=== PATIENT | female | born 1980 | race Caucasian/White ===

== ENCOUNTER 2017-06-08 11:45 | Emergency (ER) | payer OTHER ==
[~2017-06-08] VITALS: Ht 157.5 cm; Wt 46.3 kg
[~2017-06-08 11:45] MED LIST: ALPR0.5T6 PO; CYCL10TA2 PO; HYDR-971 PO; INSU100I11 SQ; INSU100I13 SQ; INSU100I27 SQ; NAPR500T PO; PARO10TA3 PO; SULF1TAB24 PO
[2017-06-08 11:54] VITALS: BP 136/86
[2017-06-08] MEDS ORDERED: CEPH-264 PO (12:14)
--- NOTE | 2017-06-08 12:14 | PHYS DOC ---
Past Medical History Past Medical History: Anxiety, Depression, Diabetes-Type I, Ovarian Cyst, Pancreatitis Past Surgical History: Cholecystectomy, Other Additional Past Surgical Histo: L. OVARY AND FALLOPIAN TUBE Alcohol Use: Rarely Drug Use: None Adult General Chief Complaint Chief Complaint: VAGINAL PROBLEM HPI HPI Patient is a 37 year old female presents the ED for Bartholin gland abscess reevaluation. Abscess drained on Friday. Notes some improvement but not as quick as expected. Denies fever, abdominal pain, headache, n/v, chest pain or shortness of breath. Review of Systems Review of Systems Constitutional: Denies fever or chills [] Eyes: Denies change in visual acuity, redness, or eye pain [] HENT: Denies nasal congestion or sore throat [] Respiratory: Denies cough or shortness of breath [] Cardiovascular: No additional information not addressed in HPI [] GI: Denies abdominal pain, nausea, vomiting, bloody stools or diarrhea [] : Denies dysuria or hematuria [] Musculoskeletal: Denies back pain or joint pain [] Integument: Denies rash or skin lesions [] Neurologic: Denies headache, focal weakness or sensory changes [] Endocrine: Denies polyuria or polydipsia [] Allergies Allergies Allergies Coded Allergies Type Severity Reaction Last Updated Verified meperidine Allergy Intermediate hives 04/24/16 Yes tramadol Allergy Intermediate 04/24/16 Yes Physical Exam Physical Exam Constitutional: Well developed, well nourished, no acute distress, non-toxic appearance. [] HENT: Normocephalic, atraumatic, bilateral external ears normal, oropharynx moist, no oral exudates, nose normal. [] Eyes: PERRLA, EOMI, conjunctiva normal, no discharge. [] Neck: Normal range of motion, no tenderness, supple, no stridor. [] Cardiovascular:Heart rate regular rhythm, no murmur [] Lungs & Thorax: Bilateral breath sounds clear to auscultation [] Abdomen: Bowel sounds normal, soft, no tenderness, no masses, no pulsatile masses. [] EXAM: INCISION OPEN AND HEALING. NO DISCHARGE FROM SITE. NO PACKING PRESENT. (ENGLISH COMPOSITION INSTRUCTOR PRESENT.) Skin: Warm, dry, no erythema, no rash. [] Back: No tenderness, no CVA tenderness. [] Extremities: No tenderness, no cyanosis, no clubbing, ROM intact, no edema. [] Neurologic: Alert and oriented X 3, normal motor function, normal sensory function, no focal deficits noted. [] Psychologic: Affect normal, judgement normal, mood normal. [] Current Patient Data Vital Signs Vital Signs Date Time Temp Pulse Resp B/P (MAP) Pulse Ox O2 Delivery O2 Flow Rate FiO2 06/08/17 11:54 98.7 120 22 136/86 (103) 98 Room Air 98.7 EKG EKG [] Radiology/Procedures Radiology/Procedures [] Course & Med Decision Making Course & Med Decision Making Pertinent Labs and Imaging studies reviewed. (See chart for details) []Incision and drainage site well-appearing. No discharge expressed. Vendor Analyst present. Will add Keflex on to patient's Bactrim regimen. Patient given Zofran to tolerate Bactrim prescription because she says it makes her nauseous. Discussed follow-up for wound reevaluation in 3 days. Provided contact information/education. Discussed reasons to return to the ED. Patient understands and agrees with plan. Dragon Disclaimer Dragon Disclaimer This electronic medical record was generated, in whole or in part, using a voice recognition dictation system. Departure Departure Impression: Primary Impression: Wound check, abscess Disposition: 01 HOME, SELF-CARE Condition: STABLE Referrals: EVANGELINA LAIRD MD (PCP) Patient Instructions: Wound Check Scripts Ondansetron (ZOFRAN ODT) 4 Mg Tab.rapdis 1 TAB SL Q8HRS, #10 TAB Prov: TIMOTHY HESS 06/08/17 Cephalexin (KEFLEX) 500 Mg Capsule 1 CAP PO QID, #28 CAP Prov: TIMOTHY HESS 06/08/17 TIMOTHY HESS Jun 08, 2017 12:14
[2017-06-08] MEDS ORDERED: ONDA4TAB10 SL (12:16)
== END 2017-06-08 12:31 | disposition home or self-care (01) ==
LOC: ER 11:45
DX: Z48.01 Encounter for change or removal of surgical wound dressing (principal); F41.9 Anxiety disorder, unspecified; F32.9 Major depressive disorder, single episode, unspecified; E10.9 Type 1 diabetes mellitus without complications; Z90.49 Acquired absence of other specified parts of digestive tract; Z88.5 Allergy status to narcotic agent; Z88.8 Allergy status to other drugs, medicaments and biological substances
CPT/HCPCS: 99283

== ENCOUNTER → 2018-08-06 | Outpatient (CLI) | payer OTHER ==
[~2018-08-06] MED LIST changes: +CEPH-264 PO; +HYDR-3164 PO; -HYDR-971 PO; +NAPR-683 PO; -NAPR500T PO; +ONDA4TAB10 SL
[2018-08-06 11:16] VITALS: BP 124/82
== END | disposition home or self-care (01) ==
LOC: PMGWNDHBO 13:00
PROVIDERS: ATTEND Emergency Medicine Undersea and Hyperbaric Medicine
DX: M72.6 Necrotizing fasciitis (principal); E10.9 Type 1 diabetes mellitus without complications; F41.9 Anxiety disorder, unspecified; F39 Unspecified mood [affective] disorder; Z90.49 Acquired absence of other specified parts of digestive tract
CPT/HCPCS: 82962

== ENCOUNTER → 2018-09-07 | Outpatient (CLI) | payer MEDICAID ==
[2018-08-31 23:00] VITALS: BP 101/66
[~2018-09-07] MED LIST changes: +FERR325T72 PO; +LEVO100T PO; +Pantoprazole PO
== END | disposition home or self-care (01) ==
LOC: PMGWOUND 11:25
PROVIDERS: ATTEND Nurse Practitioner Family
DX: L02.811 Cutaneous abscess of head [any part, except face] (principal); M72.6 Necrotizing fasciitis; E11.649 Type 2 diabetes mellitus with hypoglycemia without coma; E11.10 Type 2 diabetes mellitus with ketoacidosis without coma; E11.43 Type 2 diabetes mellitus with diabetic autonomic (poly)neuropathy; F41.9 Anxiety disorder, unspecified; F32.9 Major depressive disorder, single episode, unspecified; E03.9 Hypothyroidism, unspecified; K21.9 Gastro-esophageal reflux disease without esophagitis; Z79.4 Long term (current) use of insulin; Z87.891 Personal history of nicotine dependence; Z90.49 Acquired absence of other specified parts of digestive tract; Z85.43 Personal history of malignant neoplasm of ovary
CPT/HCPCS: 97605

== ENCOUNTER → 2018-09-10 | Outpatient (CLI) | payer MEDICAID ==
[2018-08-31 23:00] VITALS: BP 101/66
== END | disposition home or self-care (01) ==
LOC: PMGWOUND 11:23
PROVIDERS: ATTEND Emergency Medicine Undersea and Hyperbaric Medicine
DX: L02.811 Cutaneous abscess of head [any part, except face] (principal); L02.415 Cutaneous abscess of right lower limb; M72.6 Necrotizing fasciitis; E11.649 Type 2 diabetes mellitus with hypoglycemia without coma; E11.10 Type 2 diabetes mellitus with ketoacidosis without coma; E11.43 Type 2 diabetes mellitus with diabetic autonomic (poly)neuropathy; K31.84 Gastroparesis; F41.9 Anxiety disorder, unspecified; F32.9 Major depressive disorder, single episode, unspecified; E03.9 Hypothyroidism, unspecified; K21.9 Gastro-esophageal reflux disease without esophagitis; Z79.4 Long term (current) use of insulin; Z87.891 Personal history of nicotine dependence; Z85.43 Personal history of malignant neoplasm of ovary; Z90.49 Acquired absence of other specified parts of digestive tract
CPT/HCPCS: 10060

== ENCOUNTER → 2018-09-21 | Outpatient (CLI) | payer OTHER ==
[2018-09-18 15:19] VITALS: BP 153/97
[~2018-09-21] MED LIST changes: +AMOX1TAB11 PO; +Fluconazole PO
== END | disposition home or self-care (01) ==
LOC: PMGWOUND 10:53
PROVIDERS: ATTEND Emergency Medicine Undersea and Hyperbaric Medicine
DX: L02.811 Cutaneous abscess of head [any part, except face] (principal); L02.415 Cutaneous abscess of right lower limb; L02.11 Cutaneous abscess of neck; M72.6 Necrotizing fasciitis; E11.649 Type 2 diabetes mellitus with hypoglycemia without coma; E11.10 Type 2 diabetes mellitus with ketoacidosis without coma; E11.43 Type 2 diabetes mellitus with diabetic autonomic (poly)neuropathy; K31.84 Gastroparesis; F41.9 Anxiety disorder, unspecified; F32.9 Major depressive disorder, single episode, unspecified; E03.9 Hypothyroidism, unspecified; K21.9 Gastro-esophageal reflux disease without esophagitis; Z87.891 Personal history of nicotine dependence; Z85.43 Personal history of malignant neoplasm of ovary; Z90.49 Acquired absence of other specified parts of digestive tract; Z88.8 Allergy status to other drugs, medicaments and biological substances; Z79.899 Other long term (current) drug therapy; Z79.4 Long term (current) use of insulin
CPT/HCPCS: 99214; G0463

== ENCOUNTER → 2018-09-23 | Outpatient (CLI) | payer OTHER ==
[2018-09-18 15:19] VITALS: BP 153/97
== END | disposition home or self-care (01) ==
LOC: PMGWOUND 09:29
PROVIDERS: ATTEND Preventive Medicine Undersea and Hyperbaric Medicine
DX: L02.811 Cutaneous abscess of head [any part, except face] (principal); L02.415 Cutaneous abscess of right lower limb; L02.11 Cutaneous abscess of neck; M72.6 Necrotizing fasciitis; E11.649 Type 2 diabetes mellitus with hypoglycemia without coma; E11.10 Type 2 diabetes mellitus with ketoacidosis without coma; E11.43 Type 2 diabetes mellitus with diabetic autonomic (poly)neuropathy; K31.84 Gastroparesis; F41.9 Anxiety disorder, unspecified; F32.9 Major depressive disorder, single episode, unspecified; E03.9 Hypothyroidism, unspecified; Z87.891 Personal history of nicotine dependence; K21.9 Gastro-esophageal reflux disease without esophagitis; Z85.43 Personal history of malignant neoplasm of ovary; Z90.49 Acquired absence of other specified parts of digestive tract; Z88.8 Allergy status to other drugs, medicaments and biological substances; Z79.899 Other long term (current) drug therapy; Z79.4 Long term (current) use of insulin
CPT/HCPCS: 99214; G0463

== ENCOUNTER → 2018-09-25 | Outpatient (CLI) | payer OTHER ==
[2018-09-18 15:19] VITALS: BP 153/97
== END | disposition home or self-care (01) ==
LOC: PMGWOUND 10:03
PROVIDERS: ATTEND Preventive Medicine Undersea and Hyperbaric Medicine
DX: L02.415 Cutaneous abscess of right lower limb (principal); L02.11 Cutaneous abscess of neck; M72.6 Necrotizing fasciitis; E11.43 Type 2 diabetes mellitus with diabetic autonomic (poly)neuropathy; K31.84 Gastroparesis; E11.649 Type 2 diabetes mellitus with hypoglycemia without coma; E11.10 Type 2 diabetes mellitus with ketoacidosis without coma; E11.65 Type 2 diabetes mellitus with hyperglycemia; F41.9 Anxiety disorder, unspecified; E03.9 Hypothyroidism, unspecified; F32.9 Major depressive disorder, single episode, unspecified; K21.9 Gastro-esophageal reflux disease without esophagitis; Z79.4 Long term (current) use of insulin; Z85.43 Personal history of malignant neoplasm of ovary; Z87.891 Personal history of nicotine dependence; Z90.49 Acquired absence of other specified parts of digestive tract
CPT/HCPCS: 99214; G0463

== ENCOUNTER → 2018-09-28 | Outpatient (CLI) | payer OTHER ==
[2018-09-18 15:19] VITALS: BP 153/97
== END | disposition home or self-care (01) ==
LOC: PMGWOUND 11:25
PROVIDERS: ATTEND Emergency Medicine Undersea and Hyperbaric Medicine
DX: L02.415 Cutaneous abscess of right lower limb (principal); L02.11 Cutaneous abscess of neck; M72.6 Necrotizing fasciitis; E11.43 Type 2 diabetes mellitus with diabetic autonomic (poly)neuropathy; K31.84 Gastroparesis; E11.65 Type 2 diabetes mellitus with hyperglycemia; E11.649 Type 2 diabetes mellitus with hypoglycemia without coma; E11.10 Type 2 diabetes mellitus with ketoacidosis without coma; F41.9 Anxiety disorder, unspecified; E03.9 Hypothyroidism, unspecified; F32.9 Major depressive disorder, single episode, unspecified; K21.9 Gastro-esophageal reflux disease without esophagitis; Z79.4 Long term (current) use of insulin; Z85.43 Personal history of malignant neoplasm of ovary; Z87.891 Personal history of nicotine dependence; Z90.49 Acquired absence of other specified parts of digestive tract
CPT/HCPCS: 97597

== ENCOUNTER → 2018-10-01 | Outpatient (CLI) | payer MEDICAID, OTHER ==
[2018-09-18 15:19] VITALS: BP 153/97
== END | disposition home or self-care (01) ==
LOC: PMGWOUND 11:05
PROVIDERS: ATTEND Emergency Medicine Undersea and Hyperbaric Medicine
DX: L02.415 Cutaneous abscess of right lower limb (principal); L02.11 Cutaneous abscess of neck; R19.7 Diarrhea, unspecified; M72.6 Necrotizing fasciitis; E11.65 Type 2 diabetes mellitus with hyperglycemia; E11.649 Type 2 diabetes mellitus with hypoglycemia without coma; E11.10 Type 2 diabetes mellitus with ketoacidosis without coma; E11.43 Type 2 diabetes mellitus with diabetic autonomic (poly)neuropathy; K31.84 Gastroparesis; F41.9 Anxiety disorder, unspecified; E03.9 Hypothyroidism, unspecified; F32.9 Major depressive disorder, single episode, unspecified; K21.9 Gastro-esophageal reflux disease without esophagitis; Z79.4 Long term (current) use of insulin; Z87.891 Personal history of nicotine dependence; Z85.43 Personal history of malignant neoplasm of ovary; Z90.49 Acquired absence of other specified parts of digestive tract
CPT/HCPCS: 36415; 87493; 99214; G0463

== ENCOUNTER → 2018-10-05 | Outpatient (CLI) | payer MEDICAID, OTHER ==
[2018-09-18 15:19] VITALS: BP 153/97
== END | disposition home or self-care (01) ==
LOC: PMGWOUND 11:32
PROVIDERS: ATTEND Emergency Medicine Undersea and Hyperbaric Medicine
DX: L02.11 Cutaneous abscess of neck (principal); L02.415 Cutaneous abscess of right lower limb; R19.7 Diarrhea, unspecified; M72.6 Necrotizing fasciitis; E11.43 Type 2 diabetes mellitus with diabetic autonomic (poly)neuropathy; K31.84 Gastroparesis; E11.65 Type 2 diabetes mellitus with hyperglycemia; E11.649 Type 2 diabetes mellitus with hypoglycemia without coma; E11.10 Type 2 diabetes mellitus with ketoacidosis without coma; F41.9 Anxiety disorder, unspecified; E03.9 Hypothyroidism, unspecified; K21.9 Gastro-esophageal reflux disease without esophagitis; F32.9 Major depressive disorder, single episode, unspecified; Z79.4 Long term (current) use of insulin; Z87.891 Personal history of nicotine dependence; Z85.43 Personal history of malignant neoplasm of ovary; Z90.49 Acquired absence of other specified parts of digestive tract
CPT/HCPCS: 99214; G0463

== ENCOUNTER → 2018-10-08 | Outpatient (CLI) | payer MEDICAID, OTHER ==
[2018-09-18 15:19] VITALS: BP 153/97
== END | disposition home or self-care (01) ==
LOC: PMGWOUND 10:09
PROVIDERS: ATTEND Emergency Medicine Undersea and Hyperbaric Medicine
DX: L02.415 Cutaneous abscess of right lower limb (principal); L02.11 Cutaneous abscess of neck; M72.6 Necrotizing fasciitis; R19.7 Diarrhea, unspecified; E11.43 Type 2 diabetes mellitus with diabetic autonomic (poly)neuropathy; K31.84 Gastroparesis; E11.65 Type 2 diabetes mellitus with hyperglycemia; E11.649 Type 2 diabetes mellitus with hypoglycemia without coma; E11.10 Type 2 diabetes mellitus with ketoacidosis without coma; F41.9 Anxiety disorder, unspecified; E03.9 Hypothyroidism, unspecified; F32.9 Major depressive disorder, single episode, unspecified; K21.9 Gastro-esophageal reflux disease without esophagitis; Z87.891 Personal history of nicotine dependence; Z85.43 Personal history of malignant neoplasm of ovary; Z90.49 Acquired absence of other specified parts of digestive tract
CPT/HCPCS: 99214; G0463

== ENCOUNTER → 2018-10-12 | Outpatient (CLI) | payer MEDICAID, OTHER ==
[2018-09-18 15:19] VITALS: BP 153/97
== END | disposition home or self-care (01) ==
LOC: PMGWOUND 11:51
PROVIDERS: ATTEND Preventive Medicine Undersea and Hyperbaric Medicine
DX: L02.415 Cutaneous abscess of right lower limb (principal); M72.6 Necrotizing fasciitis; R19.7 Diarrhea, unspecified; E11.43 Type 2 diabetes mellitus with diabetic autonomic (poly)neuropathy; K31.84 Gastroparesis; E11.65 Type 2 diabetes mellitus with hyperglycemia; E11.649 Type 2 diabetes mellitus with hypoglycemia without coma; E11.10 Type 2 diabetes mellitus with ketoacidosis without coma; F41.9 Anxiety disorder, unspecified; E03.9 Hypothyroidism, unspecified; F32.9 Major depressive disorder, single episode, unspecified; K21.9 Gastro-esophageal reflux disease without esophagitis; Z87.891 Personal history of nicotine dependence; Z85.43 Personal history of malignant neoplasm of ovary; Z90.49 Acquired absence of other specified parts of digestive tract
CPT/HCPCS: 99214; G0463

== ENCOUNTER → 2018-10-15 | Outpatient (CLI) | payer MEDICAID, OTHER ==
[2018-09-18 15:19] VITALS: BP 153/97
== END | disposition home or self-care (01) ==
LOC: PMGWOUND 09:40
PROVIDERS: ATTEND Emergency Medicine Undersea and Hyperbaric Medicine
DX: L02.415 Cutaneous abscess of right lower limb (principal); R19.7 Diarrhea, unspecified; M72.6 Necrotizing fasciitis; E11.43 Type 2 diabetes mellitus with diabetic autonomic (poly)neuropathy; K31.84 Gastroparesis; E11.65 Type 2 diabetes mellitus with hyperglycemia; E11.649 Type 2 diabetes mellitus with hypoglycemia without coma; E11.10 Type 2 diabetes mellitus with ketoacidosis without coma; F32.9 Major depressive disorder, single episode, unspecified; F41.9 Anxiety disorder, unspecified; E03.9 Hypothyroidism, unspecified; K21.9 Gastro-esophageal reflux disease without esophagitis; Z79.4 Long term (current) use of insulin; Z87.891 Personal history of nicotine dependence; Z85.43 Personal history of malignant neoplasm of ovary; Z90.49 Acquired absence of other specified parts of digestive tract
CPT/HCPCS: 99214; G0463

== ENCOUNTER → 2018-10-19 | Outpatient (CLI) | payer MEDICAID, OTHER ==
[2018-09-18 15:19] VITALS: BP 153/97
== END | disposition home or self-care (01) ==
LOC: PMGWOUND 08:56
PROVIDERS: ATTEND Emergency Medicine Undersea and Hyperbaric Medicine
DX: M72.6 Necrotizing fasciitis (principal); R19.7 Diarrhea, unspecified; E11.43 Type 2 diabetes mellitus with diabetic autonomic (poly)neuropathy; K31.84 Gastroparesis; E11.65 Type 2 diabetes mellitus with hyperglycemia; E11.649 Type 2 diabetes mellitus with hypoglycemia without coma; E11.10 Type 2 diabetes mellitus with ketoacidosis without coma; E03.9 Hypothyroidism, unspecified; F41.9 Anxiety disorder, unspecified; K21.9 Gastro-esophageal reflux disease without esophagitis; F32.9 Major depressive disorder, single episode, unspecified; Z79.4 Long term (current) use of insulin; Z79.899 Other long term (current) drug therapy; Z87.891 Personal history of nicotine dependence; Z85.43 Personal history of malignant neoplasm of ovary; Z90.49 Acquired absence of other specified parts of digestive tract
CPT/HCPCS: 99214; G0463

== ENCOUNTER → 2018-10-22 | Outpatient (CLI) | payer MEDICAID, OTHER ==
[2018-09-18 15:19] VITALS: BP 153/97
== END | disposition home or self-care (01) ==
LOC: PMGWOUND 10:25
PROVIDERS: ATTEND Emergency Medicine Undersea and Hyperbaric Medicine
DX: L02.818 Cutaneous abscess of other sites (principal); M72.6 Necrotizing fasciitis; R19.7 Diarrhea, unspecified; E11.43 Type 2 diabetes mellitus with diabetic autonomic (poly)neuropathy; K31.84 Gastroparesis; E11.65 Type 2 diabetes mellitus with hyperglycemia; E11.649 Type 2 diabetes mellitus with hypoglycemia without coma; E11.10 Type 2 diabetes mellitus with ketoacidosis without coma; F41.9 Anxiety disorder, unspecified; E03.9 Hypothyroidism, unspecified; F32.9 Major depressive disorder, single episode, unspecified; K21.9 Gastro-esophageal reflux disease without esophagitis; Z79.4 Long term (current) use of insulin; Z87.891 Personal history of nicotine dependence; Z79.899 Other long term (current) drug therapy; Z90.721 Acquired absence of ovaries, unilateral; Z90.49 Acquired absence of other specified parts of digestive tract; Z85.43 Personal history of malignant neoplasm of ovary; Z88.8 Allergy status to other drugs, medicaments and biological substances
CPT/HCPCS: 99214; G0463

== ENCOUNTER → 2018-10-26 | Outpatient (CLI) | payer MEDICAID, OTHER ==
[2018-09-18 15:19] VITALS: BP 153/97
== END | disposition home or self-care (01) ==
LOC: PMGWOUND 08:54
PROVIDERS: ATTEND Emergency Medicine Undersea and Hyperbaric Medicine
DX: L02.818 Cutaneous abscess of other sites (principal); E11.65 Type 2 diabetes mellitus with hyperglycemia; E11.649 Type 2 diabetes mellitus with hypoglycemia without coma; E11.10 Type 2 diabetes mellitus with ketoacidosis without coma; E11.43 Type 2 diabetes mellitus with diabetic autonomic (poly)neuropathy; K31.84 Gastroparesis; M72.6 Necrotizing fasciitis; F41.9 Anxiety disorder, unspecified; E03.9 Hypothyroidism, unspecified; F32.9 Major depressive disorder, single episode, unspecified; K21.9 Gastro-esophageal reflux disease without esophagitis; Z79.4 Long term (current) use of insulin; Z90.721 Acquired absence of ovaries, unilateral; Z79.899 Other long term (current) drug therapy; Z87.891 Personal history of nicotine dependence; Z85.43 Personal history of malignant neoplasm of ovary; Z90.49 Acquired absence of other specified parts of digestive tract; Z88.8 Allergy status to other drugs, medicaments and biological substances
CPT/HCPCS: 99214; G0463

== ENCOUNTER → 2018-10-29 | Outpatient (CLI) | payer MEDICAID, OTHER ==
[2018-09-18 15:19] VITALS: BP 153/97
== END | disposition home or self-care (01) ==
LOC: PMGWOUND 09:55
PROVIDERS: ATTEND Emergency Medicine Undersea and Hyperbaric Medicine
DX: L02.818 Cutaneous abscess of other sites (principal); R19.7 Diarrhea, unspecified; M72.6 Necrotizing fasciitis; E11.43 Type 2 diabetes mellitus with diabetic autonomic (poly)neuropathy; K31.84 Gastroparesis; E11.65 Type 2 diabetes mellitus with hyperglycemia; E11.649 Type 2 diabetes mellitus with hypoglycemia without coma; E11.10 Type 2 diabetes mellitus with ketoacidosis without coma; F41.9 Anxiety disorder, unspecified; E03.9 Hypothyroidism, unspecified; K21.9 Gastro-esophageal reflux disease without esophagitis; F32.9 Major depressive disorder, single episode, unspecified; Z79.4 Long term (current) use of insulin; Z90.721 Acquired absence of ovaries, unilateral; Z79.899 Other long term (current) drug therapy; Z87.891 Personal history of nicotine dependence; Z85.43 Personal history of malignant neoplasm of ovary; Z90.49 Acquired absence of other specified parts of digestive tract; Z88.8 Allergy status to other drugs, medicaments and biological substances
CPT/HCPCS: 99214; G0463

== ENCOUNTER → 2019-03-09 | Outpatient (CLI) | payer MEDICAID ==
[2018-09-18 15:19] VITALS: BP 153/97
--- NOTE | 2019-03-09 14:57 | KCIC ---
EXAM: Neck sonogram. HISTORY: Lymphadenopathy. TECHNIQUE: Sonographic imaging of the neck was performed. COMPARISON: None. FINDINGS: There are prominent posterior right cervical chain lymph nodes with thickened cortices. The largest of these measures 2.8 cm in long axis within the mid posterior cervical chain. No contralateral cervical lymphadenopathy is seen. IMPRESSION: Prominent posterior right cervical chain lymph nodes, the largest of which measures 2.8 cm in long axis with a thickened cortex. These are nonspecific and may be reactive in etiology. The largest lymph node is amenable to sonographic guided biopsy is deemed indicated based on clinical suspicion. Electronically signed by: Jennifer Giraldo MD (03/09/2019 2:54 PM) [facility]
== END | disposition home or self-care (01) ==
LOC: KCIC US 10:46
PROVIDERS: ATTEND Physician Assistant Medical
DX: R59.0 Localized enlarged lymph nodes (principal)
CPT/HCPCS: 76536

== ENCOUNTER 2019-03-26 06:57 | Outpatient (CLI) | payer MEDICAID ==
[~2019-03-26] VITALS: Ht 154.9 cm; Wt 49.4 kg
[2019-03-26] VITALS (10 sets, daily range): BP systolic 103–166; BP diastolic 68–101
[2019-03-26] MEDS ORDERED: LISI-130 PO (07:46)
[2019-03-26] MEDS ORDERED: LIDOCAINE WITH 8.4% SOD BICARB 3 ML DISP.SYRIN. ONE (08:28)
[2019-03-26] MEDS ORDERED: MIDAZOLAM HCL/PF 2 MG/2 ML VIAL. ONE (08:28)
[2019-03-26] MEDS ORDERED: fentaNYL PF VIAL 100 MCG/2 ML VIAL ONE (08:29)
[2019-03-26] MEDS ORDERED: fentaNYL PF VIAL 100 MCG/2 ML VIAL IV ONE (09:00)
[2019-03-26] MEDS ORDERED: MIDAZOLAM HCL/PF 2 MG/2 ML VIAL. IV ONE (09:00)
[2019-03-26] MEDS ORDERED: LIDOCAINE WITH 8.4% SOD BICARB 3 ML DISP.SYRIN. INJ ONE (09:00)
--- NOTE | 2019-03-26 10:18 | NUR ---
Discharge Note: KAYCEE TOLEDO Discharge instructions and discharge home medications reviewed with Patient and a copy given. All questions have been answered and understanding verbalized. The following instructions and handouts were given: moderate sedation and post biopsy care Discontinued lines and drains: Peripheral IV intact. Patient discharged to Home or Self Care withFamily Membervia Ambulated
--- NOTE | 2019-03-30 08:09 | RAD ---
Ultrasound-guided biopsy, right cervical lymphadenopathy 03/26/2019 Indication: 39-year-old female with abnormal right cervical lymph node Discussion: Consent: The procedure was explained in its entirety to the patient or the patients designated franchise sales representative by a member of the treatment team, including a discussion of the risks, benefits and commonly accepted alternatives to the procedure, as well as the expected consequences of no therapy whatsoever. Discussion of the risks included, but was not limited to, those that are most frequent and those that are rare but possibly severe or life-threatening, as well as the possibility of unforeseen complications. Ultrasound evaluation of the right neck demonstrates a mildly abnormal right cervical lymph node measuring 2.3 cm in long axis by approximately 0.6 cm in short axis. This lymph node was targeted for biopsy. The overlying skin was prepped and draped using sterile barrier technique. 1% lidocaine was administered the overlying skin. Multiple passes through the lymph node were made using a Franseen needle. Samples were divided amongst formalin and her PMI fluid. Manual pressure was held. Sterile dressings were applied. The procedure was performed under conscious sedation including continuous cardiopulmonary monitoring via dedicated sedation nurse. [id number] sedation time 20 minutes. Impression: Ultrasound-guided biopsy, right cervical lymph node
== END 2019-03-26 10:05 | disposition home or self-care (01) ==
LOC: INTRAD 06:57
PROVIDERS: ATTEND Family Medicine
DX: R59.1 Generalized enlarged lymph nodes (principal)
CPT/HCPCS: 38505; 76942; 88184; 88185; 99152; J2250; J3010

== ENCOUNTER → 2020-10-06 | Outpatient (CLI) | payer MEDICAID ==
[2019-04-12 10:50] VITALS: BP 148/92
[~2020-10-06] MED LIST changes: +LEVO-101 PO; -LEVO100T PO; +LISI-130 PO
--- NOTE | 2020-10-06 16:22 | RAD ---
US ABDOMEN COMPLETE History: Reason: Pancreatitis / Spl. Instructions: / History: Comparison: CT abdomen and pelvis 08/04/2018. Technique: Sonographic examination of the abdomen. Findings: Liver: The liver measures 12.5 cm. Liver echotexture is normal. No focal hepatic lesions. Hepatopet al flow in the portal vein. Gallbladder: Surgically absent. Bile ducts: The common duct measures 5 mm. Pancreas: Heterogeneous calcified pancreas creates shadowing and Doppler twinkle artifact. Spleen: 8.3 cm. Normal size. Punctate echogenic calcifications. Right kidney: 7.4 cm in length. No focal lesion, calculi or hydronephrosis. Left kidney: 9.3 cm in length. No focal lesion, calculi or hydronephrosis. Aorta/IVC: Visualized portions are unremarkable. Other: Right pleural effusion and abdominal ascites are noted Impression: 1. Atrophic calcified pancreas consistent with chronic pancreatitis. 2. Abdominal ascites and right pleural effusion. Electronically signed by: Hansel Huntley MD (10/06/2020 4:20 PM) [facility]
== END ==
LOC: US 09:45
PROVIDERS: ATTEND Family Medicine
DX: K86.1 Other chronic pancreatitis (principal); R18.8 Other ascites; J90 Pleural effusion, not elsewhere classified; Z90.49 Acquired absence of other specified parts of digestive tract
CPT/HCPCS: 76700

== ENCOUNTER → 2020-11-28 | Outpatient (CLI) | payer MEDICAID ==
[2019-04-12 10:50] VITALS: BP 148/92
--- NOTE | 2020-11-28 16:40 | RAD ---
EXAM: Bilateral lower extremity arterial Doppler sonogram. HISTORY: Claudication. Peripheral vascular disease. Atherosclerosis. TECHNIQUE: Jain scale and color Doppler sonographic imaging of the lower extremity arteries with spec tral waveform analysis was performed. COMPARISON: None. FINDINGS: There are biphasic and triphasic waveforms throughout the lower extremity arteries. There a re elevated peak systolic velocities within the proximal and mid right superficial femoral artery, me asuring 162 cm/s and 155 cm/s. The remainder of the bilateral lower extremity peak systolic velocitie s are normal. IMPRESSION: 1. Doppler findings suggesting mild stenosis involving the right proximal and mid superficial femoral artery. 2. No additional evidence of hemodynamically significant stenosis or arterial occlusion. Electronically signed by: Jennifer Giraldo MD (11/28/2020 4:37 PM) [id number]
== END ==
LOC: US 15:50
PROVIDERS: ATTEND Family Medicine
DX: I70.203 Unspecified atherosclerosis of native arteries of extremities, bilateral legs (principal)
CPT/HCPCS: 93925

== ENCOUNTER 2020-12-02 00:58 | Inpatient (IN) | payer MEDICAID ==
[2020-12-02] VITALS (35 sets, daily range): BP systolic 47–182; BP diastolic 38–107
[~2020-12-02] VITALS: Ht 154.9 cm; Wt 52.2 kg
--- NOTE | 2020-12-02 02:06 | PHYS DOC ---
Past Medical History Past Medical History: Anxiety, Depression, Diabetes-Type I, Ovarian Cyst, Pancreatitis Past Surgical History: Cholecystectomy, Other Additional Past Surgical Histo: L. OVARY AND FALLOPIAN TUBE, cataract surgery to L eye Smoking Status: Current Every Day Smoker Additional Information: 0.5ppd Alcohol Use: None Drug Use: None General Adult EDM: Chief Complaint: MULTIPLE COMPLAINTS HPI: HPI: Patient is a 40 year old female who presents to the emergency department with neck and back pain. Patient states that the pain is achy 10 out of 10 pain that has been here for 1 day and does not recall any trauma. She says that the pain does not radiate and she has no numbness or tingling. She has no complaints of nausea, vomiting, diarrhea, fever, or chills. She does state that she has no other complaints neck and back pain. Review of Systems: Review of Systems: Review of systems: Constitutional symptoms- No fever, no chills. Eyes- No Discharge, No Visual Loss Respiratory symptoms- No shortness of breath, No wheezing, No Dyspnea on Exertion Cardiovascular Systems; No chest pain, No Palpitations, No syncope Gastrointestinal symptoms: NO abdominal pain, no nausea, no vomiting or diarrhea. Genitourinary symptoms: No dysuria. Musculoskeletal symptoms: Positive neck and back pain No extremity pain. NEUROLOGICAL Symptoms: No headache, no generalized weakness; No focal Weakness Heart Score: C/O Chest Pain: N/A Risk Factors: Risk Factors: DM, Current or recent (<one month) smoker, HTN, HLP, family history of CAD, obesity. Risk Scores: Score 0 - 3: 2.5% MACE over next 6 weeks - Discharge Home Score 4 - 6: 20.3% MACE over next 6 weeks - Admit for Clinical Observation Score 7 - 10: 72.7% MACE over next 6 weeks - Early Invasive Strategies Allergies: Allergies: Allergies Coded Allergies Type Severity Reaction Last Updated Verified meperidine Allergy Intermediate hives 09/10/18 Yes tramadol Allergy Intermediate 09/10/18 Yes Physical Exam: PE: General: alert, Skin: warm, dry and intact, nodules on posterior neck with some scar tissue no erythema. Head:: Normocephalic, atraumatic. Neck: Trachea midline. Eyes: EOMI, Normal conjunctiva, No drainage CARDIOVASCULAR: Regular rate and rhythm RESPIRATORY: No respiratory distress, decreased breath sounds bases Back: Full range of motion. MUSCULOSKELETAL: Full range of motion of bilateral upper and lower extremities. GASTROINTESTINAL: Abdomen soft without rebound or guarding. NEUROLOGICAL: Alert and noted to person, place and time. No neurological deficits observed Current Patient Data: Labs: Laboratory Tests Test 12/02/20 01:29 Glucose (Fingerstick) 134 mg/dL (70-99) H Vital Signs: Vital Signs Date Time Temp Pulse Resp B/P (MAP) Pulse Ox O2 Delivery O2 Flow Rate FiO2 12/02/20 01:10 97.7 88 16 126/70 (88) 93 Room Air 97.7 EKG: EKG: [] Radiology/Procedures: Radiology/Procedures: [] Impression: Impression: Extensive airspace infiltrates bilaterally mainly at the lower two thirds of the lungs. Small to moderate pleural effusion on the right. Congestive heart failure/volume overload is possible given relative subpleural sparing on the left and the provided history of "pain" however the cardiomediastinal silhouette is relatively normal in size. In the appropriate clinical setting multifocal pneumonia with a parapneumonic effusion should be considered. Follow-up is needed to confirm resolution. Course & Med Decision Making: Course & Med Decision Making Pertinent Labs and Imaging studies reviewed. (See chart for details) []Patient evaluated for chief complaint. Only complaint of neck and back pain. Patient denies fever chills shortness of breath or chest pain. CXR--lateral infiltrates congestive heart failure fluid overloaded versus multifocal pneumonia with parapneumonic effusion. BNP greater than 20,000 Lactic acid and blood cultures obtained. Treatment included Lasix and Zosyn. Patient admitted to Dr Laird. 0630hrs abd ph 7.08 CO2 36.7 Bicarb ordered Dragon Disclaimer: Genoon Disclaimer: This electronic medical record was generated, in whole or in part, using a voice recognition dictation system. Departure Departure Impression: Primary Impression: Acute renal failure Additional Impressions: Elevated brain natriuretic peptide (BNP) level Neck pain Back pain Pneumonia Electrolyte abnormality Disposition: ADMITTED INPATIENT Admitting Physician: Evangelina Laird Referrals: EVANGELINA LAIRD MD (PCP) SHELLY BOLDEN DO Dec 02, 2020 02:06
[2020-12-02] MEDS ORDERED: KETOROLAC 30 MG/ML VIAL. ONE (02:10)
[2020-12-02] MEDS ORDERED: KETOROLAC 30 MG/ML VIAL. IVP ONE (02:30)
[2020-12-02 03:08] LABS: BASO # 0.1 x10^3/uL (0.0-0.2); BASO % 1 % (0-3); EOS # 0.1 x10^3/uL (0.0-0.7); EOS % 1 % (0-3); HEMATOCRIT 25.7 % (36.0-47.0); LYMPH # 1.2 x10^3/uL (1.0-4.8); LYMPH % 9 % (24-48); MEAN CORPUSCULAR HEMOGLOBIN 29 pg (25-35); MEAN CORPUSCULAR HGB CONC 31 g/dL (31-37); MEAN CORPUSCULAR VOLUME 91 fL (79-100); MONO # 0.2 x10^3/uL (0.0-1.1); MONO % 2 % (0-9); NEUT # 11.5 x10^3/uL (1.8-7.7); NEUT % 87 % (31-73); PLATELET COUNT 176 x10^3/uL (140-400); RED BLOOD COUNT 2.82 x10^6/uL (3.50-5.40); RED CELL DISTRIBUTION WIDTH 16.2 % (11.5-14.5); WHITE BLOOD COUNT 13.2 x10^3/uL (4.0-11.0)
[2020-12-02 03:20] LABS: CALCIUM 7.7 mg/dL (8.5-10.1); CREATININE 2.5 mg/dL (0.6-1.0); GFR 21.6; POTASSIUM 3.9 mmol/L (3.5-5.1)
[2020-12-02 03:27] LABS: ALBUMIN 1.2 g/dL (3.4-5.0); ALBUMIN/GLOBULIN RATIO 0.4 (1.0-1.7); TOTAL BILIRUBIN 0.2 mg/dL (0.2-1.0); TOTAL PROTEIN 4.5 g/dL (6.4-8.2)
[2020-12-02] MEDS ORDERED: MORPHINE SULFATE 2 MG/ML VIAL. ONE (03:40)
[2020-12-02] MEDS ORDERED: MORPHINE SULFATE 2 MG/ML VIAL. IV ONE (03:45)
[2020-12-02] MEDS ORDERED: IV NORMAL SALINE 1000ML BAG 1,000 ML IV ONE (03:45)
--- NOTE | 2020-12-02 04:13 | RAD ---
Study: XR CHEST 1V Indication: Pain. Comparison: 08/20/2018 Findings: The cardiomediastinal silhouette is within normal limits for size given AP technique. Multifocal airspace opacities mainly localizing to the lower two thirds of both lungs. Small to moder ate pleural effusion on the right. No apparent pleural effusion on the left. No pneumothorax. Impression: Extensive airspace infiltrates bilaterally mainly at the lower two thirds of the lungs. Small to mode rate pleural effusion on the right. Congestive heart failure/volume overload is possible given relati ve subpleural sparing on the left and the provided history of "pain" however the cardiomediastinal si lhouette is relatively normal in size. In the appropriate clinical setting multifocal pneumonia with a parapneumonic effusion should be considered. Follow-up is needed to confirm resolution. Electronically signed by: DEVAN HER MD (12/02/2020 4:10 AM) [facility]
[2020-12-02] MEDS ORDERED: MORPHINE SULFATE 4 MG/ML VIAL. ONE (04:16)
[2020-12-02] MEDS ORDERED: MORPHINE SULFATE 4 MG/ML VIAL. IV ONE (04:30)
[2020-12-02 04:34] LABS: % BANDS 32 % (0-9); % LYMPHS 10 % (24-48); % METAS 1 % (0-0); % MONOS 2 % (0-10); % SEGS 55 % (35-66); PLT ESTIMATE ADEQUATE (ADEQUATE)
[2020-12-02] MEDS ORDERED: PIPERACILLIN/TAZOBACTAM 4.5 GM in IV NORMAL SALINE 100ML 100 ML IV ONE (05:00)
[2020-12-02] MEDS ORDERED: MORPHINE SULFATE 4 MG/ML VIAL. IV PRN (05:00)
[2020-12-02] MEDS ORDERED: ONDANSETRON PF 4 MG/2 ML VIAL. IV PRN (05:00)
[2020-12-02 05:28] LABS: INFLUENZA A PATIENT NEGATIVE (NEGATIVE); INFLUENZA B PATIENT NEGATIVE (NEGATIVE)
[2020-12-02] MEDS: FUROSEMIDE 20 MG/2 ML VIAL. IVP ONE ×2 (05:55→09:58)
[2020-12-02 06:04] LABS: BASE EXCESS ABG -18 mmol/L (-3-3); HCO3 ABG 11 mmol/L (21-28); PCO2 ABG 37 mmHg (35-46); PO2 ABG 82 mmHg (85-108); SAT O2 ABG 93 % (92-99)
[2020-12-02 06:08] LABS: FIO2 ABG 21
[2020-12-02] MEDS ORDERED: SODIUM BICARB ADULT 8.4% 50 MEQ/50 ML DISP.SYRIN. IV ONE ×2 (07:00→09:45)
[2020-12-02] MEDS ORDERED: SODIUM BICARBONATE VIAL 50 MEQ in IV 1/2 NORMAL SALINE 1,000 ML IV ONE (07:00)
[2020-12-02] MEDS ORDERED: DEXTROSE 50% 25 GM / 50ML DISP.SYRIN. IV ONE ×3 (08:45→11:30)
[2020-12-02 09:06] LABS: BASE EXCESS ABG -18 mmol/L (-3-3); HCO3 ABG 13 mmol/L (21-28); PCO2 ABG 57 mmHg (35-46); PO2 ABG 70 mmHg (85-108); SAT O2 ABG 88 % (92-99)
[2020-12-02] MEDS ORDERED: NOREPINEPHRINE VIAL 8 MG in IV DEXTROSE 5% 250 ML IV PRN (09:15)
[2020-12-02] MEDS ORDERED: ETOMIDATE 20 MG/10 ML VIAL. IV ONE ×2 (09:17→09:45)
[2020-12-02] MEDS ORDERED: SUCCINYLCHOLINE 200 MG/10 ML VIAL. ONE (09:18)
--- NOTE | 2020-12-02 09:23 | PDOC2 ---
CARDIOLOGY CONSULT NOTE DATE OF SERVICE: DATE: 12/02/20 TIME: 09:14 CHIEF COMPLAINT: Shortness of air. HPI: 40 y.o woman who presents to the hospital for shortness of air. She was seen in the ER and found to have significant renal failure, heart failure and metabolic derangement and was admitted. On the floor she had worsening mental status changes with breathing difficulty and hypotension. Overall, consistent with a septic shock picture with possible PNA. Covid PUI currently. She has been having worsening CKD over last few months per PCP. She has not been able to care for her self. Currently she is obtunded and minimally responsive. PMHX: DM2 HTN Dyslipidemia CKD SOCHX: Lives with mom and dad. Otherwise, information is unavailable. FAMHX: NC CURRENT MEDS: Current Medications Medications (Trade) Dose Ordered Sig/Adams Route PRN Reason Start Time Stop Time Status Last Admin Dose Admin Ketorolac Tromethamine (Toradol 30mg Vial) 30 mg 1X ONCE IVP 12/02/20 02:30 12/02/20 02:31 DC 12/02/20 02:21 Morphine Sulfate (Morphine Sulfate) 2 mg 1X ONCE IV 12/02/20 03:45 12/02/20 03:46 DC 12/02/20 03:42 Sodium Chloride 1,000 ml @ 100 mls/hr 1X ONCE IV 12/02/20 03:45 12/02/20 13:44 12/02/20 03:44 Morphine Sulfate (Morphine Sulfate) 4 mg 1X ONCE IV 12/02/20 04:30 12/02/20 04:31 DC 12/02/20 04:22 Piperacillin Sod/ Tazobactam Sod 4.5 gm/Sodium Chloride 100 ml @ 200 mls/hr 1X ONCE IV 12/02/20 05:00 12/02/20 05:29 DC 12/02/20 04:57 Morphine Sulfate (Morphine Sulfate) 4 mg PRN Q2HR PRN IV SEVERE PAIN 7-10 12/02/20 05:00 12/03/20 04:59 12/02/20 06:27 Sodium Bicarbonate (Sodium Bicarb Adult 8.4% Syr) 50 meq 1X ONCE IV 12/02/20 07:00 12/02/20 07:01 DC 12/02/20 06:27 ALLERGIES: Allergies Coded Allergies Type Severity Reaction Last Updated Verified meperidine Allergy Intermediate hives 09/10/18 Yes tramadol Allergy Intermediate 09/10/18 Yes ROS: Unable to be obtained PHYSICAL EXAM: Vital Signs/I&O: Vital Signs Date Time Temp Pulse Resp B/P (MAP) Pulse Ox O2 Delivery O2 Flow Rate FiO2 12/02/20 09:10 86 Nasal Cannula 15.0 12/02/20 06:27 71 20 86/59 (68) 12/02/20 01:10 97.7 97.7 I & O 12/01/20 12/01/20 12/02/20 15:00 23:00 07:00 Intake Total 100 ml Balance 100 ml Physical Exam: Somnolent, minimally responsive to verbal stimuli. Distant heart tones. Regular Anasarca Bilateral rales Distended abdomen 2+ LE edema. Non-focal neuro exam. DIAGNOSTIC TESTING: Labs, CXR reviewed. ASSESSMENT: 1. Probable Septic shock with PNA 2. Probable underlying cardiomyopathy - 3. Acute renal failure PLAN: 1. Start vasopressors 2. Start iv diuretics 3. Plan for intubation for airway protection with pH of 6.9, HCO3 12 on ABG 4. Check echo 5. Renal consult for HD if acidosis does not improve. Discussed with Dr. Vivar and nursing staff. Supportive care. Poor prognosis. Will follow along. JONO CARDOZO MD Dec 02, 2020 09:23
[2020-12-02] MEDS ORDERED: ROCURONIUM 50 MG/5 ML VIAL. ONE (09:27)
--- NOTE | 2020-12-02 09:35 | NUR ---
The patient, KAYCEE TOLEDO, 40 y/o, F admitted by EVANGELINA LAIRD MD, was given written information regarding hospital policies, unit procedures and contact persons. Upon admission to the 2nd floor patient A&Ox4 but very lethargic. BP soft, O2 oxygen requirements increasing, temperature too low to read. Bear hugger placed. Phoned Dr. Laird, ICU charge [place] who both responded at bedside. ABG orders, patient transferred to ICU. Family phoned and notified. Valuables were checked. 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 All valuables transferred with patient to the ICU. Room 114.
[2020-12-02] MEDS ORDERED: ROCURONIUM 50 MG/5 ML VIAL. IV ONE (09:45)
[2020-12-02] MEDS ORDERED: FUROSEMIDE 40 MG/4 ML VIAL. IVP ONE (09:45)
[2020-12-02 09:54] LABS: FIO2 ABG 15L N.C.
--- NOTE | 2020-12-02 10:04 | NUR ---
Called to room 254 to check on pt at 0830. Pt is very lethargic, will open eyes briefly. Respiratory status is agonal in nature. Lungs are with coarse crackles throughout. Unable to get a temperature on pt, abg obtained. Dr. Allred and Dr. Vivar at pts bedside, see orders for further details. Pt transferred to ICU to room 114 at 0900. Pt intubated at 0933, temp sensing [place] placed and pts temp is 88.4, buddy hugger applied.
[2020-12-02] MEDS ORDERED: LIDOCAINE WITH 8.4% SOD BICARB 3 ML DISP.SYRIN. ONE (10:38)
[2020-12-02 11:11] LABS: BILIRUBIN,URINE NEGATIVE (NEG); CLARITY,URINE CLEAR; COLOR,URINE YELLOW; NITRITE,URINE NEGATIVE (NEG); PROTEIN,URINE 100 mg/dL (NEG-TRACE); UROBILINOGEN,URINE 0.2 mg/dL (0.2 mg/dL)
--- NOTE | 2020-12-02 11:13 | RAD ---
XR CHEST 1V Clinical Indication: Reason: vent, come to 114 Comparison: AP chest, earlier same day. Findings: Interval placement of endotracheal tube, tip is 2.7 cm superior to the dylan. Enteric tube tip is in the stomach. The cardiomediastinal silhouette is stable. There is moderate right pleural effusion, r edistributed due to supine positioning. Bilateral diffuse airspace opacities are unchanged. Considera tions include pneumonia including atypical/viral pneumonitis, pulmonary edema, or ARDS. No pneumothor ax. Bones appear stable. IMPRESSION: 1. Appropriate position of tubes and lines. 2. Bilateral infiltrates are unchanged. 3. Moderate right pleural effusion. Electronically signed by: Jacobo Bourne MD (12/02/2020 11:10 AM) [id number]
[2020-12-02 11:18] LABS: BARBITURATES NEG (NEG); BENZODIAZEPINES POS (NEG); CANNABINOIDS POS (NEG); COCAINE NEG (NEG); METHADONE NEG (NEG); OPIATES POS (NEG); PHENCYCLIDINE NEG (NEG); U PREG PATIENT NEGATIVE (NEG)
[2020-12-02 11:20] LABS: AMPHETAMINE/METHAMPHETAMINE NEG (NEG)
[2020-12-02] MEDS: MIDAZOLAM 100mg/100ml NS BAG 100 ML IV PRN (11:21)
[2020-12-02] MEDS ORDERED: PIP/TAZO PER PHARMACY MC PRN (11:30)
[2020-12-02] MEDS ORDERED: VANCOMYCIN PER PHARMACY MC PRN (11:30)
--- NOTE | 2020-12-02 11:34 | PDOC ---
BRIEF OPERATIVE NOTE Pre-Op Diagnosis respiratory failure Post-Op Diagnosis same Procedure Performed Central line and temp HD Catheter Surgeon Franca EBL minimal Anesthesia Type: Local Specimens Obtained none Findings Right IJ Temp HD catheter and central line both with good function. Suitable for use once CXR is cleared. Complications no immediate TIMOTHY BRYANT MD Dec 02, 2020 11:34
--- NOTE | 2020-12-02 11:41 | PDOC2 ---
CONSULT Date of Consult Date of Consult DATE: 12/02/20 TIME: 11:28 Reason for Consult Reason for Consult: JOSE RAUL Referring Physician Referring Physician: EITAN Identification/Chief Complaint Chief Complaint NECK AND BACK PAIN Source Source: Chart review History of Present Illness Reason for Visit: THIS IS 40 YR OLD WITH NECK AND BACK PAIN, NO TRAUMA REPORTED. ENCEPHALOPATHIC AND SOB WITH SOME HYPOTENSION WELL. ABG PH OF 7.08 THEN 6.98 WITH MET AND RESP ACIDOSIS AND ACIDEMIA NOW. PT HAS BEEN MOVED TO THE ICU AND INTUBATED. SHE HAS TYPE I DM. BG IS WNL. NO UA DONE YET. UCG NEG. MILD LEUCOCYTOSIS NOTED. HAS BEEN HAVING PROGESSIVE LE EDEMA FOR SOME TIME NOW PER ATTENDING. FELT TO HAVE PROTEINURIA AND CKD BUT BASELINE CR IS NOT KNOW. NO OTHER HX REPORTED. CR OF 2.5 WITH AN AG MET ACIDOSIS NOTED. PER ATTENDING HER CR HAS BEEN INCREASING LATELY. HER BNP IS SIGNIFICANTLY ELEVATED. TOXICOLOGY ON ADMIT POS FOR CANNABINOID, OPIATES AND BENZODIAZEPINES. LACTIC ACID IS WNL. Past Medical History Cardiovascular: No pertinent hx Pulmonary: No pertinent hx GI: No pertinent hx, Other Psych: Anxiety, Depression Infectious disease: Other Renal/: Chronic renal insuff, Other Endocrine: Diabetes Past Surgical History Past Surgical History: Cholecystectomy, Other Family History Family History: No Significant Social History ALCOHOL: none Current Problem List Problem List Problems Medical Problems: (1) Acute renal failure Status: Acute (2) Back pain Status: Acute (3) Electrolyte abnormality Status: Acute (4) Elevated brain natriuretic peptide (BNP) level Status: Acute (5) Neck pain Status: Acute (6) Pneumonia Status: Acute Current Medications Current Medications Current Medications Ketorolac Tromethamine (Toradol 30mg Vial) 30 mg 1X ONCE IVP Last administered on 12/02/20at 02:21; Start 12/02/20 at 02:30; Stop 12/02/20 at 02:31; Status DC Ketorolac Tromethamine (Toradol 30mg Vial) 30 mg STK-MED ONCE .ROUTE ; Start 12/02/20 at 02:10; Stop 12/02/20 at 02:10; Status DC Morphine Sulfate (Morphine Sulfate) 2 mg 1X ONCE IV Last administered on 12/02/20at 03:42; Start 12/02/20 at 03:45; Stop 12/02/20 at 03:46; Status DC Sodium Chloride 1,000 ml @ 100 mls/hr 1X ONCE IV Last administered on 12/02at 03:44; Start 12/02/20 at 03:45; Stop 12/02/20 at 13:44 Morphine Sulfate (Morphine Sulfate) 2 mg STK-MED ONCE .ROUTE ; Start 12/02/20 at 03:40; Stop 12/02/20 at 03:40; Status DC Morphine Sulfate (Morphine Sulfate) 4 mg 1X ONCE IV Last administered on 12/02/20at 04:22; Start 12/02/20 at 04:30; Stop 12/02/20 at 04:31; Status DC Morphine Sulfate (Morphine Sulfate) 4 mg STK-MED ONCE .ROUTE ; Start 12/02/20 at 04:16; Stop 12/02/20 at 04:16; Status DC Piperacillin Sod/ Tazobactam Sod 4.5 gm/Sodium Chloride 100 ml @ 200 mls/hr 1X ONCE IV Last administered on 12/02/20at 04:57; Start 12/02/20 at 05:00; Stop 12/02/20 at 05:29; Status DC Furosemide (Lasix) 20 mg 1X ONCE IVP ; Start 12/02/20 at 05:30; Stop 12/02/20 at 05:31; Status DC Ondansetron HCl (Zofran) 4 mg PRN Q8HRS PRN IV NAUSEA/VOMITING 1ST CHOICE; Start 12/02/20 at 05:00; Stop 12/03/20 at 04:59 Morphine Sulfate (Morphine Sulfate) 4 mg PRN Q2HR PRN IV SEVERE PAIN 7-10 Last administered on 12/02/20at 06:27; Start 12/02/20 at 05:00; Stop 12/03/20 at 04:59 Sodium Bicarbonate (Sodium Bicarb Adult 8.4% Syr) 50 meq 1X ONCE IV Last administered on 12/02/20at 06:27; Start 12/02/20 at 07:00; Stop 12/02/20 at 07:01; Status DC Sodium Bicarbonate 50 meq/Sodium Chloride 1,050 ml @ 125 mls/hr 1X ONCE IV ; Start 12/02/20 at 07:00; Stop 12/02/20 at 15:23 Dextrose (Dextrose 50%-Water Syringe) 25 gm STK-MED ONCE IV ; Start 12/02/20 at 08:45; Stop 12/02/20 at 08:46; Status DC Etomidate (Amidate) 20 mg STK-MED ONCE IV ; Start 12/02/20 at 09:17; Stop 12/02/20 at 09:17; Status DC Succinylcholine Chloride (Anectine) 200 mg STK-MED ONCE .ROUTE ; Start 12/02/20 at 09:18; Stop 12/02/20 at 09:18; Status DC Norepinephrine Bitartrate 8 mg/ Dextrose 258 ml @ 8.708 mls/ hr CONT PRN IV PER PROTOCOL; Start 12/02/20 at 09:15 Dopamine HCl/ Dextrose 250 ml @ 8.438 mls/ hr CONT PRN IV SEE I/O RECORD; Start 12/02/20 at 09:15 Fentanyl Citrate 30 ml @ 0 mls/hr CONT PRN IV SEE PROTOCOL Last administered on 12/02/20at 10:59; Start 12/02/20 at 09:15 Chlorhexidine Gluconate (Peridex) 15 ml BID MM ; Start 12/02/20 at 21:00 Midazolam HCl 100 ml @ 0 mls/hr CONT PRN IV SEE PROTOCOL Last administered on 12/02/20at 11:21; Start 12/02/20 at 09:15 Furosemide (Lasix) 40 mg 1X ONCE IVP Last administered on 12/02/20at 09:54; Start 12/02/20 at 09:45; Stop 12/02/20 at 09:46; Status DC Sodium Bicarbonate (Sodium Bicarb Adult 8.4% Syr) 100 meq 1X ONCE IV Last administered on 12/02/20at 09:52; Start 12/02/20 at 09:45; Stop 12/02/20 at 09:46; Status DC Rocuronium [place] (Zemuron) 50 mg STK-MED ONCE .ROUTE ; Start 12/02/20 at 09:27; Stop 12/02/20 at 09:28; Status DC Rocuronium [place] (Zemuron) 50 mg 1X ONCE IV Last administered on 12/02/20at 09:52; Start 12/02/20 at 09:45; Stop 12/02/20 at 10:07; Status DC Etomidate (Amidate) 10 mg 1X ONCE IV Last administered on 12/02/20at 09:52; Start 12/02/20 at 09:45; Stop 12/02/20 at 10:07; Status DC Lidocaine HCl (Buffered Lidocaine 1%) 3 ml STK-MED ONCE .ROUTE ; Start 12/02/20 at 10:38; Stop 12/02/20 at 10:38; Status DC Dextrose (Dextrose 50%-Water Syringe) 25 gm 1X ONCE IV ; Start 12/02/20 at 11:30; Stop 12/02/20 at 11:31 Active Scripts Active Synthroid (Levothyroxine Sodium) 100 Mcg Tablet 100 Mcg PO DAILY06 30 Days [Pantoprazole] 40 MG Tablet.dr 40 Mg PO BIDAC 90 Days Feosol (Ferrous Sulfate) 325 Mg Tablet 325 Mg PO DAILYWBKFT 90 Days Zofran Odt (Ondansetron) 4 Mg Tab.rapdis 1 Tab SL Q8HRS Levemir Flextouch (Insulin Detemir) 100 Unit/1 Ml Insuln.pen 14 Units SQ QHS Reported Lisinopril 40 Mg Tablet 1 Tab PO DAILY Alprazolam 0.5 Mg Tablet 0.5 Mg PO PRN Q6HRS PRN Humalog (Insulin Lispro) 100 Unit/1 Ml Insuln.pen 8 Unit SQ TIDAC Allergies Allergies: Coded Allergies: meperidine (Verified Allergy, Intermediate, hives, 09/10/18) TOLERATES FENTANYL tramadol (Verified Allergy, Intermediate, 09/10/18) TOLERATES MORPHINE ROS Review of System UNABLE TO OBTAIN Physical Exam General: No acute distress HEENT: Other (ETT) Lungs: Other (DECREASED AT BASES) Heart: Regular rate Abdomen: Normal bowel sounds, Soft Extremities: No clubbing Skin: No breakdown Neuro: Other (ON THE VENT) Psych/Mental Status: Other (SEDATED) MUSCULOSKELETAL: Other (4+ LE, INGUINAL AND LOWER ABD AREA EDEMA) Vitals VITALS Vital Signs Date Time Temp Pulse Resp B/P (MAP) Pulse Ox O2 Delivery O2 Flow Rate FiO2 12/02/20 11:08 98 Ventilator 12/02/20 10:59 24 12/02/20 09:10 15.0 12/02/20 06:27 71 86/59 (68) 12/02/20 01:10 97.7 97.7 Labs Labs Laboratory Tests Test 12/02/20 01:29 12/02/20 03:00 12/02/20 04:00 12/02/20 04:20 Glucose (Fingerstick) 134 mg/dL (70-99) White Blood Count 13.2 x10^3/uL (4.0-11.0) Red Blood Count 2.82 x10^6/uL (3.50-5.40) Hemoglobin 8.0 g/dL (12.0-15.5) Hematocrit 25.7 % (36.0-47.0) Mean Corpuscular Volume 91 fL (79-100) Mean Corpuscular Hemoglobin 29 pg (25-35) Mean Corpuscular Hemoglobin Concent 31 g/dL (31-37) Red Cell Distribution Width 16.2 % (11.5-14.5) Platelet Count 176 x10^3/uL (140-400) Neutrophils (%) (Auto) 87 % (31-73) Lymphocytes (%) (Auto) 9 % (24-48) Monocytes (%) (Auto) 2 % (0-9) Eosinophils (%) (Auto) 1 % (0-3) Basophils (%) (Auto) 1 % (0-3) Neutrophils # (Auto) 11.5 x10^3/uL (1.8-7.7) Lymphocytes # (Auto) 1.2 x10^3/uL (1.0-4.8) Monocytes # (Auto) 0.2 x10^3/uL (0.0-1.1) Eosinophils # (Auto) 0.1 x10^3/uL (0.0-0.7) Basophils # (Auto) 0.1 x10^3/uL (0.0-0.2) Segmented Neutrophils % 55 % (35-66) Band Neutrophils % 32 % (0-9) Lymphocytes % 10 % (24-48) Monocytes % 2 % (0-10) Metamyelocytes % 1 % (0-0) Platelet Estimate Adequate (ADEQUATE) Crenated Cell Present Sodium Level 148 mmol/L (136-145) Potassium Level 3.9 mmol/L (3.5-5.1) Chloride Level 118 mmol/L (98-107) Carbon Dioxide Level 13 mmol/L (21-32) Anion Gap 17 (6-14) Blood Urea Nitrogen 53 mg/dL (7-20) Creatinine 2.5 mg/dL (0.6-1.0) Estimated GFR (Cockcroft-Gault) 21.6 BUN/Creatinine Ratio 21 (6-20) Glucose Level 102 mg/dL (70-99) Calcium Level 7.7 mg/dL (8.5-10.1) Total Bilirubin 0.2 mg/dL (0.2-1.0) Aspartate Amino Transf (AST/SGOT) 46 U/L (15-37) Alanine Aminotransferase (ALT/SGPT) 56 U/L (14-59) Alkaline Phosphatase 295 U/L (46-116) PW-Ezi-G-Type Natriuretic Peptide 10962 pg/mL (0-124) Total Protein 4.5 g/dL (6.4-8.2) Albumin 1.2 g/dL (3.4-5.0) Albumin/Globulin Ratio 0.4 (1.0-1.7) Lipase 31 U/L (73-393) Lactic Acid Level 0.8 mmol/L (0.4-2.0) SARS-CoV-2 RNA (ANNIA) Negative (Negative) Test 12/02/20 05:00 12/02/20 05:30 12/02/20 08:43 12/02/20 08:54 Influenza Type A Antigen Negative (NEGATIVE) Influenza Type B Antigen Negative (NEGATIVE) O2 Saturation 93 % (92-99) 88 % (92-99) Arterial Blood pH 7.08 (7.35-7.45) 6.96 (7.35-7.45) Arterial Blood pCO2 at Patient Temp 37 mmHg (35-46) 57 mmHg (35-46) Arterial Blood pO2 at Patient Temp 82 mmHg (85-108) 70 mmHg (85-108) Arterial Blood HCO3 11 mmol/L (21-28) 13 mmol/L (21-28) Arterial Blood Base Excess -18 mmol/L (-3-3) -18 mmol/L (-3-3) FiO2 21 15l n.c. Glucose (Fingerstick) 57 mg/dL (70-99) 159 mg/dL (70-99) Test 12/02/20 10:40 12/02/20 11:06 Urine Test Negative (NEG) Urine Opiates Screen Pos (NEG) Urine Methadone Screen Neg (NEG) Urine Barbiturates Neg (NEG) Urine Phencyclidine Screen Neg (NEG) Urine Amphetamine/Methamphetamine Neg (NEG) Urine Benzodiazepines Screen Pos (NEG) Urine Cocaine Screen Neg (NEG) Urine Cannabinoids Screen Pos (NEG) Urine Ethyl Alcohol Neg (NEG) Glucose (Fingerstick) 68 mg/dL (70-99) Laboratory Tests Test 12/02/20 01:29 12/02/20 03:00 12/02/20 04:00 12/02/20 04:20 Glucose (Fingerstick) 134 mg/dL (70-99) White Blood Count 13.2 x10^3/uL (4.0-11.0) Red Blood Count 2.82 x10^6/uL (3.50-5.40) Hemoglobin 8.0 g/dL (12.0-15.5) Hematocrit 25.7 % (36.0-47.0) Mean Corpuscular Volume 91 fL (79-100) Mean Corpuscular Hemoglobin 29 pg (25-35) Mean Corpuscular Hemoglobin Concent 31 g/dL (31-37) Red Cell Distribution Width 16.2 % (11.5-14.5) Platelet Count 176 x10^3/uL (140-400) Neutrophils (%) (Auto) 87 % (31-73) Lymphocytes (%) (Auto) 9 % (24-48) Monocytes (%) (Auto) 2 % (0-9) Eosinophils (%) (Auto) 1 % (0-3) Basophils (%) (Auto) 1 % (0-3) Neutrophils # (Auto) 11.5 x10^3/uL (1.8-7.7) Lymphocytes # (Auto) 1.2 x10^3/uL (1.0-4.8) Monocytes # (Auto) 0.2 x10^3/uL (0.0-1.1) Eosinophils # (Auto) 0.1 x10^3/uL (0.0-0.7) Basophils # (Auto) 0.1 x10^3/uL (0.0-0.2) Segmented Neutrophils % 55 % (35-66) Band Neutrophils % 32 % (0-9) Lymphocytes % 10 % (24-48) Monocytes % 2 % (0-10) Metamyelocytes % 1 % (0-0) Platelet Estimate Adequate (ADEQUATE) Crenated Cell Present Sodium Level 148 mmol/L (136-145) Potassium Level 3.9 mmol/L (3.5-5.1) Chloride Level 118 mmol/L (98-107) Carbon Dioxide Level 13 mmol/L (21-32) Anion Gap 17 (6-14) Blood Urea Nitrogen 53 mg/dL (7-20) Creatinine 2.5 mg/dL (0.6-1.0) Estimated GFR (Cockcroft-Gault) 21.6 BUN/Creatinine Ratio 21 (6-20) Glucose Level 102 mg/dL (70-99) Calcium Level 7.7 mg/dL (8.5-10.1) Total Bilirubin 0.2 mg/dL (0.2-1.0) Aspartate Amino Transf (AST/SGOT) 46 U/L (15-37) Alanine Aminotransferase (ALT/SGPT) 56 U/L (14-59) Alkaline Phosphatase 295 U/L (46-116) PH-Vyp-U-Type Natriuretic Peptide 39029 pg/mL (0-124) Total Protein 4.5 g/dL (6.4-8.2) Albumin 1.2 g/dL (3.4-5.0) Albumin/Globulin Ratio 0.4 (1.0-1.7) Lipase 31 U/L (73-393) Lactic Acid Level 0.8 mmol/L (0.4-2.0) SARS-CoV-2 RNA (ANNIA) Negative (Negative) Test 12/02/20 05:00 12/02/20 05:30 12/02/20 08:43 12/02/20 08:54 Influenza Type A Antigen Negative (NEGATIVE) Influenza Type B Antigen Negative (NEGATIVE) O2 Saturation 93 % (92-99) 88 % (92-99) Arterial Blood pH 7.08 (7.35-7.45) 6.96 (7.35-7.45) Arterial Blood pCO2 at Patient Temp 37 mmHg (35-46) 57 mmHg (35-46) Arterial Blood pO2 at Patient Temp 82 mmHg (85-108) 70 mmHg (85-108) Arterial Blood HCO3 11 mmol/L (21-28) 13 mmol/L (21-28) Arterial Blood Base Excess -18 mmol/L (-3-3) -18 mmol/L (-3-3) FiO2 21 15l n.c. Glucose (Fingerstick) 57 mg/dL (70-99) 159 mg/dL (70-99) Test 12/02/20 10:40 12/02/20 11:06 Urine Test Negative (NEG) Urine Opiates Screen Pos (NEG) Urine Methadone Screen Neg (NEG) Urine Barbiturates Neg (NEG) Urine Phencyclidine Screen Neg (NEG) Urine Amphetamine/Methamphetamine Neg (NEG) Urine Benzodiazepines Screen Pos (NEG) Urine Cocaine Screen Neg (NEG) Urine Cannabinoids Screen Pos (NEG) Urine Ethyl Alcohol Neg (NEG) Glucose (Fingerstick) 68 mg/dL (70-99) Images Images XR CHEST 1V Clinical Indication: Reason: vent, come to 114 Comparison: AP chest, earlier same day. Findings: Interval placement of endotracheal tube, tip is 2.7 cm superior to the dylan. Enteric tube tip is in the stomach. The cardiomediastinal silhouette is stable. There is moderate right pleural effusion, redistributed due to supine positioning. Bilateral diffuse airspace opacities are unchanged. Considerations include pneumonia including atypical/viral pneumonitis, pulmonary edema, or ARDS. No pneumothorax. Bones appear stable. IMPRESSION: 1. Appropriate position of tubes and lines. 2. Bilateral infiltrates are unchanged. 3. Moderate right pleural effusion. Electronically signed by: Jacobo Bourne MD (12/02/2020 11:10 AM) [id number] Assessment/Plan Assessment/Plan IMP JOSE RAUL-CR OF 2.5 ACIDEMIA AG MET ACIDOSIS - PRIMARY RESP ACIDOSIS ACUTE HYPOXIC, HYPERCARBIC RESP FAILURE TYPE I DM-NO DKA ANASARCA PROB CHF NECK AND BACK PAIN LEUCOCYTOSIS HYPOTENSION PROB SEPSIS MARIJUANA AND OPIATE ABUSE PLAN VENT SUPPORT PRESSORS SUGGEST EMPIRIC ANTIBIOTICS CONSIDER CT ABD AND PELVIS CHECK URINALYSIS CONSIDER CARDIOLOGY AND ID EVAL NEEDS EMERGENT HD WILL ASK IR TO PLACE TEMP HD LINE HD UF 2.0-3.0 TOLERATED 40 HCO3 DIALYSATE CONTROL BG BEST POSSIBLE CASE D/W ATTENDING CASE D/W PULM/CRITICAL CARE CCT 1 HR NATALIA MCGRAW MD Dec 02, 2020 11:41
[2020-12-02] MEDS ORDERED: PIPERACILLIN/TAZOBACTAM 3.375 GM in IV NORMAL SALINE 50ML 50 ML IV SCH (12:00)
[2020-12-02] MEDS ORDERED: LIDOCAINE WITH 8.4% SOD BICARB 3 ML DISP.SYRIN. INJ ONE (12:00)
[2020-12-02] MEDS ORDERED: VANCOMYCIN 1.25 GM in IV NORMAL SALINE 250ML 250 ML IV ONE (12:00)
[2020-12-02 12:07] LABS: BASE EXCESS ABG -15 mmol/L (-3-3); HCO3 ABG 14 mmol/L (21-28); PCO2 ABG 43 mmHg (35-46); PO2 ABG 70 mmHg (85-108); SAT O2 ABG 92 % (92-99)
--- NOTE | 2020-12-02 12:09 | RAD ---
EXAM: CHEST ONE VIEW. HISTORY: Line placement. COMPARISON: 12/02/2020. FINDINGS: A frontal view of the chest is obtained. An endotracheal tube has its tip 4 cm above the ca deniz. A nasogastric tube has its tip below the inferior margin of the view. A right internal jugular hemodialysis catheter has its tip in the superior cavoatrial junction. Another right internal jugular central venous catheter has its tip in the right atrium. Bilateral diffuse airspace infiltrates on the right greater than left are unchanged. There is a moder ate right pleural effusion. There is no pneumothorax. The heart is not enlarged. IMPRESSION: 1. Stable diffuse bilateral infiltrates. Moderate right pleural effusion. Electronically signed by: Rayo Rosas MD (12/02/2020 12:06 PM) [facility]
[2020-12-02 12:15] LABS: FIO2 ABG 70/VENT
--- NOTE | 2020-12-02 12:29 | RAD ---
EXAM: Bilateral lower extremity venous Doppler. HISTORY: Bilateral lower extremity pain/swelling. COMPARISON: None. FINDINGS: Grayscale and Doppler analysis of the both lower extremity deep venous systems was performe d with graded compression and augmentation. The common femoral, greater saphenous, superficial femora l, popliteal and calf veins were assessed. There is no evidence of deep venous thrombosis. Subcutaneous edema is noted. IMPRESSION: 1. No evidence of deep venous thrombosis. Electronically signed by: Rayo Rosas MD (12/02/2020 12:26 PM) [facility]
--- NOTE | 2020-12-02 12:50 | CONS ---
DATE OF CONSULTATION: 12/02/2020 REASON FOR CONSULTATION: I was asked to see this 40-year-old lady for acute respiratory failure. HISTORY OF PRESENT ILLNESS: The patient is currently on the ventilator and sedated, not able to give me any information. All of the information was obtained from chart and nursing staff. I also discussed the case with Dr. Menezes and Dr. Vivar who is the patient's primary physician. Apparently, she did have chronic kidney disease, which was worsening and he discussed hemodialysis with the patient. It is unknown that how long she has been sick. She presented to the emergency room with neck and back pain. She was sent to the floor, but transferred to ICU due to severe metabolic acidosis. Two amps of bicarbonate were given. The patient was intubated. She is currently on the ventilator, assist control, rate of 24, tidal volume 450, PEEP of 5, 100% FiO2. Her O2 saturation is 100%. A rapid COVID test is negative. At some point, she was hypotensive. PAST MEDICAL HISTORY: Pancreatitis, diabetes mellitus, chronic kidney disease. PAST SURGICAL HISTORY: Cholecystectomy, cataract surgery. ALLERGIES: MEPERIDINE, TRAMADOL. MEDICATIONS: Currently, she is on Versed. She did receive Zosyn in the emergency room. SOCIAL HISTORY: Smoker per chart. FAMILY HISTORY: Hypertension per chart. REVIEW OF SYSTEMS: Unable to obtain. I have discussed the patient with RN, Dr. Vivar and Dr. Menezes. Other systems are otherwise negative. PHYSICAL EXAMINATION: GENERAL: This is a chronically ill-appearing lady. VITAL SIGNS: Her O2 saturation 100%, FiO2 is 100%, respiratory rate 24, heart rate 71, blood pressure 138/68, temperature 97.7. HEENT: Normocephalic, atraumatic. Pupils equal, round, reactive to light. She is orally intubated. Nose is clear. NECK: There is no lymphadenopathy or thyromegaly. CARDIOVASCULAR: Regular rate and rhythm. PMI is not displaced. CHEST INSPECTION: Normal. LUNGS: She has bibasilar crackles, dullness at the right base. ABDOMEN: Soft, obese. EXTREMITIES: 2-3+ edema. NEUROLOGIC: She is on the ventilator, sedated. SKIN: Chronic changes. LABORATORY DATA: I reviewed the following lab data: Influenza A and B negative. Rapid COVID test is negative. Sodium 148, potassium 3.9, chloride 118, CO2 13, BUN 53, creatinine 2.5. Lactic acid 0.8. BNP 20,223. ABG at 8:00 o'clock pH 6.96, pCO2 of 57, pO2 of 70, on 15 liters nonrebreather mask. This is before intubation. WBC 13.2, hemoglobin 8, platelets 176. Chest x-ray before intubation showed bilateral infiltrate and right effusion. IMPRESSION: 1. Acute respiratory failure, multifactorial in etiology including acute kidney injury, volume overload, acute diastolic congestive heart failure, cannot rule out pneumonia. 2. Abnormal chest x-ray. 3. Acute kidney injury. 4. Chronic kidney disease. 5. Smoker. 6. Hypernatremia. 7. Diabetes mellitus. PLAN AND RECOMMENDATIONS: 1. Titrate FiO2 to keep O2 saturation 94%. 2. I will review ABG and change vent setting per ABG. 3. Chest x-ray post-intubation to make sure ET tube is in good position. 4. Panculture. 5. She is 40 years old. I will check her test. 6. Procalcitonin. 7. Repeat lactate. 8. I agree with broad spectrum antibiotics until we have cultures back. 9. Cardiology was consulted. Agree with echocardiogram. 10. Nephrology is consulted. The patient would require hemodialysis for severe metabolic acidosis. 11. We will do lower extremity venous Doppler. 12. Discussed with Dr. Menezes and Dr. Vivar. 13. The findings and recommendations were discussed with RN and RT. Thank you very much for allowing me to participate in care of this very nice lady. The patient is critically ill. This is critical care time 30 minutes without overlap. RAUL/PATRICK DR: Lucero TID: [id number]
[2020-12-02 12:57] LABS: BACTERIA,URINE FEW /HPF (0-FEW)
[2020-12-02 12:58] LABS: RBC,URINE 0 /HPF (0-2)
[2020-12-02] MEDS ORDERED: IV DEXTROSE 5 %-0.45 % NACL 1,000 ML IV SCH (13:00)
[2020-12-02] MEDS ORDERED: DIALYSIS PATIENT. MC PRN ×2 (13:45)
[2020-12-02] MEDS ORDERED: IV NORMAL SALINE 1000ML BAG 1,000 ML IV PRN ×2 (13:45)
[2020-12-02] MEDS ORDERED: ALBUMIN HUMAN 25% 200 ML IV PRN (13:45)
--- NOTE | 2020-12-02 14:29 | NUR ---
Patient of Dr Vivar transfer from [address] [place] [address]. Upon arrival patient unresponsive with agonal breathing on buddy hugger, initial patient temp 88.5. ABG results pH 6.96 CO2 57 PaO2 [address] Allred bedside at time of results, gave order to intubate. Patient intubated at 0933 by PULP BLEACHER. OG, and Temp sensing [place] placed. Consults called to Pulmonary, Renal and IR for temp HD cath and CL placement. Levophed and Dopamine added PRN. Dialysis nurse currently in room getting ready to dialyze. Patient currently on low dose Levophed. VSS currently stable, temp currently 95.2. For further orders see chart.
--- NOTE | 2020-12-02 16:12 | NUR ---
Pharmacy Vancomycin Dosing Note S:Consulted to monitor and dose vancomycin started 12/02/20. O:KAYCEE TOLEDO is a 40 year old F with Pneumonia . Height: 5 feet, 1 inches Weight: 45.0 kg [place] Body Weight: Adjusted Body Weight: Dosing Weight: Actual Other Antibiotics: LABS: Last BUN: 53 Last Creatinine: 2.5 Creatinine Clearance: 21 / HD mL/min Last WBC: 13.2 Last Procalcitonin: 0.35 Tmax (past 24 hours): Microbiology: I/O: Drug Levels: Last level: on at Last dose given at Vancomycin Dosing: Loading Dose: 1250 mg x1 Dosing Weight: Actual Target Trough: A: Based on: HT, WT AND RENAL FXN P: 1. Begin Vancomycin IV Dose Per Levels 2. Follow up Random level on 12/03/20 at 0700 3. Pharmacy will continue to monitor, follow and adjust therapy as needed. ELOY LAWSON, [facility], 12/02/20 [id number]
[2020-12-02] MEDS: DEXTROSE 50% 25 GM / 50ML DISP.SYRIN. IV PRN ×2 (17:06→20:20)
[2020-12-02] MEDS: IV DEXTROSE 10% 1,000 ML IV SCH (17:28)
[2020-12-02] MEDS: PIPERACILLIN/TAZOBACTAM 2.25 GM in IV NORMAL SALINE 50ML 50 ML IV SCH (21:44)
[2020-12-02] MEDS: CHLORHEXIDINE 0.12% 15 ML MOUTHWASH. MM SCH (21:44)
--- NOTE | 2020-12-02 23:58 | HP ---
ADMIT DATE: 12/02/2020 LOCATION: She is in room ICU 114. SUBJECTIVE: This 40-year-old white female is known to me from followup in the office. The patient presented to the emergency room complaining of neck and back pain. I spoke with the mother who states that she has been bad for the last week or so, been incoherent at times, not answering questions right. She notes decreased urine output, also had a temperature on the evening prior to admission of 93. They forced the issue for her to go to the emergency room. She was found to be in a severe hyperchloremic metabolic acidosis on arrival to the emergency room with a white count of 13,200, 32% bands. Lactic acid is normal. Creatinine of 2.5, BUN of 53, CO2 of 13. Initial blood sugar of 135 and BNP of 20,223. Chest x-ray shows bilateral infiltrates consistent with pneumonia versus heart failure with a normal cardiac silhouette. She has since admission been intubated because of progressive decrease in mental status and difficulties breathing. PAST MEDICAL HISTORY: Remarkable for longstanding type 1 diabetes, anxiety, depression, noncompliance with medicines, chronic pancreatitis, chronic kidney disease. PAST SURGICAL HISTORY: Remarkable for a cholecystectomy and cataract surgery in the left eye, left ovary and fallopian tube removed. MEDICATIONS: Brought with the patient, listed on the computer and have been addressed. ALLERGIES: SHE IS ALLERGIC TO DEMEROL AND TRAMADOL. SOCIAL HISTORY: She is a current every day smoker. Does not use alcohol or drugs. Single, lives at home with her parents along with her 18-year-old son. FAMILY HISTORY: Noncontributory. REVIEW OF SYSTEMS: Unobtainable due to her mental status. Most of what was obtained was from her mother over the phone. PHYSICAL EXAMINATION: GENERAL: She is an ill-appearing white female who is encephalopathic and not interactive. VITAL SIGNS: Reveal lower blood pressures in the 90/60 range. She is not tachycardic. Her initial O2 sats were in the 90s on room air, but it dropped on resuscitating transfer to the ICU for intubation. CHEST: Reveals bilateral crackles. HEART: Regular rate and rhythm. ABDOMEN: Soft, nontender, without hepatosplenomegaly or masses. EXTREMITIES: Diffusely edematous. NEUROLOGIC: Nontestable due to her sedated state. IMPRESSION: 1. Hyperchloremic metabolic acidosis, severe respiratory failure with mechanical intubation, bilateral infiltrates, most consistent with probable congestive heart failure in my eye. 2. Leukocytosis. 3. Insulin-dependent diabetes. 4. Acute renal failure on top of chronic kidney disease. PLAN: Multiple consults, cardiology as well as Pulmonary as well as Renal have been consulted. Broad-spectrum antibiotics will be covering her for the short term here, although I think this is probably more related to end-stage renal disease with a history per the mother and known clinical course prior. Supportive care will be obtained. The patient will be monitored, managed and treated appropriately. DEVIKA DR: Anastacio TID: [id number]
[2020-12-03] VITALS (34 sets, daily range): BP systolic 63–163; BP diastolic 39–95
[2020-12-03] MEDS: MIDAZOLAM 100mg/100ml NS BAG 100 ML IV PRN ×2 (02:34→22:13)
[2020-12-03] MEDS: IV DEXTROSE 10% 1,000 ML IV SCH ×2 (04:34→21:10)
--- NOTE | 2020-12-03 04:39 | NUR ---
This RN has reviewed and approves of SN charting.
[2020-12-03] MEDS: PIPERACILLIN/TAZOBACTAM 2.25 GM in IV NORMAL SALINE 50ML 50 ML IV SCH (06:14)
--- NOTE | 2020-12-03 06:14 | PDOC ---
PULMONARY PROGRESS NOTES DATE: 12/03/20 TIME: 06:11 Subjective on vent sedated on fentanyl and versed peep 5 fio2 55% small ett secretion levo off since 4 am Vitals Vital Signs Date Time Temp Pulse Resp B/P (MAP) Pulse Ox O2 Delivery O2 Flow Rate FiO2 12/03/20 05:06 100 Ventilator 12/03/20 05:00 96.4 66 24 100/76 (84) 96.4 12/02/20 09:30 15.0 Comments on vent sedated HEENT: Other (nc at perrl nose clear orally intubated neck no lad no thyromegaly) Lungs: Crackles Cardiovascular: S1, S2 Abdomen: Soft, Non-tender, Other (no mass + edema ) Extremities: Other (++edema) Skin: Warm Labs Laboratory Tests Test 12/02/20 01:29 12/02/20 03:00 12/02/20 04:00 12/02/20 04:20 Glucose (Fingerstick) 134 mg/dL (70-99) White Blood Count 13.2 x10^3/uL (4.0-11.0) Red Blood Count 2.82 x10^6/uL (3.50-5.40) Hemoglobin 8.0 g/dL (12.0-15.5) Hematocrit 25.7 % (36.0-47.0) Mean Corpuscular Volume 91 fL (79-100) Mean Corpuscular Hemoglobin 29 pg (25-35) Mean Corpuscular Hemoglobin Concent 31 g/dL (31-37) Red Cell Distribution Width 16.2 % (11.5-14.5) Platelet Count 176 x10^3/uL (140-400) Neutrophils (%) (Auto) 87 % (31-73) Lymphocytes (%) (Auto) 9 % (24-48) Monocytes (%) (Auto) 2 % (0-9) Eosinophils (%) (Auto) 1 % (0-3) Basophils (%) (Auto) 1 % (0-3) Neutrophils # (Auto) 11.5 x10^3/uL (1.8-7.7) Lymphocytes # (Auto) 1.2 x10^3/uL (1.0-4.8) Monocytes # (Auto) 0.2 x10^3/uL (0.0-1.1) Eosinophils # (Auto) 0.1 x10^3/uL (0.0-0.7) Basophils # (Auto) 0.1 x10^3/uL (0.0-0.2) Segmented Neutrophils % 55 % (35-66) Band Neutrophils % 32 % (0-9) Lymphocytes % 10 % (24-48) Monocytes % 2 % (0-10) Metamyelocytes % 1 % (0-0) Platelet Estimate Adequate (ADEQUATE) Crenated Cell Present Sodium Level 148 mmol/L (136-145) Potassium Level 3.9 mmol/L (3.5-5.1) Chloride Level 118 mmol/L (98-107) Carbon Dioxide Level 13 mmol/L (21-32) Anion Gap 17 (6-14) Blood Urea Nitrogen 53 mg/dL (7-20) Creatinine 2.5 mg/dL (0.6-1.0) Estimated GFR (Cockcroft-Gault) 21.6 BUN/Creatinine Ratio 21 (6-20) Glucose Level 102 mg/dL (70-99) Calcium Level 7.7 mg/dL (8.5-10.1) Total Bilirubin 0.2 mg/dL (0.2-1.0) Aspartate Amino Transf (AST/SGOT) 46 U/L (15-37) Alanine Aminotransferase (ALT/SGPT) 56 U/L (14-59) Alkaline Phosphatase 295 U/L (46-116) FM-Vfe-U-Type Natriuretic Peptide 52626 pg/mL (0-124) Total Protein 4.5 g/dL (6.4-8.2) Albumin 1.2 g/dL (3.4-5.0) Albumin/Globulin Ratio 0.4 (1.0-1.7) Lipase 31 U/L (73-393) Hepatitis B Surface Antigen Nonreactive (Nonreactive) Lactic Acid Level 0.8 mmol/L (0.4-2.0) SARS-CoV-2 RNA (ANNIA) Negative (Negative) Test 12/02/20 05:00 12/02/20 05:30 12/02/20 08:43 12/02/20 08:54 Influenza Type A Antigen Negative (NEGATIVE) Influenza Type B Antigen Negative (NEGATIVE) O2 Saturation 93 % (92-99) 88 % (92-99) Arterial Blood pH 7.08 (7.35-7.45) 6.96 (7.35-7.45) Arterial Blood pCO2 at Patient Temp 37 mmHg (35-46) 57 mmHg (35-46) Arterial Blood pO2 at Patient Temp 82 mmHg (85-108) 70 mmHg (85-108) Arterial Blood HCO3 11 mmol/L (21-28) 13 mmol/L (21-28) Arterial Blood Base Excess -18 mmol/L (-3-3) -18 mmol/L (-3-3) FiO2 21 15l n.c. Glucose (Fingerstick) 57 mg/dL (70-99) 159 mg/dL (70-99) Test 12/02/20 09:48 12/02/20 10:40 12/02/20 11:06 12/02/20 11:34 O2 Saturation 92 % (92-99) Arterial Blood pH 7.13 (7.35-7.45) Arterial Blood pCO2 at Patient Temp 43 mmHg (35-46) Arterial Blood pO2 at Patient Temp 70 mmHg (85-108) Arterial Blood HCO3 14 mmol/L (21-28) Arterial Blood Base Excess -15 mmol/L (-3-3) FiO2 70/vent Urine Collection Type U cath Urine Color Yellow Urine Clarity Clear Urine pH 5.0 (<5.0-8.0) Urine Specific [place] 1.015 (1.000-1.030) Urine Protein 100 mg/dL (NEG-TRACE) Urine Glucose (UA) Negative mg/dL (NEG) Urine Ketones (Stick) Negative mg/dL (NEG) Urine Blood Negative (NEG) Urine Nitrite Negative (NEG) Urine Bilirubin Negative (NEG) Urine Urobilinogen Dipstick 0.2 mg/dL (0.2 mg/dL) Urine Leukocyte Esterase Negative (NEG) Urine RBC 0 /HPF (0-2) Urine WBC 1-4 /HPF (0-4) Urine Squamous Epithelial Cells Mod /LPF Urine Renal Epithelial Cells Occ /LPF Urine Bacteria Few /HPF (0-FEW) Urine Mucus Slight /LPF Urine Test Negative (NEG) Urine Opiates Screen Pos (NEG) Urine Methadone Screen Neg (NEG) Urine Barbiturates Neg (NEG) Urine Phencyclidine Screen Neg (NEG) Urine Amphetamine/Methamphetamine Neg (NEG) Urine Benzodiazepines Screen Pos (NEG) Urine Cocaine Screen Neg (NEG) Urine Cannabinoids Screen Pos (NEG) Urine Ethyl Alcohol Neg (NEG) Glucose (Fingerstick) 68 mg/dL (70-99) Lactic Acid Level 0.9 mmol/L (0.4-2.0) Test 12/02/20 11:42 12/02/20 12:38 12/02/20 14:19 12/02/20 15:15 Glucose (Fingerstick) 95 mg/dL (70-99) 113 mg/dL (70-99) 85 mg/dL (70-99) Procalcitonin 0.35 ng/mL (0.00-0.10) Test 12/02/20 17:03 12/02/20 17:27 12/02/20 20:10 12/02/20 20:29 Glucose (Fingerstick) 65 mg/dL (70-99) 101 mg/dL (70-99) 38 mg/dL (70-99) 145 mg/dL (70-99) Test 12/02/20 21:35 12/02/20 23:05 12/03/20 02:09 12/03/20 05:58 Glucose (Fingerstick) 100 mg/dL (70-99) 99 mg/dL (70-99) 121 mg/dL (70-99) 162 mg/dL (70-99) Laboratory Tests Test 12/02/20 08:43 12/02/20 08:54 12/02/20 09:48 12/02/20 10:40 O2 Saturation 88 % (92-99) 92 % (92-99) Arterial Blood pH 6.96 (7.35-7.45) 7.13 (7.35-7.45) Arterial Blood pCO2 at Patient Temp 57 mmHg (35-46) 43 mmHg (35-46) Arterial Blood pO2 at Patient Temp 70 mmHg (85-108) 70 mmHg (85-108) Arterial Blood HCO3 13 mmol/L (21-28) 14 mmol/L (21-28) Arterial Blood Base Excess -18 mmol/L (-3-3) -15 mmol/L (-3-3) FiO2 15l n.c. 70/vent Glucose (Fingerstick) 57 mg/dL (70-99) 159 mg/dL (70-99) Urine Collection Type U cath Urine Color Yellow Urine Clarity Clear Urine pH 5.0 (<5.0-8.0) Urine Specific [place] 1.015 (1.000-1.030) Urine Protein 100 mg/dL (NEG-TRACE) Urine Glucose (UA) Negative mg/dL (NEG) Urine Ketones (Stick) Negative mg/dL (NEG) Urine Blood Negative (NEG) Urine Nitrite Negative (NEG) Urine Bilirubin Negative (NEG) Urine Urobilinogen Dipstick 0.2 mg/dL (0.2 mg/dL) Urine Leukocyte Esterase Negative (NEG) Urine RBC 0 /HPF (0-2) Urine WBC 1-4 /HPF (0-4) Urine Squamous Epithelial Cells Mod /LPF Urine Renal Epithelial Cells Occ /LPF Urine Bacteria Few /HPF (0-FEW) Urine Mucus Slight /LPF Urine Test Negative (NEG) Urine Opiates Screen Pos (NEG) Urine Methadone Screen Neg (NEG) Urine Barbiturates Neg (NEG) Urine Phencyclidine Screen Neg (NEG) Urine Amphetamine/Methamphetamine Neg (NEG) Urine Benzodiazepines Screen Pos (NEG) Urine Cocaine Screen Neg (NEG) Urine Cannabinoids Screen Pos (NEG) Urine Ethyl Alcohol Neg (NEG) Test 12/02/20 11:06 12/02/20 11:34 12/02/20 11:42 12/02/20 12:38 Glucose (Fingerstick) 68 mg/dL (70-99) 95 mg/dL (70-99) Lactic Acid Level 0.9 mmol/L (0.4-2.0) Procalcitonin 0.35 ng/mL (0.00-0.10) Test 12/02/20 14:19 12/02/20 15:15 12/02/20 17:03 12/02/20 17:27 Glucose (Fingerstick) 113 mg/dL (70-99) 85 mg/dL (70-99) 65 mg/dL (70-99) 101 mg/dL (70-99) Test 12/02/20 20:10 12/02/20 20:29 12/02/20 21:35 12/02/20 23:05 Glucose (Fingerstick) 38 mg/dL (70-99) 145 mg/dL (70-99) 100 mg/dL (70-99) 99 mg/dL (70-99) Test 12/03/20 02:09 12/03/20 05:58 Glucose (Fingerstick) 121 mg/dL (70-99) 162 mg/dL (70-99) Medications Active Scripts Medications Dose Route/Sig Max Daily Dose Days Date Category Lisinopril 40 Mg Tablet 1 Tab PO DAILY 03/26/19 Reported Synthroid (Levothyroxine Sodium) 100 Mcg Tablet 100 Mcg PO DAILY06 30 08/21/18 Rx [Pantoprazole] 40 MG Tablet.dr 40 Mg PO BIDAC 90 08/21/18 Rx Feosol (Ferrous Sulfate) 325 Mg Tablet 325 Mg PO [id number] 90 08/21/18 Rx Zofran Odt (Ondansetron) 4 Mg Tab.rapdis 1 Tab SL Q8HRS 06/08/17 Rx Levemir Flextouch (Insulin Detemir) 100 Unit/1 Ml Insuln.pen 14 Units SQ QHS 04/25/16 Rx Alprazolam 0.5 Mg Tablet 0.5 Mg PO PRN Q6HRS PRN 04/23/16 Reported Humalog (Insulin Lispro) 100 Unit/1 Ml Insuln.pen 8 Unit SQ TIDAC 03/16/14 Reported Comments reviewed cxr 1. Slight interval decrease in multifocal right greater than left lung mixed interstitial and alveolar infiltrate. 2. Stable small right pleural effusion and stable support lines and tubes. Impression . IMPRESSION: 1. Acute respiratory failure, multifactorial in etiology including acute kidney injury, volume overload, acute diastolic congestive heart failure, cannot rule out pneumonia. 2. Abnormal chest x-ray. 3. Acute kidney injury. 4. Chronic kidney disease. 5. Smoker. 6. Hypernatremia. 7. Diabetes mellitus. Plan . PLAN AND RECOMMENDATIONS: 1. Titrate FiO2 to keep O2 saturation 94%. still on fi02 55% not ready for sbt 2. I will review ABG and change vent setting per ABG. 3. cont abx 4. fu Panculture. 5. test, neg 6. Procalcitonin elevated. 7. Repeat lactate, nl 8. hd per nephro 9. Cardiology was consulted. Agree with echocardiogram. 10. lower extremity venous Doppler. neg The findings and recommendations were discussed with RN and RT. MAYE DURÁN MD Dec 03, 2020 06:14
[2020-12-03] MEDS ORDERED: VANCOMYCIN RANDOM LEVEL. MC ONE (07:00)
[2020-12-03 07:12] LABS: BASO # 0.1 x10^3/uL (0.0-0.2); BASO % 1 % (0-3); EOS # 0.1 x10^3/uL (0.0-0.7); EOS % 1 % (0-3); LYMPH # 1.4 x10^3/uL (1.0-4.8); LYMPH % 14 % (24-48); MEAN CORPUSCULAR HEMOGLOBIN 29 pg (25-35); MEAN CORPUSCULAR HGB CONC 33 g/dL (31-37); MEAN CORPUSCULAR VOLUME 87 fL (79-100); MONO # 0.2 x10^3/uL (0.0-1.1); MONO % 2 % (0-9); NEUT # 8.2 x10^3/uL (1.8-7.7); NEUT % 82 % (31-73); PLATELET COUNT 117 x10^3/uL (140-400); RED BLOOD COUNT 2.15 x10^6/uL (3.50-5.40); WHITE BLOOD COUNT 10.1 x10^3/uL (4.0-11.0)
[2020-12-03 07:14] LABS: HEMOGLOBIN 6.2 g/dL (12.0-15.5)
[2020-12-03 07:15] LABS: HEMATOCRIT 18.7 % (36.0-47.0)
[2020-12-03 07:20] LABS: ALBUMIN 1.3 g/dL (3.4-5.0); ALBUMIN/GLOBULIN RATIO 0.5 (1.0-1.7); CALCIUM 7.6 mg/dL (8.5-10.1); CREATININE 1.9 mg/dL (0.6-1.0); GFR 29.6; MAGNESIUM 1.8 mg/dL (1.8-2.4); PHOSPHORUS 5.1 mg/dL (2.6-4.7); POTASSIUM 3.4 mmol/L (3.5-5.1); TOTAL BILIRUBIN 0.5 mg/dL (0.2-1.0); TOTAL PROTEIN 3.9 g/dL (6.4-8.2)
--- NOTE | 2020-12-03 07:43 | RAD ---
EXAM: Chest, single view. HISTORY: Ventilatory support. COMPARISON: 12/02/2020 FINDINGS: A frontal view of the chest is obtained. There is an endotracheal tube within the distal tr achea. There is a nasogastric tube within the stomach. There are right internal jugular catheter is w ithin the right atrium. There is a stable small right pleural effusion. There has been slight interva l decrease in diffuse mixed interstitial and alveolar infiltrate. There is a stable cardiac silhouett e. A pneumothorax is seen. IMPRESSION: 1. Slight interval decrease in multifocal right greater than left lung mixed interstitial and alveola r infiltrate. 2. Stable small right pleural effusion and stable support lines and tubes. Electronically signed by: Jennifer Giraldo MD (12/03/2020 7:41 AM) [id number]
[2020-12-03 08:23] LABS: BASE EXCESS ABG 1 mmol/L (-3-3); HCO3 ABG 24 mmol/L (21-28); PCO2 ABG 28 mmHg (35-46); PO2 ABG 198 mmHg (85-108); SAT O2 ABG 99 % (92-99)
[2020-12-03] MEDS: CHLORHEXIDINE 0.12% 15 ML MOUTHWASH. MM SCH ×2 (08:58→21:10)
[2020-12-03 09:21] LABS: FIO2 ABG 55% VENT
[2020-12-03] MEDS ORDERED: NOREPINEPHRINE VIAL 8 MG in IV DEXTROSE 5% 250 ML IV PRN (10:15)
--- NOTE | 2020-12-03 10:18 | PDOC ---
Infectious Disease Note Vital Sign Vital Signs Vital Signs Date Time Temp Pulse Resp B/P (MAP) Pulse Ox O2 Delivery O2 Flow Rate FiO2 12/03/20 08:25 Ventilator 12/03/20 07:55 100 12/03/20 06:00 97.5 70 24 114/77 (89) 97.5 12/02/20 09:30 15.0 Labs Lab Laboratory Tests Test 12/02/20 09:48 12/02/20 10:40 12/02/20 11:06 12/02/20 11:34 O2 Saturation 92 % (92-99) Arterial Blood pH 7.13 (7.35-7.45) Arterial Blood pCO2 at Patient Temp 43 mmHg (35-46) Arterial Blood pO2 at Patient Temp 70 mmHg (85-108) Arterial Blood HCO3 14 mmol/L (21-28) Arterial Blood Base Excess -15 mmol/L (-3-3) FiO2 70/vent Urine Collection Type U cath Urine Color Yellow Urine Clarity Clear Urine pH 5.0 (<5.0-8.0) Urine Specific [place] 1.015 (1.000-1.030) Urine Protein 100 mg/dL (NEG-TRACE) Urine Glucose (UA) Negative mg/dL (NEG) Urine Ketones (Stick) Negative mg/dL (NEG) Urine Blood Negative (NEG) Urine Nitrite Negative (NEG) Urine Bilirubin Negative (NEG) Urine Urobilinogen Dipstick 0.2 mg/dL (0.2 mg/dL) Urine Leukocyte Esterase Negative (NEG) Urine RBC 0 /HPF (0-2) Urine WBC 1-4 /HPF (0-4) Urine Squamous Epithelial Cells Mod /LPF Urine Renal Epithelial Cells Occ /LPF Urine Bacteria Few /HPF (0-FEW) Urine Mucus Slight /LPF Urine Test Negative (NEG) Urine Opiates Screen Pos (NEG) Urine Methadone Screen Neg (NEG) Urine Barbiturates Neg (NEG) Urine Phencyclidine Screen Neg (NEG) Urine Amphetamine/Methamphetamine Neg (NEG) Urine Benzodiazepines Screen Pos (NEG) Urine Cocaine Screen Neg (NEG) Urine Cannabinoids Screen Pos (NEG) Urine Ethyl Alcohol Neg (NEG) Glucose (Fingerstick) 68 mg/dL (70-99) Lactic Acid Level 0.9 mmol/L (0.4-2.0) Test 12/02/20 11:42 12/02/20 12:38 12/02/20 14:19 12/02/20 15:15 Glucose (Fingerstick) 95 mg/dL (70-99) 113 mg/dL (70-99) 85 mg/dL (70-99) Procalcitonin 0.35 ng/mL (0.00-0.10) Test 12/02/20 17:03 12/02/20 17:27 12/02/20 20:10 12/02/20 20:29 Glucose (Fingerstick) 65 mg/dL (70-99) 101 mg/dL (70-99) 38 mg/dL (70-99) 145 mg/dL (70-99) Test 12/02/20 21:35 12/02/20 23:05 12/03/20 02:09 12/03/20 05:58 Glucose (Fingerstick) 100 mg/dL (70-99) 99 mg/dL (70-99) 121 mg/dL (70-99) 162 mg/dL (70-99) Test 12/03/20 06:47 12/03/20 08:25 White Blood Count 10.1 x10^3/uL (4.0-11.0) Red Blood Count 2.15 x10^6/uL (3.50-5.40) Hemoglobin 6.2 g/dL (12.0-15.5) Hematocrit 18.7 % (36.0-47.0) Mean Corpuscular Volume 87 fL (79-100) Mean Corpuscular Hemoglobin 29 pg (25-35) Mean Corpuscular Hemoglobin Concent 33 g/dL (31-37) Red Cell Distribution Width 16.0 % (11.5-14.5) Platelet Count 117 x10^3/uL (140-400) Neutrophils (%) (Auto) 82 % (31-73) Lymphocytes (%) (Auto) 14 % (24-48) Monocytes (%) (Auto) 2 % (0-9) Eosinophils (%) (Auto) 1 % (0-3) Basophils (%) (Auto) 1 % (0-3) Neutrophils # (Auto) 8.2 x10^3/uL (1.8-7.7) Lymphocytes # (Auto) 1.4 x10^3/uL (1.0-4.8) Monocytes # (Auto) 0.2 x10^3/uL (0.0-1.1) Eosinophils # (Auto) 0.1 x10^3/uL (0.0-0.7) Basophils # (Auto) 0.1 x10^3/uL (0.0-0.2) Sodium Level 145 mmol/L (136-145) Potassium Level 3.4 mmol/L (3.5-5.1) Chloride Level 111 mmol/L (98-107) Carbon Dioxide Level 26 mmol/L (21-32) Anion Gap 8 (6-14) Blood Urea Nitrogen 29 mg/dL (7-20) Creatinine 1.9 mg/dL (0.6-1.0) Estimated GFR (Cockcroft-Gault) 29.6 BUN/Creatinine Ratio 15 (6-20) Glucose Level 184 mg/dL (70-99) Lactic Acid Level 0.9 mmol/L (0.4-2.0) Calcium Level 7.6 mg/dL (8.5-10.1) Phosphorus Level 5.1 mg/dL (2.6-4.7) Magnesium Level 1.8 mg/dL (1.8-2.4) Total Bilirubin 0.5 mg/dL (0.2-1.0) Aspartate Amino Transf (AST/SGOT) 32 U/L (15-37) Alanine Aminotransferase (ALT/SGPT) 38 U/L (14-59) Alkaline Phosphatase 218 U/L (46-116) Total Protein 3.9 g/dL (6.4-8.2) Albumin 1.3 g/dL (3.4-5.0) Albumin/Globulin Ratio 0.5 (1.0-1.7) Random Vancomycin Level 13.3 mcg/mL O2 Saturation 99 % (92-99) Arterial Blood pH 7.54 (7.35-7.45) Arterial Blood pCO2 at Patient Temp 28 mmHg (35-46) Arterial Blood pO2 at Patient Temp 198 mmHg (85-108) Arterial Blood HCO3 24 mmol/L (21-28) Arterial Blood Base Excess 1 mmol/L (-3-3) FiO2 55% vent Micro Microbiology 12/02/20 Blood Culture - Preliminary, Resulted NO GROWTH AFTER 1 DAY Objective Assessment Sepsis with hypotenison, hypothermia, leukocytosis and encephalopathy Bilateral infiltrates, pneumonia not ruled out Acute respiratory failure s/p intubation Metabolic/respiratory acidosis JSOE RAUL on CKD, now on HD Anemia PCM Diabetes Type I Hypothyroidism h/o enterobacter, C. diff, Strep A, E. coli Plan Plan of Care DC vanc with JOSE RAUL and Zosyn. Dose meropenem and micafungin Dose po vanc BID Monitor WBC, temp Check TSH and resp culture f/u cultures Anemia per primary Maintain aspiration precautions Supportive care Discussed with nursing Critically ill #[id number] D/w nursing - critically ill Attending Co-Sign Attending Co-Sign The patient was seen and interviewed as well as examined at the bedside. The chart was reviewed. The case was discussed. Agree with the plan of care. SARAH GARCIA CHILD CARE DEVELOPMENT SPECIALIST Dec 03, 2020 10:18 TIM MUIR MD Dec 03, 2020 13:23
[2020-12-03] MEDS: VANCOMYCIN 125 MG/2.5 ML ORAL SOLUTION. PO SCH ×2 (10:33→21:10)
--- NOTE | 2020-12-03 11:01 | CONS ---
DATE OF CONSULTATION: 12/03/2020 INFECTIOUS DISEASE CONSULTATION REFERRING PHYSICIAN: Dr. Mckeon REASON FOR CONSULT: Possible pneumonia. HISTORY OF PRESENT ILLNESS: This patient is a 40-year-old type 1 diabetic who is currently orally intubated, sedated and unable to provide history of present illness, past medical history of review of systems. According to the medical record, she had not been feeling well for about a week. She was incoherent at times, was voiding less and had a temperature of 93. She complained of neck and back pain. On admission, she was found to have leukocytosis and acute kidney injury on chronic kidney disease, hypotension. She became increasingly encephalopathic with difficulty breathing and hypothermia. Initial chest x-ray showed congestive heart failure versus multifocal pneumonia with parapneumonic effusion. BNP greater than 20,000. She was treated with Lasix, vancomycin and Zosyn. Blood cultures are negative so far. She had pH of 6.98 and was intubated and started on hemodialysis. PAST MEDICAL HISTORY: History of enterobacter, Clostridium difficile, group A strep, necrotizing fasciitis, right vulvar abscess, type 1 diabetes, anxiety, hypertension, hypothyroidism, history of pancreatitis. PAST SURGICAL HISTORY: Cholecystectomy, right groin debridements, temporary HD catheter on 12/02/2020. FAMILY HISTORY: Noncontributory. SOCIAL HISTORY: The patient lives at home. ALLERGIES: DEMEROL, TRAMADOL. MEDICATIONS: Vancomycin, Zosyn. Other medications are available and have been reviewed on the OCT. REVIEW OF SYSTEMS: Unobtainable due to the patient's condition. PHYSICAL EXAMINATION: VITAL SIGNS: Temperature 97.5, blood pressure 114/77, blood pressure 70, respiratory rate 24, pulse oximetry is 100% on FiO2 of 40%. GENERAL: The patient is orally intubated, sedated, mitten in place. HEENT: Pupils are equal. Pale conjunctivae. ETT and OGT in place. NECK: Supple. No nuchal rigidity. LUNGS: Coarse. HEART: S1 and S2, regular. ABDOMEN: Obese, soft. No guarding. Bowel sounds present. GENITOURINARY: Indwelling Aponte catheter in place. EXTREMITIES: 2-3+ edema to lower extremities bilaterally. SCDs. No cyanosis. SKIN: Warm to touch. No signs of rash. NEUROLOGIC: Sedated and nonresponsive. Right IJ temporary HD catheter and CVC (4-24) without signs of any complications. LABORATORY DATA: WBC 10.1 from 13.2 with bands 32% on admission, hemoglobin 6.2, platelets 117,000. Sodium 145, potassium 3.4, creatinine 1.9 from 2.5 on admission, BUN 29, glucose 184, lactic acid 0.9, AST 32, ALT 38, total bilirubin 0.5, albumin 1.3. Procalcitonin 0.35. Lipase 31. Random vancomycin trough 13.3. Urine toxicology positive for opiates, benzodiazepines, cannabinoids. Blood cultures from 12/02 negative to date. Urinalysis unremarkable for infection. Urine test negative. Today's chest x-ray showed slight interval decrease in multifocal right greater than left lung mixed interstitial and alveolar infiltrate; and stable small right pleural effusion. IMPRESSION: 1. Sepsis with hypotension, hypothermia, leukocytosis and encephalopathy. 2. Bilateral infiltrates, pneumonia not ruled out. 3. Acute respiratory failure. 4. Metabolic and respiratory acidosis. 5. Acute kidney injury on chronic kidney disease, requiring hemodialysis. 6. Acute blood loss anemia and protein-calorie malnutrition. 7. Diabetes mellitus type 1. 8. Hypothyroidism. 9. History of Enterobacter Clostridium difficile, group A strep and E. coli infections. PLAN: 1. Discontinue vancomycin with acute kidney injury and Zosyn. 2. Recommend meropenem and micafungin. 3. Also start oral vancomycin b.i.d. prophylaxis. 4. Monitor WBC count and temperature. 5. Check a TSH level. 6. Followup blood cultures, so far negative. 7. Obtain respiratory culture. 8. Maintain aspiration precautions. 9. Supportive care. 10. Discussed with nursing. 11. The patient is critically ill. Thank you, Dr. Vivar for asking us to participate in this patient's care. Should you have further questions or concerns, please call. TUSHAR/SERGE ERICKSON: Joe TID: [id number]
[2020-12-03] MEDS: MEROPENEM 500 MG in IV NORMAL SALINE 50ML 50 ML IV SCH (11:31)
[2020-12-03] MEDS: MICAFUNGIN 100 MG in IV DEXTROSE 5% 100ML 100 ML IV SCH (12:21)
--- NOTE | 2020-12-03 12:36 | PDOC ---
Renal-Progress Notes Subjective Notes Notes REMAINS INTUBATED History of Present Illness Hx of present illness ON THE VENT Vitals Vitals Vital Signs Date Time Temp Pulse Resp B/P (MAP) Pulse Ox O2 Delivery O2 Flow Rate FiO2 12/03/20 12:22 95 Ventilator 12/03/20 11:00 99.7 86 16 127/68 (87) 99.7 12/02/20 09:30 15.0 Weight Weight [ ] I.O. Intake and Output Intake and Output 12/03/20 07:00 Intake Total 1920.0 ml Output Total 646 ml Balance 1274.0 ml Intake IV Total 1482.0 ml Tube Feeding 438 ml Output Urine Total 396 ml Gastric Drainage Total 250 ml Labs Labs Laboratory Tests Test 12/02/20 12:38 12/02/20 14:19 12/02/20 15:15 12/02/20 17:03 Procalcitonin 0.35 ng/mL (0.00-0.10) Glucose (Fingerstick) 113 mg/dL (70-99) 85 mg/dL (70-99) 65 mg/dL (70-99) Test 12/02/20 17:27 12/02/20 20:10 12/02/20 20:29 12/02/20 21:35 Glucose (Fingerstick) 101 mg/dL (70-99) 38 mg/dL (70-99) 145 mg/dL (70-99) 100 mg/dL (70-99) Test 12/02/20 23:05 12/03/20 02:09 12/03/20 05:58 12/03/20 06:47 Glucose (Fingerstick) 99 mg/dL (70-99) 121 mg/dL (70-99) 162 mg/dL (70-99) White Blood Count 10.1 x10^3/uL (4.0-11.0) Red Blood Count 2.15 x10^6/uL (3.50-5.40) Hemoglobin 6.2 g/dL (12.0-15.5) Hematocrit 18.7 % (36.0-47.0) Mean Corpuscular Volume 87 fL (79-100) Mean Corpuscular Hemoglobin 29 pg (25-35) Mean Corpuscular Hemoglobin Concent 33 g/dL (31-37) Red Cell Distribution Width 16.0 % (11.5-14.5) Platelet Count 117 x10^3/uL (140-400) Neutrophils (%) (Auto) 82 % (31-73) Lymphocytes (%) (Auto) 14 % (24-48) Monocytes (%) (Auto) 2 % (0-9) Eosinophils (%) (Auto) 1 % (0-3) Basophils (%) (Auto) 1 % (0-3) Neutrophils # (Auto) 8.2 x10^3/uL (1.8-7.7) Lymphocytes # (Auto) 1.4 x10^3/uL (1.0-4.8) Monocytes # (Auto) 0.2 x10^3/uL (0.0-1.1) Eosinophils # (Auto) 0.1 x10^3/uL (0.0-0.7) Basophils # (Auto) 0.1 x10^3/uL (0.0-0.2) Sodium Level 145 mmol/L (136-145) Potassium Level 3.4 mmol/L (3.5-5.1) Chloride Level 111 mmol/L (98-107) Carbon Dioxide Level 26 mmol/L (21-32) Anion Gap 8 (6-14) Blood Urea Nitrogen 29 mg/dL (7-20) Creatinine 1.9 mg/dL (0.6-1.0) Estimated GFR (Cockcroft-Gault) 29.6 BUN/Creatinine Ratio 15 (6-20) Glucose Level 184 mg/dL (70-99) Lactic Acid Level 0.9 mmol/L (0.4-2.0) Calcium Level 7.6 mg/dL (8.5-10.1) Phosphorus Level 5.1 mg/dL (2.6-4.7) Magnesium Level 1.8 mg/dL (1.8-2.4) Total Bilirubin 0.5 mg/dL (0.2-1.0) Aspartate Amino Transf (AST/SGOT) 32 U/L (15-37) Alanine Aminotransferase (ALT/SGPT) 38 U/L (14-59) Alkaline Phosphatase 218 U/L (46-116) Total Protein 3.9 g/dL (6.4-8.2) Albumin 1.3 g/dL (3.4-5.0) Albumin/Globulin Ratio 0.5 (1.0-1.7) Thyroid Stimulating Hormone (TSH) 3.126 uIU/mL (0.358-3.74) Random Vancomycin Level 13.3 mcg/mL Test 12/03/20 08:25 12/03/20 11:35 O2 Saturation 99 % (92-99) Arterial Blood pH 7.54 (7.35-7.45) Arterial Blood pCO2 at Patient Temp 28 mmHg (35-46) Arterial Blood pO2 at Patient Temp 198 mmHg (85-108) Arterial Blood HCO3 24 mmol/L (21-28) Arterial Blood Base Excess 1 mmol/L (-3-3) FiO2 55% vent Glucose (Fingerstick) 214 mg/dL (70-99) Micro Micro Microbiology 12/02/20 Blood Culture - Preliminary, Resulted NO GROWTH AFTER 1 DAY Review of Systems Constitutional: yes: other (UNABLE TO OBTAIN) Physical Exam General Appearance: other (ON THE VENT) Skin: warm Respiratory: decreased breath sounds Heart: S1S2 Abdomen: soft, bowel sounds present Genitourinary: bladder flat Extremities: edema Neurology: other (SEDATED) Assessment Assessment IMP [id number] ACIDEMIA-CORRECTED CURRENT ALKALOSIS AG MET ACIDOSIS - PRIMARY RESP ACIDOSIS ACUTE HYPOXIC, HYPERCARBIC RESP FAILURE TYPE I DM-NO DKA ANASARCA PROB CHF NECK AND BACK PAIN LEUCOCYTOSIS HYPOTENSION PROB SEPSIS MARIJUANA AND OPIATE ABUSE PLAN VENT SUPPORT PRESSORS EMPIRIC ANTIBIOTICS CONSIDER CARDIOLOGY AND ID EVAL HD TOMORROW CONSIDER DECREASING MV CONTROL BG BEST POSSIBLE PRBC TODAY CASE D/W ATTENDING CASE D/W PULM/CRITICAL CARE NATALIA MCGRAW MD Dec 03, 2020 12:36
--- NOTE | 2020-12-03 13:35 | PN ---
DATE: 12/03/2020 LOCATION: She is in room ICU 114. SUBJECTIVE: The patient remains sedate and on a ventilator. Her FIO2 is down to 40% at the time of my examination and she has been off Levophed since 4:00 a.m. She looks better than she did yesterday. She does awaken enough to shake her head yes and no, to some questions, but she is certainly not fully awake and alert. OBJECTIVE: VITAL SIGNS: Stable. She is afebrile. She did receive dialysis yesterday with resolution of her acidemia and she is actually a little bit alkalotic this morning. Blood gas likely related to bicarbonate. Her BUN is 29, creatinine 1.9 this morning. Potassium is 3.4, CO2 is 26, calcium is low at 7.6, but her albumin is 1.3 and phosphorus is a little bit elevated at 5.1. Her white count has dropped from 13,000 down to 10,000; her platelet count has dropped from 176,000 to 117,000. Her left shift has improved. Hemoglobin is 6.2 this morning. I have asked nursing to give her one unit of blood and decide whether to do this with dialysis if she is receiving again today or not. CHEST: Reveals decent breath sounds. HEART: Regular. ABDOMEN: Benign. She still has diffuse edema on exam. ASSESSMENT: 1. Hyperchloremic metabolic acidosis, likely related to kidney. 2. Acute respiratory failure related to acute injury, volume overload, heart failure, possible pneumonia. 3. Insulin-dependent diabetes. PLAN: Ventilator per pulmonary and ask ID for any infection suggestions with her chest x-ray, although I think it probably is going to ultimately be all due to fluid overload. Cultures are pending and are negative to date. Supportive care will be continued and the patient will be monitored, managed and treated appropriately. ELICEO DR: Anastacio TID: [id number]
[2020-12-03 15:53] LABS: HEMOGLOBIN 8.5 g/dL (12.0-15.5)
[2020-12-03] MEDS ORDERED: INSULIN LISPRO 300 UNITS/3 ML VIAL. SQ SCH (17:00)
[2020-12-03] MEDS: INSULIN LISPRO 300 UNITS/3 ML VIAL. SQ SCH (17:28)
[2020-12-04] VITALS (33 sets, daily range): BP systolic 76–164; BP diastolic 46–100
[2020-12-04] MEDS: INSULIN LISPRO 300 UNITS/3 ML VIAL. SQ SCH ×4 (06:21→17:15)
[2020-12-04 06:37] LABS: CALCIUM 7.9 mg/dL (8.5-10.1); CREATININE 2.3 mg/dL (0.6-1.0); GFR 23.7; POTASSIUM 3.7 mmol/L (3.5-5.1)
[2020-12-04 06:42] LABS: PHOSPHORUS 5.7 mg/dL (2.6-4.7)
[2020-12-04 07:00] LABS: BASO # 0.1 x10^3/uL (0.0-0.2); BASO % 1 % (0-3); EOS # 0.1 x10^3/uL (0.0-0.7); EOS % 1 % (0-3); HEMATOCRIT 27.1 % (36.0-47.0); LYMPH # 1.6 x10^3/uL (1.0-4.8); LYMPH % 11 % (24-48); MEAN CORPUSCULAR HEMOGLOBIN 28 pg (25-35); MEAN CORPUSCULAR HGB CONC 33 g/dL (31-37); MEAN CORPUSCULAR VOLUME 86 fL (79-100); MONO # 0.3 x10^3/uL (0.0-1.1); MONO % 2 % (0-9); NEUT % 85 % (31-73); PLATELET COUNT 144 x10^3/uL (140-400); RED BLOOD COUNT 3.15 x10^6/uL (3.50-5.40); RED CELL DISTRIBUTION WIDTH 16.8 % (11.5-14.5); WHITE BLOOD COUNT 14.1 x10^3/uL (4.0-11.0)
--- NOTE | 2020-12-04 07:44 | PDOC ---
Infectious Disease Note Subjective: Subjective Patient intubated Opens eyes intermittently Off pressors since this morning Discussed with nursing staff Vital Signs: Vital Signs Vital Signs Date Time Temp Pulse Resp B/P (MAP) Pulse Ox O2 Delivery O2 Flow Rate FiO2 12/04/20 06:00 98.1 66 18 99/71 (80) 98 Ventilator 98.1 Physical Exam: PHYSICAL EXAM GENERAL: The patient is orally intubated, sedated, mitten in place. HEENT: Pupils are equal. Pale conjunctivae. ETT and OGT in place. NECK: Supple. No nuchal rigidity. LUNGS: Coarse. HEART: S1 and S2, regular. ABDOMEN: Obese, soft. No guarding. Bowel sounds present. Mildly distended GENITOURINARY: Indwelling Aponte catheter in place., Suprapubic swelling noted EXTREMITIES: 2-3+ edema to lower extremities bilaterally. SCDs. No cyanosis. SKIN: Warm to touch. No signs of rash. NEUROLOGIC: Sedated and nonresponsive. Right IJ temporary HD catheter and CVC (4-24) without signs of any complications. Medications: Inpatient Meds: Medications reviewed. Labs: Lab Laboratory Tests Test 12/03/20 08:25 12/03/20 11:35 12/03/20 15:13 12/03/20 17:17 O2 Saturation 99 % (92-99) Arterial Blood pH 7.54 (7.35-7.45) Arterial Blood pCO2 at Patient Temp 28 mmHg (35-46) Arterial Blood pO2 at Patient Temp 198 mmHg (85-108) Arterial Blood HCO3 24 mmol/L (21-28) Arterial Blood Base Excess 1 mmol/L (-3-3) FiO2 55% vent Glucose (Fingerstick) 214 mg/dL (70-99) 129 mg/dL (70-99) Hemoglobin 8.5 g/dL (12.0-15.5) Hematocrit 26.0 % (36.0-47.0) Mean Corpuscular Hemoglobin Concent 33 g/dL (31-37) Test 12/03/20 23:38 12/04/20 05:45 12/04/20 05:50 Glucose (Fingerstick) 121 mg/dL (70-99) 157 mg/dL (70-99) White Blood Count 14.1 x10^3/uL (4.0-11.0) Red Blood Count 3.15 x10^6/uL (3.50-5.40) Hemoglobin 9.0 g/dL (12.0-15.5) Hematocrit 27.1 % (36.0-47.0) Mean Corpuscular Volume 86 fL (79-100) Mean Corpuscular Hemoglobin 28 pg (25-35) Mean Corpuscular Hemoglobin Concent 33 g/dL (31-37) Red Cell Distribution Width 16.8 % (11.5-14.5) Platelet Count 144 x10^3/uL (140-400) Neutrophils (%) (Auto) 85 % (31-73) Lymphocytes (%) (Auto) 11 % (24-48) Monocytes (%) (Auto) 2 % (0-9) Eosinophils (%) (Auto) 1 % (0-3) Basophils (%) (Auto) 1 % (0-3) Neutrophils # (Auto) 12.0 x10^3/uL (1.8-7.7) Lymphocytes # (Auto) 1.6 x10^3/uL (1.0-4.8) Monocytes # (Auto) 0.3 x10^3/uL (0.0-1.1) Eosinophils # (Auto) 0.1 x10^3/uL (0.0-0.7) Basophils # (Auto) 0.1 x10^3/uL (0.0-0.2) Sodium Level 144 mmol/L (136-145) Potassium Level 3.7 mmol/L (3.5-5.1) Chloride Level 111 mmol/L (98-107) Carbon Dioxide Level 25 mmol/L (21-32) Anion Gap 8 (6-14) Blood Urea Nitrogen 34 mg/dL (7-20) Creatinine 2.3 mg/dL (0.6-1.0) Estimated GFR (Cockcroft-Gault) 23.7 Glucose Level 153 mg/dL (70-99) Calcium Level 7.9 mg/dL (8.5-10.1) Phosphorus Level 5.7 mg/dL (2.6-4.7) Magnesium Level 2.0 mg/dL (1.8-2.4) Objective: Assessment: 1. Sepsis with hypotension, hypothermia, leukocytosis and encephalopathy. 2. Bilateral infiltrates, pneumonia not ruled out. 3. Acute respiratory failure. 4. Metabolic and respiratory acidosis. 5. Acute kidney injury on chronic kidney disease, requiring hemodialysis. 6. Acute blood loss anemia and protein-calorie malnutrition. 7. Diabetes mellitus type 1. 8. Hypothyroidism. 9. Leucocytosis 10. History of Enterobacter Clostridium difficile, group A strep and E. coli infections. Plan: Plan of Care Cont meropenem and micafungin Dose po vanc BID Ultrasound of pelvis Monitor labs and cultures BC and UC neg so far Maintain aspiration precautions Supportive care Discussed with nursing Critically ill D/W LISA ROBLEDO MD Dec 04, 2020 07:44
[2020-12-04] MEDS ORDERED: ACETAMINOPHEN 500 MG TABLET PO PRN (08:00)
[2020-12-04] MEDS ORDERED: ALBUMIN HUMAN 25% 200 ML IV PRN (08:00)
[2020-12-04] MEDS ORDERED: DIALYSIS PATIENT. MC PRN ×2 (08:00)
[2020-12-04] MEDS ORDERED: IV NORMAL SALINE 1000ML BAG 1,000 ML IV PRN ×2 (08:00)
[2020-12-04] MEDS ORDERED: diphenhydrAMINE 50 MG/ML VIAL IV PRN ×2 (08:00)
--- NOTE | 2020-12-04 08:37 | PN ---
DATE: 12/04/2020 DAILY PROGRESS NOTE LOCATION: She is in [facility] room 114. SUBJECTIVE: This 40-year-old white female who remains sedated on a ventilator. She is off pressors again this morning since 6:00 a.m. with a blood pressure of 102/70. At this time, I am seeing her. She continues to look somewhat better. She is definitely less edematous. OBJECTIVE: VITAL SIGNS: Stable. She is afebrile. She did receive dialysis again yesterday. CHEST: Reveals decent breath sounds. HEART: Regular. ABDOMEN: Benign. EXTREMITIES: Again, edema has decreased. LABORATORY DATA: Morning labs show her hemoglobin up to 9 with a transfusion. BUN is 34, creatinine 2.4, CO2 is 25. All cultures are negative to date. Platelet count is back up in the normal range at 144,000 this morning. ASSESSMENT: 1. Hyperchloremic metabolic acidosis, likely kidney related. 2. Acute respiratory failure related to probable volume overload with possible pneumonia and bilateral infiltrates, which improved on chest x-ray yesterday. 3. Insulin-dependent diabetes. 4. Chronic kidney disease. PLAN: Continue present supportive care. She does seem to gradually be looking better. Broad-spectrum antibiotics are ongoing along with ventilation support, which feels she can probably be weaned over the next day or so from the ventilator if she can stay off of the pressors. Hopefully, ongoing dialysis for fluid removal. RADHA DR: Anastacio TID: [id number]
--- NOTE | 2020-12-04 08:53 | PDOC ---
PULMONARY PROGRESS NOTES DATE: 12/04/20 TIME: 08:51 Subjective on vent sedated on fentanyl and versed peep 5 fio2 40% small ett secretion levo off Vitals Vital Signs Date Time Temp Pulse Resp B/P (MAP) Pulse Ox O2 Delivery O2 Flow Rate FiO2 12/04/20 06:00 98.1 66 18 99/71 (80) 98 Ventilator 98.1 Comments on vent sedated HEENT: Other (nc at perrl nose clear orally intubated neck no lad no thyromegaly) Lungs: Crackles Cardiovascular: S1, S2 Abdomen: Soft, Non-tender, Other (no mass + edema ) Extremities: Other (++edema) Skin: Warm Labs Laboratory Tests Test 12/02/20 08:54 12/02/20 09:48 12/02/20 10:40 12/02/20 11:06 Glucose (Fingerstick) 159 mg/dL (70-99) 68 mg/dL (70-99) O2 Saturation 92 % (92-99) Arterial Blood pH 7.13 (7.35-7.45) Arterial Blood pCO2 at Patient Temp 43 mmHg (35-46) Arterial Blood pO2 at Patient Temp 70 mmHg (85-108) Arterial Blood HCO3 14 mmol/L (21-28) Arterial Blood Base Excess -15 mmol/L (-3-3) FiO2 70/vent Urine Collection Type U cath Urine Color Yellow Urine Clarity Clear Urine pH 5.0 (<5.0-8.0) Urine Specific Omar 1.015 (1.000-1.030) Urine Protein 100 mg/dL (NEG-TRACE) Urine Glucose (UA) Negative mg/dL (NEG) Urine Ketones (Stick) Negative mg/dL (NEG) Urine Blood Negative (NEG) Urine Nitrite Negative (NEG) Urine Bilirubin Negative (NEG) Urine Urobilinogen Dipstick 0.2 mg/dL (0.2 mg/dL) Urine Leukocyte Esterase Negative (NEG) Urine RBC 0 /HPF (0-2) Urine WBC 1-4 /HPF (0-4) Urine Squamous Epithelial Cells Mod /LPF Urine Renal Epithelial Cells Occ /LPF Urine Bacteria Few /HPF (0-FEW) Urine Mucus Slight /LPF Urine Test Negative (NEG) Urine Opiates Screen Pos (NEG) Urine Methadone Screen Neg (NEG) Urine Barbiturates Neg (NEG) Urine Phencyclidine Screen Neg (NEG) Urine Amphetamine/Methamphetamine Neg (NEG) Urine Benzodiazepines Screen Pos (NEG) Urine Cocaine Screen Neg (NEG) Urine Cannabinoids Screen Pos (NEG) Urine Ethyl Alcohol Neg (NEG) Test 12/02/20 11:34 12/02/20 11:42 12/02/20 12:38 12/02/20 14:19 Lactic Acid Level 0.9 mmol/L (0.4-2.0) Glucose (Fingerstick) 95 mg/dL (70-99) 113 mg/dL (70-99) Procalcitonin 0.35 ng/mL (0.00-0.10) Test 12/02/20 15:15 12/02/20 17:03 12/02/20 17:27 12/02/20 20:10 Glucose (Fingerstick) 85 mg/dL (70-99) 65 mg/dL (70-99) 101 mg/dL (70-99) 38 mg/dL (70-99) Test 12/02/20 20:29 12/02/20 21:35 12/02/20 23:05 12/03/20 02:09 Glucose (Fingerstick) 145 mg/dL (70-99) 100 mg/dL (70-99) 99 mg/dL (70-99) 121 mg/dL (70-99) Test 12/03/20 05:58 12/03/20 06:47 12/03/20 08:25 12/03/20 11:35 Glucose (Fingerstick) 162 mg/dL (70-99) 214 mg/dL (70-99) White Blood Count 10.1 x10^3/uL (4.0-11.0) Red Blood Count 2.15 x10^6/uL (3.50-5.40) Hemoglobin 6.2 g/dL (12.0-15.5) Hematocrit 18.7 % (36.0-47.0) Mean Corpuscular Volume 87 fL (79-100) Mean Corpuscular Hemoglobin 29 pg (25-35) Mean Corpuscular Hemoglobin Concent 33 g/dL (31-37) Red Cell Distribution Width 16.0 % (11.5-14.5) Platelet Count 117 x10^3/uL (140-400) Neutrophils (%) (Auto) 82 % (31-73) Lymphocytes (%) (Auto) 14 % (24-48) Monocytes (%) (Auto) 2 % (0-9) Eosinophils (%) (Auto) 1 % (0-3) Basophils (%) (Auto) 1 % (0-3) Neutrophils # (Auto) 8.2 x10^3/uL (1.8-7.7) Lymphocytes # (Auto) 1.4 x10^3/uL (1.0-4.8) Monocytes # (Auto) 0.2 x10^3/uL (0.0-1.1) Eosinophils # (Auto) 0.1 x10^3/uL (0.0-0.7) Basophils # (Auto) 0.1 x10^3/uL (0.0-0.2) Sodium Level 145 mmol/L (136-145) Potassium Level 3.4 mmol/L (3.5-5.1) Chloride Level 111 mmol/L (98-107) Carbon Dioxide Level 26 mmol/L (21-32) Anion Gap 8 (6-14) Blood Urea Nitrogen 29 mg/dL (7-20) Creatinine 1.9 mg/dL (0.6-1.0) Estimated GFR (Cockcroft-Gault) 29.6 BUN/Creatinine Ratio 15 (6-20) Glucose Level 184 mg/dL (70-99) Lactic Acid Level 0.9 mmol/L (0.4-2.0) Calcium Level 7.6 mg/dL (8.5-10.1) Phosphorus Level 5.1 mg/dL (2.6-4.7) Magnesium Level 1.8 mg/dL (1.8-2.4) Total Bilirubin 0.5 mg/dL (0.2-1.0) Aspartate Amino Transf (AST/SGOT) 32 U/L (15-37) Alanine Aminotransferase (ALT/SGPT) 38 U/L (14-59) Alkaline Phosphatase 218 U/L (46-116) Total Protein 3.9 g/dL (6.4-8.2) Albumin 1.3 g/dL (3.4-5.0) Albumin/Globulin Ratio 0.5 (1.0-1.7) Thyroid Stimulating Hormone (TSH) 3.126 uIU/mL (0.358-3.74) Random Vancomycin Level 13.3 mcg/mL O2 Saturation 99 % (92-99) Arterial Blood pH 7.54 (7.35-7.45) Arterial Blood pCO2 at Patient Temp 28 mmHg (35-46) Arterial Blood pO2 at Patient Temp 198 mmHg (85-108) Arterial Blood HCO3 24 mmol/L (21-28) Arterial Blood Base Excess 1 mmol/L (-3-3) FiO2 55% vent Test 12/03/20 15:13 12/03/20 17:17 12/03/20 23:38 12/04/20 05:45 Hemoglobin 8.5 g/dL (12.0-15.5) 9.0 g/dL (12.0-15.5) Hematocrit 26.0 % (36.0-47.0) 27.1 % (36.0-47.0) Mean Corpuscular Hemoglobin Concent 33 g/dL (31-37) 33 g/dL (31-37) Glucose (Fingerstick) 129 mg/dL (70-99) 121 mg/dL (70-99) White Blood Count 14.1 x10^3/uL (4.0-11.0) Red Blood Count 3.15 x10^6/uL (3.50-5.40) Mean Corpuscular Volume 86 fL (79-100) Mean Corpuscular Hemoglobin 28 pg (25-35) Red Cell Distribution Width 16.8 % (11.5-14.5) Platelet Count 144 x10^3/uL (140-400) Neutrophils (%) (Auto) 85 % (31-73) Lymphocytes (%) (Auto) 11 % (24-48) Monocytes (%) (Auto) 2 % (0-9) Eosinophils (%) (Auto) 1 % (0-3) Basophils (%) (Auto) 1 % (0-3) Neutrophils # (Auto) 12.0 x10^3/uL (1.8-7.7) Lymphocytes # (Auto) 1.6 x10^3/uL (1.0-4.8) Monocytes # (Auto) 0.3 x10^3/uL (0.0-1.1) Eosinophils # (Auto) 0.1 x10^3/uL (0.0-0.7) Basophils # (Auto) 0.1 x10^3/uL (0.0-0.2) Sodium Level 144 mmol/L (136-145) Potassium Level 3.7 mmol/L (3.5-5.1) Chloride Level 111 mmol/L (98-107) Carbon Dioxide Level 25 mmol/L (21-32) Anion Gap 8 (6-14) Blood Urea Nitrogen 34 mg/dL (7-20) Creatinine 2.3 mg/dL (0.6-1.0) Estimated GFR (Cockcroft-Gault) 23.7 Glucose Level 153 mg/dL (70-99) Calcium Level 7.9 mg/dL (8.5-10.1) Phosphorus Level 5.7 mg/dL (2.6-4.7) Magnesium Level 2.0 mg/dL (1.8-2.4) Test 12/04/20 05:50 Glucose (Fingerstick) 157 mg/dL (70-99) Laboratory Tests Test 12/03/20 11:35 12/03/20 15:13 12/03/20 17:17 12/03/20 23:38 Glucose (Fingerstick) 214 mg/dL (70-99) 129 mg/dL (70-99) 121 mg/dL (70-99) Hemoglobin 8.5 g/dL (12.0-15.5) Hematocrit 26.0 % (36.0-47.0) Mean Corpuscular Hemoglobin Concent 33 g/dL (31-37) Test 12/04/20 05:45 12/04/20 05:50 White Blood Count 14.1 x10^3/uL (4.0-11.0) Red Blood Count 3.15 x10^6/uL (3.50-5.40) Hemoglobin 9.0 g/dL (12.0-15.5) Hematocrit 27.1 % (36.0-47.0) Mean Corpuscular Volume 86 fL (79-100) Mean Corpuscular Hemoglobin 28 pg (25-35) Mean Corpuscular Hemoglobin Concent 33 g/dL (31-37) Red Cell Distribution Width 16.8 % (11.5-14.5) Platelet Count 144 x10^3/uL (140-400) Neutrophils (%) (Auto) 85 % (31-73) Lymphocytes (%) (Auto) 11 % (24-48) Monocytes (%) (Auto) 2 % (0-9) Eosinophils (%) (Auto) 1 % (0-3) Basophils (%) (Auto) 1 % (0-3) Neutrophils # (Auto) 12.0 x10^3/uL (1.8-7.7) Lymphocytes # (Auto) 1.6 x10^3/uL (1.0-4.8) Monocytes # (Auto) 0.3 x10^3/uL (0.0-1.1) Eosinophils # (Auto) 0.1 x10^3/uL (0.0-0.7) Basophils # (Auto) 0.1 x10^3/uL (0.0-0.2) Sodium Level 144 mmol/L (136-145) Potassium Level 3.7 mmol/L (3.5-5.1) Chloride Level 111 mmol/L (98-107) Carbon Dioxide Level 25 mmol/L (21-32) Anion Gap 8 (6-14) Blood Urea Nitrogen 34 mg/dL (7-20) Creatinine 2.3 mg/dL (0.6-1.0) Estimated GFR (Cockcroft-Gault) 23.7 Glucose Level 153 mg/dL (70-99) Calcium Level 7.9 mg/dL (8.5-10.1) Phosphorus Level 5.7 mg/dL (2.6-4.7) Magnesium Level 2.0 mg/dL (1.8-2.4) Glucose (Fingerstick) 157 mg/dL (70-99) Medications Active Scripts Medications Dose Route/Sig Max Daily Dose Days Date Category Lisinopril 40 Mg Tablet 1 Tab PO DAILY 03/26/19 Reported Synthroid (Levothyroxine Sodium) 100 Mcg Tablet 100 Mcg PO DAILY06 30 08/21/18 Rx [Pantoprazole] 40 MG Tablet.dr 40 Mg PO BIDAC 90 08/21/18 Rx Feosol (Ferrous Sulfate) 325 Mg Tablet 325 Mg PO DAILYWBKFT 90 08/21/18 Rx Zofran Odt (Ondansetron) 4 Mg Tab.rapdis 1 Tab SL Q8HRS 06/08/17 Rx Levemir Flextouch (Insulin Detemir) 100 Unit/1 Ml Insuln.pen 14 Units SQ QHS 04/25/16 Rx Alprazolam 0.5 Mg Tablet 0.5 Mg PO PRN Q6HRS PRN 04/23/16 Reported Humalog (Insulin Lispro) 100 Unit/1 Ml Insuln.pen 8 Unit SQ TIDAC 03/16/14 Reported Comments reviewed cxr 1. Slight interval decrease in multifocal right greater than left lung mixed interstitial and alveolar infiltrate. 2. Stable small right pleural effusion and stable support lines and tubes. Impression . IMPRESSION: 1. Acute respiratory failure, multifactorial in etiology including acute kidney injury, volume overload, acute diastolic congestive heart failure, cannot rule out pneumonia. 2. Abnormal chest x-ray. 3. Acute kidney injury. 4. Chronic kidney disease. 5. Smoker. 6. Hypernatremia. 7. Diabetes mellitus. Plan . PLAN AND RECOMMENDATIONS: 1. Titrate FiO2 to keep O2 saturation 94%. on 40%FIO2. 2. I will review ABG and consider CPAP trial 3. cont abx 4. fu Panculture. 5. test, neg 6. Procalcitonin elevated. 7. Repeat lactate, nl 8. HD per nephro 9. Cardiology was consulted. Agree with echocardiogram. 10. lower extremity venous Doppler. neg The findings and recommendations were discussed with RN and RT labs reviewed, imaging reviewed. addend: cxr 12/04 reviewed. worsening CHF/ Effusion increase UF with HD today hold weaning RIKKI SERRANO MD Dec 04, 2020 08:53
[2020-12-04] MEDS: CHLORHEXIDINE 0.12% 15 ML MOUTHWASH. MM SCH (09:00)
[2020-12-04 09:01] LABS: BASE EXCESS ABG -4 mmol/L (-3-3); HCO3 ABG 22 mmol/L (21-28); PCO2 ABG 42 mmHg (35-46); SAT O2 ABG 76 % (92-99)
[2020-12-04] MEDS: MIDAZOLAM 100mg/100ml NS BAG 100 ML IV PRN ×2 (11:28→21:18)
--- NOTE | 2020-12-04 11:44 | PDOC ---
CARDIOLOGY PROGRESS NOTE SUBJECTIVE: Ms. Espinoza is 40 yo female who is currently intubated in the ICU due to suspected hyperchloremic metabolic acidosis. Vent setting: fi02: 50%, peep: 5, Vt: 450 ml. She was taken off Levophed this morning at 6 am but was subsequ ently started back on @ 1015 due to a BP drop during her dialysis treatment. Today she has had 2.8 L of fluid removed through dialysis with a total goal of 3L to be removed today. Her hemoglobin has improved to 9 with transfusion. Her nurse reports no acute changes overnight. OBJECTIVE: Vital Signs/I&O: Vital Signs Date Time Temp Pulse Resp B/P (MAP) Pulse Ox O2 Delivery O2 Flow Rate FiO2 12/04/20 10:12 93 Ventilator 12/04/20 06:00 98.1 66 18 99/71 (80) 98.1 I & O 12/03/20 12/03/20 12/04/20 15:00 23:00 07:00 Intake Total 1489.65 ml 998.83 ml 920 ml Output Total 30 ml 20 ml 58 ml Balance 1459.65 ml 978.83 ml 862 ml Objective: Heart: Regular rate, sinus rhythm Lungs: Decreased breath sounds bilaterally LE edema noted from mid to upper thigh CURRENT MEDICATIONS: Current Medications: NaCl (IV), Insulin Lispro (IV), Levophed (IV), Micofungin sodium (IV), Vancomycin (125 mg), Merepenem (IV), Chlorahexidine Gluconate (IV), Dextrose (IV), Midazolam (IV), Fentynal Citrate (IV), Dopamine (IV) Medications (Trade) Dose Ordered Sig/Adams Route PRN Reason Start Time Stop Time Status Last Admin Dose Admin Insulin Human Lispro (HumaLOG) 0-5 UNITS Q6HRS SQ 12/03/20 18:00 12/04/20 06:21 Albumin Human 200 ml @ 200 mls/hr 1X PRN PRN IV Hypotension 12/04/20 08:00 12/04/20 13:59 12/04/20 10:30 DIAGNOSTIC TESTING: CXR: R pleural effusion, mixed interstitial & alveolar infiltrates Blood cultures negative Labs: Laboratory Tests 12/04/20 05:45 Laboratory Tests Test 12/03/20 11:35 12/03/20 15:13 12/03/20 17:17 12/03/20 23:38 Glucose (Fingerstick) 214 mg/dL (70-99) H 129 mg/dL (70-99) H 121 mg/dL (70-99) H Hemoglobin 8.5 g/dL (12.0-15.5) #L Hematocrit 26.0 % (36.0-47.0) L Mean Corpuscular Hemoglobin Concent 33 g/dL (31-37) Test 12/04/20 05:45 12/04/20 05:50 White Blood Count 14.1 x10^3/uL (4.0-11.0) H Red Blood Count 3.15 x10^6/uL (3.50-5.40) L Hemoglobin 9.0 g/dL (12.0-15.5) L Hematocrit 27.1 % (36.0-47.0) L Mean Corpuscular Volume 86 fL (79-100) Mean Corpuscular Hemoglobin 28 pg (25-35) Mean Corpuscular Hemoglobin Concent 33 g/dL (31-37) Red Cell Distribution Width 16.8 % (11.5-14.5) H Platelet Count 144 x10^3/uL (140-400) Neutrophils (%) (Auto) 85 % (31-73) H Lymphocytes (%) (Auto) 11 % (24-48) L Monocytes (%) (Auto) 2 % (0-9) Eosinophils (%) (Auto) 1 % (0-3) Basophils (%) (Auto) 1 % (0-3) Neutrophils # (Auto) 12.0 x10^3/uL (1.8-7.7) H Lymphocytes # (Auto) 1.6 x10^3/uL (1.0-4.8) Monocytes # (Auto) 0.3 x10^3/uL (0.0-1.1) Eosinophils # (Auto) 0.1 x10^3/uL (0.0-0.7) Basophils # (Auto) 0.1 x10^3/uL (0.0-0.2) Sodium Level 144 mmol/L (136-145) Potassium Level 3.7 mmol/L (3.5-5.1) Chloride Level 111 mmol/L (98-107) H Carbon Dioxide Level 25 mmol/L (21-32) Anion Gap 8 (6-14) Blood Urea Nitrogen 34 mg/dL (7-20) H Creatinine 2.3 mg/dL (0.6-1.0) H Estimated GFR (Cockcroft-Gault) 23.7 Glucose Level 153 mg/dL (70-99) H Calcium Level 7.9 mg/dL (8.5-10.1) L Phosphorus Level 5.7 mg/dL (2.6-4.7) H Glucose (Fingerstick) 157 mg/dL (70-99) H ASSESSMENT: 1) Acute Respiratory Failure 2) JOSE RAUL 3) Respiratory alkalosis 4) Anemia 5) Possible sepsis PLAN: 1) Continue supportive care. No new CV issues. Await echocardiogram. Continue fluid removal with HD. Prn vasopressors. We will follow along. Justicifation of Admission Dx: Justifications for Admission: Justification of Admission Dx: N/A JONO CARDOZO MD Dec 04, 2020 11:44
[2020-12-04 11:53] LABS: FIO2 ABG 40; PO2 ABG 45 mmHg (85-108)
--- NOTE | 2020-12-04 12:13 | PDOC ---
Renal-Progress Notes Subjective Notes Notes REMAINS ON THE VENT History of Present Illness Hx of present illness STABLE BUT CRITICALLY ILL Vitals Vitals Vital Signs Date Time Temp Pulse Resp B/P (MAP) Pulse Ox O2 Delivery O2 Flow Rate FiO2 12/04/20 10:12 93 Ventilator 12/04/20 06:00 98.1 66 18 99/71 (80) 98.1 Weight Weight [ ] I.O. Intake and Output Intake and Output 12/04/20 07:00 Intake Total 3408.48 ml Output Total 108 ml Balance 3300.48 ml Intake IV Total 871.48 ml Tube Feeding 1513 ml Blood Product IV Normal Saline Flush 904 ml Other 120 ml Output Urine Total 108 ml Labs Labs Laboratory Tests Test 12/03/20 15:13 12/03/20 17:17 12/03/20 23:38 12/04/20 05:45 Hemoglobin 8.5 g/dL (12.0-15.5) 9.0 g/dL (12.0-15.5) Hematocrit 26.0 % (36.0-47.0) 27.1 % (36.0-47.0) Mean Corpuscular Hemoglobin Concent 33 g/dL (31-37) 33 g/dL (31-37) Glucose (Fingerstick) 129 mg/dL (70-99) 121 mg/dL (70-99) White Blood Count 14.1 x10^3/uL (4.0-11.0) Red Blood Count 3.15 x10^6/uL (3.50-5.40) Mean Corpuscular Volume 86 fL (79-100) Mean Corpuscular Hemoglobin 28 pg (25-35) Red Cell Distribution Width 16.8 % (11.5-14.5) Platelet Count 144 x10^3/uL (140-400) Neutrophils (%) (Auto) 85 % (31-73) Lymphocytes (%) (Auto) 11 % (24-48) Monocytes (%) (Auto) 2 % (0-9) Eosinophils (%) (Auto) 1 % (0-3) Basophils (%) (Auto) 1 % (0-3) Neutrophils # (Auto) 12.0 x10^3/uL (1.8-7.7) Lymphocytes # (Auto) 1.6 x10^3/uL (1.0-4.8) Monocytes # (Auto) 0.3 x10^3/uL (0.0-1.1) Eosinophils # (Auto) 0.1 x10^3/uL (0.0-0.7) Basophils # (Auto) 0.1 x10^3/uL (0.0-0.2) Sodium Level 144 mmol/L (136-145) Potassium Level 3.7 mmol/L (3.5-5.1) Chloride Level 111 mmol/L (98-107) Carbon Dioxide Level 25 mmol/L (21-32) Anion Gap 8 (6-14) Blood Urea Nitrogen 34 mg/dL (7-20) Creatinine 2.3 mg/dL (0.6-1.0) Estimated GFR (Cockcroft-Gault) 23.7 Glucose Level 153 mg/dL (70-99) Calcium Level 7.9 mg/dL (8.5-10.1) Phosphorus Level 5.7 mg/dL (2.6-4.7) Magnesium Level 2.0 mg/dL (1.8-2.4) Test 12/04/20 05:50 12/04/20 08:00 12/04/20 11:37 Glucose (Fingerstick) 157 mg/dL (70-99) 108 mg/dL (70-99) O2 Saturation 76 % (92-99) Arterial Blood pH 7.33 (7.35-7.45) Arterial Blood pCO2 at Patient Temp 42 mmHg (35-46) Arterial Blood pO2 at Patient Temp 45 mmHg (85-108) Arterial Blood HCO3 22 mmol/L (21-28) Arterial Blood Base Excess -4 mmol/L (-3-3) FiO2 40 Micro Micro Microbiology 12/02/20 Blood Culture - Preliminary, Resulted NO GROWTH AFTER 1 DAY 12/02/20 Gram Stain Evaluation - Final, Resulted 12/02/20 Respiratory Culture - Preliminary, Resulted Review of Systems Constitutional: yes: other (UNABLE TO OBTAIN) Physical Exam General Appearance: other (ON THE VENT) Skin: warm Respiratory: decreased breath sounds Heart: S1S2 Abdomen: soft, bowel sounds present Genitourinary: bladder flat Extremities: edema Neurology: other (SEDATED) Assessment Assessment IMP [id number] ACIDEMIA-CORRECTED CURRENT ALKALOSIS AG MET ACIDOSIS - PRIMARY RESP ACIDOSIS ACUTE HYPOXIC, HYPERCARBIC RESP FAILURE TYPE I DM-NO DKA ANASARCA PROB CHF NECK AND BACK PAIN LEUCOCYTOSIS HYPOTENSION PROB SEPSIS MARIJUANA AND OPIATE ABUSE PLAN VENT SUPPORT PRESSORS EMPIRIC ANTIBIOTICS CONSIDER CARDIOLOGY AND ID EVAL HD TODAY UF ABOUT 3.0 LITER IF TOLERATED CONTROL BG BEST POSSIBLE IV LASIX ONCE OFF PRESSORS CASE D/W ATTENDING CASE D/W PULM/CRITICAL CARE NATALIA MCGRAW MD Dec 04, 2020 12:13
--- NOTE | 2020-12-04 14:03 | RAD ---
EXAM: Chest, single view. HISTORY: Congestive heart failure. COMPARISON: 12/03/2020 FINDINGS: A frontal view of the chest is obtained. There is a stable partially loculated moderate rig ht pleural effusion and diffuse partially consolidated right middle and lower lobe infiltrate superim posed on diffuse interstitial infiltrate. There is a stable cardiac silhouette. There is an endotrach eal tube within the distal trachea. There is a nasogastric tube within the stomach. There are right i nternal jugular catheter is within the right atrium. IMPRESSION: 1. Stable suspected partially loculated moderate right pleural effusion and partially consolidated ri ght middle and lower lobe infiltrate. 2. Stable diffuse interstitial infiltrate. 3. Stable support lines and tubes. Electronically signed by: Jennifer Giraldo MD (12/04/2020 2:00 PM) [id number]
[2020-12-04] MEDS: IV DEXTROSE 10% 1,000 ML IV SCH (14:11)
--- NOTE | 2020-12-04 14:59 | RAD ---
Procedure: Temporary hemodialysis catheter placement at the bedside. Also Central line placement at t bedside both with ultrasound. Clinical Indication: Adult female requiring hemodialysis and central venous access for respiratory fa ilure. Sedation: Local anesthesia only Antibiotics: None Fluoro Time: Not applicable Contrast: None Sterility: All elements of maximal sterile barrier technique including the use of a cap, mask, steril e gown, sterile gloves, large sterile sheet, appropriate hand hygiene, and 2% chlorhexidine for cutan eous antisepsis (or acceptable alternative antiseptic per current guidelines) were followed for this procedure. Consent: The procedure was explained in its entirety to the patient or the patients designated repres entative by a member of the treatment team, including a discussion of the risks, benefits and commonl y accepted alternatives to the procedure, as well as the expected consequences of no therapy whatsoev er. Discussion of the risks included, but was not limited to, those that are most frequent and thos e that are rare but possibly severe or life-threatening, as well as the possibility of unforeseen com plications. Technique and Findings: Following informed consent, the patient was prepped and draped in the usual s terile fashion. Ultrasound interrogation of the right neck revealed patency and compressibility of t he right internal jugular vein. A 21-gauge micropuncture needle was used to gain access to this vein after 1% Lidocaine was used to achieve local anesthesia. A hardcopy ultrasound image was recorded. The needle was exchanged over a wire for serial dilators followed by a 20 cm Schon temporary hemodia lysis catheter which was deployed in the expected location of the mid right atrium. The catheter nicol w rates were assessed manually and found to be excellent. The catheter was then flushed, packed with Heparin, capped, and sutured to the skin. Ultrasound interrogation of right internal jugular vein ju st above the temporary hemodialysis catheter site was then performed demonstrating persistent patency of the vein in this location. A hardcopy ultra on image was recorded as a 21-gauge micropuncture was used to gain access to this vessel. The needle was exchanged over wire for a dilator followed by a t riple-lumen central line. All 3 lm flushed and aspirated with ease. This catheter was sutured the ski n and capped. Chest x-ray was then obtained to assess line position. Complications: No immediate Impression: 1. Ultrasound guided placement of a temporary hemodialysis catheter which exhibits excellent manual f low rates as described. 2. Ultrasound-guided Central line placement as described. Line is suitable for use. Electronically signed by: Cb Schulte MD (12/04/2020 2:56 PM) [id number]
[2020-12-04] MEDS ORDERED: MAGNESIUM SULFATE 2GM 50 ML IV ONE (15:45)
[2020-12-04] MEDS ORDERED: ELECTROLYTE (ICU) PROTOCOL. MC PRN (15:45)
[2020-12-04] MEDS: POTASSIUM CHLORIDE 20MEQ 100 ML IV SCH ×2 (16:04→17:00)
[2020-12-04] MEDS: MEROPENEM 500 MG in IV NORMAL SALINE 50ML 50 ML IV SCH (16:11)
[2020-12-04] MEDS: VANCOMYCIN 125 MG/2.5 ML ORAL SOLUTION. PO SCH ×2 (16:55→21:20)
[2020-12-04] MEDS: MICAFUNGIN 100 MG in IV DEXTROSE 5% 100ML 100 ML IV SCH (16:56)
--- NOTE | 2020-12-04 20:39 | NUR ---
dialysis - 3 Kg. levo off /on 1. during dialysis 2. late afternoon after numerous med bolus
--- NOTE | 2020-12-04 20:42 | NUR ---
eelectrolyte replacement per SO/Dr Menezes
[2020-12-05] VITALS (34 sets, daily range): BP systolic 80–174; BP diastolic 53–101
[2020-12-05] MEDS: fentaNYL HIGH DOSE PCA 55 ML IV PRN ×2 (02:34→22:22)
[2020-12-05] MEDS: IV DEXTROSE 10% 1,000 ML IV SCH ×2 (04:01→18:47)
[2020-12-05 04:58] LABS: CALCIUM 7.8 mg/dL (8.5-10.1); CREATININE 1.7 mg/dL (0.6-1.0); GFR 33.6; MAGNESIUM 2.2 mg/dL (1.8-2.4); PHOSPHORUS 3.5 mg/dL (2.6-4.7); POTASSIUM 3.9 mmol/L (3.5-5.1)
[2020-12-05] MEDS: INSULIN LISPRO 300 UNITS/3 ML VIAL. SQ SCH ×4 (05:47→19:12)
--- NOTE | 2020-12-05 06:09 | RAD ---
Single view chest dated 12/05/2020. Comparison made to 12/04/2020. CLINICAL INDICATION: Follow-up pleural effusion. FINDINGS: Single semiupright portable exam performed. Heart and mediastinal contours are stable. Endotracheal t ube, nasogastric tube and right central catheters are in place, unchanged. There is patchy perihilar airspace disease, right greater than left. There is blunting of the right costophrenic sulcus. No pne umothorax. IMPRESSION: 1. Perihilar airspace disease, not significantly changed from prior study. 2. Small right pleural effusion. 3. Stable position of tubes and lines. Electronically signed by: Subhash Jordan MD (12/05/2020 6:06 AM) [facility]
[2020-12-05 07:35] LABS: BASE EXCESS ABG 3 mmol/L (-3-3); HCO3 ABG 26 mmol/L (21-28); PCO2 ABG 33 mmHg (35-46); PO2 ABG 104 mmHg (85-108); SAT O2 ABG 98 % (92-99)
[2020-12-05 08:21] LABS: FIO2 ABG 40
[2020-12-05] MEDS ORDERED: ALBUMIN HUMAN 25% 200 ML IV PRN (08:45)
[2020-12-05] MEDS ORDERED: IV NORMAL SALINE 1000ML BAG 1,000 ML IV PRN ×2 (08:45)
[2020-12-05] MEDS ORDERED: DIALYSIS PATIENT. MC PRN ×2 (08:45)
--- NOTE | 2020-12-05 08:55 | PN ---
DATE: 12/05/2020 DAILY PROGRESS NOTE LOCATION: She is in room ICU, 114. SUBJECTIVE: This 40-year-old white female remains sedated on a ventilator. She has been off and on pressors for the last 24 hours. She has had daily dialysis with removal of fluid. She does arise during my stay and shakes her head. She definitely appears less edematous. OBJECTIVE: VITAL SIGNS: Stable. She is afebrile. CHEST: Reveals descent breath sounds. HEART: Regular. ABDOMEN: Benign. EXTREMITIES: Edema has decreased. Antibiotics are ongoing as is dialysis. LABORATORY DATA: Creatinine this morning is 1.7, CO2 is 27, sugars have been very good. IMPRESSION: 1. Hyperchloremic metabolic acidosis, felt most likely kidney related. 2. Acute respiratory failure, felt secondary to volume overload with possible pneumonia with bilateral infiltrates. 3. Insulin-dependent diabetes. 4. Chronic kidney disease. I suspect she has reached end-stage renal disease. PLAN: Continue supportive care. We are covering for infections with all cultures to date negative. Hopefully, she can be weaned from the ventilator soon as she is on 40% FIO2 with O2 sats currently at 100. DINO DR: Anastacio TID: [id number]
[2020-12-05] MEDS: MEROPENEM 500 MG in IV NORMAL SALINE 50ML 50 ML IV SCH (09:00)
[2020-12-05] MEDS: MICAFUNGIN 100 MG in IV DEXTROSE 5% 100ML 100 ML IV SCH (09:30)
--- NOTE | 2020-12-05 10:34 | PDOC ---
Renal-Progress Notes Subjective Notes Notes REMAINS ON THE VENT History of Present Illness Hx of present illness STABLE Vitals Vitals Vital Signs Date Time Temp Pulse Resp B/P (MAP) Pulse Ox O2 Delivery O2 Flow Rate FiO2 12/05/20 08:00 Mechanical Ventilator 12/05/20 07:30 98 12/05/20 07:00 98.2 70 18 138/82 (100) 98.2 12/04/20 16:44 15.0 Weight Weight [ ] I.O. Intake and Output Intake and Output 12/05/20 07:00 Intake Total 1991 ml Output Total 270 ml Balance 1721 ml Intake IV Total 308 ml Tube Feeding 1308 ml Other 375 ml Output Urine Total 270 ml # Bowel Movements 6 Labs Labs Laboratory Tests Test 12/04/20 11:37 12/04/20 17:08 12/05/20 00:37 12/05/20 04:39 Glucose (Fingerstick) 108 mg/dL (70-99) 158 mg/dL (70-99) 88 mg/dL (70-99) Sodium Level 144 mmol/L (136-145) Potassium Level 3.9 mmol/L (3.5-5.1) Chloride Level 108 mmol/L (98-107) Carbon Dioxide Level 27 mmol/L (21-32) Anion Gap 9 (6-14) Blood Urea Nitrogen 22 mg/dL (7-20) Creatinine 1.7 mg/dL (0.6-1.0) Estimated GFR (Cockcroft-Gault) 33.6 Glucose Level 137 mg/dL (70-99) Calcium Level 7.8 mg/dL (8.5-10.1) Phosphorus Level 3.5 mg/dL (2.6-4.7) Magnesium Level 2.2 mg/dL (1.8-2.4) Test 12/05/20 07:30 O2 Saturation 98 % (92-99) Arterial Blood pH 7.52 (7.35-7.45) Arterial Blood pCO2 at Patient Temp 33 mmHg (35-46) Arterial Blood pO2 at Patient Temp 104 mmHg (85-108) Arterial Blood HCO3 26 mmol/L (21-28) Arterial Blood Base Excess 3 mmol/L (-3-3) FiO2 40 Micro Micro Microbiology 12/02/20 Blood Culture - Preliminary, Resulted NO GROWTH AFTER 2 DAYS 12/02/20 Gram Stain Evaluation - Final, Complete 12/02/20 Respiratory Culture - Final, Complete Review of Systems Constitutional: yes: other (UNABLE TO OBTAIN) Physical Exam General Appearance: other (ON THE VENT) Skin: warm Respiratory: decreased breath sounds Heart: S1S2 Abdomen: soft, bowel sounds present Genitourinary: bladder flat Extremities: edema Neurology: other (SEDATED) Assessment Assessment IMP [id number] ACIDEMIA-CORRECTED CURRENT ALKALOSIS AG MET ACIDOSIS - PRIMARY RESP ACIDOSIS ACUTE HYPOXIC, HYPERCARBIC RESP FAILURE TYPE I DM-NO DKA ANASARCA PROB CHF NECK AND BACK PAIN LEUCOCYTOSIS HYPOTENSION PROB SEPSIS MARIJUANA AND OPIATE ABUSE PLAN VENT SUPPORT PRESSORS ANTIBIOTICS HD AGAIN TODAY UF ABOUT 3.0 LITER IF TOLERATED CONTROL BG BEST POSSIBLE IV LASIX TRIAL NATALIA MCGRAW MD Dec 05, 2020 10:34
--- NOTE | 2020-12-05 10:45 | PDOC ---
JAZMYNE SHARP HOME IMPROVEMENT ADVISOR 12/05/20 1045: CARDIO Progress Notes Date and Time Date of Service 12/05/20 Time of Evaluation 1030 Subjective Subjective: Other (sedated, MV) Vitals Vitals Vital Signs Date Time Temp Pulse Resp B/P (MAP) Pulse Ox O2 Delivery O2 Flow Rate FiO2 12/05/20 08:00 Mechanical Ventilator 12/05/20 07:30 98 12/05/20 07:00 98.2 70 18 138/82 (100) 98.2 12/04/20 16:44 15.0 Weight Weight [ ] Input and Output Intake and Output Intake and Output 12/05/20 07:00 Intake Total 1991 ml Output Total 270 ml Balance 1721 ml Intake IV Total 308 ml Tube Feeding 1308 ml Other 375 ml Output Urine Total 270 ml # Bowel Movements 6 Laboratory Labs Laboratory Tests Test 12/04/20 11:37 12/04/20 17:08 12/05/20 00:37 12/05/20 04:39 Glucose (Fingerstick) 108 mg/dL (70-99) 158 mg/dL (70-99) 88 mg/dL (70-99) Sodium Level 144 mmol/L (136-145) Potassium Level 3.9 mmol/L (3.5-5.1) Chloride Level 108 mmol/L (98-107) Carbon Dioxide Level 27 mmol/L (21-32) Anion Gap 9 (6-14) Blood Urea Nitrogen 22 mg/dL (7-20) Creatinine 1.7 mg/dL (0.6-1.0) Estimated GFR (Cockcroft-Gault) 33.6 Glucose Level 137 mg/dL (70-99) Calcium Level 7.8 mg/dL (8.5-10.1) Phosphorus Level 3.5 mg/dL (2.6-4.7) Magnesium Level 2.2 mg/dL (1.8-2.4) Test 12/05/20 07:30 O2 Saturation 98 % (92-99) Arterial Blood pH 7.52 (7.35-7.45) Arterial Blood pCO2 at Patient Temp 33 mmHg (35-46) Arterial Blood pO2 at Patient Temp 104 mmHg (85-108) Arterial Blood HCO3 26 mmol/L (21-28) Arterial Blood Base Excess 3 mmol/L (-3-3) FiO2 40 Microbiology Micro Microbiology 12/02/20 Blood Culture - Preliminary, Resulted NO GROWTH AFTER 2 DAYS 12/02/20 Gram Stain Evaluation - Final, Complete 12/02/20 Respiratory Culture - Final, Complete Review of Systems Constitutional: yes: other (UNABLE TO OBTAIN) Physical Exam HEENT: Neck Supple W Full Motion Chest: Symmetric LUNGS: Other (MV) Heart: RRR Abdomen: Other (soft ) Extremities: No Edema Neurology: other (SEDATED) Assessment Assessment 1. Acute respiratory failure with possible PNA; s/p intubation 2. Acute CHF with possible systolic dysfunction 3. JOSE RAUL on CKD; requiring HD 4. Hypotension, possible shock; off pressor support. BP adequate 5. Diabetes, II 6. Anemia; requiring transfusion Recommendations Echocardiogram to assess LV systolic function Ongoing antibiotic therapy Fluid offloading via HD Lung optimization Supportive care Justicifation of Admission Dx: Justifications for Admission: Justification of Admission Dx: N/A JONO CARDOZO MD 12/06/20 0838: CARDIO Progress Notes Plan Plan Late entry for 12/05/20 Pt. seen and examined. Agree with above RESEARCH AFFILIATE note. Supportive care, await echo. JAZMYNE SHARP APRN Dec 05, 2020 10:45 JONO CADROZO MD Dec 06, 2020 08:38
--- NOTE | 2020-12-05 10:51 | PDOC ---
Infectious Disease Note Subjective: Subjective Patient intubated Opens eyes intermittently Off pressors since this morning Discussed with nursing staff Vital Signs: Vital Signs Vital Signs Date Time Temp Pulse Resp B/P (MAP) Pulse Ox O2 Delivery O2 Flow Rate FiO2 12/05/20 08:00 Mechanical Ventilator 12/05/20 07:30 98 12/05/20 07:00 98.2 70 18 138/82 (100) 98.2 12/04/20 16:44 15.0 Physical Exam: PHYSICAL EXAM GENERAL: The patient is orally intubated, sedated, mitten in place. HEENT: Pupils are equal. Pale conjunctivae. ETT and OGT in place. NECK: Supple. No nuchal rigidity. LUNGS: Coarse. HEART: S1 and S2, regular. ABDOMEN: Obese, soft. No guarding. Bowel sounds present. Mildly distended GENITOURINARY: Indwelling Aponte catheter in place., Suprapubic swelling noted EXTREMITIES: 2-3+ edema to lower extremities bilaterally. SCDs. No cyanosis. SKIN: Warm to touch. No signs of rash. NEUROLOGIC: Sedated and nonresponsive. Right IJ temporary HD catheter and CVC (12-02) without signs of any complications. Medications: Inpatient Meds: Medications reviewed. Labs: Lab Laboratory Tests Test 12/04/20 11:37 12/04/20 17:08 12/05/20 00:37 12/05/20 04:39 Glucose (Fingerstick) 108 mg/dL (70-99) 158 mg/dL (70-99) 88 mg/dL (70-99) Sodium Level 144 mmol/L (136-145) Potassium Level 3.9 mmol/L (3.5-5.1) Chloride Level 108 mmol/L (98-107) Carbon Dioxide Level 27 mmol/L (21-32) Anion Gap 9 (6-14) Blood Urea Nitrogen 22 mg/dL (7-20) Creatinine 1.7 mg/dL (0.6-1.0) Estimated GFR (Cockcroft-Gault) 33.6 Glucose Level 137 mg/dL (70-99) Calcium Level 7.8 mg/dL (8.5-10.1) Phosphorus Level 3.5 mg/dL (2.6-4.7) Magnesium Level 2.2 mg/dL (1.8-2.4) Test 12/05/20 07:30 O2 Saturation 98 % (92-99) Arterial Blood pH 7.52 (7.35-7.45) Arterial Blood pCO2 at Patient Temp 33 mmHg (35-46) Arterial Blood pO2 at Patient Temp 104 mmHg (85-108) Arterial Blood HCO3 26 mmol/L (21-28) Arterial Blood Base Excess 3 mmol/L (-3-3) FiO2 40 Objective: Assessment: 1. Sepsis with hypotension, hypothermia, leukocytosis and encephalopathy. 2. Bilateral infiltrates, pneumonia not ruled out. 3. Acute respiratory failure. 4. Metabolic and respiratory acidosis. 5. Acute kidney injury on chronic kidney disease, requiring hemodialysis. G eneralized anasarca improving 6. Acute blood loss anemia and protein-calorie malnutrition. 7. Diabetes mellitus type 1. 8. Hypothyroidism. 9. Leucocytosis 10. History of Enterobacter Clostridium difficile, group A strep and E. coli infections. 11. CHF 12. Chronic back and neck pain 13. History of marijuana and opiate abuse Plan: Plan of Care Cont meropenem and micafungin Dose po vanc BID Follow-up ultrasound results ,pending Monitor labs and cultures BC and UC neg so far Maintain aspiration precautions Supportive care Discussed with nursing Critically ill D/W LISA ROBLEDO MD Dec 05, 2020 10:51
--- NOTE | 2020-12-05 10:53 | PDOC ---
PULMONARY PROGRESS NOTES DATE: 12/05/20 TIME: 10:46 Subjective pt. remains o vent support 18450/5/40% planned for HD today no overnight concerns Vitals Vital Signs Date Time Temp Pulse Resp B/P (MAP) Pulse Ox O2 Delivery O2 Flow Rate FiO2 12/05/20 08:00 Mechanical Ventilator 12/05/20 07:30 98 12/05/20 07:00 98.2 70 18 138/82 (100) 98.2 12/04/20 16:44 15.0 Comments on vent sedated HEENT: Other (nc at perrl nose clear orally intubated neck no lad no t hyromegaly) Lungs: Crackles Cardiovascular: S1, S2 Abdomen: Soft, Non-tender, Other (no mass + edema ) Extremities: Other (++edema) Skin: Warm Labs Laboratory Tests Test 12/03/20 11:35 12/03/20 15:13 12/03/20 17:17 12/03/20 23:38 Glucose (Fingerstick) 214 mg/dL (70-99) 129 mg/dL (70-99) 121 mg/dL (70-99) Hemoglobin 8.5 g/dL (12.0-15.5) Hematocrit 26.0 % (36.0-47.0) Mean Corpuscular Hemoglobin Concent 33 g/dL (31-37) Test 12/04/20 05:45 12/04/20 05:50 12/04/20 08:00 12/04/20 11:37 White Blood Count 14.1 x10^3/uL (4.0-11.0) Red Blood Count 3.15 x10^6/uL (3.50-5.40) Hemoglobin 9.0 g/dL (12.0-15.5) Hematocrit 27.1 % (36.0-47.0) Mean Corpuscular Volume 86 fL (79-100) Mean Corpuscular Hemoglobin 28 pg (25-35) Mean Corpuscular Hemoglobin Concent 33 g/dL (31-37) Red Cell Distribution Width 16.8 % (11.5-14.5) Platelet Count 144 x10^3/uL (140-400) Neutrophils (%) (Auto) 85 % (31-73) Lymphocytes (%) (Auto) 11 % (24-48) Monocytes (%) (Auto) 2 % (0-9) Eosinophils (%) (Auto) 1 % (0-3) Basophils (%) (Auto) 1 % (0-3) Neutrophils # (Auto) 12.0 x10^3/uL (1.8-7.7) Lymphocytes # (Auto) 1.6 x10^3/uL (1.0-4.8) Monocytes # (Auto) 0.3 x10^3/uL (0.0-1.1) Eosinophils # (Auto) 0.1 x10^3/uL (0.0-0.7) Basophils # (Auto) 0.1 x10^3/uL (0.0-0.2) Sodium Level 144 mmol/L (136-145) Potassium Level 3.7 mmol/L (3.5-5.1) Chloride Level 111 mmol/L (98-107) Carbon Dioxide Level 25 mmol/L (21-32) Anion Gap 8 (6-14) Blood Urea Nitrogen 34 mg/dL (7-20) Creatinine 2.3 mg/dL (0.6-1.0) Estimated GFR (Cockcroft-Gault) 23.7 Glucose Level 153 mg/dL (70-99) Calcium Level 7.9 mg/dL (8.5-10.1) Phosphorus Level 5.7 mg/dL (2.6-4.7) Magnesium Level 2.0 mg/dL (1.8-2.4) Glucose (Fingerstick) 157 mg/dL (70-99) 108 mg/dL (70-99) O2 Saturation 76 % (92-99) Arterial Blood pH 7.33 (7.35-7.45) Arterial Blood pCO2 at Patient Temp 42 mmHg (35-46) Arterial Blood pO2 at Patient Temp 45 mmHg (85-108) Arterial Blood HCO3 22 mmol/L (21-28) Arterial Blood Base Excess -4 mmol/L (-3-3) FiO2 40 Test 12/04/20 17:08 12/05/20 00:37 12/05/20 04:39 12/05/20 07:30 Glucose (Fingerstick) 158 mg/dL (70-99) 88 mg/dL (70-99) Sodium Level 144 mmol/L (136-145) Potassium Level 3.9 mmol/L (3.5-5.1) Chloride Level 108 mmol/L (98-107) Carbon Dioxide Level 27 mmol/L (21-32) Anion Gap 9 (6-14) Blood Urea Nitrogen 22 mg/dL (7-20) Creatinine 1.7 mg/dL (0.6-1.0) Estimated GFR (Cockcroft-Gault) 33.6 Glucose Level 137 mg/dL (70-99) Calcium Level 7.8 mg/dL (8.5-10.1) Phosphorus Level 3.5 mg/dL (2.6-4.7) Magnesium Level 2.2 mg/dL (1.8-2.4) O2 Saturation 98 % (92-99) Arterial Blood pH 7.52 (7.35-7.45) Arterial Blood pCO2 at Patient Temp 33 mmHg (35-46) Arterial Blood pO2 at Patient Temp 104 mmHg (85-108) Arterial Blood HCO3 26 mmol/L (21-28) Arterial Blood Base Excess 3 mmol/L (-3-3) FiO2 40 Laboratory Tests Test 12/04/20 11:37 12/04/20 17:08 12/05/20 00:37 12/05/20 04:39 Glucose (Fingerstick) 108 mg/dL (70-99) 158 mg/dL (70-99) 88 mg/dL (70-99) Sodium Level 144 mmol/L (136-145) Potassium Level 3.9 mmol/L (3.5-5.1) Chloride Level 108 mmol/L (98-107) Carbon Dioxide Level 27 mmol/L (21-32) Anion Gap 9 (6-14) Blood Urea Nitrogen 22 mg/dL (7-20) Creatinine 1.7 mg/dL (0.6-1.0) Estimated GFR (Cockcroft-Gault) 33.6 Glucose Level 137 mg/dL (70-99) Calcium Level 7.8 mg/dL (8.5-10.1) Phosphorus Level 3.5 mg/dL (2.6-4.7) Magnesium Level 2.2 mg/dL (1.8-2.4) Test 12/05/20 07:30 O2 Saturation 98 % (92-99) Arterial Blood pH 7.52 (7.35-7.45) Arterial Blood pCO2 at Patient Temp 33 mmHg (35-46) Arterial Blood pO2 at Patient Temp 104 mmHg (85-108) Arterial Blood HCO3 26 mmol/L (21-28) Arterial Blood Base Excess 3 mmol/L (-3-3) FiO2 40 Medications Active Scripts Medications Dose Route/Sig Max Daily Dose Days Date Category Lisinopril 40 Mg Tablet 1 Tab PO DAILY 03/26/19 Reported Synthroid (Levothyroxine Sodium) 100 Mcg Tablet 100 Mcg PO DAILY06 30 08/21/18 Rx [Pantoprazole] 40 MG Tablet.dr 40 Mg PO BIDAC 90 08/21/18 Rx Feosol (Ferrous Sulfate) 325 Mg Tablet 325 Mg PO DAILYWBKFT 90 08/21/18 Rx Zofran Odt (Ondansetron) 4 Mg Tab.rapdis 1 Tab SL Q8HRS 06/08/17 Rx Levemir Flextouch (Insulin Detemir) 100 Unit/1 Ml Insuln.pen 14 Units SQ QHS 04/25/16 Rx Alprazolam 0.5 Mg Tablet 0.5 Mg PO PRN Q6HRS PRN 04/23/16 Reported Humalog (Insulin Lispro) 100 Unit/1 Ml Insuln.pen 8 Unit SQ TIDAC 03/16/14 Reported Comments CXR 12/05 improved infiltrates reviewed cxr 1. Slight interval decrease in multifocal right greater than left lung mixed interstitial and alveolar infiltrate. 2. Stable small right pleural effusion and stable support lines and tubes. Impression . IMPRESSION: 1. Acute respiratory failure, multifactorial in etiology including acute kidney injury, volume overload, acute diastolic congestive heart failure, cannot rule out pneumonia. 2. Abnormal chest x-ray. 3. Acute kidney injury-- worsening, now on HD 4. Chronic kidney disease. 5. Smoker. 6. Hypernatremia. 7. Diabetes mellitus. Plan . 12/05 UPDATED Continue current vent support 40% and PEEP of 5 CXR/ABG reviewed -- no changes D/C all sedation and proceed with PS trial once awake Continue ABX, and follow cultures Follow nephrology recs-- planned for HD today Follow cardiology recs DVT/GI PPX D/W RN and RT Critical care time 30 min 12/04 PLAN AND RECOMMENDATIONS: 1. Titrate FiO2 to keep O2 saturation 94%. on 40%FIO2. 2. I will review ABG and consider CPAP trial 3. cont abx 4. fu Panculture. 5. test, neg 6. Procalcitonin elevated. 7. Repeat lactate, nl 8. HD per nephro 9. Cardiology was consulted. Agree with echocardiogram. 10. lower extremity venous Doppler. neg The findings and recommendations were discussed with RN and RT labs reviewed, imaging reviewed. addend: cxr 12/04 reviewed. worsening CHF/ Effusion increase UF with HD today hold weaning RIKKI SERRANO MD Dec 05, 2020 10:53
--- NOTE | 2020-12-05 15:39 | NUR ---
SS following for discharge planning. SS reviewed pt chart and discussed with pt RN. Pt is from home and is currently on the vent at 40%. COVID19 negative. Pt on IV Micafungin and IV Meropenem. COVID19 negative. Pt on Fentanyl and Versed. ID, Pulmonology, and Cardiology following. Not stable. SS will continue to follow for discharge planning. Addendum: 12/05/20 at 1543 by ANTON BORRERO SS Nephrology following as well. Pt having Hemodialysis. Pt positive for THC. SS will continue to follow for discharge planning.
--- NOTE | 2020-12-05 15:46 | RAD ---
US PELVIS COMPLETE History: Reason: lower abdominal swelling, suprapubic swelling / Spl. Instructions: / History: Comparison: None Technique: Grayscale and color Doppler imaging of the pelvis was performed using transabdominal and t ransvaginal technique. Findings: The uterus measures 5.1 cm. Degraded evaluation due to ascites and patient's ability to cooperate. Ut erus has an unremarkable appearance. The endometrial stripe measures 6 mm. Bilateral ovaries not identified due to positioning and overlying structures. Large pelvic ascites. IMPRESSION: 1. Large pelvic ascites. 2. Ovaries not identified. Electronically signed by: Zacarias Howard DO (12/05/2020 3:44 PM) [id number]
[2020-12-05] MEDS: VANCOMYCIN 125 MG/2.5 ML ORAL SOLUTION. PO SCH ×2 (16:00→21:36)
[2020-12-05] MEDS: FUROSEMIDE 40 MG/4 ML VIAL. IVP SCH ×2 (17:00→21:39)
--- NOTE | 2020-12-05 17:23 | NUR ---
Attempted sed msed wean for potential "trial" Dialysis initiate 1220 w/o trial initiation. Addendum: 12/05/20 at 1739 by Eloisa Maria RN 4 h run w -4KG. No hypotension w run 12/05. Wide awake w sed med increased after dialysis. Tracks w eyes, hypertensive while awake. Incont post dialysis w necessary linen change/pericare. Hopeful attempt to trial in am
[2020-12-05] MEDS: MIDAZOLAM 100mg/100ml NS BAG 100 ML IV PRN (19:05)
[2020-12-06] VITALS (32 sets, daily range): BP systolic 104–204; BP diastolic 69–108
[2020-12-06 05:46] LABS: CREATININE 1.3 mg/dL (0.6-1.0); GFR 45.8; MAGNESIUM 2.1 mg/dL (1.8-2.4); PHOSPHORUS 2.1 mg/dL (2.6-4.7); POTASSIUM 3.7 mmol/L (3.5-5.1)
[2020-12-06] MEDS: INSULIN LISPRO 300 UNITS/3 ML VIAL. SQ SCH ×5 (06:00→23:32)
[2020-12-06] MEDS ORDERED: IV NORMAL SALINE 1000ML BAG 1,000 ML IV PRN ×2 (08:15)
[2020-12-06] MEDS ORDERED: DIALYSIS PATIENT. MC PRN (08:15)
--- NOTE | 2020-12-06 08:15 | PN ---
DATE: 12/06/2020 LOCATION: She is in room ICU, 114. SUBJECTIVE: This 40-year-old white female, remains sedated on a ventilator. She has been off pressors for essentially the last 24 hours. She has ongoing daily dialysis with removal of fluid. She is much more awake and alert this morning. She appears less edematous daily and nursing tells me that her urine output is also improved over what it has been. OBJECTIVE: VITAL SIGNS: Stable. She is afebrile. She is still on a ventilator. CHEST: Decent breath sounds. HEART: Regular. ABDOMEN: Benign. EXTREMITIES: Decreasing edema. Antibiotics and dialysis are ongoing. LABORATORY DATA: BMP shows creatinine down to 1.3 this morning. A.m. chest x-ray is pending. ASSESSMENT: 1. Hyperchloremic metabolic acidosis, improved with dialysis. 2. Acute respiratory failure, felt secondary to volume overload with improvement and hopefully will be extubated soon. 3. Insulin-dependent diabetes mellitus with very tight blood sugar control currently. 4. Chronic kidney disease. PLAN: Continue present supportive care. All cultures to date are negative. Hopefully can be weaned from the ventilator soon. TRACY ERICKSON: Anastacio TID: [id number]
[2020-12-06 08:38] LABS: BASE EXCESS ABG 6 mmol/L (-3-3); HCO3 ABG 29 mmol/L (21-28); PCO2 ABG 38 mmHg (35-46); PO2 ABG 69 mmHg (85-108); SAT O2 ABG 94 % (92-99)
[2020-12-06 08:40] LABS: FIO2 ABG 40
[2020-12-06] MEDS: MIDAZOLAM 100mg/100ml NS BAG 100 ML IV PRN (08:48)
[2020-12-06 09:39] LABS: BASO # 0.1 x10^3/uL (0.0-0.2); BASO % 1 % (0-3); EOS # 0.3 x10^3/uL (0.0-0.7); EOS % 3 % (0-3); HEMATOCRIT 22.9 % (36.0-47.0); HEMOGLOBIN 7.7 g/dL (12.0-15.5); LYMPH # 1.3 x10^3/uL (1.0-4.8); LYMPH % 14 % (24-48); MEAN CORPUSCULAR HEMOGLOBIN 29 pg (25-35); MEAN CORPUSCULAR HGB CONC 34 g/dL (31-37); MEAN CORPUSCULAR VOLUME 86 fL (79-100); MONO # 0.2 x10^3/uL (0.0-1.1); MONO % 3 % (0-9); NEUT # 7.8 x10^3/uL (1.8-7.7); NEUT % 81 % (31-73); PLATELET COUNT 126 x10^3/uL (140-400); RED BLOOD COUNT 2.66 x10^6/uL (3.50-5.40); RED CELL DISTRIBUTION WIDTH 16.2 % (11.5-14.5); WHITE BLOOD COUNT 9.7 x10^3/uL (4.0-11.0)
[2020-12-06] MEDS ORDERED: ATROPINE 0.5 MG/5 ML DISP.SYRINGE. IV PRN (10:00)
[2020-12-06] MEDS ORDERED: IV NORMAL SALINE 500ML BAG 500 ML IV PRN (10:00)
--- NOTE | 2020-12-06 10:21 | PDOC ---
PULMONARY PROGRESS NOTES DATE: 12/06/20 TIME: 10:16 Subjective pt. remains o vent support 18/450/5/40% currently on HD no overnight concerns Vitals Vital Signs Date Time Temp Pulse Resp B/P (MAP) Pulse Ox O2 Delivery O2 Flow Rate FiO2 12/06/20 09:40 100 Ventilator 12/06/20 07:00 70 18 110/72 (85) 12/06/20 04:00 97.2 97.2 Comments on vent sedated HEENT: Other Lungs: Crackles Cardiovascular: S1, S2 Abdomen: Soft, Non-tender, Other (no mass + edema ) Extremities: Other (++edema) Skin: Warm Labs Laboratory Tests Test 12/04/20 11:37 12/04/20 17:08 12/05/20 00:37 12/05/20 04:39 Glucose (Fingerstick) 108 mg/dL (70-99) 158 mg/dL (70-99) 88 mg/dL (70-99) Sodium Level 144 mmol/L (136-145) Potassium Level 3.9 mmol/L (3.5-5.1) Chloride Level 108 mmol/L (98-107) Carbon Dioxide Level 27 mmol/L (21-32) Anion Gap 9 (6-14) Blood Urea Nitrogen 22 mg/dL (7-20) Creatinine 1.7 mg/dL (0.6-1.0) Estimated GFR (Cockcroft-Gault) 33.6 Glucose Level 137 mg/dL (70-99) Calcium Level 7.8 mg/dL (8.5-10.1) Phosphorus Level 3.5 mg/dL (2.6-4.7) Magnesium Level 2.2 mg/dL (1.8-2.4) Test 12/05/20 07:30 12/05/20 19:09 12/06/20 00:13 12/06/20 05:07 O2 Saturation 98 % (92-99) Arterial Blood pH 7.52 (7.35-7.45) Arterial Blood pCO2 at Patient Temp 33 mmHg (35-46) Arterial Blood pO2 at Patient Temp 104 mmHg (85-108) Arterial Blood HCO3 26 mmol/L (21-28) Arterial Blood Base Excess 3 mmol/L (-3-3) FiO2 40 Glucose (Fingerstick) 157 mg/dL (70-99) 139 mg/dL (70-99) Sodium Level 145 mmol/L (136-145) Potassium Level 3.7 mmol/L (3.5-5.1) Chloride Level 109 mmol/L (98-107) Carbon Dioxide Level 30 mmol/L (21-32) Anion Gap 6 (6-14) Blood Urea Nitrogen 15 mg/dL (7-20) Creatinine 1.3 mg/dL (0.6-1.0) Estimated GFR (Cockcroft-Gault) 45.8 Glucose Level 133 mg/dL (70-99) Calcium Level 8.0 mg/dL (8.5-10.1) Phosphorus Level 2.1 mg/dL (2.6-4.7) Magnesium Level 2.1 mg/dL (1.8-2.4) Test 12/06/20 08:00 12/06/20 09:06 O2 Saturation 94 % (92-99) Arterial Blood pH 7.51 (7.35-7.45) Arterial Blood pCO2 at Patient Temp 38 mmHg (35-46) Arterial Blood pO2 at Patient Temp 69 mmHg (85-108) Arterial Blood HCO3 29 mmol/L (21-28) Arterial Blood Base Excess 6 mmol/L (-3-3) FiO2 40 White Blood Count 9.7 x10^3/uL (4.0-11.0) Red Blood Count 2.66 x10^6/uL (3.50-5.40) Hemoglobin 7.7 g/dL (12.0-15.5) Hematocrit 22.9 % (36.0-47.0) Mean Corpuscular Volume 86 fL (79-100) Mean Corpuscular Hemoglobin 29 pg (25-35) Mean Corpuscular Hemoglobin Concent 34 g/dL (31-37) Red Cell Distribution Width 16.2 % (11.5-14.5) Platelet Count 126 x10^3/uL (140-400) Neutrophils (%) (Auto) 81 % (31-73) Lymphocytes (%) (Auto) 14 % (24-48) Monocytes (%) (Auto) 3 % (0-9) Eosinophils (%) (Auto) 3 % (0-3) Basophils (%) (Auto) 1 % (0-3) Neutrophils # (Auto) 7.8 x10^3/uL (1.8-7.7) Lymphocytes # (Auto) 1.3 x10^3/uL (1.0-4.8) Monocytes # (Auto) 0.2 x10^3/uL (0.0-1.1) Eosinophils # (Auto) 0.3 x10^3/uL (0.0-0.7) Basophils # (Auto) 0.1 x10^3/uL (0.0-0.2) Laboratory Tests Test 12/05/20 19:09 12/06/20 00:13 12/06/20 05:07 12/06/20 08:00 Glucose (Fingerstick) 157 mg/dL (70-99) 139 mg/dL (70-99) Sodium Level 145 mmol/L (136-145) Potassium Level 3.7 mmol/L (3.5-5.1) Chloride Level 109 mmol/L (98-107) Carbon Dioxide Level 30 mmol/L (21-32) Anion Gap 6 (6-14) Blood Urea Nitrogen 15 mg/dL (7-20) Creatinine 1.3 mg/dL (0.6-1.0) Estimated GFR (Cockcroft-Gault) 45.8 Glucose Level 133 mg/dL (70-99) Calcium Level 8.0 mg/dL (8.5-10.1) Phosphorus Level 2.1 mg/dL (2.6-4.7) Magnesium Level 2.1 mg/dL (1.8-2.4) O2 Saturation 94 % (92-99) Arterial Blood pH 7.51 (7.35-7.45) Arterial Blood pCO2 at Patient Temp 38 mmHg (35-46) Arterial Blood pO2 at Patient Temp 69 mmHg (85-108) Arterial Blood HCO3 29 mmol/L (21-28) Arterial Blood Base Excess 6 mmol/L (-3-3) FiO2 40 Test 12/06/20 09:06 White Blood Count 9.7 x10^3/uL (4.0-11.0) Red Blood Count 2.66 x10^6/uL (3.50-5.40) Hemoglobin 7.7 g/dL (12.0-15.5) Hematocrit 22.9 % (36.0-47.0) Mean Corpuscular Volume 86 fL (79-100) Mean Corpuscular Hemoglobin 29 pg (25-35) Mean Corpuscular Hemoglobin Concent 34 g/dL (31-37) Red Cell Distribution Width 16.2 % (11.5-14.5) Platelet Count 126 x10^3/uL (140-400) Neutrophils (%) (Auto) 81 % (31-73) Lymphocytes (%) (Auto) 14 % (24-48) Monocytes (%) (Auto) 3 % (0-9) Eosinophils (%) (Auto) 3 % (0-3) Basophils (%) (Auto) 1 % (0-3) Neutrophils # (Auto) 7.8 x10^3/uL (1.8-7.7) Lymphocytes # (Auto) 1.3 x10^3/uL (1.0-4.8) Monocytes # (Auto) 0.2 x10^3/uL (0.0-1.1) Eosinophils # (Auto) 0.3 x10^3/uL (0.0-0.7) Basophils # (Auto) 0.1 x10^3/uL (0.0-0.2) Medications Active Scripts Medications Dose Route/Sig Max Daily Dose Days Date Category Lisinopril 40 Mg Tablet 1 Tab PO DAILY 03/26/19 Reported Synthroid (Levothyroxine Sodium) 100 Mcg Tablet 100 Mcg PO DAILY06 30 08/21/18 Rx [Pantoprazole] 40 MG Tablet.dr 40 Mg PO BIDAC 90 08/21/18 Rx Feosol (Ferrous Sulfate) 325 Mg Tablet 325 Mg PO DAILYWBKFT 90 08/21/18 Rx Zofran Odt (Ondansetron) 4 Mg Tab.rapdis 1 Tab SL Q8HRS 06/08/17 Rx Levemir Flextouch (Insulin Detemir) 100 Unit/1 Ml Insuln.pen 14 Units SQ QHS 04/25/16 Rx Alprazolam 0.5 Mg Tablet 0.5 Mg PO PRN Q6HRS PRN 04/23/16 Reported Humalog (Insulin Lispro) 100 Unit/1 Ml Insuln.pen 8 Unit SQ TIDAC 03/16/14 Reported Comments CXR 12/05 improved infiltrates reviewed cxr 1. Slight interval decrease in multifocal right greater than left lung mixed interstitial and alveolar infiltrate. 2. Stable small right pleural effusion and stable support lines and tubes. Impression . IMPRESSION: 1. Acute respiratory failure, multifactorial in etiology including acute kidney injury, volume overload, acute diastolic congestive heart failure, cannot rule out pneumonia. 2. Abnormal chest x-ray. 3. Acute kidney injury-- worsening, now on HD 4. Chronic kidney disease. 5. Smoker. 6. Hypernatremia-improved 7. Diabetes mellitus. Plan . 12/06 UPDATED Continue current vent support 40% and PEEP of 5 CXR/ABG reviewed -- no changes D/C all sedation and proceed with PS trial once awake --precedex gtt if needed Continue ABX per ID, and follow cultures Follow nephrology recs-- HD today Follow cardiology recs --await ECHO results PT/OT/ST DVT/GI PPX D/W RN and RT Critical care time 30 min 12/05 UPDATED Continue current vent support 40% and PEEP of 5 CXR/ABG reviewed -- no changes D/C all sedation and proceed with PS trial once awake Continue ABX, and follow cultures Follow nephrology recs-- planned for HD today Follow cardiology recs DVT/GI PPX D/W RN and RT Critical care time 30 min 12/04 PLAN AND RECOMMENDATIONS: 1. Titrate FiO2 to keep O2 saturation 94%. on 40%FIO2. 2. I will review ABG and consider CPAP trial 3. cont abx 4. fu Panculture. 5. test, neg 6. Procalcitonin elevated. 7. Repeat lactate, nl 8. HD per nephro 9. Cardiology was consulted. Agree with echocardiogram. 10. lower extremity venous Doppler. neg The findings and recommendations were discussed with RN and RT labs reviewed, imaging reviewed. addend: cxr 12/04 reviewed. worsening CHF/ Effusion increase UF with HD today hold weaning RIKKI SERRANO MD Dec 06, 2020 10:21
--- NOTE | 2020-12-06 10:31 | PDOC ---
JAZMYNE SHARP TABULAR TYPIST 12/06/20 1031: CARDIO Progress Notes Date and Time Date of Service 12/06/20 Time of Evaluation 1030 Subjective Subjective: Other (intubated ) Vitals Vitals Vital Signs Date Time Temp Pulse Resp B/P (MAP) Pulse Ox O2 Delivery O2 Flow Rate FiO2 12/06/20 09:40 100 Ventilator 12/06/20 07:00 70 18 110/72 (85) 12/06/20 04:00 97.2 97.2 Weight Weight [ ] Input and Output Intake and Output Intake and Output 12/06/20 07:00 Intake Total 848 ml Output Total 575 ml Balance 273 ml Intake IV Total 136 ml Tube Feeding 712 ml Output Urine Total 575 ml # Voids 2 Laboratory Labs Laboratory Tests Test 12/05/20 19:09 12/06/20 00:13 12/06/20 05:07 12/06/20 08:00 Glucose (Fingerstick) 157 mg/dL (70-99) 139 mg/dL (70-99) Sodium Level 145 mmol/L (136-145) Potassium Level 3.7 mmol/L (3.5-5.1) Chloride Level 109 mmol/L (98-107) Carbon Dioxide Level 30 mmol/L (21-32) Anion Gap 6 (6-14) Blood Urea Nitrogen 15 mg/dL (7-20) Creatinine 1.3 mg/dL (0.6-1.0) Estimated GFR (Cockcroft-Gault) 45.8 Glucose Level 133 mg/dL (70-99) Calcium Level 8.0 mg/dL (8.5-10.1) Phosphorus Level 2.1 mg/dL (2.6-4.7) Magnesium Level 2.1 mg/dL (1.8-2.4) O2 Saturation 94 % (92-99) Arterial Blood pH 7.51 (7.35-7.45) Arterial Blood pCO2 at Patient Temp 38 mmHg (35-46) Arterial Blood pO2 at Patient Temp 69 mmHg (85-108) Arterial Blood HCO3 29 mmol/L (21-28) Arterial Blood Base Excess 6 mmol/L (-3-3) FiO2 40 Test 12/06/20 09:06 White Blood Count 9.7 x10^3/uL (4.0-11.0) Red Blood Count 2.66 x10^6/uL (3.50-5.40) Hemoglobin 7.7 g/dL (12.0-15.5) Hematocrit 22.9 % (36.0-47.0) Mean Corpuscular Volume 86 fL (79-100) Mean Corpuscular Hemoglobin 29 pg (25-35) Mean Corpuscular Hemoglobin Concent 34 g/dL (31-37) Red Cell Distribution Width 16.2 % (11.5-14.5) Platelet Count 126 x10^3/uL (140-400) Neutrophils (%) (Auto) 81 % (31-73) Lymphocytes (%) (Auto) 14 % (24-48) Monocytes (%) (Auto) 3 % (0-9) Eosinophils (%) (Auto) 3 % (0-3) Basophils (%) (Auto) 1 % (0-3) Neutrophils # (Auto) 7.8 x10^3/uL (1.8-7.7) Lymphocytes # (Auto) 1.3 x10^3/uL (1.0-4.8) Monocytes # (Auto) 0.2 x10^3/uL (0.0-1.1) Eosinophils # (Auto) 0.3 x10^3/uL (0.0-0.7) Basophils # (Auto) 0.1 x10^3/uL (0.0-0.2) Microbiology Micro Microbiology 12/02/20 Blood Culture - Preliminary, Resulted NO GROWTH AFTER 3 DAYS 12/02/20 Gram Stain Evaluation - Final, Complete 12/02/20 Respiratory Culture - Final, Complete Review of Systems Constitutional: yes: other (UNABLE TO OBTAIN) Physical Exam HEENT: Neck Supple W Full Motion Chest: Symmetric LUNGS: Other (MV) Heart: RRR (SR) Abdomen: Other (soft ) Extremities: No Edema Neurology: other (awake, mild sedation ) Assessment Assessment 1. Acute respiratory failure with possible PNA; s/p intubation 2. Acute CHF with possible systolic dysfunction 3. JOSE RAUL on CKD; requiring HD 4. Hypotension, possible shock; off pressor support. BP adequate 5. Diabetes, II 6. Anemia; requiring transfusion Recommendations Echocardiogram to assess LV systolic function Ongoing antibiotic therapy Fluid offloading via HD Lung optimization Supportive care Justicifation of Admission Dx: Justifications for Admission: Justification of Admission Dx: N/A JONO CARDOZO MD 12/07/20 1500: CARDIO Progress Notes Plan Plan Late entry for 12/06/2020 Patient seen and examined. Agree with above nurse practitioner note supportive care. Continue hemodialysis. JAZMYNE SHARP APRN Dec 06, 2020 10:31 JONO CARDOZO MD Dec 07, 2020 15:00
--- NOTE | 2020-12-06 10:44 | PDOC ---
Infectious Disease Note Subjective: Subjective Patient intubated Undergoing dialysis Opens eyes intermittently Discussed with nursing staff Vital Signs: Vital Signs Vital Signs Date Time Temp Pulse Resp B/P (MAP) Pulse Ox O2 Delivery O2 Flow Rate FiO2 12/06/20 09:40 100 Ventilator 12/06/20 07:00 70 18 110/72 (85) 12/06/20 04:00 97.2 97.2 Physical Exam: PHYSICAL EXAM GENERAL: The patient is orally intubated, sedated, mitten in place. HEENT: Pupils are equal. , No icterus ETT and OGT in place. NECK: Supple. No nuchal rigidity. LUNGS: Coarse. HEART: S1 and S2, regular. ABDOMEN: Obese, soft. No guarding. Bowel sounds present. Mildly distended GENITOURINARY: Indwelling Aponte catheter in place., Suprapubic swelling noted EXTREMITIES: 2-3+ edema to lower extremities bilaterally. SCDs. No cyanosis. SKIN: Warm to touch. No signs of rash. NEUROLOGIC: Sedated and nonresponsive. Right IJ temporary HD catheter and CVC (4-24) without signs of any complications. Medications: Inpatient Meds: Medications reviewed. Labs: Lab Laboratory Tests Test 12/05/20 19:09 12/06/20 00:13 12/06/20 05:07 12/06/20 08:00 Glucose (Fingerstick) 157 mg/dL (70-99) 139 mg/dL (70-99) Sodium Level 145 mmol/L (136-145) Potassium Level 3.7 mmol/L (3.5-5.1) Chloride Level 109 mmol/L (98-107) Carbon Dioxide Level 30 mmol/L (21-32) Anion Gap 6 (6-14) Blood Urea Nitrogen 15 mg/dL (7-20) Creatinine 1.3 mg/dL (0.6-1.0) Estimated GFR (Cockcroft-Gault) 45.8 Glucose Level 133 mg/dL (70-99) Calcium Level 8.0 mg/dL (8.5-10.1) Phosphorus Level 2.1 mg/dL (2.6-4.7) Magnesium Level 2.1 mg/dL (1.8-2.4) O2 Saturation 94 % (92-99) Arterial Blood pH 7.51 (7.35-7.45) Arterial Blood pCO2 at Patient Temp 38 mmHg (35-46) Arterial Blood pO2 at Patient Temp 69 mmHg (85-108) Arterial Blood HCO3 29 mmol/L (21-28) Arterial Blood Base Excess 6 mmol/L (-3-3) FiO2 40 Test 12/06/20 09:06 White Blood Count 9.7 x10^3/uL (4.0-11.0) Red Blood Count 2.66 x10^6/uL (3.50-5.40) Hemoglobin 7.7 g/dL (12.0-15.5) Hematocrit 22.9 % (36.0-47.0) Mean Corpuscular Volume 86 fL (79-100) Mean Corpuscular Hemoglobin 29 pg (25-35) Mean Corpuscular Hemoglobin Concent 34 g/dL (31-37) Red Cell Distribution Width 16.2 % (11.5-14.5) Platelet Count 126 x10^3/uL (140-400) Neutrophils (%) (Auto) 81 % (31-73) Lymphocytes (%) (Auto) 14 % (24-48) Monocytes (%) (Auto) 3 % (0-9) Eosinophils (%) (Auto) 3 % (0-3) Basophils (%) (Auto) 1 % (0-3) Neutrophils # (Auto) 7.8 x10^3/uL (1.8-7.7) Lymphocytes # (Auto) 1.3 x10^3/uL (1.0-4.8) Monocytes # (Auto) 0.2 x10^3/uL (0.0-1.1) Eosinophils # (Auto) 0.3 x10^3/uL (0.0-0.7) Basophils # (Auto) 0.1 x10^3/uL (0.0-0.2) Objective: Assessment: 1. Sepsis with hypotension, hypothermia, leukocytosis and encephalopathy. 2. Bilateral infiltrates, possible aspiration 3. Acute respiratory failure. Status post intubation 4. Metabolic and respiratory acidosis. 5. Acute kidney injury on chronic kidney disease, requiring hemodialysis. Generalized anasarca improving 6. Acute blood loss anemia and protein-calorie malnutrition. 7. Diabetes mellitus type 1. 8. Hypothyroidism. 9. Leucocytosis 10. Pelvic ascites 11. CHF 12. Chronic back and neck pain 13. History of marijuana and opiate abuse 14.History of Enterobacter Clostridium difficile, group A strep and E. coli infections. Plan: Plan of Care Cont meropenem and micafungin Continue po vanc BID Abdomen and pelvic and transvaginal ultrasound report reviewed Monitor labs and cultures BC and UC neg so far Sputum mixed respiratory jah Maintain aspiration precautions Supportive care Discussed with nursing D/W LISA ROBLEDO MD Dec 06, 2020 10:44
[2020-12-06] MEDS: DEXMEDETOMIDINE 400 MCG in IV NORMAL SALINE 100ML 96 ML IV PRN ×2 (10:46→22:04)
[2020-12-06] MEDS: MEROPENEM 500 MG in IV NORMAL SALINE 50ML 50 ML IV SCH (11:32)
[2020-12-06] MEDS: MICAFUNGIN 100 MG in IV DEXTROSE 5% 100ML 100 ML IV SCH (11:33)
[2020-12-06] MEDS: VANCOMYCIN 125 MG/2.5 ML ORAL SOLUTION. PO SCH ×2 (11:34→21:01)
[2020-12-06] MEDS: FUROSEMIDE 40 MG/4 ML VIAL. IVP SCH ×2 (11:34→21:01)
--- NOTE | 2020-12-06 12:15 | PDOC ---
Renal-Progress Notes Subjective Notes Notes ON THE VENT History of Present Illness Hx of present illness NO ACUTE CHANGES Vitals Vitals Vital Signs Date Time Temp Pulse Resp B/P (MAP) Pulse Ox O2 Delivery O2 Flow Rate FiO2 12/06/20 11:37 100 Ventilator 12/06/20 10:00 76 18 118/75 (89) 12/06/20 04:00 97.2 97.2 Weight Weight [ ] I.O. Intake and Output Intake and Output 12/06/20 07:00 Intake Total 848 ml Output Total 575 ml Balance 273 ml Intake IV Total 136 ml Tube Feeding 712 ml Output Urine Total 575 ml # Voids 2 Labs Labs Laboratory Tests Test 12/05/20 19:09 12/06/20 00:13 12/06/20 05:07 12/06/20 08:00 Glucose (Fingerstick) 157 mg/dL (70-99) 139 mg/dL (70-99) Sodium Level 145 mmol/L (136-145) Potassium Level 3.7 mmol/L (3.5-5.1) Chloride Level 109 mmol/L (98-107) Carbon Dioxide Level 30 mmol/L (21-32) Anion Gap 6 (6-14) Blood Urea Nitrogen 15 mg/dL (7-20) Creatinine 1.3 mg/dL (0.6-1.0) Estimated GFR (Cockcroft-Gault) 45.8 Glucose Level 133 mg/dL (70-99) Calcium Level 8.0 mg/dL (8.5-10.1) Phosphorus Level 2.1 mg/dL (2.6-4.7) Magnesium Level 2.1 mg/dL (1.8-2.4) O2 Saturation 94 % (92-99) Arterial Blood pH 7.51 (7.35-7.45) Arterial Blood pCO2 at Patient Temp 38 mmHg (35-46) Arterial Blood pO2 at Patient Temp 69 mmHg (85-108) Arterial Blood HCO3 29 mmol/L (21-28) Arterial Blood Base Excess 6 mmol/L (-3-3) FiO2 40 Test 12/06/20 09:06 White Blood Count 9.7 x10^3/uL (4.0-11.0) Red Blood Count 2.66 x10^6/uL (3.50-5.40) Hemoglobin 7.7 g/dL (12.0-15.5) Hematocrit 22.9 % (36.0-47.0) Mean Corpuscular Volume 86 fL (79-100) Mean Corpuscular Hemoglobin 29 pg (25-35) Mean Corpuscular Hemoglobin Concent 34 g/dL (31-37) Red Cell Distribution Width 16.2 % (11.5-14.5) Platelet Count 126 x10^3/uL (140-400) Neutrophils (%) (Auto) 81 % (31-73) Lymphocytes (%) (Auto) 14 % (24-48) Monocytes (%) (Auto) 3 % (0-9) Eosinophils (%) (Auto) 3 % (0-3) Basophils (%) (Auto) 1 % (0-3) Neutrophils # (Auto) 7.8 x10^3/uL (1.8-7.7) Lymphocytes # (Auto) 1.3 x10^3/uL (1.0-4.8) Monocytes # (Auto) 0.2 x10^3/uL (0.0-1.1) Eosinophils # (Auto) 0.3 x10^3/uL (0.0-0.7) Basophils # (Auto) 0.1 x10^3/uL (0.0-0.2) Micro Micro Microbiology 12/02/20 Blood Culture - Preliminary, Resulted NO GROWTH AFTER 3 DAYS 12/02/20 Gram Stain Evaluation - Final, Complete 12/02/20 Respiratory Culture - Final, Complete Review of Systems Constitutional: yes: other (UNABLE TO OBTAIN) Physical Exam General Appearance: other (ON THE VENT) Skin: warm Respiratory: decreased breath sounds Heart: S1S2 Abdomen: soft, bowel sounds present Genitourinary: bladder flat Extremities: edema Neurology: other (SEDATED) Assessment Assessment IMP [id number] ACIDEMIA-CORRECTED CURRENT ALKALOSIS AG MET ACIDOSIS - PRIMARY RESP ACIDOSIS ACUTE HYPOXIC, HYPERCARBIC RESP FAILURE TYPE I DM-NO DKA ANASARCA PROB CHF NECK AND BACK PAIN LEUCOCYTOSIS HYPOTENSION PROB SEPSIS MARIJUANA AND OPIATE ABUSE PLAN VENT SUPPORT PRESSORS ANTIBIOTICS HD AGAIN TODAY UF ABOUT 2.5 LITER IF TOLERATED CONTROL BG BEST POSSIBLE IV LASIX TRIAL NATALIA MCGRAW MD Dec 06, 2020 12:15
[2020-12-06] MEDS: PANTOPRAZOLE IV PUSH 40 MG VIAL. IVP SCH (13:35)
[2020-12-06] MEDS: HEPARIN for SUB-Q USE 5,000 UNIT/ML VIAL. SQ SCH ×2 (13:40→22:04)
--- NOTE | 2020-12-06 15:01 | NUR ---
SS following up with discharge planning. SS reviewed pt chart and discussed with pt RN. Pt is currently on the vent at 40%. COVID19 negative. Pt on IV Micafungin and IV Meropenem. Pt on Precedex. Hemodialysis today. Nephrology, ID, Pulmonology, and Cardiology following. Not stable. SS will continue to follow for discharge planning.
--- NOTE | 2020-12-06 16:10 | CARD ---
MR#: [id number] Date of Study: 12/06/2020 Ordering Physician: JAZMYNE SHARP, Referring Physician: JAZMYNE SHARP, Tech: Yuki Tineo, [facility] APPROVED REPORT EXAM: Two-dimensional and M-mode echocardiogram with Doppler and color Doppler. Other Information Quality : AverageHR: 70bpm INDICATION Congestive Heart Failure 2D DIMENSIONS RVDd2.8 (2.9-3.5cm)Left Atrium(2D)2.9 (1.6-4.0cm) IVSd0.9 (0.7-1.1cm)Aortic Root(2D)2.6 (2.0-3.7cm) LVDd4.7 (3.9-5.9cm)LVOT Diameter2.0 (1.8-2.4cm) PWd1.0 (0.7-1.1cm)LVDs3.4 (2.5-4.0cm) FS (%) 27.0 %SV53.4 ml LVEF(%)52.7 (>50%) Aortic Valve AoV Peak Bryan.95.6cm/sAoV VTI27.6cm AO Peak GR.3.7mmHgLVOT VTI 17.57cm AO Mean GR.3mmHg Mitral Valve MV E Ieqmzfte34.3cm/sMV DECEL [id number] MV A Rezddcui76.7cm/sE/A Ratio1.0 TDI Lateral E' P. V4.57cm/sMedial E' P. V5.02cm/s E/Lateral E'18.0E/Medial E'16.4 Tricuspid Valve TR P. [id number]/sRAP [id number] TR Peak Gr.[id number] LEFT VENTRICLE The left ventricle is normal size. There is normal left ventricular wall thickness. The left ventricu lar systolic function is mildly diminished. The Ejection Fraction is 40-45%. RIGHT VENTRICLE The right ventricle is normal size. There is normal right ventricular wall thickness. The right ventr icular systolic function is normal. ATRIA The left atrium size is normal. The right atrium size is normal. The interatrial septum is intact wit h no evidence for an atrial septal defect or patent foramen ovale as noted on 2-D or Doppler imaging. AORTIC VALVE The aortic valve is normal in structure and function. Doppler and Color Flow revealed trace aortic re gurgitation. Calculated aortic valve area is 2.05 cm2 with maximum pressure gradient of 6 mmHg and me an pressure gradient of 3 mmHg. There is no significant aortic valvular stenosis. MITRAL VALVE The mitral valve is normal in structure and function. There is no evidence of mitral valve prolapse. There is no mitral valve stenosis. Doppler and Color-flow revealed trace mitral regurgitation. TRICUSPID VALVE The tricuspid valve is normal in structure and function. Doppler and Color Flow revealed trace tricus pid regurgitation with an estimated PAP of 24 mmHg. There is no tricuspid valve stenosis. PULMONIC VALVE The pulmonic valve is not well visualized. Doppler and Color Flow revealed trace to mild pulmonic asia vular regurgitation. GREAT VESSELS The aortic root is normal in size. The IVC collapses <50% with inspiration. Patient is vented. PERICARDIAL EFFUSION There is no evidence of significant pericardial effusion. Critical Notification Critical Value: No <Conclusion> The left ventricular systolic function is mildly diminished. The Ejection Fraction is 40-45%. Trace mitral regurgitation. Trace tricuspid regurgitation with an estimated PAP of 24 mmHg. There is no evidence of significant pericardial effusion. Signed by : Jeronimo Siegel, Electronically Approved : 12/06/2020 16:09:29
[2020-12-06] MEDS: PROPOFOL 100 ML IV PRN (19:41)
[2020-12-07] VITALS (25 sets, daily range): BP systolic 95–183; BP diastolic 60–102
[2020-12-07] MEDS: INSULIN LISPRO 300 UNITS/3 ML VIAL. SQ SCH ×4 (05:21→23:53)
[2020-12-07] MEDS: PROPOFOL 100 ML IV PRN (05:21)
[2020-12-07 05:33] LABS: BASO # 0.1 x10^3/uL (0.0-0.2); BASO % 1 % (0-3); EOS # 0.2 x10^3/uL (0.0-0.7); EOS % 4 % (0-3); HEMOGLOBIN 8.2 g/dL (12.0-15.5); LYMPH # 1.7 x10^3/uL (1.0-4.8); LYMPH % 26 % (24-48); MEAN CORPUSCULAR HEMOGLOBIN 28 pg (25-35); MEAN CORPUSCULAR HGB CONC 33 g/dL (31-37); MEAN CORPUSCULAR VOLUME 86 fL (79-100); MONO # 0.2 x10^3/uL (0.0-1.1); MONO % 3 % (0-9); NEUT # 4.3 x10^3/uL (1.8-7.7); NEUT % 67 % (31-73); PLATELET COUNT 161 x10^3/uL (140-400); RED CELL DISTRIBUTION WIDTH 15.5 % (11.5-14.5); WHITE BLOOD COUNT 6.5 x10^3/uL (4.0-11.0)
[2020-12-07] MEDS: HEPARIN for SUB-Q USE 5,000 UNIT/ML VIAL. SQ SCH ×3 (05:40→21:01)
[2020-12-07 05:44] LABS: CALCIUM 7.9 mg/dL (8.5-10.1); CREATININE 1.2 mg/dL (0.6-1.0); GFR 50.3; MAGNESIUM 1.9 mg/dL (1.8-2.4); PHOSPHORUS 1.7 mg/dL (2.6-4.7); POTASSIUM 3.4 mmol/L (3.5-5.1)
[2020-12-07 08:15] LABS: BASE EXCESS ABG 7 mmol/L (-3-3); HCO3 ABG 28 mmol/L (21-28); PCO2 ABG 29 mmHg (35-46); PO2 ABG 132 mmHg (85-108); SAT O2 ABG 98 % (92-99)
[2020-12-07 08:19] LABS: FIO2 ABG 40
[2020-12-07] MEDS: hydrALAZINE 20 MG/ML VIAL. IVP PRN (08:53)
[2020-12-07] MEDS ORDERED: LISINOPRIL 20 MG TABLET PO SCH (09:00)
[2020-12-07] MEDS: FUROSEMIDE 40 MG/4 ML VIAL. IVP SCH ×2 (09:02→21:00)
[2020-12-07] MEDS: VANCOMYCIN 125 MG/2.5 ML ORAL SOLUTION. PO SCH ×2 (09:02→20:58)
[2020-12-07] MEDS: LEVOTHYROXINE 100 MCG TABLET PO SCH (09:02)
--- NOTE | 2020-12-07 09:36 | PDOC ---
PULMONARY PROGRESS NOTES DATE: 12/07/20 TIME: 09:32 Subjective pt. remains o vent support 18/450/5/40% pt. hypertensive this am no overnight concerns Vitals Vital Signs Date Time Temp Pulse Resp B/P (MAP) Pulse Ox O2 Delivery O2 Flow Rate FiO2 12/07/20 08:53 60 174/103 12/07/20 08:06 100 Ventilator 12/07/20 06:00 18 12/07/20 05:00 98.4 98.4 12/06/20 16:00 15.0 Comments on vent sedated HEENT: Other Lungs: Crackles Cardiovascular: S1, S2 Abdomen: Soft, Non-tender, Other Extremities: Other (++edema) Skin: Warm Labs Laboratory Tests Test 12/05/20 19:09 12/06/20 00:13 12/06/20 05:07 12/06/20 08:00 Glucose (Fingerstick) 157 mg/dL (70-99) 139 mg/dL (70-99) Sodium Level 145 mmol/L (136-145) Potassium Level 3.7 mmol/L (3.5-5.1) Chloride Level 109 mmol/L (98-107) Carbon Dioxide Level 30 mmol/L (21-32) Anion Gap 6 (6-14) Blood Urea Nitrogen 15 mg/dL (7-20) Creatinine 1.3 mg/dL (0.6-1.0) Estimated GFR (Cockcroft-Gault) 45.8 Glucose Level 133 mg/dL (70-99) Calcium Level 8.0 mg/dL (8.5-10.1) Phosphorus Level 2.1 mg/dL (2.6-4.7) Magnesium Level 2.1 mg/dL (1.8-2.4) O2 Saturation 94 % (92-99) Arterial Blood pH 7.51 (7.35-7.45) Arterial Blood pCO2 at Patient Temp 38 mmHg (35-46) Arterial Blood pO2 at Patient Temp 69 mmHg (85-108) Arterial Blood HCO3 29 mmol/L (21-28) Arterial Blood Base Excess 6 mmol/L (-3-3) FiO2 40 Test 12/06/20 09:06 12/06/20 13:21 12/06/20 17:39 12/06/20 23:31 White Blood Count 9.7 x10^3/uL (4.0-11.0) Red Blood Count 2.66 x10^6/uL (3.50-5.40) Hemoglobin 7.7 g/dL (12.0-15.5) Hematocrit 22.9 % (36.0-47.0) Mean Corpuscular Volume 86 fL (79-100) Mean Corpuscular Hemoglobin 29 pg (25-35) Mean Corpuscular Hemoglobin Concent 34 g/dL (31-37) Red Cell Distribution Width 16.2 % (11.5-14.5) Platelet Count 126 x10^3/uL (140-400) Neutrophils (%) (Auto) 81 % (31-73) Lymphocytes (%) (Auto) 14 % (24-48) Monocytes (%) (Auto) 3 % (0-9) Eosinophils (%) (Auto) 3 % (0-3) Basophils (%) (Auto) 1 % (0-3) Neutrophils # (Auto) 7.8 x10^3/uL (1.8-7.7) Lymphocytes # (Auto) 1.3 x10^3/uL (1.0-4.8) Monocytes # (Auto) 0.2 x10^3/uL (0.0-1.1) Eosinophils # (Auto) 0.3 x10^3/uL (0.0-0.7) Basophils # (Auto) 0.1 x10^3/uL (0.0-0.2) Glucose (Fingerstick) 166 mg/dL (70-99) 93 mg/dL (70-99) 119 mg/dL (70-99) Test 12/07/20 05:20 12/07/20 08:18 White Blood Count 6.5 x10^3/uL (4.0-11.0) Red Blood Count 2.90 x10^6/uL (3.50-5.40) Hemoglobin 8.2 g/dL (12.0-15.5) Hematocrit 25.0 % (36.0-47.0) Mean Corpuscular Volume 86 fL (79-100) Mean Corpuscular Hemoglobin 28 pg (25-35) Mean Corpuscular Hemoglobin Concent 33 g/dL (31-37) Red Cell Distribution Width 15.5 % (11.5-14.5) Platelet Count 161 x10^3/uL (140-400) Neutrophils (%) (Auto) 67 % (31-73) Lymphocytes (%) (Auto) 26 % (24-48) Monocytes (%) (Auto) 3 % (0-9) Eosinophils (%) (Auto) 4 % (0-3) Basophils (%) (Auto) 1 % (0-3) Neutrophils # (Auto) 4.3 x10^3/uL (1.8-7.7) Lymphocytes # (Auto) 1.7 x10^3/uL (1.0-4.8) Monocytes # (Auto) 0.2 x10^3/uL (0.0-1.1) Eosinophils # (Auto) 0.2 x10^3/uL (0.0-0.7) Basophils # (Auto) 0.1 x10^3/uL (0.0-0.2) Sodium Level 143 mmol/L (136-145) Potassium Level 3.4 mmol/L (3.5-5.1) Chloride Level 108 mmol/L (98-107) Carbon Dioxide Level 30 mmol/L (21-32) Anion Gap 5 (6-14) Blood Urea Nitrogen 11 mg/dL (7-20) Creatinine 1.2 mg/dL (0.6-1.0) Estimated GFR (Cockcroft-Gault) 50.3 Glucose Level 124 mg/dL (70-99) Glucose (Fingerstick) 127 mg/dL (70-99) Calcium Level 7.9 mg/dL (8.5-10.1) Phosphorus Level 1.7 mg/dL (2.6-4.7) Magnesium Level 1.9 mg/dL (1.8-2.4) O2 Saturation 98 % (92-99) Arterial Blood pH 7.61 (7.35-7.45) Arterial Blood pCO2 at Patient Temp 29 mmHg (35-46) Arterial Blood pO2 at Patient Temp 132 mmHg (85-108) Arterial Blood HCO3 28 mmol/L (21-28) Arterial Blood Base Excess 7 mmol/L (-3-3) FiO2 40 Laboratory Tests Test 12/06/20 13:21 12/06/20 17:39 12/06/20 23:31 12/07/20 05:20 Glucose (Fingerstick) 166 mg/dL (70-99) 93 mg/dL (70-99) 119 mg/dL (70-99) 127 mg/dL (70-99) White Blood Count 6.5 x10^3/uL (4.0-11.0) Red Blood Count 2.90 x10^6/uL (3.50-5.40) Hemoglobin 8.2 g/dL (12.0-15.5) Hematocrit 25.0 % (36.0-47.0) Mean Corpuscular Volume 86 fL (79-100) Mean Corpuscular Hemoglobin 28 pg (25-35) Mean Corpuscular Hemoglobin Concent 33 g/dL (31-37) Red Cell Distribution Width 15.5 % (11.5-14.5) Platelet Count 161 x10^3/uL (140-400) Neutrophils (%) (Auto) 67 % (31-73) Lymphocytes (%) (Auto) 26 % (24-48) Monocytes (%) (Auto) 3 % (0-9) Eosinophils (%) (Auto) 4 % (0-3) Basophils (%) (Auto) 1 % (0-3) Neutrophils # (Auto) 4.3 x10^3/uL (1.8-7.7) Lymphocytes # (Auto) 1.7 x10^3/uL (1.0-4.8) Monocytes # (Auto) 0.2 x10^3/uL (0.0-1.1) Eosinophils # (Auto) 0.2 x10^3/uL (0.0-0.7) Basophils # (Auto) 0.1 x10^3/uL (0.0-0.2) Sodium Level 143 mmol/L (136-145) Potassium Level 3.4 mmol/L (3.5-5.1) Chloride Level 108 mmol/L (98-107) Carbon Dioxide Level 30 mmol/L (21-32) Anion Gap 5 (6-14) Blood Urea Nitrogen 11 mg/dL (7-20) Creatinine 1.2 mg/dL (0.6-1.0) Estimated GFR (Cockcroft-Gault) 50.3 Glucose Level 124 mg/dL (70-99) Calcium Level 7.9 mg/dL (8.5-10.1) Phosphorus Level 1.7 mg/dL (2.6-4.7) Magnesium Level 1.9 mg/dL (1.8-2.4) Test 12/07/20 08:18 O2 Saturation 98 % (92-99) Arterial Blood pH 7.61 (7.35-7.45) Arterial Blood pCO2 at Patient Temp 29 mmHg (35-46) Arterial Blood pO2 at Patient Temp 132 mmHg (85-108) Arterial Blood HCO3 28 mmol/L (21-28) Arterial Blood Base Excess 7 mmol/L (-3-3) FiO2 40 Medications Active Scripts Medications Dose Route/Sig Max Daily Dose Days Date Category Lisinopril 40 Mg Tablet 1 Tab PO DAILY 03/26/19 Reported Synthroid (Levothyroxine Sodium) 100 Mcg Tablet 100 Mcg PO DAILY06 30 08/21/18 Rx [Pantoprazole] 40 MG Tablet.dr 40 Mg PO BIDAC 90 08/21/18 Rx Feosol (Ferrous Sulfate) 325 Mg Tablet 325 Mg PO DAILYWBKFT 90 08/21/18 Rx Zofran Odt (Ondansetron) 4 Mg Tab.rapdis 1 Tab SL Q8HRS 06/08/17 Rx Levemir Flextouch (Insulin Detemir) 100 Unit/1 Ml Insuln.pen 14 Units SQ QHS 04/25/16 Rx Alprazolam 0.5 Mg Tablet 0.5 Mg PO PRN Q6HRS PRN 04/23/16 Reported Humalog (Insulin Lispro) 100 Unit/1 Ml Insuln.pen 8 Unit SQ TIDAC 03/16/14 Reported Comments CXR 12/05 improved infiltrates reviewed cxr 1. Slight interval decrease in multifocal right greater than left lung mixed interstitial and alveolar infiltrate. 2. Stable small right pleural effusion and stable support lines and tubes. Impression . IMPRESSION: 1. Acute respiratory failure, multifactorial in etiology including acute kidney injury, volume overload, acute diastolic congestive heart failure, cannot rule out pneumonia. 2. Abnormal chest x-ray. 3. Acute kidney injury-, now on HD 4. Chronic kidney disease. 5. Smoker. 6. Hypernatremia-improved 7. Diabetes mellitus. Plan . 12/07 UPDATED Continue current vent support 40% and PEEP of 5 CXR/ABG reviewed -- reduce rate to 14 Pt. placed on PS trial, ABG in 30 min and hopeful for extubation Continue ABX per ID, and follow cultures Follow nephrology recs-- HD per Renal Follow cardiology recs --EF 40-45% and PAP 24mmhg Continue TF for nutritional support HTN per cardiology and PCP PT/OT/ST DVT/GI PPX D/W RN and RT Critical care time 30 min 12/06 UPDATED Continue current vent support 40% and PEEP of 5 CXR/ABG reviewed -- no changes D/C all sedation and proceed with PS trial once awake --precedex gtt if needed Continue ABX per ID, and follow cultures Follow nephrology recs-- HD today Follow cardiology recs --await ECHO results PT/OT/ST DVT/GI PPX D/W RN and RT Critical care time 30 min 12/05 UPDATED Continue current vent support 40% and PEEP of 5 CXR/ABG reviewed -- no changes D/C all sedation and proceed with PS trial once awake Continue ABX, and follow cultures Follow nephrology recs-- planned for HD today Follow cardiology recs DVT/GI PPX D/W RN and RT Critical care time 30 min 12/04 PLAN AND RECOMMENDATIONS: 1. Titrate FiO2 to keep O2 saturation 94%. on 40%FIO2. 2. I will review ABG and consider CPAP trial 3. cont abx 4. fu Panculture. 5. test, neg 6. Procalcitonin elevated. 7. Repeat lactate, nl 8. HD per nephro 9. Cardiology was consulted. Agree with echocardiogram. 10. lower extremity venous Doppler. neg The findings and recommendations were discussed with RN and RT labs reviewed, imaging reviewed. addend: cxr 12/04 reviewed. worsening CHF/ Effusion increase UF with HD today hold weaning RIKKI SERRANO MD Dec 07, 2020 09:36
[2020-12-07 10:08] LABS: BASE EXCESS ABG 6 mmol/L (-3-3); HCO3 ABG 27 mmol/L (21-28); PCO2 ABG 28 mmHg (35-46); PO2 ABG 136 mmHg (85-108); SAT O2 ABG 98 % (92-99)
--- NOTE | 2020-12-07 10:13 | NUR ---
Order to extubate received at 1010. Patient extubated at 1018 to RA, 2L NC at bedside.
--- NOTE | 2020-12-07 10:21 | PDOC ---
JAZMYNE SHARP RICKY 12/07/20 1020: CARDIO Progress Notes Date and Time Date of Service 12/07/20 Time of Evaluation 1015 Subjective Subjective: Other (sitting up in chair, s/o leg pain) Vitals Vitals Vital Signs Date Time Temp Pulse Resp B/P (MAP) Pulse Ox O2 Delivery O2 Flow Rate FiO2 12/07/20 09:45 100 Ventilator 12/07/20 08:53 60 174/103 12/07/20 06:00 18 12/07/20 05:00 98.4 98.4 12/06/20 16:00 15.0 Weight Weight [ ] Input and Output Intake and Output Intake and Output 12/07/20 07:00 Intake Total 1717 ml Output Total 650 ml Balance 1067 ml Intake IV Total 400 ml Tube Feeding 1017 ml Other 300 ml Output Urine Total 650 ml # Voids 1 # Bowel Movements 2 Laboratory Labs Laboratory Tests Test 12/06/20 13:21 12/06/20 17:39 12/06/20 23:31 12/07/20 05:20 Glucose (Fingerstick) 166 mg/dL (70-99) 93 mg/dL (70-99) 119 mg/dL (70-99) 127 mg/dL (70-99) White Blood Count 6.5 x10^3/uL (4.0-11.0) Red Blood Count 2.90 x10^6/uL (3.50-5.40) Hemoglobin 8.2 g/dL (12.0-15.5) Hematocrit 25.0 % (36.0-47.0) Mean Corpuscular Volume 86 fL (79-100) Mean Corpuscular Hemoglobin 28 pg (25-35) Mean Corpuscular Hemoglobin Concent 33 g/dL (31-37) Red Cell Distribution Width 15.5 % (11.5-14.5) Platelet Count 161 x10^3/uL (140-400) Neutrophils (%) (Auto) 67 % (31-73) Lymphocytes (%) (Auto) 26 % (24-48) Monocytes (%) (Auto) 3 % (0-9) Eosinophils (%) (Auto) 4 % (0-3) Basophils (%) (Auto) 1 % (0-3) Neutrophils # (Auto) 4.3 x10^3/uL (1.8-7.7) Lymphocytes # (Auto) 1.7 x10^3/uL (1.0-4.8) Monocytes # (Auto) 0.2 x10^3/uL (0.0-1.1) Eosinophils # (Auto) 0.2 x10^3/uL (0.0-0.7) Basophils # (Auto) 0.1 x10^3/uL (0.0-0.2) Sodium Level 143 mmol/L (136-145) Potassium Level 3.4 mmol/L (3.5-5.1) Chloride Level 108 mmol/L (98-107) Carbon Dioxide Level 30 mmol/L (21-32) Anion Gap 5 (6-14) Blood Urea Nitrogen 11 mg/dL (7-20) Creatinine 1.2 mg/dL (0.6-1.0) Estimated GFR (Cockcroft-Gault) 50.3 Glucose Level 124 mg/dL (70-99) Calcium Level 7.9 mg/dL (8.5-10.1) Phosphorus Level 1.7 mg/dL (2.6-4.7) Magnesium Level 1.9 mg/dL (1.8-2.4) Test 12/07/20 08:18 O2 Saturation 98 % (92-99) Arterial Blood pH 7.61 (7.35-7.45) Arterial Blood pCO2 at Patient Temp 29 mmHg (35-46) Arterial Blood pO2 at Patient Temp 132 mmHg (85-108) Arterial Blood HCO3 28 mmol/L (21-28) Arterial Blood Base Excess 7 mmol/L (-3-3) FiO2 40 Microbiology Micro Microbiology 12/02/20 Blood Culture - Preliminary, Resulted NO GROWTH AFTER 4 DAYS 12/02/20 Gram Stain Evaluation - Final, Complete 12/02/20 Respiratory Culture - Final, Complete Review of Systems Constitutional: yes: other (UNABLE TO OBTAIN) Physical Exam HEENT: Neck Supple W Full Motion Chest: Symmetric LUNGS: Other (on NC) Heart: RRR (SR) Abdomen: Other (soft ) Extremities: No Edema Neurology: alert, oriented, follow commands Assessment Assessment 1. Acute respiratory failure with possible PNA; s/p intubation 2. Acute systolic CHF, cardiomyopathy; Echo shows LVEF 40-45%. Most probable NICM 3. JOSE RAUL on CKD; requiring HD 4. Hypotension, possible shock; off pressor support. BP adequate 5. Diabetes, II 6. Anemia; requiring transfusion Recommendations Ongoing antibiotic therapy Fluid offloading via HD Will add low dose BB No ACEi/ARB with JOSE RAUL Hydralazine IV PRN Lung optimization Consider outpatient ischemic evaluation Supportive care Justicifation of Admission Dx: Justifications for Admission: Justification of Admission Dx: N/A JONO CARDOZO MD 12/07/20 1510: CARDIO Progress Notes Plan Plan Patient seen and examined. Agree with above nurse practitioner note. Patient is extubated. Doing well. Continue dialysis per nephrology service. Consider outpatient ischemic testing. JAZMYNE SHARP APRN Dec 07, 2020 10:20 JONO CARDOZO MD Dec 07, 2020 15:10
[2020-12-07] MEDS: PANTOPRAZOLE IV PUSH 40 MG VIAL. IVP SCH (11:32)
--- NOTE | 2020-12-07 11:49 | PDOC ---
Renal-Progress Notes Subjective Notes Notes EXTUBATED History of Present Illness Hx of present illness STABLE Vitals Vitals Vital Signs Date Time Temp Pulse Resp B/P (MAP) Pulse Ox O2 Delivery O2 Flow Rate FiO2 12/07/20 11:00 77 18 103/61 (75) 100 Nasal Cannula 2.0 12/07/20 08:00 97.5 97.5 Weight Weight [ ] I.O. Intake and Output Intake and Output 12/07/20 07:00 Intake Total 1717 ml Output Total 650 ml Balance 1067 ml Intake IV Total 400 ml Tube Feeding 1017 ml Other 300 ml Output Urine Total 650 ml # Voids 1 # Bowel Movements 2 Labs Labs Laboratory Tests Test 12/06/20 13:21 12/06/20 17:39 12/06/20 23:31 12/07/20 05:20 Glucose (Fingerstick) 166 mg/dL (70-99) 93 mg/dL (70-99) 119 mg/dL (70-99) 127 mg/dL (70-99) White Blood Count 6.5 x10^3/uL (4.0-11.0) Red Blood Count 2.90 x10^6/uL (3.50-5.40) Hemoglobin 8.2 g/dL (12.0-15.5) Hematocrit 25.0 % (36.0-47.0) Mean Corpuscular Volume 86 fL (79-100) Mean Corpuscular Hemoglobin 28 pg (25-35) Mean Corpuscular Hemoglobin Concent 33 g/dL (31-37) Red Cell Distribution Width 15.5 % (11.5-14.5) Platelet Count 161 x10^3/uL (140-400) Neutrophils (%) (Auto) 67 % (31-73) Lymphocytes (%) (Auto) 26 % (24-48) Monocytes (%) (Auto) 3 % (0-9) Eosinophils (%) (Auto) 4 % (0-3) Basophils (%) (Auto) 1 % (0-3) Neutrophils # (Auto) 4.3 x10^3/uL (1.8-7.7) Lymphocytes # (Auto) 1.7 x10^3/uL (1.0-4.8) Monocytes # (Auto) 0.2 x10^3/uL (0.0-1.1) Eosinophils # (Auto) 0.2 x10^3/uL (0.0-0.7) Basophils # (Auto) 0.1 x10^3/uL (0.0-0.2) Sodium Level 143 mmol/L (136-145) Potassium Level 3.4 mmol/L (3.5-5.1) Chloride Level 108 mmol/L (98-107) Carbon Dioxide Level 30 mmol/L (21-32) Anion Gap 5 (6-14) Blood Urea Nitrogen 11 mg/dL (7-20) Creatinine 1.2 mg/dL (0.6-1.0) Estimated GFR (Cockcroft-Gault) 50.3 Glucose Level 124 mg/dL (70-99) Calcium Level 7.9 mg/dL (8.5-10.1) Phosphorus Level 1.7 mg/dL (2.6-4.7) Magnesium Level 1.9 mg/dL (1.8-2.4) Test 12/07/20 08:18 12/07/20 10:00 O2 Saturation 98 % (92-99) 98 % (92-99) Arterial Blood pH 7.61 (7.35-7.45) 7.61 (7.35-7.45) Arterial Blood pCO2 at Patient Temp 29 mmHg (35-46) 28 mmHg (35-46) Arterial Blood pO2 at Patient Temp 132 mmHg (85-108) 136 mmHg (85-108) Arterial Blood HCO3 28 mmol/L (21-28) 27 mmol/L (21-28) Arterial Blood Base Excess 7 mmol/L (-3-3) 6 mmol/L (-3-3) FiO2 40 40/cpap 10/5 Micro Micro Microbiology 12/02/20 Blood Culture - Preliminary, Resulted NO GROWTH AFTER 4 DAYS 12/02/20 Gram Stain Evaluation - Final, Complete 12/02/20 Respiratory Culture - Final, Complete Review of Systems Constitutional: yes: other (UNABLE TO OBTAIN) Physical Exam General Appearance: other (ON THE VENT) Skin: warm Respiratory: decreased breath sounds Heart: S1S2 Abdomen: soft, bowel sounds present Genitourinary: bladder flat Extremities: edema Neurology: other (awake, mild sedation ) Assessment Assessment IMP [id number] HYPOKALEMIA ACIDEMIA-CORRECTED CURRENT ALKALOSIS AG MET ACIDOSIS - PRIMARY RESP ACIDOSIS ACUTE HYPOXIC, HYPERCARBIC RESP FAILURE TYPE I DM-NO DKA ANASARCA PROB CHF NECK AND BACK PAIN LEUCOCYTOSIS HYPOTENSION PROB SEPSIS MARIJUANA AND OPIATE ABUSE PLAN VENT SUPPORT OFF PRESSORS ANTIBIOTICS HD AGAIN TODAY UF ABOUT 2.5 LITER IF TOLERATED CONTROL BG BEST POSSIBLE IV LASIX TRIAL STOP LISINOPRIL NATALIA MCGRAW MD Dec 07, 2020 11:49
--- NOTE | 2020-12-07 13:02 | PDOC ---
Infectious Disease Note Subjective: Subjective Patient extubated Vital Signs: Vital Signs Vital Signs Date Time Temp Pulse Resp B/P (MAP) Pulse Ox O2 Delivery O2 Flow Rate FiO2 12/07/20 11:00 77 18 103/61 (75) 100 Nasal Cannula 2.0 12/07/20 08:00 97.5 97.5 Physical Exam: PHYSICAL EXAM GENERAL: Alert awake sitting up in chair HEENT: Pupils are equal. , No thrush NECK: Supple. No nuchal rigidity. LUNGS: Coarse. HEART: S1 and S2, regular. ABDOMEN: Obese, soft. No guarding. Bowel sounds present. Mildly distended GENITOURINARY: Indwelling Aponte catheter in place., Suprapubic swelling noted EXTREMITIES: 2-3+ edema to lower extremities bilaterally. SCDs. No cyanosis. SKIN: Warm to touch. No signs of rash. NEUROLOGIC: Arousable Right IJ temporary HD catheter and CVC (-24) without signs of any complications. Medications: Inpatient Meds: Medications reviewed. Labs: Lab Laboratory Tests Test 12/06/20 13:21 12/06/20 17:39 12/06/20 23:31 12/07/20 05:20 Glucose (Fingerstick) 166 mg/dL (70-99) 93 mg/dL (70-99) 119 mg/dL (70-99) 127 mg/dL (70-99) White Blood Count 6.5 x10^3/uL (4.0-11.0) Red Blood Count 2.90 x10^6/uL (3.50-5.40) Hemoglobin 8.2 g/dL (12.0-15.5) Hematocrit 25.0 % (36.0-47.0) Mean Corpuscular Volume 86 fL (79-100) Mean Corpuscular Hemoglobin 28 pg (25-35) Mean Corpuscular Hemoglobin Concent 33 g/dL (31-37) Red Cell Distribution Width 15.5 % (11.5-14.5) Platelet Count 161 x10^3/uL (140-400) Neutrophils (%) (Auto) 67 % (31-73) Lymphocytes (%) (Auto) 26 % (24-48) Monocytes (%) (Auto) 3 % (0-9) Eosinophils (%) (Auto) 4 % (0-3) Basophils (%) (Auto) 1 % (0-3) Neutrophils # (Auto) 4.3 x10^3/uL (1.8-7.7) Lymphocytes # (Auto) 1.7 x10^3/uL (1.0-4.8) Monocytes # (Auto) 0.2 x10^3/uL (0.0-1.1) Eosinophils # (Auto) 0.2 x10^3/uL (0.0-0.7) Basophils # (Auto) 0.1 x10^3/uL (0.0-0.2) Sodium Level 143 mmol/L (136-145) Potassium Level 3.4 mmol/L (3.5-5.1) Chloride Level 108 mmol/L (98-107) Carbon Dioxide Level 30 mmol/L (21-32) Anion Gap 5 (6-14) Blood Urea Nitrogen 11 mg/dL (7-20) Creatinine 1.2 mg/dL (0.6-1.0) Estimated GFR (Cockcroft-Gault) 50.3 Glucose Level 124 mg/dL (70-99) Calcium Level 7.9 mg/dL (8.5-10.1) Phosphorus Level 1.7 mg/dL (2.6-4.7) Magnesium Level 1.9 mg/dL (1.8-2.4) Test 12/07/20 08:18 12/07/20 10:00 O2 Saturation 98 % (92-99) 98 % (92-99) Arterial Blood pH 7.61 (7.35-7.45) 7.61 (7.35-7.45) Arterial Blood pCO2 at Patient Temp 29 mmHg (35-46) 28 mmHg (35-46) Arterial Blood pO2 at Patient Temp 132 mmHg (85-108) 136 mmHg (85-108) Arterial Blood HCO3 28 mmol/L (21-28) 27 mmol/L (21-28) Arterial Blood Base Excess 7 mmol/L (-3-3) 6 mmol/L (-3-3) FiO2 40 40/cpap 05/15 Objective: Assessment: 1. Sepsis with hypotension, hypothermia, leukocytosis and encephalopathy. 2. Bilateral infiltrates, possible aspiration 3. Acute respiratory failure. Status post intubation 4. Metabolic and respiratory acidosis. 5. Acute kidney injury on chronic kidney disease, requiring hemodialysis. Generalized anasarca improving 6. Acute blood loss anemia and protein-calorie malnutrition. 7. Diabetes mellitus type 1. 8. Hypothyroidism. 9. Leucocytosis 10. Pelvic ascites 11. CHF 12. Chronic back and neck pain 13. History of marijuana and opiate abuse 14.History of Enterobacter Clostridium difficile, group A strep and E. coli infections. Plan: Plan of Care Cont meropenem , micafungin Continue po vanc BID Abdomen and pelvic and transvaginal ultrasound report reviewed Monitor labs and cultures BC and UC neg so far Sputum mixed respiratory jah Maintain aspiration precautions Supportive care LISA BHAKTA MD Dec 07, 2020 12:41
[2020-12-07] MEDS: METOPROLOL SUCC 24HR ER 25 MG TAB.ER.24H. PO SCH (14:15)
--- NOTE | 2020-12-07 15:39 | NUR ---
SS following up with discharge planning. SS reviewed pt chart and discussed with pt RN. Pt is now extubated and is currently requiring oxygen at two liters nasal canula. COVID19 negative. Pt on IV Micafungin and IV Meropenem. PT/OT/ST ordered. SS will continue to follow for discharge planning.
[2020-12-07] MEDS ORDERED: IV NORMAL SALINE 1000ML BAG 1,000 ML IV PRN (16:30)
[2020-12-07] MEDS: MICAFUNGIN 100 MG in IV DEXTROSE 5% 100ML 100 ML IV SCH (16:30)
[2020-12-07] MEDS ORDERED: DIALYSIS PATIENT. MC PRN ×2 (16:30)
--- NOTE | 2020-12-07 17:04 | RAD ---
EXAM: Renal sonogram. HISTORY: Bladder distention. TECHNIQUE: Sonographic imaging of the kidneys and bladder was performed. COMPARISON: None. FINDINGS: The right kidney measures 7.0 cm [id number]. The left kidney measures 8.7 cm [id number] . There is no solid or cystic renal lesion. There is no hydronephrosis. There is a Aponte catheter wit hin a decompressed urinary bladder. There is abdominal and pelvic ascites. IMPRESSION: 1. Aponte catheter within a decompressed bladder. 2. Ascites. 3. Decreased renal size likely due to measurement technique or renal atrophy. Electronically signed by: Jennifer Giraldo MD (12/07/2020 5:01 PM) [id number]
[2020-12-07] MEDS: MEROPENEM 500 MG in IV NORMAL SALINE 50ML 50 ML IV SCH (17:30)
[2020-12-07] MEDS: fentaNYL PF VIAL 100 MCG/2 ML VIAL IVP PRN ×3 (17:32→21:54)
--- NOTE | 2020-12-07 21:20 | PN ---
DATE: 12/07/2020 DAILY PROGRESS NOTE LOCATION: She is in room ICU-114. SUBJECTIVE: This 40-year-old white female remains sedate on a ventilator. She has been off pressors now for a couple of days and is actually becoming hypertensive and we will re-add her lisinopril this morning and look through her records at the office on what else she was taking for blood pressure. She is hopefully going to extubate later today, but will be depending on what Pulmonary decides. OBJECTIVE: VITAL SIGNS: Stable. She is afebrile and she is still on a ventilator. She is hypertensive. Blood cultures continue to show no growth. CHEST: Clear. HEART: Regular. ABDOMEN: Benign. The edema has almost resolved. Antibiotics and dialysis are ongoing. LABORATORY DATA: Morning blood gas shows respiratory alkalosis and ventilator rate has been slowed down by Pulmonary. Her hemoglobin is relatively stable at 8.2 with normal white count, normal differential. Chemistries show potassium of 3.4, creatinine 1.2. IMPRESSION: 1. Hyperchloremic metabolic acidosis, improved with dialysis. 2. Acute respiratory failure, felt secondary to volume overload with improvement and hopefully extubation soon. 3. Insulin-dependent diabetes mellitus with decent blood sugars. 4. Chronic kidney disease with my expectation she has progressed to end-stage. PLAN: Continue supportive care. Hopefully, can extubate. Lisinopril for blood pressure and possibly more depending on what I see in her office record as the hospital record is not up to date as far as her home medications go. ELICEO DR: Anastacio TID: [id number]
[2020-12-08] VITALS (16 sets, daily range): BP systolic 132–187; BP diastolic 79–100
[2020-12-08] MEDS: fentaNYL PF VIAL 100 MCG/2 ML VIAL IVP PRN ×9 (00:24→23:00)
[2020-12-08] MEDS: hydrALAZINE 20 MG/ML VIAL. IVP PRN ×4 (04:00→22:06)
[2020-12-08] MEDS: INSULIN LISPRO 300 UNITS/3 ML VIAL. SQ SCH ×4 (06:00→20:56)
[2020-12-08] MEDS: LEVOTHYROXINE 100 MCG TABLET PO SCH (06:10)
[2020-12-08] MEDS: HEPARIN for SUB-Q USE 5,000 UNIT/ML VIAL. SQ SCH ×3 (06:28→20:56)
[2020-12-08 06:45] LABS: CALCIUM 8.5 mg/dL (8.5-10.1); CREATININE 1.6 mg/dL (0.6-1.0); GFR 36.1; POTASSIUM 4.1 mmol/L (3.5-5.1)
--- NOTE | 2020-12-08 07:43 | PDOC ---
Infectious Disease Note Subjective: Subjective Patient more alert Complains of headache and suprapubic discomfort On Demarco hugger Vital Signs: Vital Signs Vital Signs Date Time Temp Pulse Resp B/P (MAP) Pulse Ox O2 Delivery O2 Flow Rate FiO2 12/08/20 07:18 85 12 171/95 (120) 100 Nasal Cannula 2.0 12/08/20 04:00 98.2 98.2 Physical Exam: PHYSICAL EXAM GENERAL: Alert awake sitting up in chair HEENT: Pupils are equal. , No thrush NECK: Supple. No nuchal rigidity. LUNGS: Coarse. HEART: S1 and S2, regular. ABDOMEN: Obese, soft. No guarding. Bowel sounds present. Mildly distended GENITOURINARY: Indwelling Aponte catheter in place., Suprapubic swelling noted EXTREMITIES: 2-3+ edema to lower extremities bilaterally. SCDs. No cyanosis. SKIN: Warm to touch. No signs of rash. NEUROLOGIC: Arousable Right IJ temporary HD catheter and CVC (4-24) without signs of any complications. Medications: Inpatient Meds: Medications reviewed. Labs: Lab Laboratory Tests Test 12/07/20 08:18 12/07/20 10:00 12/07/20 13:09 12/07/20 16:19 O2 Saturation 98 % (92-99) 98 % (92-99) Arterial Blood pH 7.61 (7.35-7.45) 7.61 (7.35-7.45) Arterial Blood pCO2 at Patient Temp 29 mmHg (35-46) 28 mmHg (35-46) Arterial Blood pO2 at Patient Temp 132 mmHg (85-108) 136 mmHg (85-108) Arterial Blood HCO3 28 mmol/L (21-28) 27 mmol/L (21-28) Arterial Blood Base Excess 7 mmol/L (-3-3) 6 mmol/L (-3-3) FiO2 40 40/cpap 10/5 Glucose (Fingerstick) 170 mg/dL (70-99) 158 mg/dL (70-99) Test 12/07/20 22:34 12/08/20 01:09 12/08/20 01:46 12/08/20 06:24 Glucose (Fingerstick) 126 mg/dL (70-99) 102 mg/dL (70-99) 140 mg/dL (70-99) 170 mg/dL (70-99) Test 12/08/20 06:25 Sodium Level 141 mmol/L (136-145) Potassium Level 4.1 mmol/L (3.5-5.1) Chloride Level 107 mmol/L (98-107) Carbon Dioxide Level 28 mmol/L (21-32) Anion Gap 6 (6-14) Blood Urea Nitrogen 16 mg/dL (7-20) Creatinine 1.6 mg/dL (0.6-1.0) Estimated GFR (Cockcroft-Gault) 36.1 Glucose Level 169 mg/dL (70-99) Calcium Level 8.5 mg/dL (8.5-10.1) Objective: Assessment: 1. Sepsis with hypotension, hypothermia, leukocytosis and encephalopathy. Improved 2. Bilateral infiltrates, possible aspiration sputum culture positive for normal respiratory jah 3. Acute respiratory failure. Status post intubation now extubated 4. Metabolic and respiratory acidosis. Resolved 5. Acute kidney injury on chronic kidney disease, requiring hemodialysis. Generalized anasarca improving 6. Acute blood loss anemia and protein-calorie malnutrition. 7. Diabetes mellitus type 1. 8. Hypothyroidism. 9. Leucocytosis 10. Pelvic ascites improving 11. CHF improving 12. Chronic back and neck pain 13. History of marijuana and opiate abuse 14.History of Enterobacter Clostridium difficile, group A strep and E. coli infections. Plan: Plan of Care Cont meropenem, adjust according to renal function DC micafungin Continue po vanc BID Abdomen and pelvic and transvaginal ultrasound report reviewed Monitor labs and cultures BC and UC neg so far Sputum mixed respiratory jah Maintain aspiration precautions Supportive care LISA BHAKTA MD Dec 08, 2020 07:43
[2020-12-08] MEDS ORDERED: DIALYSIS PATIENT. MC PRN ×2 (07:45)
[2020-12-08] MEDS ORDERED: IV NORMAL SALINE 1000ML BAG 1,000 ML IV PRN (07:45)
[2020-12-08] MEDS: PANTOPRAZOLE IV PUSH 40 MG VIAL. IVP SCH (08:06)
[2020-12-08] MEDS: MEROPENEM 500 MG in IV NORMAL SALINE 50ML 50 ML IV SCH ×2 (09:08→19:14)
[2020-12-08] MEDS: FUROSEMIDE 40 MG/4 ML VIAL. IVP SCH ×2 (09:09→20:52)
[2020-12-08] MEDS: diphenhydrAMINE 50 MG/ML VIAL IVP PRN ×2 (09:10→18:30)
--- NOTE | 2020-12-08 09:59 | PDOC ---
PULMONARY PROGRESS NOTES DATE: 12/08/20 TIME: 09:59 Subjective Patient was extubated on 12/07/2020, now on nasal cannula oxygen Denies any shortness of breath, cough or chest pain No overnight concerns from nursing Vitals Vital Signs Date Time Temp Pulse Resp B/P (MAP) Pulse Ox O2 Delivery O2 Flow Rate FiO2 12/08/20 09:19 98 14 165/96 (119) 100 Nasal Cannula 2.0 12/08/20 08:20 98.2 98.2 ROS: No Nausea, No Chest Pain, No Abdominal Pain, No Increase Cough Cardiovascular: S1, S2 Abdomen: Soft, Non-tender, Other Extremities: Other (+1 edema) Skin: Warm Labs Laboratory Tests Test 12/06/20 13:21 12/06/20 17:39 12/06/20 23:31 12/07/20 05:20 Glucose (Fingerstick) 166 mg/dL (70-99) 93 mg/dL (70-99) 119 mg/dL (70-99) 127 mg/dL (70-99) White Blood Count 6.5 x10^3/uL (4.0-11.0) Red Blood Count 2.90 x10^6/uL (3.50-5.40) Hemoglobin 8.2 g/dL (12.0-15.5) Hematocrit 25.0 % (36.0-47.0) Mean Corpuscular Volume 86 fL (79-100) Mean Corpuscular Hemoglobin 28 pg (25-35) Mean Corpuscular Hemoglobin Concent 33 g/dL (31-37) Red Cell Distribution Width 15.5 % (11.5-14.5) Platelet Count 161 x10^3/uL (140-400) Neutrophils (%) (Auto) 67 % (31-73) Lymphocytes (%) (Auto) 26 % (24-48) Monocytes (%) (Auto) 3 % (0-9) Eosinophils (%) (Auto) 4 % (0-3) Basophils (%) (Auto) 1 % (0-3) Neutrophils # (Auto) 4.3 x10^3/uL (1.8-7.7) Lymphocytes # (Auto) 1.7 x10^3/uL (1.0-4.8) Monocytes # (Auto) 0.2 x10^3/uL (0.0-1.1) Eosinophils # (Auto) 0.2 x10^3/uL (0.0-0.7) Basophils # (Auto) 0.1 x10^3/uL (0.0-0.2) Sodium Level 143 mmol/L (136-145) Potassium Level 3.4 mmol/L (3.5-5.1) Chloride Level 108 mmol/L (98-107) Carbon Dioxide Level 30 mmol/L (21-32) Anion Gap 5 (6-14) Blood Urea Nitrogen 11 mg/dL (7-20) Creatinine 1.2 mg/dL (0.6-1.0) Estimated GFR (Cockcroft-Gault) 50.3 Glucose Level 124 mg/dL (70-99) Calcium Level 7.9 mg/dL (8.5-10.1) Phosphorus Level 1.7 mg/dL (2.6-4.7) Magnesium Level 1.9 mg/dL (1.8-2.4) Test 12/07/20 08:18 12/07/20 10:00 12/07/20 13:09 12/07/20 16:19 O2 Saturation 98 % (92-99) 98 % (92-99) Arterial Blood pH 7.61 (7.35-7.45) 7.61 (7.35-7.45) Arterial Blood pCO2 at Patient Temp 29 mmHg (35-46) 28 mmHg (35-46) Arterial Blood pO2 at Patient Temp 132 mmHg (85-108) 136 mmHg (85-108) Arterial Blood HCO3 28 mmol/L (21-28) 27 mmol/L (21-28) Arterial Blood Base Excess 7 mmol/L (-3-3) 6 mmol/L (-3-3) FiO2 40 40/cpap 10/5 Glucose (Fingerstick) 170 mg/dL (70-99) 158 mg/dL (70-99) Test 12/07/20 22:34 12/08/20 01:09 12/08/20 01:46 12/08/20 06:24 Glucose (Fingerstick) 126 mg/dL (70-99) 102 mg/dL (70-99) 140 mg/dL (70-99) 170 mg/dL (70-99) Test 12/08/20 06:25 Sodium Level 141 mmol/L (136-145) Potassium Level 4.1 mmol/L (3.5-5.1) Chloride Level 107 mmol/L (98-107) Carbon Dioxide Level 28 mmol/L (21-32) Anion Gap 6 (6-14) Blood Urea Nitrogen 16 mg/dL (7-20) Creatinine 1.6 mg/dL (0.6-1.0) Estimated GFR (Cockcroft-Gault) 36.1 Glucose Level 169 mg/dL (70-99) Calcium Level 8.5 mg/dL (8.5-10.1) Laboratory Tests Test 12/07/20 10:00 12/07/20 13:09 12/07/20 16:19 12/07/20 22:34 O2 Saturation 98 % (92-99) Arterial Blood pH 7.61 (7.35-7.45) Arterial Blood pCO2 at Patient Temp 28 mmHg (35-46) Arterial Blood pO2 at Patient Temp 136 mmHg (85-108) Arterial Blood HCO3 27 mmol/L (21-28) Arterial Blood Base Excess 6 mmol/L (-3-3) FiO2 40/cpap 10/5 Glucose (Fingerstick) 170 mg/dL (70-99) 158 mg/dL (70-99) 126 mg/dL (70-99) Test 12/08/20 01:09 12/08/20 01:46 12/08/20 06:24 12/08/20 06:25 Glucose (Fingerstick) 102 mg/dL (70-99) 140 mg/dL (70-99) 170 mg/dL (70-99) Sodium Level 141 mmol/L (136-145) Potassium Level 4.1 mmol/L (3.5-5.1) Chloride Level 107 mmol/L (98-107) Carbon Dioxide Level 28 mmol/L (21-32) Anion Gap 6 (6-14) Blood Urea Nitrogen 16 mg/dL (7-20) Creatinine 1.6 mg/dL (0.6-1.0) Estimated GFR (Cockcroft-Gault) 36.1 Glucose Level 169 mg/dL (70-99) Calcium Level 8.5 mg/dL (8.5-10.1) Medications Active Scripts Medications Dose Route/Sig Max Daily Dose Days Date Category Lisinopril 40 Mg Tablet 1 Tab PO DAILY 03/26/19 Reported Synthroid (Levothyroxine Sodium) 100 Mcg Tablet 100 Mcg PO DAILY06 30 08/21/18 Rx [Pantoprazole] 40 MG Tablet.dr 40 Mg PO BIDAC 90 08/21/18 Rx Feosol (Ferrous Sulfate) 325 Mg Tablet 325 Mg PO DAILYWBKFT 90 08/21/18 Rx Zofran Odt (Ondansetron) 4 Mg Tab.rapdis 1 Tab SL Q8HRS 06/08/17 Rx Levemir Flextouch (Insulin Detemir) 100 Unit/1 Ml Insuln.pen 14 Units SQ QHS 04/25/16 Rx Alprazolam 0.5 Mg Tablet 0.5 Mg PO PRN Q6HRS PRN 04/23/16 Reported Humalog (Insulin Lispro) 100 Unit/1 Ml Insuln.pen 8 Unit SQ TIDAC 03/16/14 Reported Comments CXR 12/05 improved infiltrates reviewed cxr 1. Slight interval decrease in multifocal right greater than left lung mixed interstitial and alveolar infiltrate. 2. Stable small right pleural effusion and stable support lines and tubes. Impression . IMPRESSION: 1. Acute respiratory failure, multifactorial in etiology including acute kidney injury, volume overload, acute diastolic congestive heart failure, cannot rule out pneumonia.--Now extubated on nasal cannula 2. Abnormal chest x-ray. 3. Acute kidney injury-, now on HD 4. Chronic kidney disease. 5. Smoker. 6. Hypernatremia-improved 7. Diabetes mellitus. Plan . 12/08 UPDATED Continue current supplemental oxygen, to keep oxygen saturations greater than 92%, wean as tolerated Continue ABX per ID, and follow cultures--blood cultures no growth to date Follow nephrology recs-- HD per Renal Follow cardiology recs --EF 40-45% and PAP 24mmhg Out of bed as tolerated Okay to transfer out of the intensive care unit if okay with other consultations PT/OT/ST DVT/GI PPX D/W RN 12/07 UPDATED Continue current vent support 40% and PEEP of 5 CXR/ABG reviewed -- reduce rate to 14 Pt. placed on PS trial, ABG in 30 min and hopeful for extubation Continue ABX per ID, and follow cultures Follow nephrology recs-- HD per Renal Follow cardiology recs --EF 40-45% and PAP 24mmhg Continue TF for nutritional support HTN per cardiology and PCP PT/OT/ST DVT/GI PPX D/W RN and RT Critical care time 30 min 12/06 UPDATED Continue current vent support 40% and PEEP of 5 CXR/ABG reviewed -- no changes D/C all sedation and proceed with PS trial once awake --precedex gtt if needed Continue ABX per ID, and follow cultures Follow nephrology recs-- HD today Follow cardiology recs --await ECHO results PT/OT/ST DVT/GI PPX D/W RN and RT Critical care time 30 min 12/05 UPDATED Continue current vent support 40% and PEEP of 5 CXR/ABG reviewed -- no changes D/C all sedation and proceed with PS trial once awake Continue ABX, and follow cultures Follow nephrology recs-- planned for HD today Follow cardiology recs DVT/GI PPX D/W RN and RT Critical care time 30 min 12/04 PLAN AND RECOMMENDATIONS: 1. Titrate FiO2 to keep O2 saturation 94%. on 40%FIO2. 2. I will review ABG and consider CPAP trial 3. cont abx 4. fu Panculture. 5. test, neg 6. Procalcitonin elevated. 7. Repeat lactate, nl 8. HD per nephro 9. Cardiology was consulted. Agree with echocardiogram. 10. lower extremity venous Doppler. neg The findings and recommendations were discussed with RN and RT labs reviewed, imaging reviewed. addend: cxr 12/04 reviewed. worsening CHF/ Effusion increase UF with HD today hold weaning CEDRICK AYALA MD Dec 08, 2020 09:59
--- NOTE | 2020-12-08 10:35 | PDOC ---
Renal-Progress Notes Subjective Notes Notes CONFUSED History of Present Illness Hx of present illness OVERALL IMPROVED Vitals Vitals Vital Signs Date Time Temp Pulse Resp B/P (MAP) Pulse Ox O2 Delivery O2 Flow Rate FiO2 12/08/20 10:05 98.2 106 14 156/86 (109) 100 Nasal Cannula 2.0 98.2 Weight Weight [ ] I.O. Intake and Output Intake and Output 12/08/20 07:00 Intake Total 300 ml Output Total 305 ml Balance -5 ml Intake IV Total 200 ml Tube Feeding 100 ml Output Urine Total 305 ml Labs Labs Laboratory Tests Test 12/07/20 13:09 12/07/20 16:19 12/07/20 22:34 12/08/20 01:09 Glucose (Fingerstick) 170 mg/dL (70-99) 158 mg/dL (70-99) 126 mg/dL (70-99) 102 mg/dL (70-99) Test 12/08/20 01:46 12/08/20 06:24 12/08/20 06:25 Glucose (Fingerstick) 140 mg/dL (70-99) 170 mg/dL (70-99) Sodium Level 141 mmol/L (136-145) Potassium Level 4.1 mmol/L (3.5-5.1) Chloride Level 107 mmol/L (98-107) Carbon Dioxide Level 28 mmol/L (21-32) Anion Gap 6 (6-14) Blood Urea Nitrogen 16 mg/dL (7-20) Creatinine 1.6 mg/dL (0.6-1.0) Estimated GFR (Cockcroft-Gault) 36.1 Glucose Level 169 mg/dL (70-99) Calcium Level 8.5 mg/dL (8.5-10.1) Micro Micro Microbiology 12/02/20 Blood Culture - Final, Complete NO GROWTH AFTER 5 DAYS 12/02/20 Gram Stain Evaluation - Final, Complete 12/02/20 Respiratory Culture - Final, Complete Review of Systems Constitutional: yes: other (UNABLE TO OBTAIN) Physical Exam General Appearance: other (ON THE VENT) Skin: warm Respiratory: decreased breath sounds Heart: S1S2 Abdomen: soft, bowel sounds present Genitourinary: bladder flat Extremities: edema Neurology: alert, oriented, follow commands Assessment Assessment IMP [id number] HYPOKALEMIA ACIDEMIA-CORRECTED CURRENT ALKALOSIS AG MET ACIDOSIS - PRIMARY RESP ACIDOSIS ACUTE HYPOXIC, HYPERCARBIC RESP FAILURE TYPE I DM-NO DKA ANASARCA PROB CHF NECK AND BACK PAIN LEUCOCYTOSIS HYPOTENSION PROB SEPSIS MARIJUANA AND OPIATE ABUSE PLAN VENT SUPPORT OFF PRESSORS ANTIBIOTICS HD AGAIN TODAY UF ABOUT 2.0 LITER IF TOLERATED CONTROL BG BEST POSSIBLE IV LASIX TRIAL TO CONTINUE STOPPED LISINOPRIL NATALIA MCGRAW MD Dec 08, 2020 10:35
[2020-12-08] MEDS: METOPROLOL SUCC 24HR ER 25 MG TAB.ER.24H. PO SCH (11:07)
[2020-12-08] MEDS: VANCOMYCIN 125 MG/2.5 ML ORAL SOLUTION. PO SCH ×2 (11:07→20:52)
--- NOTE | 2020-12-08 11:52 | PDOC ---
CARDIO Progress Notes Date and Time Date of Service 12/08/2020 Time of Evaluation 1140 Subjective Subjective: Other (sitting up in chair, s/o leg pain) Vitals Vitals Vital Signs Date Time Temp Pulse Resp B/P (MAP) Pulse Ox O2 Delivery O2 Flow Rate FiO2 12/08/20 11:11 97.7 112 154/91 (112) 100 Nasal Cannula 2.0 97.7 12/08/20 10:05 14 Weight Weight [ ] Input and Output Intake and Output Intake and Output 12/08/20 07:00 Intake Total 300 ml Output Total 305 ml Balance -5 ml Intake IV Total 200 ml Tube Feeding 100 ml Output Urine Total 305 ml Laboratory Labs Laboratory Tests Test 12/07/20 13:09 12/07/20 16:19 12/07/20 22:34 12/08/20 01:09 Glucose (Fingerstick) 170 mg/dL (70-99) 158 mg/dL (70-99) 126 mg/dL (70-99) 102 mg/dL (70-99) Test 12/08/20 01:46 12/08/20 06:24 12/08/20 06:25 Glucose (Fingerstick) 140 mg/dL (70-99) 170 mg/dL (70-99) Sodium Level 141 mmol/L (136-145) Potassium Level 4.1 mmol/L (3.5-5.1) Chloride Level 107 mmol/L (98-107) Carbon Dioxide Level 28 mmol/L (21-32) Anion Gap 6 (6-14) Blood Urea Nitrogen 16 mg/dL (7-20) Creatinine 1.6 mg/dL (0.6-1.0) Estimated GFR (Cockcroft-Gault) 36.1 Glucose Level 169 mg/dL (70-99) Calcium Level 8.5 mg/dL (8.5-10.1) Microbiology Micro Microbiology 12/02/20 Blood Culture - Final, Complete NO GROWTH AFTER 5 DAYS 12/02/20 Gram Stain Evaluation - Final, Complete 12/02/20 Respiratory Culture - Final, Complete Review of Systems Constitutional: yes: other (UNABLE TO OBTAIN) Physical Exam HEENT: Neck Supple W Full Motion Chest: Symmetric LUNGS: Other (on NC) Heart: RRR (SR) Abdomen: Other (soft ) Extremities: No Edema Neurology: alert, oriented, follow commands Assessment Assessment 1. Acute respiratory failure with possible PNA; post ectubation , able to swallow, doing better 2. Acute systolic CHF, cardiomyopathy; Echo shows LVEF 40-45%. Most probable NICM 3. JOSE RAUL on CKD; requiring HD 4. Sepsis: shock: BP better, off pressor 5. DM2 6. Anemia; post transfusion Hgb at 8.2 Recommendations 1. Ongoing antibiotic therapy per ID 2. Fluid offloading via HD 3. Tolerating BB, no significant ectopies. 4. No ACEi/ARB for now with JOSE RAUL 5. Continue Lung optimization 6. Consider outpatient ischemic evaluation. Hold ASA for now and monitor H/H. FLP and start statin per level 7. Follow up in office. Justicifation of Admission Dx: Justifications for Admission: Justification of Admission Dx: N/A DARRYL SANCHEZ APRN Dec 08, 2020 11:52
--- NOTE | 2020-12-08 15:10 | NUR ---
SS following up with discharge planning. SS reviewed pt chart and discussed with pt RN. Pt is currently on room air. COVID19 negative. Pt on IV Meropenem, IV Lasix, and PO Vancomycin. Pt having hemodialysis today. PT/OT recommended acute rehabilitation. SS met with pt to discuss discharge planning and acute rehabilitation. Pt declining acute rehabilitation at this time. Pt stated that she will return to home at discharge. SS will continue to follow for discharge planning.
--- NOTE | 2020-12-08 15:15 | NUR ---
Patient c/o pain on back of head, told cloth stock sorter that "I think I have an abcess on the back of my head." I inspected patient's scalp and there is a nickel size sore on back of patient's head that appears like it has been there and is just irritated by patient scratching. I told patient to leave area alone. The site is not bleeding, just reddened. Will continue to monitor.
[2020-12-08] MEDS: ONDANSETRON PF 4 MG/2 ML VIAL. IVP PRN ×2 (16:55→23:05)
[2020-12-09] VITALS (8 sets, daily range): BP systolic 150–188; BP diastolic 85–101
[2020-12-09] MEDS: diphenhydrAMINE 50 MG/ML VIAL IVP PRN (01:31)
[2020-12-09] MEDS: fentaNYL PF VIAL 100 MCG/2 ML VIAL IVP PRN ×8 (01:31→22:28)
--- NOTE | 2020-12-09 03:04 | PN ---
DATE: 12/08/2020 DAILY PROGRESS NOTE LOCATION: She is in room ICU, 114. SUBJECTIVE: This 40-year-old white female has been extubated in the last 24 hours. She is awake, alert, complains of a headache ____ the_ in occipital area of her head, which she describes as steady. OBJECTIVE: VITAL SIGNS: Stable. She is afebrile. She is on nasal cannula O2. Blood pressures while still higher, better than 24 hours ago. CHEST: Decent breath sounds. HEART: Regular. ABDOMEN: Benign. All cultures are negative to date. She remains on broad spectrum antibiotics. Ultrasound of abdomen yesterday shows some ascites and small kidneys. IMPRESSION: 1. Hyperchloremic metabolic acidosis on dialysis, likely due to end-stage renal disease. 2. Acute respiratory failure, multifactorial, but all related to volume overload with improvement with dialysis. 3. Insulin-dependent diabetes with stable and decent blood sugars. PLAN: Continue supportive care. We will explore other options for headache. We will watch her blood pressures at least another 24 hours on current before increasing as they have improved on medications. It will take a while for the blood pressure to come down. DINO/CALEB DR: Anastacio TID: [id number]
[2020-12-09] MEDS: hydrALAZINE 20 MG/ML VIAL. IVP PRN ×2 (03:49→13:02)
[2020-12-09] MEDS: LEVOTHYROXINE 100 MCG TABLET PO SCH (05:46)
[2020-12-09] MEDS: HEPARIN for SUB-Q USE 5,000 UNIT/ML VIAL. SQ SCH ×3 (05:47→22:36)
[2020-12-09 06:17] LABS: HEMATOCRIT 26.3 % (36.0-47.0); HEMOGLOBIN 8.6 g/dL (12.0-15.5); RED BLOOD COUNT 2.96 x10^6/uL (3.50-5.40); RED CELL DISTRIBUTION WIDTH 15.8 % (11.5-14.5); WHITE BLOOD COUNT 9.2 x10^3/uL (4.0-11.0)
[2020-12-09 06:21] LABS: CALCIUM 8.5 mg/dL (8.5-10.1); CREATININE 1.4 mg/dL (0.6-1.0); GFR 42.1; POTASSIUM 3.9 mmol/L (3.5-5.1)
--- NOTE | 2020-12-09 07:34 | PDOC ---
Infectious Disease Note Subjective: Subjective Patient more alert on nasal O2 has skin rash on the rt hand and some on both lower legs some abdo discomfort Vital Signs: Vital Signs Vital Signs Date Time Temp Pulse Resp B/P (MAP) Pulse Ox O2 Delivery O2 Flow Rate FiO2 12/09/20 06:25 15 100 Nasal Cannula 1.0 12/09/20 03:49 91 172/97 12/09/20 03:00 98.6 98.6 Physical Exam: PHYSICAL EXAM GENERAL: Alert awake comfortable HEENT: Pupils are equal. , No thrush NECK: Supple. No nuchal rigidity. LUNGS: Coarse. HEART: S1 and S2, regular. ABDOMEN: Obese, soft. No guarding. Bowel sounds present. Mildly distended GENITOURINARY: Indwelling Aponte catheter in place., Suprapubic swelling noted EXTREMITIES: 2-3+ edema to lower extremities bilaterally. SCDs. No cyanosis. SKIN: Warm to touch. rash dry on rt hand and both lower legs, no purulence, no blisters NEUROLOGIC: Arousable Right IJ temporary HD catheter and CVC (4-24) without signs of any complications. Medications: Inpatient Meds: Medications reviewed. Labs: Lab Laboratory Tests Test 12/08/20 12:04 12/08/20 17:27 12/08/20 19:16 12/08/20 20:55 Glucose (Fingerstick) 230 mg/dL (70-99) 103 mg/dL (70-99) 107 mg/dL (70-99) 120 mg/dL (70-99) Test 12/08/20 22:02 12/08/20 23:02 12/09/20 03:25 12/09/20 05:58 Glucose (Fingerstick) 129 mg/dL (70-99) 134 mg/dL (70-99) 122 mg/dL (70-99) 152 mg/dL (70-99) Test 12/09/20 06:00 White Blood Count 9.2 x10^3/uL (4.0-11.0) Red Blood Count 2.96 x10^6/uL (3.50-5.40) Hemoglobin 8.6 g/dL (12.0-15.5) Hematocrit 26.3 % (36.0-47.0) Mean Corpuscular Volume 89 fL (79-100) Mean Corpuscular Hemoglobin 29 pg (25-35) Mean Corpuscular Hemoglobin Concent 33 g/dL (31-37) Red Cell Distribution Width 15.8 % (11.5-14.5) Platelet Count 304 x10^3/uL (140-400) Sodium Level 139 mmol/L (136-145) Potassium Level 3.9 mmol/L (3.5-5.1) Chloride Level 105 mmol/L (98-107) Carbon Dioxide Level 27 mmol/L (21-32) Anion Gap 7 (6-14) Blood Urea Nitrogen 9 mg/dL (7-20) Creatinine 1.4 mg/dL (0.6-1.0) Estimated GFR (Cockcroft-Gault) 42.1 Glucose Level 146 mg/dL (70-99) Calcium Level 8.5 mg/dL (8.5-10.1) Objective: Assessment: 1. Sepsis with hypotension, hypothermia, leukocytosis and encephalopathy. Improved 2. Bilateral infiltrates, possible aspiration sputum culture positive for normal respiratory jah 3. Acute respiratory failure. Status post intubation now extubated 4. Metabolic and respiratory acidosis. Resolved 5. Acute kidney injury on chronic kidney disease, requiring hemodialysis. Generalized anasarca improving 6. Acute blood loss anemia and protein-calorie malnutrition. 7. Diabetes mellitus type 1. 8. Hypothyroidism. 9. Leucocytosis 10. Pelvic ascites improving 11. CHF improving 12. Chronic back and neck pain 13. History of marijuana and opiate abuse 14.History of Enterobacter Clostridium difficile, group A strep and E. coli infections. Plan: Plan of Care Clotrimazole cream for hand and foot skin lesions DC Merrem Abdomen and pelvic and transvaginal ultrasound report reviewed Monitor labs and cultures BC and UC neg so far Sputum mixed respiratory jah Maintain aspiration precautions Supportive care LISA BHAKTA MD December 09, 2020 07:34
[2020-12-09] MEDS: INSULIN LISPRO 300 UNITS/3 ML VIAL. SQ SCH ×4 (08:00→20:53)
--- NOTE | 2020-12-09 08:24 | PDOC ---
DATE OF SERVICE DATE: 12/09/20 TIME: 08:13 SUBJECTIVE ROS Stable on O2 by CAREN OBJECTIVE Vital Signs Vital Signs Date Time Temp Pulse Resp B/P (MAP) Pulse Ox O2 Delivery O2 Flow Rate FiO2 12/09/20 06:25 15 100 Nasal Cannula 1.0 12/09/20 03:49 91 172/97 12/09/20 03:00 98.6 98.6 I & 0 Intake and Output 12/09/20 07:00 Intake Total 100 ml Output Total 3100 ml Balance -3000 ml Intake IV Total 100 ml Output Urine Total 100 ml Other 3000 ml # Bowel Movements 5 PHYSICAL EXAM Physical Exam GENERAL: Alert awake comfortable HEENT: Pupils are equal. , No thrush NECK: Supple. No nuchal rigidity. LUNGS: Coarse.non labored HEART: S1 and S2, regular. ABDOMEN: Obese, soft. No guarding. Bowel sounds present. GENITOURINARY: Indwelling Aponte catheter in place., Suprapubic swelling noted EXTREMITIES: 2-3+ edema to lower extremities bilaterally. SCDs. No cyanosis. SKIN: Warm to touch. rash dry on rt hand and both lower legs NEUROLOGIC: Arousable Right IJ temporary HD catheter a DIAGNOSIS/ASSESSMENT Assessment & Plan JOSE RAUL-ATN- anuric, requiring Dialysis , No emergent indication today Lisinopril held, On Lasix , Monitor for renal recovery , avoid nephrotoxins, strict I/O , baseline unknown to me, Pt repors she was scheduled with Nephrology on 12/[address] Vivar's recommendations Renal US no hydronephrosis. decompressed urinary bladder. Decreased renal size likely due to measurement technique or renal atrophy. HypoKalemia - resolved Acidemia- corrected Sepsis with hypotension, hypothermia, leukocytosis and encephalopathy. Improved Bilateral infiltrates, possible aspiration sputum culture positive for normal respiratory jah Acute respiratory failure. Status post intubation now extubated Acute blood loss anemia Diabetes mellitus type 1. Pelvic ascites improving Chronic back and neck pain History of marijuana and opiate abuse History of Enterobacter Clostridium difficile, group A strep and E. coli infections. COMMENT/RELEVANT DATA Meds Current Medications Medications (Trade) Dose Ordered Sig/Adams Start Time Stop Time Status Last Admin Dose Admin Acetaminophen (Tylenol) 500 mg 1X PRN PRN 12/04/20 08:00 12/05/20 07:59 DC Albumin Human 200 ml @ 200 mls/hr 1X PRN PRN 12/05/20 08:45 12/05/20 14:44 DC 12/05/20 13:10 100 MLS/HR Atropine Sulfate (ATROPINE 0.5mg SYRINGE) 0.5 mg PRN Q5MIN PRN 12/06/20 10:00 12/08/20 11:31 DC Betamethasone/ Clotrimazole (Lotrisone) 1 richy BID 12/09/20 09:00 Chlorhexidine Gluconate (Peridex) 15 ml BID 12/02/20 21:00 12/04/20 20:23 DC 12/03/20 21:10 15 ML Dexmedetomidine HCl 400 mcg/ Sodium Chloride 100 ml @ 0 mls/hr CONT PRN 12/06/20 10:00 12/08/20 11:31 DC 12/06/20 22:04 4.2 MLS/HR Dextrose (Dextrose 50%-Water Syringe) 25 gm STK-MED ONCE 12/02/20 09:00 12/04/20 12:49 DC Dextrose/Sodium Chloride 1,000 ml @ 30 mls/hr Q24H 12/02/20 13:00 12/02/20 17:15 DC 12/02/20 14:16 30 MLS/HR Diphenhydramine HCl (Benadryl) 25 mg PRN Q6HRS PRN 12/08/20 09:00 12/09/20 01:31 25 MG Dopamine HCl/ Dextrose 250 ml @ 8.438 mls/ hr CONT PRN 12/02/20 09:15 12/06/20 10:18 DC 12/02/20 12:09 8.438 MLS/HR Etomidate (Amidate) 10 mg 1X ONCE 12/02/20 09:45 12/02/20 10:07 DC 12/02/20 09:52 10 MG Fentanyl Citrate (Fentanyl 2ml Vial) 50 mcg PRN Q2HR PRN 12/07/20 17:15 12/09/20 05:46 50 MCG Fluoxetine HCl (PROzac) 20 mg DAILY 12/05/20 09:00 Cancel Furosemide (Lasix) 40 mg BID 12/05/20 11:30 12/08/20 20:52 40 MG Heparin Sodium (Porcine) (Heparin Sodium) 5,000 unit Q8HRS 12/06/20 14:00 12/09/20 05:47 5,000 UNIT Hydralazine HCl (Apresoline Inj) 10 mg PRN Q4HRS PRN 12/07/20 08:45 12/09/20 03:49 10 MG Info ([facility]cu Electrolyte Protocol) 1 ea CONT PRN PRN 12/04/20 15:45 Info (PHARMACY MONITORING -- do not chart) 1 each PRN DAILY PRN 12/08/20 07:45 Insulin Human Lispro (HumaLOG) 0-5 UNITS TIDWMEALHC 12/08/20 12:00 12/08/20 12:07 4 UNITS Ketorolac Tromethamine (Toradol 30mg Vial) 30 mg STK-MED ONCE 12/02/20 02:10 12/02/20 02:10 DC Levothyroxine Sodium (Synthroid) 100 mcg DAILY06 12/07/20 09:00 12/09/20 05:46 100 MCG Lidocaine HCl (Buffered Lidocaine 1%) 6 ml 1X ONCE 12/02/20 12:00 12/02/20 12:01 DC 12/02/20 11:52 3 ML Lisinopril (Prinivil) 40 mg DAILY 12/07/20 09:00 12/07/20 11:50 DC Magnesium Sulfate 50 ml @ 25 mls/hr 1X ONCE 12/04/20 15:45 12/04/20 17:44 DC 12/04/20 16:04 25 MLS/HR Meropenem 500 mg/ Sodium Chloride 50 ml @ 100 mls/hr Q12H 12/08/20 08:00 12/09/20 07:35 DC 12/08/20 19:14 100 MLS/HR Metoprolol Succinate (Toprol Xl) 25 mg DAILY 12/07/20 14:15 12/08/20 11:07 25 MG Micafungin Sodium 100 mg/Dextrose 100 ml @ 100 mls/hr Q24H 12/03/20 09:30 12/08/20 07:54 DC 12/07/20 16:30 100 MLS/HR Midazolam HCl 100 ml @ 0 mls/hr CONT PRN 12/02/20 09:15 12/06/20 10:18 DC 12/06/20 08:48 5 MLS/HR Morphine Sulfate (Morphine Sulfate) 4 mg PRN Q2HR PRN 12/02/20 05:00 12/03/20 04:59 DC 12/02/20 06:27 4 MG Norepinephrine Bitartrate 8 mg/ Dextrose 258 ml @ 12.268 mls/ hr CONT PRN 12/03/20 10:15 12/06/20 10:18 DC 12/04/20 11:39 2.454 MLS/HR Ondansetron HCl (Zofran) 4 mg PRN Q6HRS PRN 12/08/20 09:00 12/08/20 23:05 4 MG Pantoprazole Sodium (PROTONIX VIAL for IV PUSH) 40 mg DAILYAC 12/06/20 11:00 12/08/20 08:06 40 MG Piperacillin Sod/ Tazobactam Sod (Zosyn Per Pharmacy) 1 each PRN DAILY PRN 12/02/20 11:30 12/03/20 16:16 DC Piperacillin Sod/ Tazobactam Sod 2.25 gm/Sodium Chloride 50 ml @ 100 mls/hr Q8HRS 12/02/20 22:00 12/03/20 09:58 DC 12/03/20 06:14 100 MLS/HR Piperacillin Sod/ Tazobactam Sod 3.375 gm/Sodium Chloride 50 ml @ 100 mls/hr Q6HRS 12/02/20 12:00 12/02/20 15:44 DC 12/02/20 12:11 100 MLS/HR Piperacillin Sod/ Tazobactam Sod 4.5 gm/Sodium Chloride 100 ml @ 200 mls/hr 1X ONCE 12/02/20 05:00 12/02/20 05:29 DC 12/02/20 04:57 200 MLS/HR Potassium Chloride/Water 100 ml @ 100 mls/hr Q1H 12/04/20 16:00 12/04/20 17:59 DC 12/04/20 17:00 100 MLS/HR Propofol 100 ml @ 1.872 mls/ hr CONT PRN 12/06/20 19:45 12/07/20 05:21 5.616 MLS/HR Rocuronium [place] (Zemuron) 50 mg 1X ONCE 12/02/20 09:45 12/02/20 10:07 DC 12/02/20 09:52 50 MG Sodium Bicarbonate 50 meq/Sodium Chloride 1,050 ml @ 125 mls/hr 1X ONCE 12/02/20 07:00 12/02/20 12:15 DC Sodium Bicarbonate (Sodium Bicarb Adult 8.4% Syr) 100 meq 1X ONCE 12/02/20 09:45 12/02/20 09:46 DC 12/02/20 09:52 100 MEQ Sodium Chloride 1,000 ml @ 1,000 mls/hr Q1H PRN 12/08/20 07:45 12/08/20 13:44 DC Succinylcholine Chloride (Anectine) 200 mg STK-MED ONCE 12/02/20 09:18 12/02/20 09:18 DC Vancomycin HCl (Vanco Per Pharmacy) 1 each PRN DAILY PRN 12/02/20 11:30 12/03/20 09:58 DC 12/02/20 16:12 1 EACH Vancomycin HCl (Vancomycin Random Level) 1 each 1X ONCE 12/03/20 07:00 12/03/20 07:01 DC 12/03/20 07:00 1 EACH Vancomycin HCl (Vancomycin Oral Solution) 125 mg BID 12/03/20 09:00 12/08/20 20:52 125 MG Vancomycin HCl 1.25 gm/Sodium Chloride 250 ml @ 166.667 mls/hr 1X ONCE 12/02/20 12:00 12/02/20 13:29 DC 12/02/20 12:11 166.667 MLS/HR Lab Laboratory Tests Test 12/08/20 12:04 12/08/20 17:27 12/08/20 19:16 12/08/20 20:55 Glucose (Fingerstick) 230 mg/dL (70-99) 103 mg/dL (70-99) 107 mg/dL (70-99) 120 mg/dL (70-99) Test 12/08/20 22:02 12/08/20 23:02 12/09/20 03:25 12/09/20 05:58 Glucose (Fingerstick) 129 mg/dL (70-99) 134 mg/dL (70-99) 122 mg/dL (70-99) 152 mg/dL (70-99) Test 12/09/20 06:00 White Blood Count 9.2 x10^3/uL (4.0-11.0) Red Blood Count 2.96 x10^6/uL (3.50-5.40) Hemoglobin 8.6 g/dL (12.0-15.5) Hematocrit 26.3 % (36.0-47.0) Mean Corpuscular Volume 89 fL (79-100) Mean Corpuscular Hemoglobin 29 pg (25-35) Mean Corpuscular Hemoglobin Concent 33 g/dL (31-37) Red Cell Distribution Width 15.8 % (11.5-14.5) Platelet Count 304 x10^3/uL (140-400) Sodium Level 139 mmol/L (136-145) Potassium Level 3.9 mmol/L (3.5-5.1) Chloride Level 105 mmol/L (98-107) Carbon Dioxide Level 27 mmol/L (21-32) Anion Gap 7 (6-14) Blood Urea Nitrogen 9 mg/dL (7-20) Creatinine 1.4 mg/dL (0.6-1.0) Estimated GFR (Cockcroft-Gault) 42.1 Glucose Level 146 mg/dL (70-99) Calcium Level 8.5 mg/dL (8.5-10.1) Results All relevant outside records, renal labs, imaging studies, telemetry/EKG's were reviewed. Justicifation of Admission Dx: Justifications for Admission: Justification of Admission Dx: N/A SHERYL VENCES MD December 09, 2020 08:24
[2020-12-09] MEDS: FUROSEMIDE 40 MG/4 ML VIAL. IVP SCH ×2 (09:34→20:53)
[2020-12-09] MEDS: PANTOPRAZOLE IV PUSH 40 MG VIAL. IVP SCH (09:34)
[2020-12-09] MEDS: ONDANSETRON PF 4 MG/2 ML VIAL. IVP PRN ×3 (09:36→22:37)
[2020-12-09] MEDS: CLOTRIMAZOLE/BETAMETH 1%-0.05% TOPICAL CREAM 15GM TUBE. TP SCH ×2 (09:42→22:28)
--- NOTE | 2020-12-09 09:54 | PDOC ---
Provider Note Date of Service: DATE: 12/09/20 TIME: 09:53 Provider Note c diff neg, has chronic diarrhea, anemia, low albumin- ? crohns- gi consult , transfer to floor Justifications for Admission Other Justification JIM CEE MD December 09, 2020 09:54
[2020-12-09] MEDS: METOPROLOL SUCC 24HR ER 25 MG TAB.ER.24H. PO SCH (10:12)
[2020-12-09] MEDS: VANCOMYCIN 125 MG/2.5 ML ORAL SOLUTION. PO SCH ×2 (10:13→20:53)
[2020-12-09] MEDS: PANTOPRAZOLE 40 MG TABLET.DR. PO SCH (17:03)
[2020-12-09] MEDS ORDERED: ELECTROLYTE (NON-ICU) PROTOCOL. MC PRN (17:15)
--- NOTE | 2020-12-09 19:57 | PDOC ---
PULMONARY PROGRESS NOTES DATE: 12/09/20 TIME: 19:52 Subjective Patient was extubated on 12/07/2020, now on room air up to chair Denies any shortness of breath, cough or chest pain Vitals Vital Signs Date Time Temp Pulse Resp B/P (MAP) Pulse Ox O2 Delivery O2 Flow Rate FiO2 12/09/20 19:46 97.5 67 16 188/99 (128) 96 Room Air 97.5 12/09/20 06:25 1.0 ROS: No Nausea, No Chest Pain, No Abdominal Pain, No Increase Cough General: Alert, Oriented X4 Lungs: Clear Cardiovascular: S1, S2 Abdomen: Soft, Non-tender Extremities: No Edema Skin: Warm Labs Laboratory Tests Test 12/07/20 22:34 12/08/20 01:09 12/08/20 01:46 12/08/20 06:24 Glucose (Fingerstick) 126 mg/dL (70-99) 102 mg/dL (70-99) 140 mg/dL (70-99) 170 mg/dL (70-99) Test 12/08/20 06:25 12/08/20 12:04 12/08/20 17:27 12/08/20 19:16 Sodium Level 141 mmol/L (136-145) Potassium Level 4.1 mmol/L (3.5-5.1) Chloride Level 107 mmol/L (98-107) Carbon Dioxide Level 28 mmol/L (21-32) Anion Gap 6 (6-14) Blood Urea Nitrogen 16 mg/dL (7-20) Creatinine 1.6 mg/dL (0.6-1.0) Estimated GFR (Cockcroft-Gault) 36.1 Glucose Level 169 mg/dL (70-99) Calcium Level 8.5 mg/dL (8.5-10.1) Glucose (Fingerstick) 230 mg/dL (70-99) 103 mg/dL (70-99) 107 mg/dL (70-99) Test 12/08/20 20:55 12/08/20 22:02 12/08/20 23:02 12/09/20 03:25 Glucose (Fingerstick) 120 mg/dL (70-99) 129 mg/dL (70-99) 134 mg/dL (70-99) 122 mg/dL (70-99) Test 12/09/20 05:58 5/1/21 06:00 12/09/20 08:15 12/09/20 12:35 Glucose (Fingerstick) 152 mg/dL (70-99) 143 mg/dL (70-99) 163 mg/dL (70-99) White Blood Count 9.2 x10^3/uL (4.0-11.0) Red Blood Count 2.96 x10^6/uL (3.50-5.40) Hemoglobin 8.6 g/dL (12.0-15.5) Hematocrit 26.3 % (36.0-47.0) Mean Corpuscular Volume 89 fL (79-100) Mean Corpuscular Hemoglobin 29 pg (25-35) Mean Corpuscular Hemoglobin Concent 33 g/dL (31-37) Red Cell Distribution Width 15.8 % (11.5-14.5) Platelet Count 304 x10^3/uL (140-400) Sodium Level 139 mmol/L (136-145) Potassium Level 3.9 mmol/L (3.5-5.1) Chloride Level 105 mmol/L (98-107) Carbon Dioxide Level 27 mmol/L (21-32) Anion Gap 7 (6-14) Blood Urea Nitrogen 9 mg/dL (7-20) Creatinine 1.4 mg/dL (0.6-1.0) Estimated GFR (Cockcroft-Gault) 42.1 Glucose Level 146 mg/dL (70-99) Calcium Level 8.5 mg/dL (8.5-10.1) Test 12/09/20 16:43 Glucose (Fingerstick) 96 mg/dL (70-99) Laboratory Tests Test 12/08/20 20:55 12/08/20 22:02 12/08/20 23:02 12/09/20 03:25 Glucose (Fingerstick) 120 mg/dL (70-99) 129 mg/dL (70-99) 134 mg/dL (70-99) 122 mg/dL (70-99) Test 12/09/20 05:58 12/09/20 06:00 12/09/20 08:15 12/09/20 12:35 Glucose (Fingerstick) 152 mg/dL (70-99) 143 mg/dL (70-99) 163 mg/dL (70-99) White Blood Count 9.2 x10^3/uL (4.0-11.0) Red Blood Count 2.96 x10^6/uL (3.50-5.40) Hemoglobin 8.6 g/dL (12.0-15.5) Hematocrit 26.3 % (36.0-47.0) Mean Corpuscular Volume 89 fL (79-100) Mean Corpuscular Hemoglobin 29 pg (25-35) Mean Corpuscular Hemoglobin Concent 33 g/dL (31-37) Red Cell Distribution Width 15.8 % (11.5-14.5) Platelet Count 304 x10^3/uL (140-400) Sodium Level 139 mmol/L (136-145) Potassium Level 3.9 mmol/L (3.5-5.1) Chloride Level 105 mmol/L (98-107) Carbon Dioxide Level 27 mmol/L (21-32) Anion Gap 7 (6-14) Blood Urea Nitrogen 9 mg/dL (7-20) Creatinine 1.4 mg/dL (0.6-1.0) Estimated GFR (Cockcroft-Gault) 42.1 Glucose Level 146 mg/dL (70-99) Calcium Level 8.5 mg/dL (8.5-10.1) Test 12/09/20 16:43 Glucose (Fingerstick) 96 mg/dL (70-99) Medications Active Scripts Medications Dose Route/Sig Max Daily Dose Days Date Category Lisinopril 40 Mg Tablet 1 Tab PO DAILY 03/26/19 Reported Synthroid (Levothyroxine Sodium) 100 Mcg Tablet 100 Mcg PO DAILY06 30 08/21/18 Rx [Pantoprazole] 40 MG Tablet.dr 40 Mg PO BIDAC 90 08/21/18 Rx Feosol (Ferrous Sulfate) 325 Mg Tablet 325 Mg PO DAILYWBKFT 90 08/21/18 Rx Zofran Odt (Ondansetron) 4 Mg Tab.rapdis 1 Tab SL Q8HRS 06/08/17 Rx Levemir Flextouch (Insulin Detemir) 100 Unit/1 Ml Insuln.pen 14 Units SQ QHS 04/25/16 Rx Alprazolam 0.5 Mg Tablet 0.5 Mg PO PRN Q6HRS PRN 04/23/16 Reported Humalog (Insulin Lispro) 100 Unit/1 Ml Insuln.pen 8 Unit SQ TIDAC 03/16/14 Reported Comments CXR 12/05 improved infiltrates reviewed cxr 1. Slight interval decrease in multifocal right greater than left lung mixed interstitial and alveolar infiltrate. 2. Stable small right pleural effusion and stable support lines and tubes. Impression . IMPRESSION: 1. Acute respiratory failure, multifactorial in etiology including acute kidney injury, volume overload, acute diastolic congestive heart failure, cannot rule out pneumonia.--Now extubated on room air 2. Abnormal chest x-ray. 3. Acute kidney injury-, now on HD 4. Chronic kidney disease. 5. Smoker. 6. Hypernatremia-improved 7. Diabetes mellitus. Plan . 12/09/20 UPDATED Continue current supplemental oxygen, to keep oxygen saturations greater than 92%, now on room air Continue ABX per ID, and follow cultures--blood cultures no growth to date Follow nephrology recs-- HD per Renal Follow cardiology recs --EF 40-45% and PAP 24mmhg Out of bed as tolerated PT/OT/ST DVT/GI PPX D/W RN 12/08 UPDATED Continue current supplemental oxygen, to keep oxygen saturations greater than 92%, wean as tolerated Continue ABX per ID, and follow cultures--blood cultures no growth to date Follow nephrology recs-- HD per Renal Follow cardiology recs --EF 40-45% and PAP 24mmhg Out of bed as tolerated Okay to transfer out of the intensive care unit if okay with other consultations PT/OT/ST DVT/GI PPX D/W RN 12/07 UPDATED Continue current vent support 40% and PEEP of 5 CXR/ABG reviewed -- reduce rate to 14 Pt. placed on PS trial, ABG in 30 min and hopeful for extubation Continue ABX per ID, and follow cultures Follow nephrology recs-- HD per Renal Follow cardiology recs --EF 40-45% and PAP 24mmhg Continue TF for nutritional support HTN per cardiology and PCP PT/OT/ST DVT/GI PPX D/W RN and RT Critical care time 30 min 12/06 UPDATED Continue current vent support 40% and PEEP of 5 CXR/ABG reviewed -- no changes D/C all sedation and proceed with PS trial once awake --precedex gtt if needed Continue ABX per ID, and follow cultures Follow nephrology recs-- HD today Follow cardiology recs --await ECHO results PT/OT/ST DVT/GI PPX D/W RN and RT Critical care time 30 min 12/05 UPDATED Continue current vent support 40% and PEEP of 5 CXR/ABG reviewed -- no changes D/C all sedation and proceed with PS trial once awake Continue ABX, and follow cultures Follow nephrology recs-- planned for HD today Follow cardiology recs DVT/GI PPX D/W RN and RT Critical care time 30 min 12/04 PLAN AND RECOMMENDATIONS: 1. Titrate FiO2 to keep O2 saturation 94%. on 40%FIO2. 2. I will review ABG and consider CPAP trial 3. cont abx 4. fu Panculture. 5. test, neg 6. Procalcitonin elevated. 7. Repeat lactate, nl 8. HD per nephro 9. Cardiology was consulted. Agree with echocardiogram. 10. lower extremity venous Doppler. neg The findings and recommendations were discussed with RN and RT labs reviewed, imaging reviewed. addend: cxr 12/04 reviewed. worsening CHF/ Effusion increase UF with HD today hold weaning CEDRICK AYALA MD December 09, 2020 19:57
[2020-12-09] MEDS: LACTOBACILLUS RHAMNOSUS GG 1 CAPSULE. PO SCH (20:53)
[2020-12-09] MEDS: INSULIN GLARGINE SYRINGE. SQ SCH (20:53)
[2020-12-10] VITALS (7 sets, daily range): BP systolic 117–195; BP diastolic 87–110
[2020-12-10] MEDS: fentaNYL PF VIAL 100 MCG/2 ML VIAL IVP PRN ×6 (00:39→21:11)
[2020-12-10] MEDS: LEVOTHYROXINE 100 MCG TABLET PO SCH (05:31)
[2020-12-10] MEDS: HEPARIN for SUB-Q USE 5,000 UNIT/ML VIAL. SQ SCH ×3 (05:31→21:18)
[2020-12-10] MEDS: ONDANSETRON PF 4 MG/2 ML VIAL. IVP PRN ×2 (05:31→12:07)
[2020-12-10] MEDS: INSULIN LISPRO 300 UNITS/3 ML VIAL. SQ SCH ×4 (08:00→21:00)
--- NOTE | 2020-12-10 08:07 | PDOC ---
Infectious Disease Note Subjective: Subjective Patient transferred out of ICU has skin rash on the rt hand and some on both lower legs improving Vital Signs: Vital Signs Vital Signs Date Time Temp Pulse Resp B/P (MAP) Pulse Ox O2 Delivery O2 Flow Rate FiO2 12/10/20 07:00 98.5 80 16 183/103 (129) 94 Room Air 98.5 Physical Exam: PHYSICAL EXAM GENERAL: Alert awake comfortable HEENT: Pupils are equal. , No thrush NECK: Supple. No nuchal rigidity. LUNGS: Coarse. HEART: S1 and S2, regular. ABDOMEN: Obese, soft. No guarding. Bowel sounds present. Mildly distended GENITOURINARY: Indwelling Aponte catheter in place., Suprapubic swelling noted EXTREMITIES: 2-3+ edema to lower extremities bilaterally. SCDs. No cyanosis. SKIN: Warm to touch. rash dry on rt hand and both lower legs, no purulence, no blisters NEUROLOGIC: Arousable Right IJ temporary HD catheter and CVC (4-24) without signs of any complications. Medications: Inpatient Meds: Medications reviewed. Labs: Lab Laboratory Tests Test 12/09/20 08:15 12/09/20 12:35 12/09/20 16:43 12/09/20 19:59 Glucose (Fingerstick) 143 mg/dL (70-99) 163 mg/dL (70-99) 96 mg/dL (70-99) 107 mg/dL (70-99) Test 12/10/20 07:29 Glucose (Fingerstick) 106 mg/dL (70-99) Objective: Assessment: 1. Sepsis with hypotension, hypothermia, leukocytosis and encephalopathy. Improved 2. Bilateral infiltrates, possible aspiration sputum culture positive for normal respiratory jah 3. Acute respiratory failure. Status post intubation now extubated 4. Metabolic and respiratory acidosis. Resolved 5. Acute kidney injury on chronic kidney disease, requiring hemodialysis. Generalized anasarca improving 6. Acute blood loss anemia and protein-calorie malnutrition. 7. Diabetes mellitus type 1. 8. Hypothyroidism. 9. Leucocytosis 10. Pelvic ascites improving 11. CHF improving 12. Chronic back and neck pain 13. History of marijuana and opiate abuse 14.History of Enterobacter Clostridium difficile, group A strep and E. coli infections. Plan: Plan of Care Monitor off antibiotics Clotrimazole cream for hand and foot skin lesions BC and UC neg so far Sputum mixed respiratory jah Maintain aspiration precautions Supportive care We will sign off Call ID MD [facility] consultant with any questions LISA BHAKTA MD December 10, 2020 08:07
[2020-12-10] MEDS: CLOTRIMAZOLE/BETAMETH 1%-0.05% TOPICAL CREAM 15GM TUBE. TP SCH ×2 (08:57→21:00)
--- NOTE | 2020-12-10 09:26 | PDOC ---
PULMONARY PROGRESS NOTES DATE: 12/10/20 TIME: 09:25 Subjective Patient was extubated on 12/07/2020, now on room air Denies any shortness of breath, cough or chest pain a-febrile no overnight issues Vitals Vital Signs Date Time Temp Pulse Resp B/P (MAP) Pulse Ox O2 Delivery O2 Flow Rate FiO2 12/10/20 08:58 14 Room Air 12/10/20 07:00 98.5 80 183/103 (129) 94 98.5 ROS: No Nausea, No Chest Pain, No Abdominal Pain, No Increase Cough General: Alert, Oriented X4 Lungs: Clear Cardiovascular: S1, S2 Abdomen: Soft, Non-tender Extremities: No Edema Skin: Warm Labs Laboratory Tests Test 12/08/20 12:04 12/08/20 17:27 12/08/20 19:16 12/08/20 20:55 Glucose (Fingerstick) 230 mg/dL (70-99) 103 mg/dL (70-99) 107 mg/dL (70-99) 120 mg/dL (70-99) Test 12/08/20 22:02 12/08/20 23:02 12/09/20 03:25 12/09/20 05:58 Glucose (Fingerstick) 129 mg/dL (70-99) 134 mg/dL (70-99) 122 mg/dL (70-99) 152 mg/dL (70-99) Test 12/09/20 06:00 12/09/20 08:15 12/09/20 12:35 12/09/20 16:43 White Blood Count 9.2 x10^3/uL (4.0-11.0) Red Blood Count 2.96 x10^6/uL (3.50-5.40) Hemoglobin 8.6 g/dL (12.0-15.5) Hematocrit 26.3 % (36.0-47.0) Mean Corpuscular Volume 89 fL (79-100) Mean Corpuscular Hemoglobin 29 pg (25-35) Mean Corpuscular Hemoglobin Concent 33 g/dL (31-37) Red Cell Distribution Width 15.8 % (11.5-14.5) Platelet Count 304 x10^3/uL (140-400) Sodium Level 139 mmol/L (136-145) Potassium Level 3.9 mmol/L (3.5-5.1) Chloride Level 105 mmol/L (98-107) Carbon Dioxide Level 27 mmol/L (21-32) Anion Gap 7 (6-14) Blood Urea Nitrogen 9 mg/dL (7-20) Creatinine 1.4 mg/dL (0.6-1.0) Estimated GFR (Cockcroft-Gault) 42.1 Glucose Level 146 mg/dL (70-99) Calcium Level 8.5 mg/dL (8.5-10.1) Glucose (Fingerstick) 143 mg/dL (70-99) 163 mg/dL (70-99) 96 mg/dL (70-99) Test 12/09/20 19:59 12/10/20 07:29 Glucose (Fingerstick) 107 mg/dL (70-99) 106 mg/dL (70-99) Laboratory Tests Test 12/09/20 12:35 12/09/20 16:43 12/09/20 19:59 12/10/20 07:29 Glucose (Fingerstick) 163 mg/dL (70-99) 96 mg/dL (70-99) 107 mg/dL (70-99) 106 mg/dL (70-99) Medications Active Scripts Medications Dose Route/Sig Max Daily Dose Days Date Category Lisinopril 40 Mg Tablet 1 Tab PO DAILY 03/26/19 Reported Synthroid (Levothyroxine Sodium) 100 Mcg Tablet 100 Mcg PO DAILY06 30 08/21/18 Rx [Pantoprazole] 40 MG Tablet.dr 40 Mg PO BIDAC 90 08/21/18 Rx Feosol (Ferrous Sulfate) 325 Mg Tablet 325 Mg PO DAILYWBKFT 90 08/21/18 Rx Zofran Odt (Ondansetron) 4 Mg Tab.rapdis 1 Tab SL Q8HRS 06/08/17 Rx Levemir Flextouch (Insulin Detemir) 100 Unit/1 Ml Insuln.pen 14 Units SQ QHS 04/25/16 Rx Alprazolam 0.5 Mg Tablet 0.5 Mg PO PRN Q6HRS PRN 04/23/16 Reported Humalog (Insulin Lispro) 100 Unit/1 Ml Insuln.pen 8 Unit SQ TIDAC 03/16/14 Reported Comments CXR 12/05 improved infiltrates reviewed cxr 1. Slight interval decrease in multifocal right greater than left lung mixed interstitial and alveolar infiltrate. 2. Stable small right pleural effusion and stable support lines and tubes. Impression . IMPRESSION: 1. Acute respiratory failure, multifactorial in etiology including acute kidney injury, volume overload, acute diastolic congestive heart failure possible pneumonia 2. Abnormal chest x-ray. 3. Acute kidney injury-, now on HD 4. Chronic kidney disease. 5. Smoker. 6. Hypernatremia-improved 7. Diabetes mellitus. Plan . 12/10/20 UPDATED Continue current supplemental oxygen, to keep oxygen saturations greater than 92%, now on room air -stable from respiratory standpoint Continue ABX per ID, and follow cultures--blood cultures no growth to date-- now off ABX Follow nephrology recs-- HD per Renal Follow cardiology recs --EF 40-45% and PAP 24mmhg Out of bed as tolerated, MARGOT [place] PT/OT/ST DVT/GI PPX D/W RN 12/09/20 UPDATED Continue current supplemental oxygen, to keep oxygen saturations greater than 92%, now on room air Continue ABX per ID, and follow cultures--blood cultures no growth to date Follow nephrology recs-- HD per Renal Follow cardiology recs --EF 40-45% and PAP 24mmhg Out of bed as tolerated PT/OT/ST DVT/GI PPX D/W RN 12/08 UPDATED Continue current supplemental oxygen, to keep oxygen saturations greater than 92%, wean as tolerated Continue ABX per ID, and follow cultures--blood cultures no growth to date Follow nephrology recs-- HD per Renal Follow cardiology recs --EF 40-45% and PAP 24mmhg Out of bed as tolerated Okay to transfer out of the intensive care unit if okay with other consultations PT/OT/ST DVT/GI PPX D/W RN 12/07 UPDATED Continue current vent support 40% and PEEP of 5 CXR/ABG reviewed -- reduce rate to 14 Pt. placed on PS trial, ABG in 30 min and hopeful for extubation Continue ABX per ID, and follow cultures Follow nephrology recs-- HD per Renal Follow cardiology recs --EF 40-45% and PAP 24mmhg Continue TF for nutritional support HTN per cardiology and PCP PT/OT/ST DVT/GI PPX D/W RN and RT Critical care time 30 min 12/06 UPDATED Continue current vent support 40% and PEEP of 5 CXR/ABG reviewed -- no changes D/C all sedation and proceed with PS trial once awake --precedex gtt if needed Continue ABX per ID, and follow cultures Follow nephrology recs-- HD today Follow cardiology recs --await ECHO results PT/OT/ST DVT/GI PPX D/W RN and RT Critical care time 30 min 12/05 UPDATED Continue current vent support 40% and PEEP of 5 CXR/ABG reviewed -- no changes D/C all sedation and proceed with PS trial once awake Continue ABX, and follow cultures Follow nephrology recs-- planned for HD today Follow cardiology recs DVT/GI PPX D/W RN and RT Critical care time 30 min 12/04 PLAN AND RECOMMENDATIONS: 1. Titrate FiO2 to keep O2 saturation 94%. on 40%FIO2. 2. I will review ABG and consider CPAP trial 3. cont abx 4. fu Panculture. 5. test, neg 6. Procalcitonin elevated. 7. Repeat lactate, nl 8. HD per nephro 9. Cardiology was consulted. Agree with echocardiogram. 10. lower extremity venous Doppler. neg The findings and recommendations were discussed with RN and RT labs reviewed, imaging reviewed. addend: cxr 12/04 reviewed. worsening CHF/ Effusion increase UF with HD today hold weaning CEDRICK AYALA MD December 10, 2020 09:26
[2020-12-10] MEDS ORDERED: HYDROcodone/APAP 5/325MG 1 TAB TABLET PO PRN (09:30)
--- NOTE | 2020-12-10 09:39 | PDOC ---
Provider Note Date of Service: DATE: 12/10/20 TIME: 09:33 Provider Note no temp, bp up- will add home lisinopril, do celiac panel re low albumin/anemia- consider 24 hr urine for total protein- add clonidine that she takes at home also Justifications for Admission Other Justification JIM CEE MD December 10, 2020 09:39
[2020-12-10] MEDS: PANTOPRAZOLE 40 MG TABLET.DR. PO SCH ×2 (11:54→16:14)
[2020-12-10] MEDS: cloNIDine HCL 0.1 MG TABLET PO SCH ×2 (11:54→17:50)
[2020-12-10] MEDS: LACTOBACILLUS RHAMNOSUS GG 1 CAPSULE. PO SCH ×2 (11:54→21:11)
[2020-12-10] MEDS: VANCOMYCIN 125 MG/2.5 ML ORAL SOLUTION. PO SCH ×2 (11:54→21:12)
[2020-12-10] MEDS: LISINOPRIL 20 MG TABLET PO SCH (11:55)
[2020-12-10] MEDS: FUROSEMIDE 40 MG/4 ML VIAL. IVP SCH ×2 (11:55→21:11)
[2020-12-10] MEDS: METOPROLOL SUCC 24HR ER 25 MG TAB.ER.24H. PO SCH (11:58)
--- NOTE | 2020-12-10 13:39 | PDOC ---
DATE OF SERVICE DATE: 12/10/20 TIME: 13:37 SUBJECTIVE ROS , transferred out of ICU , stable, on RA , sitting up in chair OBJECTIVE Vital Signs Vital Signs Date Time Temp Pulse Resp B/P (MAP) Pulse Ox O2 Delivery O2 Flow Rate FiO2 12/10/20 12:07 Room Air 12/10/20 11:58 80 183/103 12/10/20 11:00 98.8 16 96 98.8 I & 0 Intake and Output 12/10/20 07:00 Intake Total 820 ml Output Total 305 ml Balance 515 ml Intake Oral 820 ml Output Urine Total 305 ml PHYSICAL EXAM Physical Exam GENERAL: Alert awake comfortable HEENT: OM moist NECK: Supple. LUNGS: CTA, Non labored HEART: S1 and S2, regular. ABDOMEN: Obese, soft. No guarding. Bowel sounds present. GENITOURINARY: Indwelling Aponte catheter in place., SKIN: Warm to touch. rash dry on rt hand and both lower legs NEUROLOGIC: awake , alert Right IJ temporary HD catheter a DIAGNOSIS/ASSESSMENT Assessment & Plan JOSE RAUL-ATN- anuric, requiring Dialysis , No labs ordered this morning , No emergent indication today , re-eval in am Lisinopril held, On Lasix , Pt feels UOP increased, Monitor for renal recovery , strict I/O , baseline unknown , Pt reports she was scheduled with Nephrology on 12/[address] Vivar's recommendations Renal US no hydronephrosis. decompressed urinary bladder. Decreased renal size likely due to measurement technique or renal atrophy. HypoKalemia - No labs this am Sepsis with hypotension, hypothermia, leukocytosis and encephalopathy. Improved Bilateral infiltrates, possible aspiration sputum culture positive for normal respiratory jah Acute respiratory failure. Status post intubation now extubated Acute blood loss anemia Diabetes mellitus type 1. Pelvic ascites improving Chronic back and neck pain COMMENT/RELEVANT DATA Meds Current Medications Medications (Trade) Dose Ordered Sig/Adams Start Time Stop Time Status Last Admin Dose Admin Acetaminophen (Tylenol) 500 mg 1X PRN PRN 12/04/20 08:00 12/05/20 07:59 DC Acetaminophen/ Hydrocodone Bitart (Lortab 5/325) 1 tab PRN Q4HRS PRN 12/10/20 09:30 Albumin Human 200 ml @ 200 mls/hr 1X PRN PRN 12/05/20 08:45 12/05/20 14:44 DC 12/05/20 13:10 100 MLS/HR Alprazolam (Xanax) 0.5 mg PRN Q6HRS PRN 12/09/20 09:45 Atropine Sulfate (ATROPINE 0.5mg SYRINGE) 0.5 mg PRN Q5MIN PRN 12/06/20 10:00 12/08/20 11:31 DC Betamethasone/ Clotrimazole (Lotrisone) 1 richy BID 12/09/20 09:00 12/10/20 08:57 1 RICHY Chlorhexidine Gluconate (Peridex) 15 ml BID 12/02/20 21:00 12/04/20 20:23 DC 12/03/20 21:10 15 ML Clonidine HCl (Catapres) 0.1 mg [id number] 12/10/20 10:00 12/10/20 11:54 0.1 MG Dexmedetomidine HCl 400 mcg/ Sodium Chloride 100 ml @ 0 mls/hr CONT PRN 12/06/20 10:00 12/08/20 11:31 DC 12/06/20 22:04 4.2 MLS/HR Dextrose (Dextrose 50%-Water Syringe) 25 gm STK-MED ONCE 12/02/20 09:00 12/04/20 12:49 DC Dextrose/Sodium Chloride 1,000 ml @ 30 mls/hr Q24H 12/02/20 13:00 12/02/20 17:15 DC 12/02/20 14:16 30 MLS/HR Diphenhydramine HCl (Benadryl) 25 mg PRN Q6HRS PRN 12/08/20 09:00 12/09/20 01:31 25 MG Dopamine HCl/ Dextrose 250 ml @ 8.438 mls/ hr CONT PRN 12/02/20 09:15 12/06/20 10:18 DC 12/02/20 12:09 8.438 MLS/HR Etomidate (Amidate) 10 mg 1X ONCE 12/02/20 09:45 12/02/20 10:07 DC 12/02/20 09:52 10 MG Fentanyl Citrate (Fentanyl 2ml Vial) 50 mcg PRN Q4HRS PRN 12/10/20 09:30 12/10/20 12:07 50 MCG Fluoxetine HCl (PROzac) 20 mg DAILY 12/05/20 09:00 Cancel Furosemide (Lasix) 40 mg BID 12/05/20 11:30 12/10/20 11:55 40 MG Heparin Sodium (Porcine) (Heparin Sodium) 5,000 unit Q8HRS 12/06/20 14:00 12/10/20 05:31 5,000 UNIT Hydralazine HCl (Apresoline Inj) 10 mg PRN Q4HRS PRN 12/07/20 08:45 12/09/20 13:02 10 MG Info (Icu Electrolyte Protocol) 1 ea CONT PRN PRN 12/04/20 15:45 Cancel Info (Non-Icu Electrolyte Protocol) 1 ea CONT PRN PRN 12/09/20 17:15 Info (PHARMACY MONITORING -- do not chart) 1 each PRN DAILY PRN 12/08/20 07:45 Insulin Glargine (Lantus Syringe) 14 unit QHS 12/09/20 21:00 Insulin Human Lispro (HumaLOG) 0-5 UNITS TIDWMEALHC 12/08/20 12:00 12/09/20 13:07 2 UNITS Ketorolac Tromethamine (Toradol 30mg Vial) 30 mg STK-MED ONCE 12/02/20 02:10 12/02/20 02:10 DC Lactobacillus Rhamnosus (Culturelle) 1 cap BID 12/09/20 21:00 12/10/20 11:54 1 CAP Levothyroxine Sodium (Synthroid) 100 mcg DAILY06 12/07/20 09:00 12/10/20 05:31 100 MCG Lidocaine HCl (Buffered Lidocaine 1%) 6 ml 1X ONCE 12/02/20 12:00 12/02/20 12:01 DC 12/02/20 11:52 3 ML Lisinopril (Prinivil) 20 mg DAILY 12/10/20 10:00 12/10/20 11:55 20 MG Magnesium Sulfate 50 ml @ 25 mls/hr 1X ONCE 12/04/20 15:45 12/04/20 17:44 DC 12/04/20 16:04 25 MLS/HR Meropenem 500 mg/ Sodium Chloride 50 ml @ 100 mls/hr Q12H 12/08/20 08:00 12/09/20 07:35 DC 12/08/20 19:14 100 MLS/HR Metoprolol Succinate (Toprol Xl) 25 mg DAILY 12/07/20 14:15 12/10/20 11:58 25 MG Micafungin Sodium 100 mg/Dextrose 100 ml @ 100 mls/hr Q24H 12/03/20 09:30 12/08/20 07:54 DC 12/07/20 16:30 100 MLS/HR Midazolam HCl 100 ml @ 0 mls/hr CONT PRN 12/02/20 09:15 12/06/20 10:18 DC 12/06/20 08:48 5 MLS/HR Morphine Sulfate (Morphine Sulfate) 4 mg PRN Q2HR PRN 12/02/20 05:00 12/03/20 04:59 DC 12/02/20 06:27 4 MG Norepinephrine Bitartrate 8 mg/ Dextrose 258 ml @ 12.268 mls/ hr CONT PRN 12/03/20 10:15 12/06/20 10:18 DC 12/04/20 11:39 2.454 MLS/HR Ondansetron HCl (Zofran) 4 mg PRN Q6HRS PRN 12/08/20 09:00 12/10/20 12:07 4 MG Pantoprazole Sodium (PROTONIX VIAL for IV PUSH) 40 mg DAILYAC 12/06/20 11:00 12/09/20 09:53 DC 12/09/20 09:34 40 MG Pantoprazole Sodium (Protonix) 40 mg BIDAC 12/09/20 16:30 12/10/20 11:54 40 MG Piperacillin Sod/ Tazobactam Sod (Zosyn Per Pharmacy) 1 each PRN DAILY PRN 12/02/20 11:30 12/03/20 16:16 DC Piperacillin Sod/ Tazobactam Sod 2.25 gm/Sodium Chloride 50 ml @ 100 mls/hr Q8HRS 12/02/20 22:00 12/03/20 09:58 DC 12/03/20 06:14 100 MLS/HR Piperacillin Sod/ Tazobactam Sod 3.375 gm/Sodium Chloride 50 ml @ 100 mls/hr Q6HRS 12/02/20 12:00 12/02/20 15:44 DC 12/02/20 12:11 100 MLS/HR Piperacillin Sod/ Tazobactam Sod 4.5 gm/Sodium Chloride 100 ml @ 200 mls/hr 1X ONCE 12/02/20 05:00 12/02/20 05:29 DC 12/02/20 04:57 200 MLS/HR Potassium Chloride/Water 100 ml @ 100 mls/hr Q1H 12/04/20 16:00 12/04/20 17:59 DC 12/04/20 17:00 100 MLS/HR Propofol 100 ml @ 1.872 mls/ hr CONT PRN 12/06/20 19:45 12/09/20 17:01 DC 12/07/20 05:21 5.616 MLS/HR Rocuronium [place] (Zemuron) 50 mg 1X ONCE 12/02/20 09:45 12/02/20 10:07 DC 12/02/20 09:52 50 MG Sodium Bicarbonate 50 meq/Sodium Chloride 1,050 ml @ 125 mls/hr 1X ONCE 12/02/20 07:00 12/02/20 12:15 DC Sodium Bicarbonate (Sodium Bicarb Adult 8.4% Syr) 100 meq 1X ONCE 12/02/20 09:45 12/02/20 09:46 DC 12/02/20 09:52 100 MEQ Sodium Chloride 1,000 ml @ 1,000 mls/hr Q1H PRN 12/08/20 07:45 12/08/20 13:44 DC Succinylcholine Chloride (Anectine) 200 mg STK-MED ONCE 12/02/20 09:18 12/02/20 09:18 DC Vancomycin HCl (Vanco Per Pharmacy) 1 each PRN DAILY PRN 12/02/20 11:30 12/03/20 09:58 DC 12/02/20 16:12 1 EACH Vancomycin HCl (Vancomycin Random Level) 1 each 1X ONCE 12/03/20 07:00 12/03/20 07:01 DC 12/03/20 07:00 1 EACH Vancomycin HCl (Vancomycin Oral Solution) 125 mg BID 12/03/20 09:00 12/10/20 11:54 125 MG Vancomycin HCl 1.25 gm/Sodium Chloride 250 ml @ 166.667 mls/hr 1X ONCE 12/02/20 12:00 12/02/20 13:29 DC 12/02/20 12:11 166.667 MLS/HR Lab Laboratory Tests Test 12/09/20 16:43 12/09/20 19:59 12/10/20 07:29 12/10/20 11:29 Glucose (Fingerstick) 96 mg/dL (70-99) 107 mg/dL (70-99) 106 mg/dL (70-99) 126 mg/dL (70-99) Results All relevant outside records, renal labs, imaging studies, telemetry/EKG's were reviewed. Justicifation of Admission Dx: Justifications for Admission: Justification of Admission Dx: N/A SHERYL VENCES MD December 10, 2020 13:39
--- NOTE | 2020-12-10 18:03 | NUR ---
PT'S FATHER BROUGHT IN PT'S MEDICATIONS. MEDICATIONS INVENTORIED ON PHARMACY BAG AND SENT TO PHARMACY. 5 BOTTLES AND 2 INSULIN PENS. Addendum: 12/10/20 at 1809 by SRAVAN PATEL RN RN PT'S MEDICATIONS PUT IN BASKET IN MED ROOM NOT SENT TO PHARMACY.
[2020-12-10] MEDS: INSULIN GLARGINE SYRINGE. SQ SCH (21:17)
[2020-12-10] MEDS: hydrALAZINE 20 MG/ML VIAL. IVP PRN (22:39)
[2020-12-10] MEDS: ALPRAZolam 0.5 MG TABLET PO PRN (23:34)
[2020-12-11] MEDS: fentaNYL PF VIAL 100 MCG/2 ML VIAL IVP PRN ×6 (02:33→21:28)
[2020-12-11 02:52] VITALS: BP 134/75
[2020-12-11] MEDS: cloNIDine HCL 0.1 MG TABLET PO SCH ×2 (06:31→17:21)
[2020-12-11] MEDS: LEVOTHYROXINE 100 MCG TABLET PO SCH (06:31)
[2020-12-11] MEDS: HEPARIN for SUB-Q USE 5,000 UNIT/ML VIAL. SQ SCH ×3 (06:35→21:33)
[2020-12-11 07:00] VITALS: BP 127/80
[2020-12-11 07:04] LABS: CALCIUM 8.1 mg/dL (8.5-10.1); CREATININE 2.6 mg/dL (0.6-1.0); GFR 20.6; POTASSIUM 3.9 mmol/L (3.5-5.1)
--- NOTE | 2020-12-11 08:37 | PN ---
DATE: 12/11/2020 LOCATION: She is in room 210. SUBJECTIVE: This 40-year-old white female remains hospitalized after severe illness with hyperchloremic metabolic acidosis, respiratory failure, on mechanical ventilation. She remains weak, but is getting stronger, would like her Aponte catheter out, is eating small amounts, but does not like the food. OBJECTIVE: VITAL SIGNS: Vital signs are stable. She is afebrile. Blood pressures are somewhat better the last 12 hours or so. CHEST: Clear. HEART: Regular. ABDOMEN: Benign. EXTREMITIES: Edema trace. NEUROLOGIC: Neurologically she is intact. She was on room air. LABORATORY DATA: Show stable CBC: Hemoglobin in the 8.6 range. Sugars have been acceptable over the last 24 hours. Creatinine this morning is 2.6 and it was 1.4 yesterday. I do not believe she received dialysis yesterday, so we will defer further dialysis to Renal but my gut feeling is she is going to wind up on permanent dialysis. IMPRESSION: 1. Status post sepsis with hypotension, hypothermia, leukocytosis, encephalopathy. 2. Acute respiratory failure with mechanical ventilation, resolved. 3. Hyperchloremic metabolic acidosis, resolved. 4. Kidney disease, likely end-stage, currently requiring dialysis with determination on permanence of the same per Renal. 5. Type 1 diabetes. 6. Protein calorie malnutrition. 7. Acute blood loss anemia. 8. Hypothyroidism. 9. Fluid overload with congestive heart failure. PLAN: Continue supportive care. We will discontinue Aponte. Mobilize and hopefully over the next day or two, make a plan for treatment following hospitalization. AMAN DR: Anastacio TID: [id number]
[2020-12-11] MEDS: PANTOPRAZOLE 40 MG TABLET.DR. PO SCH ×2 (08:50→17:36)
[2020-12-11] MEDS: LACTOBACILLUS RHAMNOSUS GG 1 CAPSULE. PO SCH ×2 (08:51→21:12)
[2020-12-11] MEDS: FUROSEMIDE 40 MG/4 ML VIAL. IVP SCH ×2 (08:51→21:12)
[2020-12-11] MEDS: LISINOPRIL 20 MG TABLET PO SCH (08:52)
[2020-12-11] MEDS: CLOTRIMAZOLE/BETAMETH 1%-0.05% TOPICAL CREAM 15GM TUBE. TP SCH ×2 (08:52→21:13)
[2020-12-11] MEDS: ONDANSETRON PF 4 MG/2 ML VIAL. IVP PRN ×2 (08:59→21:16)
[2020-12-11] MEDS: VANCOMYCIN 125 MG/2.5 ML ORAL SOLUTION. PO SCH ×2 (08:59→21:12)
[2020-12-11] MEDS: METOPROLOL SUCC 24HR ER 25 MG TAB.ER.24H. PO SCH (09:00)
[2020-12-11] MEDS: INSULIN LISPRO 300 UNITS/3 ML VIAL. SQ SCH ×4 (09:26→21:00)
--- NOTE | 2020-12-11 09:36 | PDOC2 ---
GI CONSULT Date of Service: DATE: 12/11/20 TIME: 09:36 Reason For Consult: chronic diarrhea, Crohn's HPI: HPI: 40 y/o female admitted 12/02 w/ renal, heart, and resp failure. Was intubated (now extubated, out of ICU), has received HD. GI-cortez has chronic diarrhea - stable and unchanged for "years." 5-6 watery stools daily - "oily" sometimes. None today. We are asked to see for this. Additional h/o C Diff - negative test now, is on PO vanco. Has tried Creon in the past - didn't work. Imodium helps for awhile. EGD 08/2018 w/ Dr. Rodriguez for dysphagia and GERD showed severe GERD and gastric and duodenal ulcers - path benign. Takes Pepto PRN for GERD at home (but on BID PPI here), no interval EGD. No dysphagia currently. Denies n/v. Has a good appetite when "there's food I like." Denies weight loss. No abd pain (but sometimes has "pancreas pain"), hematochezia, or melena. H/o chronic pancreatitis on past imaging - unclear cause. S/p cholecystectomy, past workup @ [facility] including EGD and ERCPs w/o major findings. No colonoscopy in records there - she previously reported this was done. Chronic anemia - ACD/POLLO noted in 2018, normal B12 then. Required transfusion this admission. Viral hepatitis panel negative in past. Chronically elevated Alk Phos. Celiac panel pending. PMH: PMH: DM, CHF, NICM, CKD, depression/anxiety, non-compliance cholecystectomy, left sapingo-oophorectomy, debridement of necrotizing fasciitis FH: Family History: No pertinent hx (no GI cancers), Hypertension Social History: Smoke: Quit ALCOHOL: rare (glass of wine when out to eat) Drugs: Marijuana, Other (tox + benzos, opiates) ROS: GEN: Denies fevers, chills, sweats HEENT: Denies blurred vision, sore throat CV: Denies chest pain RESP: Denies shortness of air, cough GI: Per HPI : getting Aponte out today ENDO: Denies weight changes NEURO: Denies confusion, dizziness MSK: Denies weakness, joint pain/swelling SKIN: Denies jaundice, pruritus Vitals: Vitals: Vital Signs Date Time Temp Pulse Resp B/P (MAP) Pulse Ox O2 Delivery O2 Flow Rate FiO2 12/11/20 09:01 18 Room Air 12/11/20 08:52 53 127/80 12/11/20 07:00 97.4 96 97.4 Labs: Labs: Laboratory Tests Test 12/10/20 11:29 12/10/20 16:35 12/10/20 20:34 12/11/20 06:36 Glucose (Fingerstick) 126 mg/dL (70-99) 139 mg/dL (70-99) 247 mg/dL (70-99) Sodium Level 141 mmol/L (136-145) Potassium Level 3.9 mmol/L (3.5-5.1) Chloride Level 105 mmol/L (98-107) Carbon Dioxide Level 30 mmol/L (21-32) Anion Gap 6 (6-14) Blood Urea Nitrogen 20 mg/dL (7-20) Creatinine 2.6 mg/dL (0.6-1.0) Estimated GFR (Cockcroft-Gault) 20.6 Glucose Level 216 mg/dL (70-99) Calcium Level 8.1 mg/dL (8.5-10.1) Test 12/11/20 07:41 Glucose (Fingerstick) 212 mg/dL (70-99) ORDERED: RESP CULTURE COMMENTS: TRACH ASPIRATE GRAM STAIN EVALUATION Final Final GRAM POSITIVE RODS:RARE SQUAMOUS EPI CELL:RARE PMN (WBCs):MODERATE YEAST:FEW Unless otherwise specified, Testing Performed by: [address] [address] For Inquires, the Physician may contact the Microbiology department at [phone] RESPIRATORY CULTURE Final Final FEW Mixed upper respiratory jah on 12/04/20 at 1024 MODERATE Mixed upper respiratory jah on 12/05/20 at 0853 Unless otherwise specified, Testing Performed by: [address] [address] For Inquires, the Physician may contact the Microbiology department at [phone] BLOOD CULTURE Final NO GROWTH AFTER 5 DAYS Allergies: Coded Allergies: meperidine (Verified Allergy, Intermediate, hives, 09/10/18) TOLERATES FENTANYL tramadol (Verified Allergy, Intermediate, 09/10/18) TOLERATES MORPHINE Medications: Current Medications Medications (Trade) Dose Ordered Sig/Adams Route PRN Reason Start Time Stop Time Status Last Admin Dose Admin Lisinopril (Prinivil) 20 mg DAILY PO 12/10/20 10:00 12/11/20 08:52 Clonidine HCl (Catapres) 0.1 mg [id number] PO 12/10/20 10:00 12/11/20 06:31 Imaging: Imaging: IR procedures 12/02 Impression: 1. Ultrasound guided placement of a temporary hemodialysis catheter which exhibits excellent manual flow rates as described. 2. Ultrasound-guided Central line placement as described. Line is suitable for use. CXR 12/02 Impression: Extensive airspace infiltrates bilaterally mainly at the lower two thirds of the lungs. Small to moderate pleural effusion on the right. Congestive heart failure/volume overload is possible given relative subpleural sparing on the left and the provided history of "pain" however the cardiomediastinal silhouette is relatively normal in size. In the appropriate clinical setting multifocal pneumonia with a parapneumonic effusion should be considered. Follow-up is needed to confirm resolution. LE US 12/02 IMPRESSION: 1. No evidence of deep venous thrombosis. Abd/Pelv US 12/04 IMPRESSION: 1. Large pelvic ascites. 2. Ovaries not identified. CXR 12/05 IMPRESSION: 1. Perihilar airspace disease, not significantly changed from prior study. 2. Small right pleural effusion. 3. Stable position of tubes and lines. Echo 12/06 <Conclusion> The left ventricular systolic function is mildly diminished. The Ejection Fraction is 40-45%. Trace mitral regurgitation. Trace tricuspid regurgitation with an estimated PAP of 24 mmHg. There is no evidence of significant pericardial effusion. Renal US 12/07 IMPRESSION: 1. Aponte catheter within a decompressed bladder. 2. Ascites. 3. Decreased renal size likely due to measurement technique or renal atrophy. PE: GEN: NAD, sitting on edge of bed HEENT: Atraumatic, PERRL LUNGS: CTAB HEART: RRR ABD: NABS, S/ND/NT EXTREMITY: No edema SKIN: No rashes, no jaundice NEURO/PSYCH: A & O 3 A/P: A/P: Resp failure (extubated), cardiomyopathy, CKD, DM, h/o non-compliance Chronic diarrhea - stable ACD/POLLO - no GI bleeding, did require transfusion, celiac panel ordered Elevated Alk Phos - chronic GERD, h/o PUD - on PPI here CRC screen - ?past colonoscopy - unable to review H/o C Diff - negative now - on vanco per ID? S/p cholecystectomy (no stones) Chronic pancreatitis - unclear cause - past ERCPs @[facility] COVID negative -- Diarrhea is chronic/stable. Retry pancreatic enzymes, also Colestid. Await celiac panel. Continue PPI, consider additional of iron. Outpt EGD and colonoscopy, consider MRCP/EUS. NELIDA CRUZ December 11, 2020 09:36
--- NOTE | 2020-12-11 09:44 | PDOC ---
DATE OF SERVICE DATE: 12/11/20 TIME: 09:41 SUBJECTIVE ROS , transferred out of ICU , stable, on RA , sitting up in chair OBJECTIVE Vital Signs Vital Signs Date Time Temp Pulse Resp B/P (MAP) Pulse Ox O2 Delivery O2 Flow Rate FiO2 12/11/20 09:01 18 Room Air 12/11/20 08:52 53 127/80 12/11/20 07:00 97.4 96 97.4 I & 0 Intake and Output 12/11/20 07:00 Intake Total 760 ml Output Total 360 ml Balance 400 ml Intake Oral 760 ml Output Urine Total 360 ml # Bowel Movements 8 PHYSICAL EXAM Physical Exam GENERAL: Alert awake comfortable HEENT: OM moist NECK: Supple. LUNGS: CTA, Non labored HEART: S1 and S2, regular. ABDOMEN: Obese, soft. No guarding. Bowel sounds present. GENITOURINARY: Indwelling Aponte catheter in place., SKIN: Warm to touch. rash dry on rt hand and both lower legs NEUROLOGIC: awake , alert Right IJ temporary HD catheter a DIAGNOSIS/ASSESSMENT Assessment & Plan JOSE RAUL-ATN- Anuric initially, some UOP , Not adequate , requiring Dialysis , Lisinopril held, On Lasix Monitor for renal recovery , strict I/O , baseline unknown , Pt reports she was scheduled with Nephrology on 12/[address] Vivar's recommendations Renal US no hydronephrosis. decompressed urinary bladder. Decreased renal size likely due to measurement technique or renal atrophy. HypoKalemia - resolved, Normal K Sepsis with hypotension, hypothermia, leukocytosis and encephalopathy. Improved Bilateral infiltrates, possible aspiration sputum culture positive for normal respiratory jah Acute respiratory failure. Status post intubation now extubated Acute blood loss anemia Diabetes mellitus type 1. Pelvic ascites improving Chronic back and neck pain COMMENT/RELEVANT DATA Meds Current Medications Medications (Trade) Dose Ordered Sig/Adams Start Time Stop Time Status Last Admin Dose Admin Acetaminophen (Tylenol) 500 mg 1X PRN PRN 12/04/20 08:00 12/05/20 07:59 DC Acetaminophen/ Hydrocodone Bitart (Lortab 5/325) 1 tab PRN Q4HRS PRN 12/10/20 09:30 Albumin Human 200 ml @ 200 mls/hr 1X PRN PRN 12/05/20 08:45 12/05/20 14:44 DC 12/05/20 13:10 100 MLS/HR Alprazolam (Xanax) 0.5 mg PRN Q6HRS PRN 12/09/20 09:45 12/10/20 23:34 0.5 MG Atropine Sulfate (ATROPINE 0.5mg SYRINGE) 0.5 mg PRN Q5MIN PRN 12/06/20 10:00 12/08/20 11:31 DC Betamethasone/ Clotrimazole (Lotrisone) 1 richy BID 12/09/20 09:00 12/11/20 08:52 1 RICHY Chlorhexidine Gluconate (Peridex) 15 ml BID 12/02/20 21:00 12/04/20 20:23 DC 12/03/20 21:10 15 ML Clonidine HCl (Catapres) 0.1 mg [id number] 12/10/20 10:00 12/11/20 06:31 0.1 MG Dexmedetomidine HCl 400 mcg/ Sodium Chloride 100 ml @ 0 mls/hr CONT PRN 12/06/20 10:00 12/08/20 11:31 DC 12/06/20 22:04 4.2 MLS/HR Dextrose (Dextrose 50%-Water Syringe) 25 gm STK-MED ONCE 12/02/20 09:00 12/04/20 12:49 DC Dextrose/Sodium Chloride 1,000 ml @ 30 mls/hr Q24H 12/02/20 13:00 12/02/20 17:15 DC 12/02/20 14:16 30 MLS/HR Diphenhydramine HCl (Benadryl) 25 mg PRN Q6HRS PRN 12/08/20 09:00 12/09/20 01:31 25 MG Dopamine HCl/ Dextrose 250 ml @ 8.438 mls/ hr CONT PRN 12/02/20 09:15 12/06/20 10:18 DC 12/02/20 12:09 8.438 MLS/HR Etomidate (Amidate) 10 mg 1X ONCE 12/02/20 09:45 12/02/20 10:07 DC 12/02/20 09:52 10 MG Fentanyl Citrate (Fentanyl 2ml Vial) 50 mcg PRN Q4HRS PRN 12/10/20 09:30 12/11/20 09:01 50 MCG Fluoxetine HCl (PROzac) 20 mg DAILY 12/05/20 09:00 Cancel Furosemide (Lasix) 40 mg BID 12/05/20 11:30 12/11/20 08:51 40 MG Heparin Sodium (Porcine) (Heparin Sodium) 5,000 unit Q8HRS 12/06/20 14:00 12/11/20 06:35 5,000 UNIT Hydralazine HCl (Apresoline Inj) 10 mg PRN Q4HRS PRN 12/07/20 08:45 12/10/20 22:39 10 MG Info (Icu Electrolyte Protocol) 1 ea CONT PRN PRN 12/04/20 15:45 Cancel Info (Non-Icu Electrolyte Protocol) 1 ea CONT PRN PRN 12/09/20 17:15 Info (PHARMACY MONITORING -- do not chart) 1 each PRN DAILY PRN 12/08/20 07:45 Insulin Glargine (Lantus Syringe) 14 unit QHS 12/09/20 21:00 12/10/20 21:17 14 UNIT Insulin Human Lispro (HumaLOG) 0-5 UNITS TIDWMEALHC 12/08/20 12:00 12/11/20 09:26 3 UNITS Ketorolac Tromethamine (Toradol 30mg Vial) 30 mg STK-MED ONCE 12/02/20 02:10 12/02/20 02:10 DC Lactobacillus Rhamnosus (Culturelle) 1 cap BID 12/09/20 21:00 12/11/20 08:51 1 CAP Levothyroxine Sodium (Synthroid) 100 mcg DAILY06 12/07/20 09:00 12/11/20 06:31 100 MCG Lidocaine HCl (Buffered Lidocaine 1%) 6 ml 1X ONCE 12/02/20 12:00 12/02/20 12:01 DC 12/02/20 11:52 3 ML Lisinopril (Prinivil) 20 mg DAILY 12/10/20 10:00 12/11/20 08:52 20 MG Magnesium Sulfate 50 ml @ 25 mls/hr 1X ONCE 12/04/20 15:45 12/04/20 17:44 DC 12/04/20 16:04 25 MLS/HR Meropenem 500 mg/ Sodium Chloride 50 ml @ 100 mls/hr Q12H 12/08/20 08:00 12/09/20 07:35 DC 12/08/20 19:14 100 MLS/HR Metoprolol Succinate (Toprol Xl) 25 mg DAILY 12/07/20 14:15 12/10/20 11:58 25 MG Micafungin Sodium 100 mg/Dextrose 100 ml @ 100 mls/hr Q24H 12/03/20 09:30 12/08/20 07:54 DC 12/07/20 16:30 100 MLS/HR Midazolam HCl 100 ml @ 0 mls/hr CONT PRN 12/02/20 09:15 12/06/20 10:18 DC 12/06/20 08:48 5 MLS/HR Morphine Sulfate (Morphine Sulfate) 4 mg PRN Q2HR PRN 12/02/20 05:00 12/03/20 04:59 DC 12/02/20 06:27 4 MG Norepinephrine Bitartrate 8 mg/ Dextrose 258 ml @ 12.268 mls/ hr CONT PRN 12/03/20 10:15 12/06/20 10:18 DC 12/04/20 11:39 2.454 MLS/HR Ondansetron HCl (Zofran) 4 mg PRN Q6HRS PRN 12/08/20 09:00 12/11/20 08:59 4 MG Pantoprazole Sodium (PROTONIX VIAL for IV PUSH) 40 mg DAILYAC 12/06/20 11:00 12/09/20 09:53 DC 12/09/20 09:34 40 MG Pantoprazole Sodium (Protonix) 40 mg BIDAC 12/09/20 16:30 12/11/20 08:50 40 MG Piperacillin Sod/ Tazobactam Sod (Zosyn Per Pharmacy) 1 each PRN DAILY PRN 12/02/20 11:30 12/03/20 16:16 DC Piperacillin Sod/ Tazobactam Sod 2.25 gm/Sodium Chloride 50 ml @ 100 mls/hr Q8HRS 12/02/20 22:00 12/03/20 09:58 DC 12/03/20 06:14 100 MLS/HR Piperacillin Sod/ Tazobactam Sod 3.375 gm/Sodium Chloride 50 ml @ 100 mls/hr Q6HRS 12/02/20 12:00 12/02/20 15:44 DC 12/02/20 12:11 100 MLS/HR Piperacillin Sod/ Tazobactam Sod 4.5 gm/Sodium Chloride 100 ml @ 200 mls/hr 1X ONCE 12/02/20 05:00 12/02/20 05:29 DC 12/02/20 04:57 200 MLS/HR Potassium Chloride/Water 100 ml @ 100 mls/hr Q1H 12/04/20 16:00 12/04/20 17:59 DC 12/04/20 17:00 100 MLS/HR Propofol 100 ml @ 1.872 mls/ hr CONT PRN 12/06/20 19:45 12/09/20 17:01 DC 12/07/20 05:21 5.616 MLS/HR Rocuronium [place] (Zemuron) 50 mg 1X ONCE 12/02/20 09:45 12/02/20 10:07 DC 12/02/20 09:52 50 MG Sodium Bicarbonate 50 meq/Sodium Chloride 1,050 ml @ 125 mls/hr 1X ONCE 12/02/20 07:00 12/02/20 12:15 DC Sodium Bicarbonate (Sodium Bicarb Adult 8.4% Syr) 100 meq 1X ONCE 12/02/20 09:45 12/02/20 09:46 DC 12/02/20 09:52 100 MEQ Sodium Chloride 1,000 ml @ 1,000 mls/hr Q1H PRN 12/08/20 07:45 12/08/20 13:44 DC Succinylcholine Chloride (Anectine) 200 mg STK-MED ONCE 12/02/20 09:18 12/02/20 09:18 DC Vancomycin HCl (Vanco Per Pharmacy) 1 each PRN DAILY PRN 12/02/20 11:30 12/03/20 09:58 DC 12/02/20 16:12 1 EACH Vancomycin HCl (Vancomycin Random Level) 1 each 1X ONCE 12/03/20 07:00 12/03/20 07:01 DC 12/03/20 07:00 1 EACH Vancomycin HCl (Vancomycin Oral Solution) 125 mg BID 12/03/20 09:00 12/11/20 08:59 125 MG Vancomycin HCl 1.25 gm/Sodium Chloride 250 ml @ 166.667 mls/hr 1X ONCE 12/02/20 12:00 12/02/20 13:29 DC 12/02/20 12:11 166.667 MLS/HR Lab Laboratory Tests Test 12/10/20 11:29 12/10/20 16:35 12/10/20 20:34 12/11/20 06:36 Glucose (Fingerstick) 126 mg/dL (70-99) 139 mg/dL (70-99) 247 mg/dL (70-99) Sodium Level 141 mmol/L (136-145) Potassium Level 3.9 mmol/L (3.5-5.1) Chloride Level 105 mmol/L (98-107) Carbon Dioxide Level 30 mmol/L (21-32) Anion Gap 6 (6-14) Blood Urea Nitrogen 20 mg/dL (7-20) Creatinine 2.6 mg/dL (0.6-1.0) Estimated GFR (Cockcroft-Gault) 20.6 Glucose Level 216 mg/dL (70-99) Calcium Level 8.1 mg/dL (8.5-10.1) Test 12/11/20 07:41 Glucose (Fingerstick) 212 mg/dL (70-99) Results All relevant outside records, renal labs, imaging studies, telemetry/EKG's were reviewed. Justicifation of Admission Dx: Justifications for Admission: Justification of Admission Dx: N/A SHERYL VENCES MD December 11, 2020 09:44
--- NOTE | 2020-12-11 10:37 | PDOC ---
PULMONARY PROGRESS NOTES DATE: 12/11/20 TIME: 10:34 Subjective Remains on room air sitting EOB today Denies any shortness of breath, cough or chest pain no overnight issues Vitals Vital Signs Date Time Temp Pulse Resp B/P (MAP) Pulse Ox O2 Delivery O2 Flow Rate FiO2 12/11/20 09:01 18 Room Air 12/11/20 08:52 53 127/80 12/11/20 07:00 97.4 96 97.4 ROS: No Nausea, No Chest Pain, No Abdominal Pain, No Increase Cough General: Alert, Oriented X4 Lungs: Clear Cardiovascular: S1, S2 Abdomen: Soft, Non-tender Extremities: No Edema Skin: Warm, Dry Labs Laboratory Tests Test 12/09/20 12:35 12/09/20 16:43 12/09/20 19:59 12/10/20 07:29 Glucose (Fingerstick) 163 mg/dL (70-99) 96 mg/dL (70-99) 107 mg/dL (70-99) 106 mg/dL (70-99) Test 12/10/20 11:29 12/10/20 16:35 12/10/20 20:34 12/11/20 06:36 Glucose (Fingerstick) 126 mg/dL (70-99) 139 mg/dL (70-99) 247 mg/dL (70-99) Sodium Level 141 mmol/L (136-145) Potassium Level 3.9 mmol/L (3.5-5.1) Chloride Level 105 mmol/L (98-107) Carbon Dioxide Level 30 mmol/L (21-32) Anion Gap 6 (6-14) Blood Urea Nitrogen 20 mg/dL (7-20) Creatinine 2.6 mg/dL (0.6-1.0) Estimated GFR (Cockcroft-Gault) 20.6 Glucose Level 216 mg/dL (70-99) Calcium Level 8.1 mg/dL (8.5-10.1) Test 12/11/20 07:41 Glucose (Fingerstick) 212 mg/dL (70-99) Laboratory Tests Test 12/10/20 11:29 12/10/20 16:35 12/10/20 20:34 12/11/20 06:36 Glucose (Fingerstick) 126 mg/dL (70-99) 139 mg/dL (70-99) 247 mg/dL (70-99) Sodium Level 141 mmol/L (136-145) Potassium Level 3.9 mmol/L (3.5-5.1) Chloride Level 105 mmol/L (98-107) Carbon Dioxide Level 30 mmol/L (21-32) Anion Gap 6 (6-14) Blood Urea Nitrogen 20 mg/dL (7-20) Creatinine 2.6 mg/dL (0.6-1.0) Estimated GFR (Cockcroft-Gault) 20.6 Glucose Level 216 mg/dL (70-99) Calcium Level 8.1 mg/dL (8.5-10.1) Test 12/11/20 07:41 Glucose (Fingerstick) 212 mg/dL (70-99) Medications Active Scripts Medications Dose Route/Sig Max Daily Dose Days Date Category Lisinopril 40 Mg Tablet 1 Tab PO DAILY 03/26/19 Reported Synthroid (Levothyroxine Sodium) 100 Mcg Tablet 100 Mcg PO DAILY06 30 08/21/18 Rx [Pantoprazole] 40 MG Tablet.dr 40 Mg PO BIDAC 90 08/21/18 Rx Feosol (Ferrous Sulfate) 325 Mg Tablet 325 Mg PO DAILYWBKFT 90 08/21/18 Rx Zofran Odt (Ondansetron) 4 Mg Tab.rapdis 1 Tab SL Q8HRS 06/08/17 Rx Levemir Flextouch (Insulin Detemir) 100 Unit/1 Ml Insuln.pen 14 Units SQ QHS 04/25/16 Rx Alprazolam 0.5 Mg Tablet 0.5 Mg PO PRN Q6HRS PRN 04/23/16 Reported Humalog (Insulin Lispro) 100 Unit/1 Ml Insuln.pen 8 Unit SQ TIDAC 03/16/14 Reported Comments CXR 12/05 improved infiltrates reviewed cxr 1. Slight interval decrease in multifocal right greater than left lung mixed interstitial and alveolar infiltrate. 2. Stable small right pleural effusion and stable support lines and tubes. Impression . IMPRESSION: 1. Acute respiratory failure, multifactorial in etiology including acute kidney injury, volume overload, acute diastolic congestive heart failure possible pneumonia--resolved 2. Abnormal chest x-ray. 3. Acute kidney injury-, HD --improving 4. Chronic kidney disease. 5. Smoker. 6. Hypernatremia-improved 7. Diabetes mellitus. Plan . PLAN: Continue current supplemental oxygen, to keep oxygen saturations greater than 92%, now on room air -stable from respiratory standpoint Continue ABX per ID, and follow cultures--blood cultures no growth to date-- now off ABX Follow nephrology recs-- HD per Renal Follow cardiology recs --EF 40-45% and PAP 24mmhg DVT/GI PPX D/W RN we will sign off please call with questions or concerns thanks RIKKI SERRANO MD December 11, 2020 10:37
[2020-12-11 11:00] VITALS: BP 132/82
--- NOTE | 2020-12-11 11:38 | PDOC ---
DATE OF SERVICE DATE: 12/11/20 TIME: 11:35 SUBJECTIVE ROS No complaints, Ambulating without any SOB [place] dced per primary OBJECTIVE Vital Signs Vital Signs Date Time Temp Pulse Resp B/P (MAP) Pulse Ox O2 Delivery O2 Flow Rate FiO2 12/11/20 11:00 48 20 132/82 (99) 98 Room Air 12/11/20 07:00 97.4 97.4 I & 0 Intake and Output 12/11/20 07:00 Intake Total 760 ml Output Total 360 ml Balance 400 ml Intake Oral 760 ml Output Urine Total 360 ml # Bowel Movements 8 PHYSICAL EXAM Physical Exam GENERAL: Alert awake comfortable HEENT: OM moist NECK: Supple. LUNGS: CTA, Non labored HEART: S1 and S2, regular. ABDOMEN: Obese, soft. No guarding. Bowel sounds present. GENITOURINARY: Indwelling [place] catheter in place., SKIN: Warm to touch. rash dry on rt hand and both lower legs NEUROLOGIC: awake , alert Right IJ temporary HD catheter a DIAGNOSIS/ASSESSMENT Assessment & Plan JOSE RAUL-ATN- Anuric initially, non anuric now, UOP still marginal, [place] dced giselle hwang primary She has been requiring Dialysis , will hold off today, clinically stable , Monitor for renal recovery , strict I/O ([place] has been dced ) Lisinopril held, On Lasix , baseline unknown , Pt reports she was scheduled with Nephrology on 12/[address] Vivar's recommendations Renal US no hydronephrosis. decompressed urinary bladder. Decreased renal size likely due to measurement technique or renal atrophy. HypoKalemia - resolved, Normal K Sepsis with hypotension, hypothermia, leukocytosis and encephalopathy. Improved Bilateral infiltrates, possible aspiration sputum culture positive for normal respiratory jah Acute respiratory failure. Status post intubation now extubated Acute blood loss anemia Diabetes mellitus type 1. Chronic back and neck pain COMMENT/RELEVANT DATA Meds Current Medications Medications (Trade) Dose Ordered Sig/Adams Start Time Stop Time Status Last Admin Dose Admin Acetaminophen (Tylenol) 500 mg 1X PRN PRN 12/04/20 08:00 12/05/20 07:59 DC Acetaminophen/ Hydrocodone Bitart (Lortab 5/325) 1 tab PRN Q4HRS PRN 12/10/20 09:30 Albumin Human 200 ml @ 200 mls/hr 1X PRN PRN 12/05/20 08:45 12/05/20 14:44 DC 12/05/20 13:10 100 MLS/HR Alprazolam (Xanax) 0.5 mg PRN Q6HRS PRN 12/09/20 09:45 12/10/20 23:34 0.5 MG Amylase/Lipase/ Protease (Zenpep 10,000) 2 cap TIDWMEALS 12/11/20 12:00 Atropine Sulfate (ATROPINE 0.5mg SYRINGE) 0.5 mg PRN Q5MIN PRN 12/06/20 10:00 12/08/20 11:31 DC Betamethasone/ Clotrimazole (Lotrisone) 1 richy BID 12/09/20 09:00 12/11/20 08:52 1 RICHY Chlorhexidine Gluconate (Peridex) 15 ml BID 12/02/20 21:00 12/04/20 20:23 DC 12/03/20 21:10 15 ML Clonidine HCl (Catapres) 0.1 mg [id number] 12/10/20 10:00 12/11/20 06:31 0.1 MG Colestipol HCl (Colestid) 1 gm DAILY10 12/12/20 10:00 Dexmedetomidine HCl 400 mcg/ Sodium Chloride 100 ml @ 0 mls/hr CONT PRN 12/06/20 10:00 12/08/20 11:31 DC 12/06/20 22:04 4.2 MLS/HR Dextrose (Dextrose 50%-Water Syringe) 25 gm STK-MED ONCE 12/02/20 09:00 12/04/20 12:49 DC Dextrose/Sodium Chloride 1,000 ml @ 30 mls/hr Q24H 12/02/20 13:00 12/02/20 17:15 DC 12/02/20 14:16 30 MLS/HR Diphenhydramine HCl (Benadryl) 25 mg PRN Q6HRS PRN 12/08/20 09:00 12/09/20 01:31 25 MG Dopamine HCl/ Dextrose 250 ml @ 8.438 mls/ hr CONT PRN 12/02/20 09:15 12/06/20 10:18 DC 12/02/20 12:09 8.438 MLS/HR Etomidate (Amidate) 10 mg 1X ONCE 12/02/20 09:45 12/02/20 10:07 DC 12/02/20 09:52 10 MG Fentanyl Citrate (Fentanyl 2ml Vial) 50 mcg PRN Q4HRS PRN 12/10/20 09:30 12/11/20 09:01 50 MCG Fluoxetine HCl (PROzac) 20 mg DAILY 12/05/20 09:00 Cancel Furosemide (Lasix) 40 mg BID 12/05/20 11:30 12/11/20 08:51 40 MG Heparin Sodium (Porcine) (Heparin Sodium) 5,000 unit Q8HRS 12/06/20 14:00 12/11/20 06:35 5,000 UNIT Hydralazine HCl (Apresoline Inj) 10 mg PRN Q4HRS PRN 12/07/20 08:45 12/10/20 22:39 10 MG Info (Icu Electrolyte Protocol) 1 ea CONT PRN PRN 12/04/20 15:45 Cancel Info (Non-Icu Electrolyte Protocol) 1 ea CONT PRN PRN 12/09/20 17:15 Info (PHARMACY MONITORING -- do not chart) 1 each PRN DAILY PRN 12/08/20 07:45 Insulin Glargine (Lantus Syringe) 14 unit QHS 12/09/20 21:00 12/10/20 21:17 14 UNIT Insulin Human Lispro (HumaLOG) 0-5 UNITS TIDWMEALHC 12/08/20 12:00 12/11/20 09:26 3 UNITS Ketorolac Tromethamine (Toradol 30mg Vial) 30 mg STK-MED ONCE 12/02/20 02:10 12/02/20 02:10 DC Lactobacillus Rhamnosus (Culturelle) 1 cap BID 12/09/20 21:00 12/11/20 08:51 1 CAP Levothyroxine Sodium (Synthroid) 100 mcg DAILY06 12/07/20 09:00 12/11/20 06:31 100 MCG Lidocaine HCl (Buffered Lidocaine 1%) 6 ml 1X ONCE 12/02/20 12:00 12/02/20 12:01 DC 12/02/20 11:52 3 ML Lisinopril (Prinivil) 20 mg DAILY 12/10/20 10:00 12/11/20 08:52 20 MG Magnesium Sulfate 50 ml @ 25 mls/hr 1X ONCE 12/04/20 15:45 12/04/20 17:44 DC 12/04/20 16:04 25 MLS/HR Meropenem 500 mg/ Sodium Chloride 50 ml @ 100 mls/hr Q12H 12/08/20 08:00 12/09/20 07:35 DC 12/08/20 19:14 100 MLS/HR Metoprolol Succinate (Toprol Xl) 25 mg DAILY 12/07/20 14:15 12/10/20 11:58 25 MG Micafungin Sodium 100 mg/Dextrose 100 ml @ 100 mls/hr Q24H 12/03/20 09:30 12/08/20 07:54 DC 12/07/20 16:30 100 MLS/HR Midazolam HCl 100 ml @ 0 mls/hr CONT PRN 12/02/20 09:15 12/06/20 10:18 DC 12/06/20 08:48 5 MLS/HR Morphine Sulfate (Morphine Sulfate) 4 mg PRN Q2HR PRN 12/02/20 05:00 12/03/20 04:59 DC 12/02/20 06:27 4 MG Norepinephrine Bitartrate 8 mg/ Dextrose 258 ml @ 12.268 mls/ hr CONT PRN 12/03/20 10:15 12/06/20 10:18 DC 12/04/20 11:39 2.454 MLS/HR Ondansetron HCl (Zofran) 4 mg PRN Q6HRS PRN 12/08/20 09:00 12/11/20 08:59 4 MG Pantoprazole Sodium (PROTONIX VIAL for IV PUSH) 40 mg DAILYAC 12/06/20 11:00 12/09/20 09:53 DC 12/09/20 09:34 40 MG Pantoprazole Sodium (Protonix) 40 mg BIDAC 12/09/20 16:30 12/11/20 08:50 40 MG Piperacillin Sod/ Tazobactam Sod (Zosyn Per Pharmacy) 1 each PRN DAILY PRN 12/02/20 11:30 12/03/20 16:16 DC Piperacillin Sod/ Tazobactam Sod 2.25 gm/Sodium Chloride 50 ml @ 100 mls/hr Q8HRS 12/02/20 22:00 12/03/20 09:58 DC 12/03/20 06:14 100 MLS/HR Piperacillin Sod/ Tazobactam Sod 3.375 gm/Sodium Chloride 50 ml @ 100 mls/hr Q6HRS 12/02/20 12:00 12/02/20 15:44 DC 12/02/20 12:11 100 MLS/HR Piperacillin Sod/ Tazobactam Sod 4.5 gm/Sodium Chloride 100 ml @ 200 mls/hr 1X ONCE 12/02/20 05:00 12/02/20 05:29 DC 12/02/20 04:57 200 MLS/HR Potassium Chloride/Water 100 ml @ 100 mls/hr Q1H 12/04/20 16:00 12/04/20 17:59 DC 12/04/20 17:00 100 MLS/HR Propofol 100 ml @ 1.872 mls/ hr CONT PRN 12/06/20 19:45 12/09/20 17:01 DC 12/07/20 05:21 5.616 MLS/HR Rocuronium [place] (Zemuron) 50 mg 1X ONCE 12/02/20 09:45 12/02/20 10:07 DC 12/02/20 09:52 50 MG Sodium Bicarbonate 50 meq/Sodium Chloride 1,050 ml @ 125 mls/hr 1X ONCE 12/02/20 07:00 12/02/20 12:15 DC Sodium Bicarbonate (Sodium Bicarb Adult 8.4% Syr) 100 meq 1X ONCE 12/02/20 09:45 12/02/20 09:46 DC 12/02/20 09:52 100 MEQ Sodium Chloride 1,000 ml @ 1,000 mls/hr Q1H PRN 12/08/20 07:45 12/08/20 13:44 DC Succinylcholine Chloride (Anectine) 200 mg STK-MED ONCE 12/02/20 09:18 12/02/20 09:18 DC Vancomycin HCl (Vanco Per Pharmacy) 1 each PRN DAILY PRN 12/02/20 11:30 12/03/20 09:58 DC 12/02/20 16:12 1 EACH Vancomycin HCl (Vancomycin Random Level) 1 each 1X ONCE 12/03/20 07:00 12/03/20 07:01 DC 12/03/20 07:00 1 EACH Vancomycin HCl (Vancomycin Oral Solution) 125 mg BID 12/03/20 09:00 12/11/20 08:59 125 MG Vancomycin HCl 1.25 gm/Sodium Chloride 250 ml @ 166.667 mls/hr 1X ONCE 12/02/20 12:00 12/02/20 13:29 DC 12/02/20 12:11 166.667 MLS/HR Lab Laboratory Tests Test 12/10/20 16:35 12/10/20 20:34 12/11/20 06:36 12/11/20 07:41 Glucose (Fingerstick) 139 mg/dL (70-99) 247 mg/dL (70-99) 212 mg/dL (70-99) Sodium Level 141 mmol/L (136-145) Potassium Level 3.9 mmol/L (3.5-5.1) Chloride Level 105 mmol/L (98-107) Carbon Dioxide Level 30 mmol/L (21-32) Anion Gap 6 (6-14) Blood Urea Nitrogen 20 mg/dL (7-20) Creatinine 2.6 mg/dL (0.6-1.0) Estimated GFR (Cockcroft-Gault) 20.6 Glucose Level 216 mg/dL (70-99) Calcium Level 8.1 mg/dL (8.5-10.1) Results All relevant outside records, renal labs, imaging studies, telemetry/EKG's were reviewed. Justicifation of Admission Dx: Justifications for Admission: Justification of Admission Dx: N/A SHERYL VENCES MD December 11, 2020 11:38
--- NOTE | 2020-12-11 12:17 | PDOC ---
CARDIO Progress Notes Date and Time Date of Service 12/11/20 Time of Evaluation 1215 Subjective Subjective: No Chest Pain, No shortness of breath, No Palpitations Vitals Vitals Vital Signs Date Time Temp Pulse Resp B/P (MAP) Pulse Ox O2 Delivery O2 Flow Rate FiO2 12/11/20 11:00 48 20 132/82 (99) 98 Room Air 12/11/20 07:00 97.4 97.4 Weight Weight [ ] Input and Output Intake and Output Intake and Output 12/11/20 07:00 Intake Total 760 ml Output Total 360 ml Balance 400 ml Intake Oral 760 ml Output Urine Total 360 ml # Bowel Movements 8 Laboratory Labs Laboratory Tests Test 12/10/20 16:35 12/10/20 20:34 12/11/20 06:36 12/11/20 07:41 Glucose (Fingerstick) 139 mg/dL (70-99) 247 mg/dL (70-99) 212 mg/dL (70-99) Sodium Level 141 mmol/L (136-145) Potassium Level 3.9 mmol/L (3.5-5.1) Chloride Level 105 mmol/L (98-107) Carbon Dioxide Level 30 mmol/L (21-32) Anion Gap 6 (6-14) Blood Urea Nitrogen 20 mg/dL (7-20) Creatinine 2.6 mg/dL (0.6-1.0) Estimated GFR (Cockcroft-Gault) 20.6 Glucose Level 216 mg/dL (70-99) Calcium Level 8.1 mg/dL (8.5-10.1) Microbiology Micro Microbiology 12/02/20 Blood Culture - Final, Complete NO GROWTH AFTER 5 DAYS 12/02/20 Gram Stain Evaluation - Final, Complete 12/02/20 Respiratory Culture - Final, Complete Review of Systems Constitutional: yes: other (UNABLE TO OBTAIN) Physical Exam HEENT: Neck Supple W Full Motion Chest: Symmetric LUNGS: Other (on RA ) Heart: RRR (SB) Abdomen: Other (soft ) Extremities: No Edema Neurology: alert, oriented, follow commands Assessment Assessment 1. Acute respiratory failure with possible PNA; s/p intubation 2. Acute systolic CHF, cardiomyopathy; Echo shows LVEF 40-45%. Most probable NICM 3. JOSE RAUL on CKD; requiring HD. HD held 4. Hypotension, possible shock; off pressor support. BP adequate 5. Diabetes, II 6. Anemia; requiring transfusion 7. Bradycardia; sinus. Lowest 42. No pauses. Mean near 50 Recommendations Hold metoprolol with bradycardia. No ACEi/ARB for now with JOSE RAUL; awaiting renal recovery Continue lung optimization Consider outpatient ischemic evaluation. Follow up in our office with Dr. Brigida Zambranotion of Admission Dx: Justifications for Admission: Justification of Admission Dx: N/A JAZMYNE SHARP APRN December 11, 2020 12:17
[2020-12-11] MEDS: LIPASE/PROTEAS/AMYLAS 10/32/42 CAPSULE.DR. PO SCH ×2 (12:35→17:35)
--- NOTE | 2020-12-11 13:43 | NUR ---
SS following up with discharge planning. SS reviewed pt chart and discussed with pt RN. Pt is currently on room air. COVID19 negative. Pt had last hemodialysis on 12/07/2020. Heart rate low today. Renal rechecking labs tomorrow. PT/OT recommended acute rehabilitation. Pt declining acute rehabilitation at this time and is stating that she wants to return to home. SS will continue to follow for discharge planning.
[2020-12-11 15:00] VITALS: BP 166/94
[2020-12-11 19:00] VITALS: BP 180/92
[2020-12-11] MEDS: INSULIN GLARGINE SYRINGE. SQ SCH (21:33)
[2020-12-11 22:30] VITALS: BP 130/81
[2020-12-12] MEDS: fentaNYL PF VIAL 100 MCG/2 ML VIAL IVP PRN ×5 (02:06→20:39)
[2020-12-12] MEDS: ALPRAZolam 0.5 MG TABLET PO PRN ×2 (02:11→21:00)
[2020-12-12 02:44] VITALS: BP 144/87
[2020-12-12] MEDS: LEVOTHYROXINE 100 MCG TABLET PO SCH (06:00)
[2020-12-12] MEDS: cloNIDine HCL 0.1 MG TABLET PO SCH ×2 (06:01→17:08)
[2020-12-12] MEDS: HEPARIN for SUB-Q USE 5,000 UNIT/ML VIAL. SQ SCH ×3 (06:01→20:43)
[2020-12-12 06:42] LABS: ALBUMIN 1.9 g/dL (3.4-5.0); CREATININE 2.7 mg/dL (0.6-1.0); GFR 19.7; PHOSPHORUS 5.9 mg/dL (2.6-4.7); POTASSIUM 3.8 mmol/L (3.5-5.1)
[2020-12-12] MEDS: DEXTROSE 50% 25 GM / 50ML DISP.SYRIN. IV PRN ×2 (06:56→11:47)
[2020-12-12 07:09] VITALS: BP 138/66
--- NOTE | 2020-12-12 07:12 | NUR ---
pt BS 35 pt A/Ox4 , gave 50 ML dextrose, rechecked BS in 5 min - 156. Will continue to monitor.
[2020-12-12] MEDS: INSULIN LISPRO 300 UNITS/3 ML VIAL. SQ SCH ×4 (08:00→20:44)
--- NOTE | 2020-12-12 08:43 | PN ---
DATE: 12/12/2020 LOCATION: She is in room 210. SUBJECTIVE: This 40-year-old white female remains hospitalized after severe illness with hyperchloremic metabolic acidosis, respiratory failure, on mechanical ventilation. She is getting stronger daily, eating a little bit better as long as food was brought from the outside. Has urinated fine without the [place] catheter in the last 24 hours and still is not eating quite up to par. OBJECTIVE: VITAL SIGNS: Stable. She is afebrile. Blood pressures remained somewhat better. CHEST: Clear. HEART: Regular. ABDOMEN: Benign. EXTREMITIES: Trace edema. NEUROLOGIC: She is intact. She is on room air. Creatinine went up to 2.7 this morning, which is pretty much the same as yesterday and we will defer to renal as to whether further dialysis is necessary or not. Output and intake are approximately equal. She relates a story of not being able to walk a long ways because of lower leg pain that sounds possibly claudication in nature and I will check an arterial Doppler of her legs today. IMPRESSION: 1. Status post sepsis with hypotension, hypothermia, leukocytosis, encephalopathy. 2. Acute respiratory failure with mechanical ventilation, resolved. 3. Hyperchloremic metabolic acidosis, resolved. 4. Kidney disease, near end-stage at least as discussed above. 5. Type 1 diabetes. 6. Protein-calorie malnutrition. 7. Acute blood loss anemia. 8. Hypothyroidism. 9. Fluid overload with congestive heart failure. PLAN: Continue supportive care. Arterial Dopplers of the legs. Further planning per renal as to whether they feel she is able to be managed as an outpatient or not. TRACY ERICKSON: Anastacio TID: [id number]
[2020-12-12] MEDS: METOPROLOL SUCC 24HR ER 25 MG TAB.ER.24H. PO SCH (09:00)
[2020-12-12] MEDS: LIPASE/PROTEAS/AMYLAS 10/32/42 CAPSULE.DR. PO SCH ×3 (09:29→17:08)
[2020-12-12] MEDS: LACTOBACILLUS RHAMNOSUS GG 1 CAPSULE. PO SCH ×2 (09:30→20:40)
[2020-12-12] MEDS: LISINOPRIL 20 MG TABLET PO SCH (09:30)
[2020-12-12] MEDS: VANCOMYCIN 125 MG/2.5 ML ORAL SOLUTION. PO SCH ×2 (09:31→20:42)
[2020-12-12] MEDS: PANTOPRAZOLE 40 MG TABLET.DR. PO SCH (09:31)
[2020-12-12] MEDS: FUROSEMIDE 40 MG/4 ML VIAL. IVP SCH ×2 (09:33→20:39)
[2020-12-12] MEDS: CLOTRIMAZOLE/BETAMETH 1%-0.05% TOPICAL CREAM 15GM TUBE. TP SCH ×2 (09:33→20:44)
[2020-12-12] MEDS: ONDANSETRON PF 4 MG/2 ML VIAL. IVP PRN ×2 (09:36→20:39)
--- NOTE | 2020-12-12 09:46 | PDOC ---
Date of Service: DATE: 12/12/20 TIME: 09:40 Subjective: Subjective: Having "come to [place]" talks today. Had a situation with her kids, had low blood sugar this morning... wants to discharge tomorrow, wants to get better, tired of being sick. Diarrhea is the same. Objective: Objective: Get frequent Fentanyl. Vital Signs: Vital Signs Date Time Temp Pulse Resp B/P (MAP) Pulse Ox O2 Delivery O2 Flow Rate FiO2 12/12/20 07:09 98.4 60 18 138/66 (90) 98 Room Air 98.4 Labs: Laboratory Tests Test 12/11/20 12:20 12/11/20 16:57 12/11/20 20:57 12/12/20 06:00 Glucose (Fingerstick) 129 mg/dL 111 mg/dL 231 mg/dL Sodium Level 145 mmol/L Potassium Level 3.8 mmol/L Chloride Level 108 mmol/L Carbon Dioxide Level 31 mmol/L Anion Gap 6 Blood Urea Nitrogen 23 mg/dL Creatinine 2.7 mg/dL Estimated GFR (Cockcroft-Gault) 19.7 Glucose Level 35 mg/dL Calcium Level 8.0 mg/dL Phosphorus Level 5.9 mg/dL Albumin 1.9 g/dL Test 12/12/20 07:03 Glucose (Fingerstick) 156 mg/dL PE: GEN: NAD, eating breakfast LUNGS: CTAB HEART: RRR ABD: NABS, S/ND/NT NEURO/PSYCH: A & O 3, tearful A/P: Resp failure, cardiomyopathy, CKD, DM ACD/POLLO H/o PUD Chronic diarrhea Chronic pancreatitis -- Continue trial of Zenpep and Colestid. Follow-up in office as outpt. Will plan for EGD and colonoscopy then. Defer vanco to primary/ID. Justicifation of Admission Dx: Justifications for Admission: Justification of Admission Dx: N/A NELIDA CRUZ December 12, 2020 09:46
[2020-12-12] MEDS ORDERED: COLESTIPOL HCL 1 GM TABLET PO SCH (10:00)
--- NOTE | 2020-12-12 10:10 | NUR ---
SS following up with discharge planning. SS reviewed pt chart and discussed with pt RN. Pt is currently on room air. COVID19 negative. Pt on IV Lasix. Nephrology following. PT/OT recommended home with home healthcare. Pt declining home healthcare at this time stating that she just wants to go home at discharge. SS will continue to follow for discharge planning.
--- NOTE | 2020-12-12 10:52 | PDOC ---
DATE OF SERVICE DATE: 12/12/20 TIME: 10:52 SUBJECTIVE ROS No complaints, OBJECTIVE Vital Signs Vital Signs Date Time Temp Pulse Resp B/P (MAP) Pulse Ox O2 Delivery O2 Flow Rate FiO2 12/12/20 09:30 56 138/66 12/12/20 07:09 98.4 18 98 Room Air 98.4 I & 0 Intake and Output 12/12/20 07:00 Intake Total 630 ml Output Total 600 ml Balance 30 ml Intake Oral 630 ml Output Urine Total 600 ml # Voids 1 # Bowel Movements 1 PHYSICAL EXAM Physical Exam GENERAL: Alert awake comfortable HEENT: OM moist NECK: Supple. LUNGS: CTA, Non labored HEART: S1 and S2, regular. ABDOMEN: Obese, soft. No guarding. Bowel sounds present. GENITOURINARY: Indwelling Aponte catheter in place., SKIN: Warm to touch. rash dry on rt hand and both lower legs NEUROLOGIC: awake , alert Right IJ temporary HD catheter a DIAGNOSIS/ASSESSMENT Assessment & Plan JOSE RAUL-ATN- Anuric initially, Aponte dced on 12/11, recorded uop in chart- Improving , Renal function stable ? Plateau She has been requiring Dialysis , will hold off today, Monitor for renal recovery , strict I/O Lisinopril held, On Lasix , baseline unknown , Pt reports she was scheduled with Nephrology on 12/[address] Vivar's recommendations Renal US no hydronephrosis. decompressed urinary bladder. Decreased renal size likely due to measurement technique or renal atrophy. HypoKalemia - resolved, Normal K Sepsis with hypotension, hypothermia, leukocytosis and encephalopathy. Improved Bilateral infiltrates, possible aspiration sputum culture positive for normal respiratory jah Acute respiratory failure. Status post intubation now extubated Acute blood loss anemia Diabetes mellitus type 1. Chronic back and neck pain COMMENT/RELEVANT DATA Meds Current Medications Medications (Trade) Dose Ordered Sig/Adams Start Time Stop Time Status Last Admin Dose Admin Acetaminophen (Tylenol) 500 mg 1X PRN PRN 12/04/20 08:00 12/05/20 07:59 DC Acetaminophen/ Hydrocodone Bitart (Lortab 5/325) 1 tab PRN Q4HRS PRN 12/10/20 09:30 Albumin Human 200 ml @ 200 mls/hr 1X PRN PRN 12/05/20 08:45 12/05/20 14:44 DC 12/05/20 13:10 100 MLS/HR Alprazolam (Xanax) 0.5 mg PRN Q6HRS PRN 12/09/20 09:45 12/12/20 02:11 0.5 MG Amylase/Lipase/ Protease (Zenpep 10,000) 2 cap TIDWMEALS 12/11/20 12:00 12/12/20 09:29 2 CAP Atropine Sulfate (ATROPINE 0.5mg SYRINGE) 0.5 mg PRN Q5MIN PRN 12/06/20 10:00 12/08/20 11:31 DC Betamethasone/ Clotrimazole (Lotrisone) 1 richy BID 12/09/20 09:00 12/12/20 09:33 1 RICHY Chlorhexidine Gluconate (Peridex) 15 ml BID 12/02/20 21:00 12/04/20 20:23 DC 12/03/20 21:10 15 ML Clonidine HCl (Catapres) 0.1 mg [id number] 12/10/20 10:00 12/12/20 06:01 0.1 MG Colestipol HCl (Colestid) 1 gm BID@10,22 12/12/20 10:00 Dexmedetomidine HCl 400 mcg/ Sodium Chloride 100 ml @ 0 mls/hr CONT PRN 12/06/20 10:00 12/08/20 11:31 DC 12/06/20 22:04 4.2 MLS/HR Dextrose (Dextrose 50%-Water Syringe) 25 gm STK-MED ONCE 12/02/20 09:00 12/04/20 12:49 DC Dextrose/Sodium Chloride 1,000 ml @ 30 mls/hr Q24H 12/02/20 13:00 12/02/20 17:15 DC 12/02/20 14:16 30 MLS/HR Diphenhydramine HCl (Benadryl) 25 mg PRN Q6HRS PRN 12/08/20 09:00 12/09/20 01:31 25 MG Dopamine HCl/ Dextrose 250 ml @ 8.438 mls/ hr CONT PRN 12/02/20 09:15 12/06/20 10:18 DC 12/02/20 12:09 8.438 MLS/HR Etomidate (Amidate) 10 mg 1X ONCE 12/02/20 09:45 12/02/20 10:07 DC 12/02/20 09:52 10 MG Fentanyl Citrate (Fentanyl 2ml Vial) 50 mcg PRN Q4HRS PRN 12/10/20 09:30 12/12/20 06:56 50 MCG Fluoxetine HCl (PROzac) 20 mg DAILY 12/05/20 09:00 Cancel Furosemide (Lasix) 40 mg BID 12/05/20 11:30 12/12/20 09:33 40 MG Heparin Sodium (Porcine) (Heparin Sodium) 5,000 unit Q8HRS 12/06/20 14:00 12/12/20 06:01 5,000 UNIT Hydralazine HCl (Apresoline Inj) 10 mg PRN Q4HRS PRN 12/07/20 08:45 12/10/20 22:39 10 MG Info (Icu Electrolyte Protocol) 1 ea CONT PRN PRN 12/04/20 15:45 Cancel Info (Non-Icu Electrolyte Protocol) 1 ea CONT PRN PRN 12/09/20 17:15 Info (PHARMACY MONITORING -- do not chart) 1 each PRN DAILY PRN 12/08/20 07:45 Insulin Glargine (Lantus Syringe) 14 unit QHS 12/09/20 21:00 12/11/20 21:33 14 UNIT Insulin Human Lispro (HumaLOG) 0-5 UNITS TIDWMEALHC 12/08/20 12:00 12/11/20 09:26 3 UNITS Ketorolac Tromethamine (Toradol 30mg Vial) 30 mg STK-MED ONCE 12/02/20 02:10 12/02/20 02:10 DC Lactobacillus Rhamnosus (Culturelle) 1 cap BID 12/09/20 21:00 12/12/20 09:30 1 CAP Levothyroxine Sodium (Synthroid) 100 mcg DAILY06 12/07/20 09:00 12/12/20 06:00 100 MCG Lidocaine HCl (Buffered Lidocaine 1%) 6 ml 1X ONCE 12/02/20 12:00 12/02/20 12:01 DC 12/02/20 11:52 3 ML Lisinopril (Prinivil) 20 mg DAILY 12/10/20 10:00 12/12/20 09:30 20 MG Magnesium Sulfate 50 ml @ 25 mls/hr 1X ONCE 12/04/20 15:45 12/04/20 17:44 DC 12/04/20 16:04 25 MLS/HR Meropenem 500 mg/ Sodium Chloride 50 ml @ 100 mls/hr Q12H 12/08/20 08:00 12/09/20 07:35 DC 12/08/20 19:14 100 MLS/HR Metoprolol Succinate (Toprol Xl) 25 mg DAILY 12/07/20 14:15 12/10/20 11:58 25 MG Micafungin Sodium 100 mg/Dextrose 100 ml @ 100 mls/hr Q24H 12/03/20 09:30 12/08/20 07:54 DC 12/07/20 16:30 100 MLS/HR Midazolam HCl 100 ml @ 0 mls/hr CONT PRN 12/02/20 09:15 12/06/20 10:18 DC 12/06/20 08:48 5 MLS/HR Morphine Sulfate (Morphine Sulfate) 4 mg PRN Q2HR PRN 12/02/20 05:00 12/03/20 04:59 DC 12/02/20 06:27 4 MG Norepinephrine Bitartrate 8 mg/ Dextrose 258 ml @ 12.268 mls/ hr CONT PRN 12/03/20 10:15 12/06/20 10:18 DC 12/04/20 11:39 2.454 MLS/HR Ondansetron HCl (Zofran) 4 mg PRN Q6HRS PRN 12/08/20 09:00 12/12/20 09:36 4 MG Pantoprazole Sodium (PROTONIX VIAL for IV PUSH) 40 mg DAILYAC 12/06/20 11:00 12/09/20 09:53 DC 12/09/20 09:34 40 MG Pantoprazole Sodium (Protonix) 40 mg DAILYAC 12/13/20 07:30 Piperacillin Sod/ Tazobactam Sod (Zosyn Per Pharmacy) 1 each PRN DAILY PRN 12/02/20 11:30 12/03/20 16:16 DC Piperacillin Sod/ Tazobactam Sod 2.25 gm/Sodium Chloride 50 ml @ 100 mls/hr Q8HRS 12/02/20 22:00 12/03/20 09:58 DC 12/03/20 06:14 100 MLS/HR Piperacillin Sod/ Tazobactam Sod 3.375 gm/Sodium Chloride 50 ml @ 100 mls/hr Q6HRS 12/02/20 12:00 12/02/20 15:44 DC 12/02/20 12:11 100 MLS/HR Piperacillin Sod/ Tazobactam Sod 4.5 gm/Sodium Chloride 100 ml @ 200 mls/hr 1X ONCE 12/02/20 05:00 12/02/20 05:29 DC 12/02/20 04:57 200 MLS/HR Potassium Chloride/Water 100 ml @ 100 mls/hr Q1H 12/04/20 16:00 12/04/20 17:59 DC 12/04/20 17:00 100 MLS/HR Propofol 100 ml @ 1.872 mls/ hr CONT PRN 12/06/20 19:45 12/09/20 17:01 DC 12/07/20 05:21 5.616 MLS/HR Rocuronium [place] (Zemuron) 50 mg 1X ONCE 12/02/20 09:45 12/02/20 10:07 DC 12/02/20 09:52 50 MG Sodium Bicarbonate 50 meq/Sodium Chloride 1,050 ml @ 125 mls/hr 1X ONCE 12/02/20 07:00 12/02/20 12:15 DC Sodium Bicarbonate (Sodium Bicarb Adult 8.4% Syr) 100 meq 1X ONCE 12/02/20 09:45 12/02/20 09:46 DC 12/02/20 09:52 100 MEQ Sodium Chloride 1,000 ml @ 1,000 mls/hr Q1H PRN 12/08/20 07:45 12/08/20 13:44 DC Succinylcholine Chloride (Anectine) 200 mg STK-MED ONCE 12/02/20 09:18 12/02/20 09:18 DC Vancomycin HCl (Vanco Per Pharmacy) 1 each PRN DAILY PRN 12/02/20 11:30 12/03/20 09:58 DC 12/02/20 16:12 1 EACH Vancomycin HCl (Vancomycin Random Level) 1 each 1X ONCE 12/03/20 07:00 12/03/20 07:01 DC 12/03/20 07:00 1 EACH Vancomycin HCl (Vancomycin Oral Solution) 125 mg BID 12/03/20 09:00 12/12/20 09:31 125 MG Vancomycin HCl 1.25 gm/Sodium Chloride 250 ml @ 166.667 mls/hr 1X ONCE 12/02/20 12:00 12/02/20 13:29 DC 12/02/20 12:11 166.667 MLS/HR Lab Laboratory Tests Test 12/11/20 12:20 12/11/20 16:57 12/11/20 20:57 12/12/20 06:00 Glucose (Fingerstick) 129 mg/dL (70-99) 111 mg/dL (70-99) 231 mg/dL (70-99) Sodium Level 145 mmol/L (136-145) Potassium Level 3.8 mmol/L (3.5-5.1) Chloride Level 108 mmol/L (98-107) Carbon Dioxide Level 31 mmol/L (21-32) Anion Gap 6 (6-14) Blood Urea Nitrogen 23 mg/dL (7-20) Creatinine 2.7 mg/dL (0.6-1.0) Estimated GFR (Cockcroft-Gault) 19.7 Glucose Level 35 mg/dL (70-99) Calcium Level 8.0 mg/dL (8.5-10.1) Phosphorus Level 5.9 mg/dL (2.6-4.7) Albumin 1.9 g/dL (3.4-5.0) Test 12/12/20 07:03 Glucose (Fingerstick) 156 mg/dL (70-99) Results All relevant outside records, renal labs, imaging studies, telemetry/EKG's were reviewed. Justicifation of Admission Dx: Justifications for Admission: Justification of Admission Dx: N/A SHERYL VENCES MD December 12, 2020 10:52
[2020-12-12 11:02] VITALS: BP 123/79
[2020-12-12] MEDS: COLESTIPOL HCL 1 GM TABLET PO SCH ×2 (11:24→20:45)
--- NOTE | 2020-12-12 12:33 | PDOC ---
CARDIO Progress Notes Date and Time Date of Service 12/12/20 Time of Evaluation 1230 Subjective Subjective: No Chest Pain, No shortness of breath, No Palpitations Vitals Vitals Vital Signs Date Time Temp Pulse Resp B/P (MAP) Pulse Ox O2 Delivery O2 Flow Rate FiO2 12/12/20 11:24 Room Air 12/12/20 11:02 98.2 53 20 123/79 (94) 97 98.2 Weight Weight [ ] Input and Output Intake and Output Intake and Output 12/12/20 07:00 Intake Total 630 ml Output Total 600 ml Balance 30 ml Intake Oral 630 ml Output Urine Total 600 ml # Voids 1 # Bowel Movements 1 Laboratory Labs Laboratory Tests Test 12/11/20 16:57 12/11/20 20:57 12/12/20 06:00 12/12/20 07:03 Glucose (Fingerstick) 111 mg/dL (70-99) 231 mg/dL (70-99) 156 mg/dL (70-99) Sodium Level 145 mmol/L (136-145) Potassium Level 3.8 mmol/L (3.5-5.1) Chloride Level 108 mmol/L (98-107) Carbon Dioxide Level 31 mmol/L (21-32) Anion Gap 6 (6-14) Blood Urea Nitrogen 23 mg/dL (7-20) Creatinine 2.7 mg/dL (0.6-1.0) Estimated GFR (Cockcroft-Gault) 19.7 Glucose Level 35 mg/dL (70-99) Calcium Level 8.0 mg/dL (8.5-10.1) Phosphorus Level 5.9 mg/dL (2.6-4.7) Albumin 1.9 g/dL (3.4-5.0) Test 12/12/20 11:43 12/12/20 12:14 Glucose (Fingerstick) 48 mg/dL (70-99) 119 mg/dL (70-99) Microbiology Micro Microbiology 12/02/20 Blood Culture - Final, Complete NO GROWTH AFTER 5 DAYS 12/02/20 Gram Stain Evaluation - Final, Complete 12/02/20 Respiratory Culture - Final, Complete Review of Systems Constitutional: yes: other (UNABLE TO OBTAIN) Physical Exam HEENT: Neck Supple W Full Motion Chest: Symmetric LUNGS: Other (on RA ) Heart: RRR (SB) Abdomen: Other (soft ) Extremities: No Edema Neurology: alert, oriented, follow commands Assessment Assessment 1. Acute respiratory failure with possible PNA 2. Acute systolic CHF, cardiomyopathy; Echo shows LVEF 40-45%. Most probable NICM. appears compensated 3. JOSE RAUL on CKD; required HD. 4. Hypotension, possible shock; resolved 5. Diabetes, II 6. Anemia; requiring transfusion. hgb stable 7. Bradycardia; sinus. Lowest 42. No pauses. Mean near 55 today Recommendations Lasix therapy Will discontinue metoprolol with ongoing bradycardia. Awaiting renal recovery; ACEi has been resumed. Will defer to nephrology Consider outpatient ischemic evaluation. Follow up in our office with Dr. Brigida valero scheduled Justicifation of Admission Dx: Justifications for Admission: Justification of Admission Dx: N/A JAZMYNE SHARP APRN December 12, 2020 12:32
[2020-12-12 14:31] VITALS: BP 151/86
[2020-12-12 19:00] VITALS: BP 166/92
[2020-12-12] MEDS ORDERED: INSULIN GLARGINE SYRINGE. SQ SCH (21:00)
[2020-12-12 22:57] VITALS: BP 175/95
[2020-12-12] MEDS: hydrALAZINE 20 MG/ML VIAL. IVP PRN (23:35)
[2020-12-13] MEDS: fentaNYL PF VIAL 100 MCG/2 ML VIAL IVP PRN ×3 (01:32→09:44)
[2020-12-13 03:08] VITALS: BP 151/85
[2020-12-13] MEDS: ALPRAZolam 0.5 MG TABLET PO PRN (05:54)
[2020-12-13] MEDS: LEVOTHYROXINE 100 MCG TABLET PO SCH (05:54)
[2020-12-13] MEDS: HEPARIN for SUB-Q USE 5,000 UNIT/ML VIAL. SQ SCH (05:57)
[2020-12-13] MEDS: cloNIDine HCL 0.1 MG TABLET PO SCH (06:03)
[2020-12-13 07:02] LABS: CALCIUM 7.9 mg/dL (8.5-10.1); CREATININE 2.7 mg/dL (0.6-1.0); GFR 19.7; PHOSPHORUS 6.2 mg/dL (2.6-4.7); POTASSIUM 3.9 mmol/L (3.5-5.1)
[2020-12-13] MEDS ORDERED: PANTOPRAZOLE 40 MG TABLET.DR. PO SCH (07:30)
[2020-12-13 07:52] VITALS: BP 176/90
[2020-12-13] MEDS: COLESTIPOL HCL 1 GM TABLET PO SCH (08:54)
[2020-12-13] MEDS: LACTOBACILLUS RHAMNOSUS GG 1 CAPSULE. PO SCH (08:54)
[2020-12-13] MEDS: VANCOMYCIN 125 MG/2.5 ML ORAL SOLUTION. PO SCH (08:54)
[2020-12-13] MEDS: hydrALAZINE 20 MG/ML VIAL. IVP PRN (08:55)
[2020-12-13] MEDS: FUROSEMIDE 40 MG/4 ML VIAL. IVP SCH (08:55)
[2020-12-13] MEDS: CLOTRIMAZOLE/BETAMETH 1%-0.05% TOPICAL CREAM 15GM TUBE. TP SCH (08:55)
[2020-12-13] MEDS: LISINOPRIL 20 MG TABLET PO SCH (09:00)
--- NOTE | 2020-12-13 09:15 | PDOC ---
DATE OF SERVICE DATE: 12/13/20 TIME: 09:15 SUBJECTIVE ROS c/o mild headache, No SOB, No N/V Reports Good UOP OBJECTIVE Vital Signs Vital Signs Date Time Temp Pulse Resp B/P (MAP) Pulse Ox O2 Delivery O2 Flow Rate FiO2 12/13/20 07:52 97.5 57 20 176/90 (118) 95 Room Air 97.5 12/13/20 06:11 1.0 I & 0 Intake and Output 12/13/20 07:00 Intake Total 1270 ml Output Total 1450 ml Balance -180 ml Intake Oral 1270 ml Output Urine Total 1450 ml PHYSICAL EXAM Physical Exam GENERAL: Alert awake comfortable HEENT: OM moist NECK: Supple. LUNGS: CTA, Non labored HEART: S1 and S2, regular. ABDOMEN: Obese, soft. No guarding. Bowel sounds present. GENITOURINARY: Indwelling Aponte catheter in place., SKIN: Warm to touch. rash dry on rt hand and both lower legs NEUROLOGIC: awake , alert Right IJ temporary HD catheter a DIAGNOSIS/ASSESSMENT Assessment & Plan JOSE RAUL-ATN- Anuric initially, Aponte dced on 12/11, Improving uop , Renal function stable ? Plateau She has been requiring Dialysis , last was on 12/09, DC Temp HDC , post dc follow with us in 1-2 weeks,Pt will be contacted by office staff, margarita Pt and RN Lisinopril held, On Lasix , baseline unknown , Pt reports she was scheduled with Nephrology on 12/[address] Vivar's recommendations Renal US no hydronephrosis. decompressed urinary bladder. Decreased renal size likely due to measurement technique or renal atrophy.Avoid nephrotoxins, keep hydrated HypoKalemia - resolved, Normal K Sepsis with hypotension, hypothermia, leukocytosis and encephalopathy. Improved Bilateral infiltrates, possible aspiration sputum culture positive for normal respiratory jah Acute respiratory failure. Status post intubation now extubated Acute blood loss anemia Diabetes mellitus type 1. Chronic back and neck pain COMMENT/RELEVANT DATA Meds Current Medications Medications (Trade) Dose Ordered Sig/Adams Start Time Stop Time Status Last Admin Dose Admin Acetaminophen (Tylenol) 500 mg 1X PRN PRN 12/04/20 08:00 12/05/20 07:59 DC Acetaminophen/ Hydrocodone Bitart (Lortab 5/325) 1 tab PRN Q4HRS PRN 12/10/20 09:30 Albumin Human 200 ml @ 200 mls/hr 1X PRN PRN 12/05/20 08:45 12/05/20 14:44 DC 12/05/20 13:10 100 MLS/HR Alprazolam (Xanax) 0.5 mg PRN Q6HRS PRN 12/09/20 09:45 12/13/20 05:54 0.5 MG Amylase/Lipase/ Protease (Zenpep 10,000) 2 cap TIDWMEALS 12/11/20 12:00 12/12/20 17:08 2 CAP Atropine Sulfate (ATROPINE 0.5mg SYRINGE) 0.5 mg PRN Q5MIN PRN 12/06/20 10:00 12/08/20 11:31 DC Betamethasone/ Clotrimazole (Lotrisone) 1 richy BID 12/09/20 09:00 12/12/20 20:44 1 RICHY Chlorhexidine Gluconate (Peridex) 15 ml BID 12/02/20 21:00 12/04/20 20:23 DC 12/03/20 21:10 15 ML Clonidine HCl (Catapres) 0.1 mg [id number] 12/10/20 10:00 12/13/20 06:03 0.1 MG Colestipol HCl (Colestid) 1 gm BID@10,22 12/12/20 10:00 12/12/20 20:45 1 GM Dexmedetomidine HCl 400 mcg/ Sodium Chloride 100 ml @ 0 mls/hr CONT PRN 12/06/20 10:00 12/08/20 11:31 DC 12/06/20 22:04 4.2 MLS/HR Dextrose (Dextrose 50%-Water Syringe) 25 gm STK-MED ONCE 12/02/20 09:00 12/04/20 12:49 DC Dextrose/Sodium Chloride 1,000 ml @ 30 mls/hr Q24H 12/02/20 13:00 12/02/20 17:15 DC 12/02/20 14:16 30 MLS/HR Diphenhydramine HCl (Benadryl) 25 mg PRN Q6HRS PRN 12/08/20 09:00 12/09/20 01:31 25 MG Dopamine HCl/ Dextrose 250 ml @ 8.438 mls/ hr CONT PRN 12/02/20 09:15 12/06/20 10:18 DC 12/02/20 12:09 8.438 MLS/HR Etomidate (Amidate) 10 mg 1X ONCE 12/02/20 09:45 12/02/20 10:07 DC 12/02/20 09:52 10 MG Fentanyl Citrate (Fentanyl 2ml Vial) 50 mcg PRN Q4HRS PRN 12/10/20 09:30 12/13/20 05:41 50 MCG Fluoxetine HCl (PROzac) 20 mg DAILY 12/05/20 09:00 Cancel Furosemide (Lasix) 40 mg BID 12/05/20 11:30 12/12/20 20:39 40 MG Heparin Sodium (Porcine) (Heparin Sodium) 5,000 unit Q8HRS 12/06/20 14:00 12/13/20 05:57 5,000 UNIT Hydralazine HCl (Apresoline Inj) 10 mg PRN Q4HRS PRN 12/07/20 08:45 12/12/20 23:35 10 MG Info (Icu Electrolyte Protocol) 1 ea CONT PRN PRN 12/04/20 15:45 Cancel Info (Non-Icu Electrolyte Protocol) 1 ea CONT PRN PRN 12/09/20 17:15 Info (PHARMACY MONITORING -- do not chart) 1 each PRN DAILY PRN 12/08/20 07:45 Insulin Glargine (Lantus Syringe) 10 unit QHS 12/12/20 21:00 Insulin Human Lispro (HumaLOG) 0-5 UNITS TIDWMEALHC 12/08/20 12:00 12/12/20 17:10 5 UNITS Ketorolac Tromethamine (Toradol 30mg Vial) 30 mg STK-MED ONCE 12/02/20 02:10 12/02/20 02:10 DC Lactobacillus Rhamnosus (Culturelle) 1 cap BID 12/09/20 21:00 12/12/20 20:40 1 CAP Levothyroxine Sodium (Synthroid) 100 mcg DAILY06 12/07/20 09:00 12/13/20 05:54 100 MCG Lidocaine HCl (Buffered Lidocaine 1%) 6 ml 1X ONCE 12/02/20 12:00 12/02/20 12:01 DC 12/02/20 11:52 3 ML Lisinopril (Prinivil) 20 mg DAILY 12/10/20 10:00 12/12/20 09:30 20 MG Magnesium Sulfate 50 ml @ 25 mls/hr 1X ONCE 12/04/20 15:45 12/04/20 17:44 DC 12/04/20 16:04 25 MLS/HR Meropenem 500 mg/ Sodium Chloride 50 ml @ 100 mls/hr Q12H 12/08/20 08:00 12/09/20 07:35 DC 12/08/20 19:14 100 MLS/HR Metoprolol Succinate (Toprol Xl) 25 mg DAILY 12/07/20 14:15 12/12/20 12:33 DC 12/10/20 11:58 25 MG Micafungin Sodium 100 mg/Dextrose 100 ml @ 100 mls/hr Q24H 12/03/20 09:30 12/08/20 07:54 DC 12/07/20 16:30 100 MLS/HR Midazolam HCl 100 ml @ 0 mls/hr CONT PRN 12/02/20 09:15 12/06/20 10:18 DC 12/06/20 08:48 5 MLS/HR Morphine Sulfate (Morphine Sulfate) 4 mg PRN Q2HR PRN 12/02/20 05:00 12/03/20 04:59 DC 12/02/20 06:27 4 MG Norepinephrine Bitartrate 8 mg/ Dextrose 258 ml @ 12.268 mls/ hr CONT PRN 12/03/20 10:15 12/06/20 10:18 DC 12/04/20 11:39 2.454 MLS/HR Ondansetron HCl (Zofran) 4 mg PRN Q6HRS PRN 12/08/20 09:00 12/12/20 20:39 4 MG Pantoprazole Sodium (PROTONIX VIAL for IV PUSH) 40 mg DAILYAC 12/06/20 11:00 12/09/20 09:53 DC 12/09/20 09:34 40 MG Pantoprazole Sodium (Protonix) 40 mg DAILYAC 12/13/20 07:30 Piperacillin Sod/ Tazobactam Sod (Zosyn Per Pharmacy) 1 each PRN DAILY PRN 12/02/20 11:30 12/03/20 16:16 DC Piperacillin Sod/ Tazobactam Sod 2.25 gm/Sodium Chloride 50 ml @ 100 mls/hr Q8HRS 12/02/20 22:00 12/03/20 09:58 DC 12/03/20 06:14 100 MLS/HR Piperacillin Sod/ Tazobactam Sod 3.375 gm/Sodium Chloride 50 ml @ 100 mls/hr Q6HRS 12/02/20 12:00 12/02/20 15:44 DC 12/02/20 12:11 100 MLS/HR Piperacillin Sod/ Tazobactam Sod 4.5 gm/Sodium Chloride 100 ml @ 200 mls/hr 1X ONCE 12/02/20 05:00 12/02/20 05:29 DC 12/02/20 04:57 200 MLS/HR Potassium Chloride/Water 100 ml @ 100 mls/hr Q1H 12/04/20 16:00 12/04/20 17:59 DC 12/04/20 17:00 100 MLS/HR Propofol 100 ml @ 1.872 mls/ hr CONT PRN 12/06/20 19:45 12/09/20 17:01 DC 12/07/20 05:21 5.616 MLS/HR Rocuronium [place] (Zemuron) 50 mg 1X ONCE 12/02/20 09:45 12/02/20 10:07 DC 12/02/20 09:52 50 MG Sodium Bicarbonate 50 meq/Sodium Chloride 1,050 ml @ 125 mls/hr 1X ONCE 12/02/20 07:00 12/02/20 12:15 DC Sodium Bicarbonate (Sodium Bicarb Adult 8.4% Syr) 100 meq 1X ONCE 12/02/20 09:45 12/02/20 09:46 DC 12/02/20 09:52 100 MEQ Sodium Chloride 1,000 ml @ 1,000 mls/hr Q1H PRN 12/08/20 07:45 12/08/20 13:44 DC Succinylcholine Chloride (Anectine) 200 mg STK-MED ONCE 12/02/20 09:18 12/02/20 09:18 DC Vancomycin HCl (Vanco Per Pharmacy) 1 each PRN DAILY PRN 12/02/20 11:30 12/03/20 09:58 DC 12/02/20 16:12 1 EACH Vancomycin HCl (Vancomycin Random Level) 1 each 1X ONCE 12/03/20 07:00 12/03/20 07:01 DC 12/03/20 07:00 1 EACH Vancomycin HCl (Vancomycin Oral Solution) 125 mg BID 12/03/20 09:00 12/12/20 20:42 125 MG Vancomycin HCl 1.25 gm/Sodium Chloride 250 ml @ 166.667 mls/hr 1X ONCE 12/02/20 12:00 12/02/20 13:29 DC 12/02/20 12:11 166.667 MLS/HR Lab Laboratory Tests Test 12/12/20 11:43 12/12/20 12:14 12/12/20 16:43 12/12/20 20:36 Glucose (Fingerstick) 48 mg/dL (70-99) 119 mg/dL (70-99) 325 mg/dL (70-99) 91 mg/dL (70-99) Test 12/12/20 22:41 12/13/20 04:05 12/13/20 06:15 12/13/20 07:56 Glucose (Fingerstick) 142 mg/dL (70-99) 214 mg/dL (70-99) 219 mg/dL (70-99) Sodium Level 140 mmol/L (136-145) Potassium Level 3.9 mmol/L (3.5-5.1) Chloride Level 103 mmol/L (98-107) Carbon Dioxide Level 28 mmol/L (21-32) Anion Gap 9 (6-14) Blood Urea Nitrogen 26 mg/dL (7-20) Creatinine 2.7 mg/dL (0.6-1.0) Estimated GFR (Cockcroft-Gault) 19.7 Glucose Level 226 mg/dL (70-99) Calcium Level 7.9 mg/dL (8.5-10.1) Phosphorus Level 6.2 mg/dL (2.6-4.7) Albumin 2.0 g/dL (3.4-5.0) Results All relevant outside records, renal labs, imaging studies, telemetry/EKG's were reviewed. Justicifation of Admission Dx: Justifications for Admission: Justification of Admission Dx: N/A SHERYL VENCES MD December 13, 2020 09:15
[2020-12-13] MEDS: INSULIN LISPRO 300 UNITS/3 ML VIAL. SQ SCH (09:18)
[2020-12-13] MEDS: LIPASE/PROTEAS/AMYLAS 10/32/42 CAPSULE.DR. PO SCH ×2 (09:18→11:45)
--- NOTE | 2020-12-13 09:48 | PDOC ---
CARDIO Progress Notes Date and Time Date of Service 12/13/20 Time of Evaluation 1115 Subjective Subjective: No Chest Pain, No shortness of breath, No Palpitations Vitals Vitals Vital Signs Date Time Temp Pulse Resp B/P (MAP) Pulse Ox O2 Delivery O2 Flow Rate FiO2 12/13/20 08:55 57 176/90 12/13/20 07:52 97.5 20 95 Room Air 97.5 12/13/20 06:11 1.0 Weight Weight [ ] Input and Output Intake and Output Intake and Output 12/13/20 07:00 Intake Total 1270 ml Output Total 1450 ml Balance -180 ml Intake Oral 1270 ml Output Urine Total 1450 ml Laboratory Labs Laboratory Tests Test 12/12/20 11:43 12/12/20 12:14 12/12/20 16:43 12/12/20 20:36 Glucose (Fingerstick) 48 mg/dL (70-99) 119 mg/dL (70-99) 325 mg/dL (70-99) 91 mg/dL (70-99) Test 12/12/20 22:41 12/13/20 04:05 12/13/20 06:15 12/13/20 07:56 Glucose (Fingerstick) 142 mg/dL (70-99) 214 mg/dL (70-99) 219 mg/dL (70-99) Sodium Level 140 mmol/L (136-145) Potassium Level 3.9 mmol/L (3.5-5.1) Chloride Level 103 mmol/L (98-107) Carbon Dioxide Level 28 mmol/L (21-32) Anion Gap 9 (6-14) Blood Urea Nitrogen 26 mg/dL (7-20) Creatinine 2.7 mg/dL (0.6-1.0) Estimated GFR (Cockcroft-Gault) 19.7 Glucose Level 226 mg/dL (70-99) Calcium Level 7.9 mg/dL (8.5-10.1) Phosphorus Level 6.2 mg/dL (2.6-4.7) Albumin 2.0 g/dL (3.4-5.0) Microbiology Micro Microbiology 12/02/20 Blood Culture - Final, Complete NO GROWTH AFTER 5 DAYS 12/02/20 Gram Stain Evaluation - Final, Complete 12/02/20 Respiratory Culture - Final, Complete Review of Systems Constitutional: yes: other (UNABLE TO OBTAIN) Physical Exam HEENT: Neck Supple W Full Motion Chest: Symmetric LUNGS: Other (on RA ) Heart: RRR (SB/SR) Abdomen: Other (soft ) Extremities: No Edema Neurology: alert, oriented, follow commands Assessment Assessment 1. Acute respiratory failure with possible PNA 2. Acute systolic CHF, cardiomyopathy; Echo shows LVEF 40-45%. Most probable NICM. appears compensated 3. JOSE RAUL on CKD; required HD. renal function has been stable off HD 4. Accelerated HTN; labile 5. Diabetes, II 6. Anemia; requiring transfusion. hgb stable 7. Bradycardia; sinus. Lowest 42. No pauses. metoprolol discontinued Recommendations Lasix therapy No BB with bradycardia. Will need alternative to clonidine if any further bradycardia Home BP monitoring. To call our office if systolic blood pressure consistently > 160 Consider outpatient ischemic evaluation. Follow up in our office with Dr. Allred has been arranged Justicifation of Admission Dx: Justifications for Admission: Justification of Admission Dx: N/A JAZMYNE SHARP APRN December 13, 2020 09:48
[2020-12-13] MEDS ORDERED: CLON0.1T PO (10:05)
[2020-12-13] MEDS ORDERED: FURO-68 PO (10:05)
--- NOTE | 2020-12-13 10:18 | SNU/HH DC ---
DISCHARGE WITH HOME HEALTH DISCHARGE INFORMATION: Discharge Date: December 13, 2020 Final Diagnosis: Problems Medical Problems: (1) Acute renal failure Status: Acute (2) Back pain Status: Acute (3) Electrolyte abnormality Status: Acute (4) Elevated brain natriuretic peptide (BNP) level Status: Acute (5) Neck pain Status: Acute (6) Pneumonia Status: Acute Condition on Discharge: Stable CODE STATUS: Code Status: Full HOME HEALTH: Face to Face: I certify this patient is under my care and that I, or a nurse practitioner or physician's power plant assistant working with me, had a face to face encounter that meets the physician face to face encounter requirements with this patient on 12/13/20. Medical Complications: CHF Assisted For: Assess Cardiopulm Status, Assess/Skilled Observatio, Diabetic Care RN For Eval/Treatment: Yes Physical Therapy For: Evalulation/Treatment Occupational Therapy For: Evaluation/Treatment Pt Meets Homebound Status: Poor coordination w/ amb., Unsteady balance w/ amb,, Extreme weakness w/ amb., Poor cognition POST DISCHARGE ORDERS: Activity Instructions for Disc: Activity as tolerated Weight Bearing Status after Di: As tolerated Bathing Instructions: No Tub Bath until see DIET AFTER DISCHARGE: ADA Wound/Incision Care: Ice to area for comfort CHECKS AFTER DISCHARGE: Checks after discharge: Check blood sugar, ac/hs TREATMENT/EQUIPMENT ORDERS: Adaptive Equipment Issued: None CERTIFICATION STATEMENT: Certification Statement: Certification Statement: Based on the above finding, I certify that this patient is confined to the home and needs intermittent senior care care, physical therapy and/or speech therapy, or continues to need occupational therapy.~ This patient is under my care, and I have initiated the establishment of the plan of care.~ This patient will be followed by myself or a community physician who will periodically review the plan of care. Home Meds Active Scripts Furosemide (LASIX) 40 Mg Tablet, 40 MG PO BID for chf for 30 Days, #60 TAB Prov:EVANGELINA LAIRD MD 12/13/20 Clonidine Hcl (CLONIDINE HCL) 0.1 Mg Tablet, 0.1 MG PO BID76 for hypertension for 30 Days, #60 TAB Prov:EVANGELINA LAIRD MD 12/13/20 Levothyroxine Sodium (SYNTHROID) 100 Mcg Tablet, 100 MCG PO DAILY06 for hypothyroidism for 30 Days, #30 TAB Prov:EVANGELINA LAIRD MD 08/21/18 [Pantoprazole] [address] Collins Conflict Check, 40 MG PO BIDAC for anemia for 90 Days, #180 Prov:EVANGELINA LAIRD MD 08/21/18 Ondansetron (ZOFRAN ODT) 4 Mg Tab.rapdis, 1 TAB SL Q8HRS, #10 TAB Prov:TIMOTHY HESS 06/08/17 Insulin Detemir (Levemir Flextouch) 100 Unit/1 Ml Insuln.pen, 14 UNITS SQ QHS, #1 / 3 Refills Prov:EVANGELINA LAIRD MD 04/25/16 Reported Medications Alprazolam (ALPRAZOLAM) 0.5 Mg Tablet, 0.5 MG PO PRN Q6HRS PRN for ANXIETY / AGITATION, TAB 0 Refills 04/23/16 Insulin Lispro (HUMALOG) 100 Unit/1 Ml Insuln.pen, 8 UNIT SQ TIDAC, SYR 03/16/14 Discontinued Reported Medications Lisinopril (LISINOPRIL) 40 Mg Tablet, 1 TAB PO DAILY for blood pressure control, #30 TAB 5 Refills 03/26/19 Discontinued Scripts Ferrous Sulfate (FEOSOL) 325 Mg Tablet, 325 MG PO [id number] for anemia for 90 Days, #90 TAB Prov:EVANGELINA LAIRD MD 08/21/18 EVANGELINA LAIRD MD December 13, 2020 10:18
[2020-12-13 11:02] VITALS: BP 91/55
--- NOTE | 2020-12-13 11:49 | PDOC ---
Date of Service: DATE: 12/13/20 TIME: 11:46 Subjective: Subjective: Feeling better, glad to get to go home. Objective: Objective: No GI concerns per nurse. To DC this afternoon. No diarrhea. Vital Signs: Vital Signs Date Time Temp Pulse Resp B/P (MAP) Pulse Ox O2 Delivery O2 Flow Rate FiO2 12/13/20 11:02 97.7 70 18 91/55 (67) 96 Room Air 97.7 12/13/20 09:44 1.0 Labs: Laboratory Tests Test 12/12/20 12:14 12/12/20 16:43 12/12/20 20:36 12/12/20 22:41 Glucose (Fingerstick) 119 mg/dL 325 mg/dL 91 mg/dL 142 mg/dL Test 12/13/20 04:05 12/13/20 06:15 12/13/20 07:56 Glucose (Fingerstick) 214 mg/dL 219 mg/dL Sodium Level 140 mmol/L Potassium Level 3.9 mmol/L Chloride Level 103 mmol/L Carbon Dioxide Level 28 mmol/L Anion Gap 9 Blood Urea Nitrogen 26 mg/dL Creatinine 2.7 mg/dL Estimated GFR (Cockcroft-Gault) 19.7 Glucose Level 226 mg/dL Calcium Level 7.9 mg/dL Phosphorus Level 6.2 mg/dL Albumin 2.0 g/dL PE: GEN: NAD - sitting on edge of bed, dressed to leave LUNGS: room air HEART: RR per monitor ABD: non-distended NEURO/PSYCH: A & O 3 A/P: CKD, DM ACD/POLLO H/o PUD, chronic diarrhea, chronic pancreatitis - ?diarrhea better on Zenpep and Colestid? -- Dc per primary - follow-up for scopes - our office will contact to schedule. Justicifation of Admission Dx: Justifications for Admission: Justification of Admission Dx: N/A NELIDA CRUZ December 13, 2020 11:49
--- NOTE | 2020-12-13 12:05 | DS ---
DATE OF DISCHARGE: 12/13/2020 PRIMARY DIAGNOSIS: Hyperchloremic metabolic acidosis, likely due to renal failure. ADDITIONAL DIAGNOSES: Sepsis, insulin-dependent diabetes mellitus, acute on chronic kidney disease requiring dialysis during this stay, congestive heart failure, likely due to the combination of poor renal output as well as some mild cardiomyopathy with an ejection fraction of 40-45%, anemia with transfusion, accelerated hypertension, respiratory failure with mechanical ventilation, hypoglycemia, chronic pancreatitis, chronic diarrhea, and encephalopathy. CHIEF COMPLAINT/HISTORY OF PRESENT ILLNESS: This 40-year-old white female admitted through the emergency room, obtunded with severe hyperchloremic metabolic acidosis with a normal lactic acid level. She did have elevated white count in addition. She was profoundly acidotic with pH down around 7, transferred to the ICU where her mental obtundation required mechanical ventilation and intubation. She slowly improved, required dialysis. She was diffusely edematous and was pretty much down to almost no edema by the time of discharge. She had not received dialysis for 4-5 days prior to discharge and was maintained at creatinine of 2.7 on the day of discharge. Her discharge hemoglobin was 8.6. She received broad spectrum antibiotic coverage throughout the stay, but no offending agent was ever cultured. She was doing well on room air, eating, having occasional hypoglycemia with a decrease in her basal insulin dose done during the stay. Renal felt she was ready for discharge on the day of dismissal with no lisinopril, which I would worry about her blood pressures after discharge, but will do the same. I also converted her Lasix from IV to p.o. with close outpatient followup needed within a week per Renal and myself both. DISPOSITION: The patient is discharged to home with ADA diet, activity as tolerated, office in 1 week, home health to follow. DISCHARGE MEDICATIONS: Listed on the med rec and have been addressed. JEANIE/MILADYS DR: Anastacio TID: [id number]
--- NOTE | 2020-12-13 12:20 | NUR ---
Discharge Note: JOHNNY TOLEDO [place] Discharge instructions and discharge home medications reviewed with Patient and a copy given. All questions have been answered and understanding verbalized. The following instructions and handouts were given: furosemide, renal insufficiency, clonidine. Patient discharged to home with family via wheelchair.
[2020-12-13 14:13] LABS: GLIA IGA 11 units (0-19); GLIA IGG 3 units (0-19); TRANSGLUTAMINASE IGA AB <2 U/mL (0-3); TRANSGLUTAMINASE IGG AB 2 U/mL (0-5)
== END 2020-12-13 12:26 | disposition home or self-care (01) | DRG 870 ==
LOC: ER 00:58 → ED HOLD 05:48 → 2 SOUTH 08:03 → 1 WEST ICU 09:48 → OBSVTOIN 17:48 → 2 NORTH 12-09 16:20
PROVIDERS: ADMIT Family Medicine; ATTEND Family Medicine
PROC: 5A1955Z Respiratory Ventilation, Greater than 96 Consecutive Hours (ICD-10-PCS; 2020-12-02)
PROC: 0BH17EZ Insertion of Endotracheal Airway into Trachea, Via Natural or Artificial Opening (ICD-10-PCS; 2020-12-02)
PROC: 02H633Z Insertion of Infusion Device into Right Atrium, Percutaneous Approach (ICD-10-PCS; 2020-12-02)
PROC: B548ZZA Ultrasonography of Superior Vena Cava, Guidance (ICD-10-PCS; 2020-12-02)
PROC: 5A1D70Z Performance of Urinary Filtration, Intermittent, Less than 6 Hours Per Day (ICD-10-PCS; 2020-12-02)
PROC: 30233N1 Transfusion of Nonautologous Red Blood Cells into Peripheral Vein, Percutaneous Approach (ICD-10-PCS; principal; 2020-12-03)
PROC: 5A1D70Z Performance of Urinary Filtration, Intermittent, Less than 6 Hours Per Day (ICD-10-PCS; 2020-12-04)
PROC: 5A1D70Z Performance of Urinary Filtration, Intermittent, Less than 6 Hours Per Day (ICD-10-PCS; 2020-12-05)
PROC: 5A1D70Z Performance of Urinary Filtration, Intermittent, Less than 6 Hours Per Day (ICD-10-PCS; 2020-12-06)
PROC: 5A1D70Z Performance of Urinary Filtration, Intermittent, Less than 6 Hours Per Day (ICD-10-PCS; 2020-12-07)
PROC: 5A1D70Z Performance of Urinary Filtration, Intermittent, Less than 6 Hours Per Day (ICD-10-PCS; 2020-12-08)
DX: A41.9 Sepsis, unspecified organism (principal); J96.01 Acute respiratory failure with hypoxia; N17.0 Acute kidney failure with tubular necrosis; I50.41 Acute combined systolic (congestive) and diastolic (congestive) heart failure; J18.9 Pneumonia, unspecified organism; J96.02 Acute respiratory failure with hypercapnia; R65.21 Severe sepsis with septic shock; D62 Acute posthemorrhagic anemia; E46 Unspecified protein-calorie malnutrition; E87.0 Hyperosmolality and hypernatremia; E87.4 Mixed disorder of acid-base balance; G93.40 Encephalopathy, unspecified; I42.8 Other cardiomyopathies; K86.1 Other chronic pancreatitis; R18.8 Other ascites; I13.0 Hypertensive heart and chronic kidney disease with heart failure and stage 1 through stage 4 chronic kidney disease, or unspecified chronic kidney disease; F17.200 Nicotine dependence, unspecified, uncomplicated; F41.9 Anxiety disorder, unspecified; F32.9 Major depressive disorder, single episode, unspecified; E10.22 Type 1 diabetes mellitus with diabetic chronic kidney disease; E78.5 Hyperlipidemia, unspecified; E03.9 Hypothyroidism, unspecified; E87.6 Hypokalemia; G89.29 Other chronic pain; R68.0 Hypothermia, not associated with low environmental temperature; K21.9 Gastro-esophageal reflux disease without esophagitis; R13.10 Dysphagia, unspecified; N18.9 Chronic kidney disease, unspecified; Z20.822 Contact with and (suspected) exposure to COVID-19; Z68.21 Body mass index [BMI] 21.0-21.9, adult; Z91.19 Patient's noncompliance with other medical treatment and regimen; Z91.14 Patient's other noncompliance with medication regimen; Z79.4 Long term (current) use of insulin; Z90.49 Acquired absence of other specified parts of digestive tract; Z88.5 Allergy status to narcotic agent; Z87.11 Personal history of peptic ulcer disease; Z88.8 Allergy status to other drugs, medicaments and biological substances; Z82.49 Family history of ischemic heart disease and other diseases of the circulatory system
CPT/HCPCS: 36415; 36430; 36556; 36600; 71045; 76770; 76856; 76937; 80048; 80053; 80069; 80202; 80307; 81001; 81025; 82805; 82962; 83516; 83605; 83690; 83735; 83880; 84100; 84145; 84443; 85007; 85014; 85018; 85025; 85027; 86317; 86850; 86900; 86901; 86920; 87040; 87070; 87205; 87340; 87493; 87804; 93306; 93970; 94002; 94003; 94760; 96361; 96365; 96375; 96376; 99285; C1892; C9113; G0378; G0379; J0360; J1200; J1265; J1644; J1815; J1885; J1940; J2185; J2248; J2250; J2270; J2405; J2543; J2704; J3010; J3370; J3475; J3480; J3490; J7030; J7042; J7050; J7060; P9016; P9046; U0003; U0005; 92526-GN; 92610-GN; 97116-GP; 97530-GO; 97530-GP; 97535-GO

== ENCOUNTER 2021-06-01 13:26 | Inpatient (IN) | payer MEDICAID ==
[~2021-06-01] VITALS: Ht 152.4 cm; Wt 37.5 kg
[~2021-06-01 13:26] MED LIST changes: +AMLO-186 PO; +CLON0.1T PO; +CYCL10TA19 PO; -CYCL10TA2 PO; +FURO-68 PO; +HYDR-2867 PO; +LEVO125T5 PO
--- NOTE | 2021-06-01 14:42 | PHYS DOC ---
Past Medical History Past Medical History: Anxiety, Depression, Diabetes-Type I, Ovarian Cyst, Pancreatitis Additional Past Medical Histor: PD, HD Past Surgical History: Cholecystectomy, Oophorectomy, Other Additional Past Surgical Histo: RLE necrotizing fasciitis, cataract surgery to L eye Smoking Status: Never Smoker Alcohol Use: None Drug Use: None General Adult EDM: Chief Complaint: DIZZY/LIGHT HEADED HPI: HPI: Patient is a 41 year old female with history of type 1 diabetes, hemodialysis dependent renal failure who presents with lightheadedness for the past week. Approximately 1 week ago changed from hemodialysis to peritoneal dialysis daily. Over the same timeframe he has had positional lightheadedness. Feels like she is going to pass out every time she stands up. The lightheadedness goes away as she sits down or lays down. Denies any chest pain, shortness of breath. No fevers or chills. Denies any redness around her hemo dialysis or peritoneal dialysis catheters. She did fall once yesterday onto her lower back. With does report midline lower back pain. No lower extremity weakness or numbness. Denies other areas of pain. Did not strike her head. Has not lost consciousness or syncopized. Review of Systems: Review of Systems: Constitutional: Denies fever or chills. [] Eyes: Denies change in visual acuity. [] HENT: Denies nasal congestion or sore throat. [] Respiratory: Denies cough or shortness of breath. [] Cardiovascular: Denies chest pain or edema. [] GI: Denies abdominal pain, nausea, vomiting, bloody stools or diarrhea. [] : Denies dysuria. [] Musculoskeletal: Denies joint pain. [] Integument: Denies rash. [] Neurologic: Reports positional lightheadedness and low back pain denies headache, focal weakness or sensory changes. [] Endocrine: Denies polyuria or polydipsia. [] Lymphatic: Denies swollen glands. [] Psychiatric: Denies depression or anxiety. [] Heart Score: C/O Chest Pain: No Allergies: Allergies: Allergies Coded Allergies Type Severity Reaction Last Updated Verified meperidine Allergy Intermediate hives 09/10/18 Yes tramadol Allergy Intermediate 09/10/18 Yes Physical Exam: PE: Constitutional: Frail/cachectic appearing. HENT: Normocephalic, atraumatic, bilateral external ears normal, oropharynx moist, no oral exudates, nose normal. [] Eyes: PERRLA, EOMI, conjunctiva normal, no discharge. [] Neck: Normal range of motion, no tenderness, supple, no stridor. [] Cardiovascular:Heart rate regular rhythm, no murmur [] Lungs & Thorax: Bilateral breath sounds clear to auscultation [] Abdomen: No abdominal tenderness. Soft. Skin: Right subclavian HD catheter and peritoneal dialysis catheter in place. No evidence of surrounding erythema or drainage. Back: + Lumbar midline tenderness to palpation, no CVA tenderness. [] Extremities: No tenderness, no cyanosis, no clubbing, ROM intact, no edema. [] Neurologic: Alert and oriented X 3, normal motor function, normal sensory function, no focal deficits noted. [] Psychologic: Affect normal, judgement normal, mood normal. [] Current Patient Data: Vital Signs: Vital Signs Date Time Temp Pulse Resp B/P (MAP) Pulse Ox O2 Delivery O2 Flow Rate FiO2 06/01/21 13:50 97.7 87 16 121/78 (92) 100 Room Air 97.7 EKG: EKG: Sinus rhythm. QTc 444. TX and QRS intervals normal. Normal axis. Significant ST depressions and T wave inversions in inferiorly and laterally V4V6. No ST elevations noted. Radiology/Procedures: Radiology/Procedures: [] Impression: [facility] [address] [place] [address] IMAGING REPORT Signed PATIENT: KAYCEE TOLEDO ACCOUNT: [id number] : 1980 LOCATION: ER AGE: 41 SEX: F EXAM STATUS: REG ER ORD. PHYSICIAN: FAITH SANDS MD REASON: lumbar pain after fall PROCEDURE: CT LUMBAR SPINE WO CONTRAST CT lumbar spine without contrast PQRS statement: CT scans at this facility use dose reduction including either automated exposure control, iterative reconstructions, and /or weight based radiation dosing via mA and kV modification when appropriate to reduce radiation dose to as low as reasonably achievable. HISTORY: Lumbar back pain after fall injury. FINDINGS: Lumbar vertebral body height and alignment intact. No fracture. No spondylolysis defect. No bone lesion. There are shallow disc bulges L4-5 and L5- S1, mild narrowing of the ventral spinal canal by the disc bulges is possible. Catheter coiled within the pelvis presumably a peritoneal dialysis catheter with a small volume of low-density fluid within the abdomen and pelvis presumably dialysate. Extensive vascular calcifications typical of secondary hyperparathyroidism from renal disease. Small right pleural effusion. Fatty replacement and numerous calcifications of the pancreas typical of chronic pancreatitis. IMPRESSION: 1. No acute osseous injury of the lumbar spine. Lower lumbar disc disease. See above 2. Other incidental findings as described above. Electronically signed by: Mao Delgado MD (06/01/2021 5:16 PM) [facility] [place] and SIGNED BY: MAO DELGADO MD DATE: 06/01/21 [id number] 0 Course & Med Decision Making: Course & Med Decision Making Pertinent Labs and Imaging studies reviewed. (See chart for details) Patient a 41-year-old female with history of insulin-dependent diabetes, dialysis dependent renal failure who presents with 1 week of positional lightheadedness since starting peritoneal dialysis. Orthostatic vital signs showed a drop of systolic blood pressure to 82 mmHg with standing. Feel that she is likely volume depleted from her daily peritoneal dialysis. We will give a small 500 cc fluid bolus. She also is complaining of low lumbar pain after falling onto her back. CT lumbar spine pending. We will check cell counts and electrolytes. Her EKG does show significant ST depressions and T wave inversions inferiorly and laterally, but she does not report any chest pain. Will check a troponin. Fortunately no fever/chills or evidence of line infection of her HD or PD lines. 1441 Labs show mild leukocytosis and elevated liver enzymes/alk phos. No abdominal pain/tenderness to suggest surgical process. Troponin mildly elevated to 0.06. In the setting of no chest pain and CKD feel this is appropriate to trend. She has significant hypotension that is limiting her ability to care for herself at home. Feel admission to the hospital for close management of volume status and ongoing monitoring is warranted. 1730 [place] Disclaimer: Keysha Disclaimer: This electronic medical record was generated, in whole or in part, using a voice recognition dictation system. Departure Departure Impression: Primary Impression: Orthostatic hypotension Disposition: ADMITTED INPATIENT Admitting Physician: Evangelina Vivar Condition: STABLE Referrals: EVANGELINA VIVAR MD (PCP) FAITH SANDS MD Jun 01, 2021 14:42
[2021-06-01] MEDS ORDERED: IV NORMAL SALINE 1000ML BAG 1,000 ML IV ONE (14:45)
[2021-06-01] MEDS ORDERED: MORPHINE SULFATE 2 MG/ML INJ. IVP ONE (15:00)
[2021-06-01] MEDS ORDERED: ONDANSETRON PF 4 MG/2 ML VIAL. IVP ONE (15:00)
--- NOTE | 2021-06-01 15:37 | EKG ---
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
[2021-06-01 17:00] LABS: BASO # 0.1 x10^3/uL (0.0-0.2); BASO % 0 % (0-3); EOS # 0.1 x10^3/uL (0.0-0.7); EOS % 0 % (0-3); HEMOGLOBIN 14.1 g/dL (12.0-15.5); LYMPH # 2.2 x10^3/uL (1.0-4.8); LYMPH % 18 % (24-48); MEAN CORPUSCULAR HEMOGLOBIN 31 pg (25-35); MEAN CORPUSCULAR HGB CONC 31 g/dL (31-37); MEAN CORPUSCULAR VOLUME 98 fL (79-100); MONO # 0.4 x10^3/uL (0.0-1.1); MONO % 3 % (0-9); NEUT # 9.8 x10^3/uL (1.8-7.7); NEUT % 79 % (31-73); PLATELET COUNT 185 x10^3/uL (140-400); RED BLOOD COUNT 4.57 x10^6/uL (3.50-5.40); RED CELL DISTRIBUTION WIDTH 16.6 % (11.5-14.5); WHITE BLOOD COUNT 12.5 x10^3/uL (4.0-11.0)
[2021-06-01 17:14] LABS: CALCIUM 7.7 mg/dL (8.5-10.1); CREATININE 3.2 mg/dL (0.6-1.0); GFR 16.1; POTASSIUM 3.6 mmol/L (3.5-5.1)
--- NOTE | 2021-06-01 17:18 | RAD ---
CT lumbar spine without contrast PQRS statement: CT scans at this facility use dose reduction including either automated exposure cont rol, iterative reconstructions, and /or weight based radiation dosing via mA and kV modification when appropriate to reduce radiation dose to as low as reasonably achievable. HISTORY: Lumbar back pain after fall injury. FINDINGS: Lumbar vertebral body height and alignment intact. No fracture. No spondylolysis defect. No bone lesion. There are shallow disc bulges L4-5 and L5-S1, mild narrowing of the ventral spinal riya l by the disc bulges is possible. Catheter coiled within the pelvis presumably a peritoneal dialysis catheter with a small volume of low-density fluid within the abdomen and pelvis presumably dialysate. Extensive vascular calcifications typical of secondary hyperparathyroidism from renal disease. Small right pleural effusion. Fatty replacement and numerous calcifications of the pancreas typical of chr onic pancreatitis. IMPRESSION: 1. No acute osseous injury of the lumbar spine. Lower lumbar disc disease. See above 2. Other incidental findings as described above. Electronically signed by: Gabino Delgado MD (06/01/2021 5:16 PM) [facility]
[2021-06-01 17:21] LABS: ALBUMIN 1.3 g/dL (3.4-5.0); ALBUMIN/GLOBULIN RATIO 0.3 (1.0-1.7); TOTAL BILIRUBIN 0.3 mg/dL (0.2-1.0); TOTAL PROTEIN 5.3 g/dL (6.4-8.2)
[2021-06-01] MEDS ORDERED: MORPHINE SULFATE 4 MG/ML INJ. IV PRN (18:00)
[2021-06-01 19:00] VITALS: BP 113/79
[2021-06-01] MEDS ORDERED: ACET1TAB33 PO (19:45)
[2021-06-01] MEDS ORDERED: SEVE800T9 PO (19:45)
[2021-06-01] MEDS ORDERED: FURO80TA72 PO (19:47)
[2021-06-01] MEDS ORDERED: INSU100I13 SQ (19:47)
[2021-06-01] MEDS: INSULIN GLARGINE SYRINGE. SQ SCH (21:00)
[2021-06-01] MEDS: ACETAMINOPHEN/CODEINE 300/30MG TABLET. PO PRN (21:04)
[2021-06-01] MEDS: ONDANSETRON ODT 4 MG TAB.RAPDIS. PO PRN (22:38)
[2021-06-01 23:00] VITALS: BP 123/84
[2021-06-02 03:00] VITALS: BP 114/80
[2021-06-02 07:00] VITALS: BP 136/93
[2021-06-02] MEDS: LEVOTHYROXINE 125 MCG TABLET PO SCH (07:08)
--- NOTE | 2021-06-02 07:44 | NUR ---
pt has peritoneal dialysis cath mid chest, c/d/i.
[2021-06-02] MEDS: FUROSEMIDE 40 MG TABLET. PO SCH ×2 (08:36→17:41)
[2021-06-02] MEDS: SEVELAMER CARBONATE 800 MG TABLET. PO SCH ×3 (08:37→17:40)
[2021-06-02 11:00] VITALS: BP 132/82
--- NOTE | 2021-06-02 11:52 | PDOC2 ---
CONSULT Date of Consult Date of Consult DATE: 06/02/21 TIME: 11:44 Reason for Consult Reason for Consult: ESRD Referring Physician Referring Physician: APPL Identification/Chief Complaint Chief Complaint DIZZY AND FELL Source Source: Chart review, Patient History of Present Illness Reason for Visit: THIS IS A 41 YR OLD WITH ESRD DUE TO DM TYPE I. HAS BEEN ON HD AND STILL HAS A RIGHT IJ TDC IN PLACE. CURRENTLY IN THE PROCESS OF TRANSITIONING TO PD. HAS HAD LOTS OF LE EDEMA IN THE PAST AND THIS HAS NOW RESOLVED. SHE HAS HAD EPISODES OF DIZZINESS AND FELL ON TO HER BACK. LABS ARE C/W ESRD. HAS BEEN ON BP MEDS. HER HTN HAS BEEN MADE WORSE IN THE PAST BY VOLUME RETENTION BUT NOW HER LE EDEMA IS RESOLVED. SHE HAS MILD LEUCOCYTOSIS AND A RIGHT TOE INFECTION. SHE HAS BEEN ANTIBIOTICS FOR THIS OP. Past Medical History Cardiovascular: No pertinent hx Pulmonary: No pertinent hx GI: No pertinent hx, Other Psych: Anxiety, Depression Infectious disease: Other Renal/: Chronic renal insuff, Other Endocrine: Diabetes, Hyperparathyroidism Past Surgical History Past Surgical History PD CATHETER AND TDC Past Surgical History: Cholecystectomy, Other Family History Family History: No Significant Social History ALCOHOL: rare Drugs: Marijuana, Other Lives: with Family Current Problem List Problem List Problems Medical Problems: (1) Orthostatic hypotension Status: Acute Current Medications Current Medications Current Medications Morphine Sulfate (Morphine Sulfate) 2 mg 1X ONCE IVP Last administered on 06/01/21at 16:37; Start 06/01/21 at 15:00; Stop 06/01/21 at 15:01; Status DC Ondansetron HCl (Zofran) 4 mg 1X ONCE IVP Last administered on 06/01/21at 16:36; Start 06/01/21 at 15:00; Stop 06/01/21 at 15:01; Status DC Sodium Chloride 1,000 ml @ 1,000 mls/hr 1X ONCE IV Last administered on 06/01/21at 16:37; Start 06/01/21 at 14:45; Stop 06/01/21 at 15:44; Status DC Morphine Sulfate (Morphine Sulfate) 4 mg 1X PRN IV PAIN Last administered on 06/01/21at 18:09; Start 06/01/21 at 18:00 Acetaminophen/ Codeine Phosphate (Tylenol #3) 1 tab PRN Q4HRS PRN PO PAIN Last administered on 06/01/21at 21:04; Start 06/01/21 at 20:30 Alprazolam (Xanax) 0.5 mg PRN Q6HRS PRN PO ANXIETY / AGITATION; Start 06/01/21 at 20:30 Furosemide (Lasix) 40 mg BID94 PO Last administered on 06/02/21at 08:36; Start 06/02/21 at 09:00 Levothyroxine Sodium (Synthroid) 125 mcg DAILY06 PO Last administered on 06/02/21at 07:08; Start 06/02/21 at 06:00 Ondansetron HCl (Zofran Odt) 4 mg PRN Q8HRS PRN PO NAUSEA Last administered on 06/01/21at 22:38; Start 06/01/21 at 20:30 Sevelamer Carbonate (Renvela) 800 mg TIDWMEALS PO Last administered on 06/02/21at 08:37; Start 06/02/21 at 08:00 Insulin Glargine (Lantus Syringe) 4 unit QHS SQ ; Start 06/01/21 at 21:00 Active Scripts Active Levothyroxine Sodium 125 Mcg Tablet 125 Mcg PO DAILY06 30 Days Amlodipine Besylate 5 Mg Tablet 5 Mg PO DAILY 30 Days Lasix (Furosemide) 40 Mg Tablet 40 Mg PO BID 30 Days Zofran Odt (Ondansetron) 4 Mg Tab.rapdis 1 Tab SL Q8HRS Reported Lantus Solostar (Insulin Glargine,Hum.rec.anlog) 100 Unit/1 Ml Insuln.pen 4 Unit SQ QHS pt takes from 4 to 8 units Renvela (Sevelamer Carbonate) 800 Mg Tablet 800 Mg PO TIDWMEALS Acetaminophen-Cod #3 Tablet (Acetaminophen/Codeine Phosphate) 1 Each Tablet 1 Tab PO PRN Q4HRS PRN Alprazolam 0.5 Mg Tablet 0.5 Mg PO PRN Q6HRS PRN Allergies Allergies: Coded Allergies: meperidine (Verified Allergy, Intermediate, hives, 09/10/18) TOLERATES FENTANYL tramadol (Verified Allergy, Intermediate, 09/10/18) TOLERATES MORPHINE ROS General: YES: Fatigue, Malaise, Appetite PSYCHOLOGICAL ROS: YES: Anxiety, Depression Eyes: Yes Decreased vision HEENT: YES: Heacaches Respiratory: YES: Cough Gastrointestinal: Yes Constipation Genitourinary: YES Other (OLIGURIA) Musculoskeletal: Yes Joint Pain, Yes Joint Stiffness Neurological: Yes Dizziness, Yes Numbness/Tingling Skin: Yes Dry Skin Physical Exam General: Alert, Oriented X3, Cooperative, No acute distress HEENT: Atraumatic, PERRLA Lungs: Clear to auscultation, Other (RIGHT IJ TDC WITHOUT ANY DRAINAGE) Heart: Regular rate Abdomen: Normal bowel sounds, Soft, No tenderness, Other (PD SITE WITHOUT ANY DRAINAGE) Extremities: No cyanosis Skin: No breakdown Neuro: Normal speech Psych/Mental Status: Mental status NL, Mood NL MUSCULOSKELETAL: No joint tenderness, No deformity Vitals VITALS Vital Signs Date Time Temp Pulse Resp B/P (MAP) Pulse Ox O2 Delivery O2 Flow Rate FiO2 06/02/21 07:00 97.5 71 16 136/93 (107) 98 Room Air 97.5 Labs Labs Laboratory Tests Test 06/01/21 16:10 06/01/21 21:01 06/02/21 07:26 06/02/21 11:18 White Blood Count 12.5 x10^3/uL (4.0-11.0) Red Blood Count 4.57 x10^6/uL (3.50-5.40) Hemoglobin 14.1 g/dL (12.0-15.5) Hematocrit 45.0 % (36.0-47.0) Mean Corpuscular Volume 98 fL (79-100) Mean Corpuscular Hemoglobin 31 pg (25-35) Mean Corpuscular Hemoglobin Concent 31 g/dL (31-37) Red Cell Distribution Width 16.6 % (11.5-14.5) Platelet Count 185 x10^3/uL (140-400) Neutrophils (%) (Auto) 79 % (31-73) Lymphocytes (%) (Auto) 18 % (24-48) Monocytes (%) (Auto) 3 % (0-9) Eosinophils (%) (Auto) 0 % (0-3) Basophils (%) (Auto) 0 % (0-3) Neutrophils # (Auto) 9.8 x10^3/uL (1.8-7.7) Lymphocytes # (Auto) 2.2 x10^3/uL (1.0-4.8) Monocytes # (Auto) 0.4 x10^3/uL (0.0-1.1) Eosinophils # (Auto) 0.1 x10^3/uL (0.0-0.7) Basophils # (Auto) 0.1 x10^3/uL (0.0-0.2) Sodium Level 139 mmol/L (136-145) Potassium Level 3.6 mmol/L (3.5-5.1) Chloride Level 105 mmol/L (98-107) Carbon Dioxide Level 23 mmol/L (21-32) Anion Gap 11 (6-14) Blood Urea Nitrogen 32 mg/dL (7-20) Creatinine 3.2 mg/dL (0.6-1.0) Estimated GFR (Cockcroft-Gault) 16.1 BUN/Creatinine Ratio 10 (6-20) Glucose Level 172 mg/dL (70-99) Calcium Level 7.7 mg/dL (8.5-10.1) Total Bilirubin 0.3 mg/dL (0.2-1.0) Aspartate Amino Transf (AST/SGOT) 75 U/L (15-37) Alanine Aminotransferase (ALT/SGPT) 117 U/L (14-59) Alkaline Phosphatase 457 U/L (46-116) Troponin I Quantitative 0.060 ng/mL (0.000-0.055) Total Protein 5.3 g/dL (6.4-8.2) Albumin 1.3 g/dL (3.4-5.0) Albumin/Globulin Ratio 0.3 (1.0-1.7) Glucose (Fingerstick) 137 mg/dL (70-99) 81 mg/dL (70-99) 102 mg/dL (70-99) Laboratory Tests Test 06/01/21 16:10 06/01/21 21:01 06/02/21 07:26 06/02/21 11:18 White Blood Count 12.5 x10^3/uL (4.0-11.0) Red Blood Count 4.57 x10^6/uL (3.50-5.40) Hemoglobin 14.1 g/dL (12.0-15.5) Hematocrit 45.0 % (36.0-47.0) Mean Corpuscular Volume 98 fL (79-100) Mean Corpuscular Hemoglobin 31 pg (25-35) Mean Corpuscular Hemoglobin Concent 31 g/dL (31-37) Red Cell Distribution Width 16.6 % (11.5-14.5) Platelet Count 185 x10^3/uL (140-400) Neutrophils (%) (Auto) 79 % (31-73) Lymphocytes (%) (Auto) 18 % (24-48) Monocytes (%) (Auto) 3 % (0-9) Eosinophils (%) (Auto) 0 % (0-3) Basophils (%) (Auto) 0 % (0-3) Neutrophils # (Auto) 9.8 x10^3/uL (1.8-7.7) Lymphocytes # (Auto) 2.2 x10^3/uL (1.0-4.8) Monocytes # (Auto) 0.4 x10^3/uL (0.0-1.1) Eosinophils # (Auto) 0.1 x10^3/uL (0.0-0.7) Basophils # (Auto) 0.1 x10^3/uL (0.0-0.2) Sodium Level 139 mmol/L (136-145) Potassium Level 3.6 mmol/L (3.5-5.1) Chloride Level 105 mmol/L (98-107) Carbon Dioxide Level 23 mmol/L (21-32) Anion Gap 11 (6-14) Blood Urea Nitrogen 32 mg/dL (7-20) Creatinine 3.2 mg/dL (0.6-1.0) Estimated GFR (Cockcroft-Gault) 16.1 BUN/Creatinine Ratio 10 (6-20) Glucose Level 172 mg/dL (70-99) Calcium Level 7.7 mg/dL (8.5-10.1) Total Bilirubin 0.3 mg/dL (0.2-1.0) Aspartate Amino Transf (AST/SGOT) 75 U/L (15-37) Alanine Aminotransferase (ALT/SGPT) 117 U/L (14-59) Alkaline Phosphatase 457 U/L (46-116) Troponin I Quantitative 0.060 ng/mL (0.000-0.055) Total Protein 5.3 g/dL (6.4-8.2) Albumin 1.3 g/dL (3.4-5.0) Albumin/Globulin Ratio 0.3 (1.0-1.7) Glucose (Fingerstick) 137 mg/dL (70-99) 81 mg/dL (70-99) 102 mg/dL (70-99) Assessment/Plan Assessment/Plan IMP SYNCOPE HYPOTENSION ESRD ANEMIA DM I RIGHT TOE WOUND PLAN GOT HYDRATION UPON ARRIVAL HOLD BP MEDS WILL RESUME AT LOWER DOSE NEEDED PD TONIGHT WILL USE ALL 1.5% DIANEAL ON APD ANTBIOTICS FOR TOE WOUND NEEDED PER NATALIA BROWN MD Jun 02, 2021 11:52
[2021-06-02 15:00] VITALS: BP 117/81
--- NOTE | 2021-06-02 15:59 | HP ---
DATE OF SERVICE: 06/02/2021 ADMIT DATE: 06/01/2021 CHIEF COMPLAINT AND HISTORY OF PRESENT ILLNESS: This 41-year-old female is admitted through the ER with lightheadedness, orthostasis at home with passing out and falling down. Over the last week, we have stopped her hydralazine and clonidine, but she continues to be symptomatic. She was orthostatic in the emergency room and admitted. She has end-stage renal disease and is being transitioned to peritoneal dialysis and prior was markedly fluid overloaded but now uvolemic likely not needing her antihypertensives any longer. PAST MEDICAL HISTORY: Remarkable for end-stage renal disease, on dialysis; depression; anxiety; type 1 diabetes. She has a history of pancreatitis; necrotizing fasciitis; cataract surgery, left eye; cholecystectomy; oophorectomy. MEDICATIONS: Brought with the patient, listed on the chart, and have been addressed. ALLERGIES: SHE IS ALLERGIC TO DEMEROL AND TRAMADOL. SOCIAL HISTORY: She is a lifetime nonsmoker, does not drink alcohol or drugs. Lives at home with her parents. FAMILY HISTORY: Noncontributory. REVIEW OF SYSTEMS: As mentioned above. PHYSICAL EXAMINATION: GENERAL: She is a well-developed, well-nourished, frail-appearing female, in no acute distress, lying in bed. VITAL SIGNS: Reveal that she is normotensive. One orthostatic done since admission does show 40 point drop going from lying to sitting. HEAD, EYES, EARS, NOSE, AND THROAT: Unremarkable. NECK: Supple without adenopathy or thyromegaly. CHEST: Clear to auscultation and percussion. HEART: Regular rate and rhythm without S3, S4, or murmur. ABDOMEN: Soft, nontender without hepatosplenomegaly and mass. She does have a peritoneal dialysis catheter in place. She does have a right subclavian hemodialysis catheter in place. EXTREMITIES: Without cyanosis, clubbing, or edema. NEUROLOGIC: She is intact. LABORATORY DATA: Initial white count was 12,500, slight left shift. BUN 32, creatinine 3.2. Sugars have been anywhere from 172 to 81 since admission. She does have elevated liver function tests with AST of 75, ALT of 117, and an alkaline phosphatase of 457. Her albumin is 1.3. She did hurt her back with falling. Lumbar spine CT is within normal limits. IMPRESSION: 1. Orthostatic hypotension, very symptomatic on top of end-stage renal disease, on dialysis, transitioning to peritoneal dialysis. 2. Multiple other problems listed above. PLAN: The patient has been admitted. She will be observed. I am going to ask Renal for their thoughts on this and the patient will be managed and treated appropriately. MALCOLM DR: Anastacio TID: [id number]
[2021-06-02] MEDS: ACETAMINOPHEN/CODEINE 300/30MG TABLET. PO PRN (18:13)
[2021-06-02] MEDS: ALPRAZolam 0.5 MG TABLET PO PRN (18:13)
[2021-06-02 19:00] VITALS: BP_SYST 102; BP_SYST 85; BP_SYST 89; BP_SYST 98; BP_DIAS 53; BP_DIAS 64; BP_DIAS 66
[2021-06-02] MEDS: INSULIN GLARGINE SYRINGE. SQ SCH (20:16)
[2021-06-02 23:00] VITALS: BP 95/64
[2021-06-03] VITALS (7 sets, daily range): BP systolic 101–140; BP diastolic 66–91
[2021-06-03] MEDS: LEVOTHYROXINE 125 MCG TABLET PO SCH (06:24)
[2021-06-03 07:43] LABS: HEMATOCRIT 33.8 % (36.0-47.0); HEMOGLOBIN 11.2 g/dL (12.0-15.5); RED BLOOD COUNT 3.57 x10^6/uL (3.50-5.40); WHITE BLOOD COUNT 10.3 x10^3/uL (4.0-11.0)
[2021-06-03] MEDS: SEVELAMER CARBONATE 800 MG TABLET. PO SCH ×3 (07:48→17:16)
[2021-06-03] MEDS: FUROSEMIDE 40 MG TABLET. PO SCH ×2 (07:48→16:17)
[2021-06-03] MEDS: ACETAMINOPHEN/CODEINE 300/30MG TABLET. PO PRN ×3 (07:48→22:00)
[2021-06-03 08:26] LABS: GFR 17.4
[2021-06-03 08:40] LABS: POTASSIUM 2.9 mmol/L (3.5-5.1)
[2021-06-03] MEDS ORDERED: POTASSIUM CHLORIDE 20 MEQ TABLET.ER. PO ONE ×2 (09:30→21:00)
--- NOTE | 2021-06-03 10:44 | PDOC ---
Renal-Progress Notes Subjective Notes Notes FEELING TIRED History of Present Illness Hx of present illness STABLE Vitals Vitals Vital Signs Date Time Temp Pulse Resp B/P (MAP) Pulse Ox O2 Delivery O2 Flow Rate FiO2 06/03/21 09:42 Room Air 06/03/21 07:30 98.5 77 16 117/79 (92) 100 98.5 Weight Weight [ ] I.O. Intake and Output Intake and Output 06/03/21 07:00 Intake Total 720 ml Output Total 200 ml Balance 520 ml Intake Oral 720 ml Output Urine Total 200 ml # Bowel Movements 1 Labs Labs Laboratory Tests Test 06/02/21 11:18 06/02/21 16:26 06/02/21 20:13 06/03/21 06:50 Glucose (Fingerstick) 102 mg/dL (70-99) 78 mg/dL (70-99) 103 mg/dL (70-99) White Blood Count 10.3 x10^3/uL (4.0-11.0) Red Blood Count 3.57 x10^6/uL (3.50-5.40) Hemoglobin 11.2 g/dL (12.0-15.5) Hematocrit 33.8 % (36.0-47.0) Mean Corpuscular Volume 95 fL (79-100) Mean Corpuscular Hemoglobin 32 pg (25-35) Mean Corpuscular Hemoglobin Concent 33 g/dL (31-37) Red Cell Distribution Width 16.0 % (11.5-14.5) Platelet Count 159 x10^3/uL (140-400) Sodium Level 140 mmol/L (136-145) Potassium Level 2.9 mmol/L (3.5-5.1) Chloride Level 107 mmol/L (98-107) Carbon Dioxide Level 25 mmol/L (21-32) Anion Gap 8 (6-14) Blood Urea Nitrogen 33 mg/dL (7-20) Creatinine 3.0 mg/dL (0.6-1.0) Estimated GFR (Cockcroft-Gault) 17.4 Glucose Level 85 mg/dL (70-99) Calcium Level 7.0 mg/dL (8.5-10.1) Test 06/03/21 09:21 Glucose (Fingerstick) 83 mg/dL (70-99) Review of Systems Constitutional: yes: malaise, weakness, alert Ears/Nose/Throat: Yes: no symptom reported Eyes: Yes: no symptom reported Pulmonary: Yes no symptom reported Cardiovascular: Yes no symptom reported Gastrointestional: Yes: no symptom reported Genitourinary: Yes: no symptom reported Musculoskeletal: Yes: muscle stiffness Skin: Yes no symptom reported Psychiatric/Neurological: Yes: no symptom reported Endocrine: Yes: no symptom reported Hematologic/Lymphatic: Yes: no symptom reported Physical Exam General Appearance: no apparent distress Skin: warm Respiratory: bilateral CTA Heart: S1S2 Abdomen: soft, bowel sounds present Genitourinary: bladder flat Extremities: pulses present, no edema, atrophy Neurology: alert, oriented Assessment Assessment MP SYNCOPE HYPOTENSION-BETTER ESRD ANEMIA DM I RIGHT TOE WOUND HYPOKALEMIA PLAN GOT HYDRATION UPON ARRIVAL CONT HOLD BP MEDS REPLACE K WILL RESUME AT LOWER DOSE NEEDED PD TONIGHT WILL CONT TO USE ALL 1.5% DIANEAL ON APD ANTBIOTICS FOR TOE WOUND NEEDED PER DR EITAN GRUBER PT D/W ATTENDING NATALIA MCGRAW MD Jun 03, 2021 10:44
[2021-06-03] MEDS: GENTAMICIN 0.1% TOPICAL OINTMENT 15GM TUBE. TP SCH (12:01)
--- NOTE | 2021-06-03 13:16 | NUR ---
Patient refused to get her finger pricked for blood sugar at lunch time, patient does have Marysol implant and blood sugar reading 83.
[2021-06-03] MEDS: ALPRAZolam 0.5 MG TABLET PO PRN (16:17)
[2021-06-03] MEDS: INSULIN GLARGINE SYRINGE. SQ SCH (21:00)
[2021-06-04] VITALS (10 sets, daily range): BP systolic 99–133; BP diastolic 58–85
[2021-06-04 05:14] LABS: ALBUMIN 1.1 g/dL (3.4-5.0); ALBUMIN/GLOBULIN RATIO 0.3 (1.0-1.7); CALCIUM 6.9 mg/dL (8.5-10.1); CREATININE 2.8 mg/dL (0.6-1.0); GFR 18.8; MAGNESIUM 1.8 mg/dL (1.8-2.4); POTASSIUM 3.3 mmol/L (3.5-5.1); TOTAL BILIRUBIN 0.2 mg/dL (0.2-1.0); TOTAL PROTEIN 4.5 g/dL (6.4-8.2)
[2021-06-04] MEDS: LEVOTHYROXINE 125 MCG TABLET PO SCH (06:37)
[2021-06-04] MEDS: ACETAMINOPHEN/CODEINE 300/30MG TABLET. PO PRN ×2 (08:13→19:30)
[2021-06-04] MEDS: SEVELAMER CARBONATE 800 MG TABLET. PO SCH ×3 (08:14→17:06)
[2021-06-04] MEDS: FUROSEMIDE 40 MG TABLET. PO SCH ×2 (08:15→16:00)
[2021-06-04] MEDS: ONDANSETRON ODT 4 MG TAB.RAPDIS. PO PRN (08:21)
[2021-06-04] MEDS: GENTAMICIN 0.1% TOPICAL OINTMENT 15GM TUBE. TP SCH (09:00)
--- NOTE | 2021-06-04 09:00 | NUR ---
Peritoneal dialysis output 467ml
--- NOTE | 2021-06-04 09:55 | PDOC ---
DATE OF SERVICE DATE: 06/04/21 TIME: 09:54 SUBJECTIVE ROS Stable, No complaints Wants to have Normal Renal Diet OBJECTIVE Vital Signs Vital Signs Date Time Temp Pulse Resp B/P (MAP) Pulse Ox O2 Delivery O2 Flow Rate FiO2 06/04/21 08:13 Room Air 06/04/21 07:00 97.5 70 18 122/80 (94) 99 97.5 I & 0 Intake and Output 06/04/21 07:00 Intake Total 600 ml Balance 600 ml Intake Oral 600 ml # Voids 4 # Bowel Movements 1 PHYSICAL EXAM Physical Exam GENERAL: NAD HEENT: OM moist NECK: Supple. LUNGS: CTA, Non labored HEART: S1 and S2, regular. ABDOMEN: Soft, PD catheter + SKIN: Warm to touch. NEUROLOGIC: awake , alert DIAGNOSIS/ASSESSMENT Assessment & Plan ESRD - On Dialysis, switched from HD to PD recently ;Continue 1.5% Dianeal , discussed treatment plan with algebraist Syncope Hypotension- BP improved Anemia-No Indication for TESFAYE DM I Right Toe Wound- Per Primary HypoKalemia- Improved , Mildly low today. Switch to normal K , Non renal diet. Replace K as needed COMMENT/RELEVANT DATA Meds Current Medications Medications (Trade) Dose Ordered Sig/Adams Start Time Stop Time Status Last Admin Dose Admin Acetaminophen/ Codeine Phosphate (Tylenol #3) 1 tab PRN Q4HRS PRN 06/01/21 20:30 06/04/21 08:13 1 TAB Alprazolam (Xanax) 0.5 mg PRN Q6HRS PRN 06/01/21 20:30 06/03/21 16:17 0.5 MG Furosemide (Lasix) 40 mg [id number] 06/02/21 09:00 06/04/21 08:15 40 MG Gentamicin Sulfate (Garamycin) 1 richy DAILY 06/03/21 10:00 06/03/21 12:01 1 RICHY Insulin Glargine (Lantus Syringe) 4 unit QHS 06/01/21 21:00 Levothyroxine Sodium (Synthroid) 125 mcg DAILY06 06/02/21 06:00 06/04/21 06:37 125 MCG Morphine Sulfate (Morphine Sulfate) 4 mg 1X PRN 06/01/21 18:00 06/02/21 15:03 DC 06/01/21 18:09 4 MG Ondansetron HCl (Zofran Odt) 4 mg PRN Q8HRS PRN 06/01/21 20:30 06/04/21 08:21 4 MG Ondansetron HCl (Zofran) 4 mg 1X ONCE 06/01/21 15:00 06/01/21 15:01 DC 06/01/21 16:36 4 MG Potassium Chloride (Klor-Con) 20 meq BID ONCE 06/03/21 21:00 06/03/21 21:01 DC 06/03/21 21:50 20 MEQ Sevelamer Carbonate (Renvela) 800 mg TIDWMEALS 06/02/21 08:00 06/04/21 08:14 800 MG Sodium Chloride 1,000 ml @ 1,000 mls/hr 1X ONCE 06/01/21 14:45 06/01/21 15:44 DC 06/01/21 16:37 1,000 MLS/HR Lab Laboratory Tests Test 06/03/21 22:02 06/04/21 03:45 Glucose (Fingerstick) 127 mg/dL (70-99) Sodium Level 142 mmol/L (136-145) Potassium Level 3.3 mmol/L (3.5-5.1) Chloride Level 106 mmol/L (98-107) Carbon Dioxide Level 26 mmol/L (21-32) Anion Gap 10 (6-14) Blood Urea Nitrogen 31 mg/dL (7-20) Creatinine 2.8 mg/dL (0.6-1.0) Estimated GFR (Cockcroft-Gault) 18.8 BUN/Creatinine Ratio 11 (6-20) Glucose Level 162 mg/dL (70-99) Calcium Level 6.9 mg/dL (8.5-10.1) Magnesium Level 1.8 mg/dL (1.8-2.4) Total Bilirubin 0.2 mg/dL (0.2-1.0) Aspartate Amino Transf (AST/SGOT) 50 U/L (15-37) Alanine Aminotransferase (ALT/SGPT) 90 U/L (14-59) Alkaline Phosphatase 434 U/L (46-116) Total Protein 4.5 g/dL (6.4-8.2) Albumin 1.1 g/dL (3.4-5.0) Albumin/Globulin Ratio 0.3 (1.0-1.7) Results All relevant outside records, renal labs, imaging studies, telemetry/EKG's were reviewed. Justicifation of Admission Dx: Justifications for Admission: Justification of Admission Dx: N/A SHERYL VENCES MD Jun 04, 2021 09:55
--- NOTE | 2021-06-04 10:15 | NUR ---
This RN addressed the low potassium of 3.[address] Vivar as patient is receiving the furosemide PO, if he wanted to supplement her potassium. stated no need to potassium was fine. He stated plan was to discontinue the furosemide tomorrow.
[2021-06-04] MEDS: ALPRAZolam 0.5 MG TABLET PO PRN ×2 (10:30→20:53)
--- NOTE | 2021-06-04 13:59 | NUR ---
SS following for discharge planning. SS reviewed pt chart and discussed with pt RN. Pt is from home with son and is currently on room air. Pt has Peritoneal Dialysis at home. Potassium 3.3 today. Pt RN discussed with physician and per physician Lasix to be discontinued today. Bear Hugger in place. SS will continue to follow for discharge planning.
--- NOTE | 2021-06-04 16:05 | NUR ---
Wound Care Wound Type/Assessment: Pt seen for wound care consultation for a R 4th toe DFU. Pt goes to [facility] wound [place] and they have been painting wound with betadine. Wound is eschar covered, no fluctuance or separation noted. Treatment Recommendations/Plan: Continue painting with betadine daily Education provided: to pt re: POC Offloading surface/device: n/a Recommended Referrals/Tests: n/a Discharge Recommendations for dressings: see trtmt plan above
[2021-06-04] MEDS: FOLIC/VIT B COMP W-C (RENAL) TABLET. PO SCH (17:05)
[2021-06-04] MEDS: INSULIN GLARGINE SYRINGE. SQ SCH (19:31)
--- NOTE | 2021-06-04 19:34 | NUR ---
Patient Glucose level for breakfast 130, lunch 120, dinner 90.
--- NOTE | 2021-06-04 19:45 | NUR ---
Patient's HS blood sugar 93. Lantus held per patient request.
--- NOTE | 2021-06-04 20:59 | PN ---
DATE: 06/04/2021 LOCATION: She is in room 548. SUBJECTIVE: This 41-year-old female who remains hospitalized for severe orthostatic hypotension with falls and inability to do self care. Blood pressure medicines are on hold. She states she is still dizzy if she gets out. OBJECTIVE: VITAL SIGNS: Stable. She is afebrile. Blood pressures are better. Orthostasis is much better. I have asked therapy to evaluate. Renal is following along and she is receiving peritoneal dialysis. CHEST: Clear. HEART: Regular. ABDOMEN: Benign. LABORATORY DATA: Potassium this morning is low at 3.3. PLAN: Continue to observe on present therapy as there was gradual improvement and Renal help appreciated. CHARLENE DR: Anastacio TID: [id number]
[2021-06-05 03:00] VITALS: BP 128/88
[2021-06-05] MEDS: ACETAMINOPHEN/CODEINE 300/30MG TABLET. PO PRN ×3 (05:08→16:37)
[2021-06-05] MEDS: LEVOTHYROXINE 125 MCG TABLET PO SCH (05:08)
[2021-06-05 07:00] VITALS: BP 121/90
[2021-06-05] MEDS: FUROSEMIDE 40 MG TABLET. PO SCH ×2 (08:30→16:37)
[2021-06-05] MEDS: FOLIC/VIT B COMP W-C (RENAL) TABLET. PO SCH (08:30)
[2021-06-05] MEDS: SEVELAMER CARBONATE 800 MG TABLET. PO SCH ×3 (08:30→16:37)
[2021-06-05] MEDS: GENTAMICIN 0.1% TOPICAL OINTMENT 15GM TUBE. TP SCH (08:31)
--- NOTE | 2021-06-05 09:09 | PDOC2 ---
GI CONSULT Date of Service: DATE: 06/05/21 TIME: 09:09 Reason For Consult: elevated LFTs HPI: HPI: 41 y/o female admitted 06/01 w/ near syncope/orthostatic hypotension per primary. We are asked to see her for abnormal LFTs. Viral hepatitis panel negative in past. Chronically elevated Alk Phos. Has chronic upper abdominal "pancreas pain." She denies GERD symptoms and no longer takes PPI. Appetite isn't great - just doesn't feel like it and has some abd pain after eating. Has lost weight. Has chronic diarrhea ("constant all day") and no longer takes Zenpep or Colestid but uses Imodium sometimes. 1 stool charted yesterday. No dysphagia, n/v, hematochezia, melena, or constipation. EGD 08/2018 w/ Dr. Rodriguez for dysphagia and GERD showed severe GERD and gastric and duodenal ulcers - path benign. H/o chronic pancreatitis on past imaging - unclear cause. S/p cholecystectomy. Past workup @ [facility] including EGD and ERCPs w/o major findings. Possible fatty liver on past US. Viral hepatitis panel previously negative. No colonoscopy in records from [facility] - she previously reported this was done. Chronic anemia - ACD/POLLO noted in 12/2020, elevated B12 in 2019. Required transf usions in the past. Celiac panel previously negative and TSH was >9 in 12/2020. H/o C Diff. We last saw in 12/2020. She was on PPI, Zenpep, and Colestid while inpatient then w/ good response. Outpt EGD, colonoscopy, MRCP/EUS were recommended. Recent antibiotic use for toe infection. PMH: PMH: DM, CHF, NICM, CKD, depression/anxiety, non-compliance, hypothyroidism cholecystectomy, left sapingo-oophorectomy, debridement of necrotizing fasciitis, lymph node biopsy, PD cath FH: Family History: No pertinent hx (no GI cancers), Hypertension Social History: Smoke: Quit ALCOHOL: rare Drugs: Marijuana ROS: GEN: Denies fevers, chills, sweats HEENT: Denies blurred vision, sore throat CV: Denies chest pain RESP: Denies shortness of air, cough GI: Per HPI : Denies hematuria, dysuria ENDO: +weight loss NEURO: +dizziness MSK: +weakness SKIN: Denies jaundice, pruritus Vitals: Vitals: Vital Signs Date Time Temp Pulse Resp B/P (MAP) Pulse Ox O2 Delivery O2 Flow Rate FiO2 06/05/21 05:40 18 Room Air 06/05/21 03:00 97.9 72 18 128/88 (101) 97.9 Labs: Labs: please see EMR - none today Allergies: Coded Allergies: meperidine (Verified Allergy, Intermediate, hives, 09/10/18) TOLERATES FENTANYL tramadol (Verified Allergy, Intermediate, 09/10/18) TOLERATES MORPHINE Medications: Current Medications Medications (Trade) Dose Ordered Sig/Adams Route PRN Reason Start Time Stop Time Status Last Admin Dose Admin Vitamin B Complex/ Vitamin C (Neisha-Yari) 1 tab DAILY PO 06/04/21 16:00 06/05/21 08:30 Imaging: Imaging: L-spine CT 06/01 IMPRESSION: 1. No acute osseous injury of the lumbar spine. Lower lumbar disc disease. See above 2. Other incidental findings as described above PE: GEN: NAD - appears chronically ill and much older than stated age HEENT: Atraumatic, PERRL LUNGS: CTAB HEART: RRR ABD: quiet BS, soft, PD cath, epigastric discomfort EXTREMITY: No edema SKIN: No rashes, no jaundice NEURO/PSYCH: A & O 3 A/P: A/P: Dizziness/weakness, hypotension Abnormal LFTs - improved some from admission - has chronically elevated Alk Phos, bit worse currently Chronic upper abd pain and diarrhea, poor appetite ACD/POLLO - celiac panel negative in past GERD, h/o PUD CRC screen - ?past colonoscopy - unable to review H/o C Diff S/p cholecystectomy (no stones) Possible fatty liver per past US Chronic pancreatitis - unclear cause - past ERCPs @[facility] ESRD, DM, NICM/CHF -- Re: LFTs, check GGT. Abd pain and diarrhea are chronic issues. She is non-compliant w/ acid-cosmetician, pancreatic enzymes, and Colestid. Previously recommended outpt EGD, colonoscopy, and consideration for MRCP/EUS which she did not pursue. She does have h/o C Diff, pancreatitis, and DM so we will check C Diff, lipase, A1c, and CT. She asks several times for more pain medication - defer to NELIDA Brady Jun 05, 2021 09:09
[2021-06-05] MEDS ORDERED: LIDO:MAALOX 1:1 20 ML SINGLE DOSE. PO PRN (09:15)
[2021-06-05] MEDS: PANTOPRAZOLE 40 MG TABLET.DR. PO SCH (09:29)
--- NOTE | 2021-06-05 10:34 | PN ---
DATE: 06/05/2021 DAILY PROGRESS NOTE LOCATION: She is in room 548. SUBJECTIVE: This 41-year-old female remains hospitalized for severe orthostatic hypotension with falls and inability to do self-care. Blood pressure medicines have all been stopped. She states she is still getting dizzy, but it has improved. She did walk around the room with therapy yesterday. OBJECTIVE: VITAL SIGNS: Stable. She is afebrile. Blood pressures are definitely better. She has ongoing peritoneal dialysis ongoing. CHEST: Clear. HEART: Regular. ABDOMEN: Benign. EXTREMITIES: Her right big toe is red and has an ulcer on the top of her right fourth toe and I am going to ask ID for suggestions on antibiotics or just ongoing wound care, which has already started for the same. IMPRESSION: 1. Orthostasis, improving. 2. Diabetes. 3. End-stage renal disease, on peritoneal dialysis. 4. Right foot problems as outlined above. PLAN: ID consult, otherwise same, likely discharge tomorrow. DIAMOND DR: Anastacio TID: [id number]
[2021-06-05 11:00] VITALS: BP 145/95
--- NOTE | 2021-06-05 11:04 | PDOC ---
DATE OF SERVICE DATE: 06/05/21 TIME: 11:02 SUBJECTIVE ROS Stable, No complaints OBJECTIVE Vital Signs Vital Signs Date Time Temp Pulse Resp B/P (MAP) Pulse Ox O2 Delivery O2 Flow Rate FiO2 06/05/21 08:00 Room Air 06/05/21 07:00 98.5 87 17 121/90 (100) 99 98.5 I & 0 Intake and Output 06/05/21 07:00 Intake Total 1320 ml Output Total 917 ml Balance 403 ml Intake Oral 1320 ml Output Urine Total 450 ml Other 467 ml # Voids 3 PHYSICAL EXAM Physical Exam GENERAL: NAD HEENT: OM moist NECK: Supple. LUNGS: CTA, Non labored HEART: S1 and S2, regular. ABDOMEN: Soft, PD catheter + SKIN: Warm to touch. NEUROLOGIC: awake , alert DIAGNOSIS/ASSESSMENT Assessment & Plan ESRD - On Dialysis, switched from HD to PD recently ;Continue 1.5% Dianeal , discussed treatment plan with rehabilitation aide Syncope Hypotension- BP improved Anemia-No Indication for TESFAYE DM I Right Toe Wound- Per Primary HypoKalemia- Improved , Mildly low today. Switch to normal K , Non renal diet. Replace K as needed Abnormal LFTs - improved some from admission - has chronically elevated Alk Phos, GI managing Chronic upper abd pain and diarrhea, poor appetite- GI managing. Had CT abdomen this morning Chronic pancreatitis - unclear cause - past ERCPs @[facility] COMMENT/RELEVANT DATA Meds Current Medications Medications (Trade) Dose Ordered Sig/Adams Start Time Stop Time Status Last Admin Dose Admin Acetaminophen/ Codeine Phosphate (Tylenol #3) 1 tab PRN Q4HRS PRN 06/01/21 20:30 06/05/21 09:29 1 TAB Alprazolam (Xanax) 0.5 mg PRN Q6HRS PRN 06/01/21 20:30 06/04/21 20:53 0.5 MG Amylase/Lipase/ Protease (Zenpep 10,000) 2 cap TIDWMEALS 06/05/21 12:00 Furosemide (Lasix) 40 mg BID94 06/02/21 09:00 06/05/21 08:30 40 MG Gentamicin Sulfate (Garamycin) 1 ricyh DAILY 06/03/21 10:00 06/05/21 08:31 1 RICHY Insulin Glargine (Lantus Syringe) 4 unit QHS 06/01/21 21:00 Levothyroxine Sodium (Synthroid) 125 mcg DAILY06 06/02/21 06:00 06/05/21 05:08 125 MCG Morphine Sulfate (Morphine Sulfate) 4 mg 1X PRN 06/01/21 18:00 06/02/21 15:03 DC 06/01/21 18:09 4 MG Multi-Ingredient Mouthwash/Gargle (Gi Cocktail) 20 ml PRN QID PRN 06/05/21 09:15 Ondansetron HCl (Zofran Odt) 4 mg PRN Q8HRS PRN 06/01/21 20:30 06/04/21 08:21 4 MG Ondansetron HCl (Zofran) 4 mg 1X ONCE 06/01/21 15:00 06/01/21 15:01 DC 06/01/21 16:36 4 MG Pantoprazole Sodium (Protonix) 40 mg DAILYAC 06/05/21 09:15 06/05/21 09:29 40 MG Potassium Chloride (Klor-Con) 20 meq BID ONCE 06/03/21 21:00 06/03/21 21:01 DC 06/03/21 21:50 20 MEQ Sevelamer Carbonate (Renvela) 800 mg TIDWMEALS 06/02/21 08:00 06/05/21 08:30 800 MG Sodium Chloride 1,000 ml @ 1,000 mls/hr 1X ONCE 06/01/21 14:45 06/01/21 15:44 DC 06/01/21 16:37 1,000 MLS/HR Vitamin B Complex/ Vitamin C (Neisha-Yari) 1 tab DAILY 06/04/21 16:00 06/05/21 08:30 1 TAB Lab Laboratory Tests Test 06/05/21 09:40 Gamma Glutamyl Transpeptidase 67 U/L (5-55) Lipase 19 U/L (73-393) Results All relevant outside records, renal labs, imaging studies, telemetry/EKG's were reviewed. Justicifation of Admission Dx: Justifications for Admission: Justification of Admission Dx: N/A SHERYL VENCES MD Jun 05, 2021 11:04
[2021-06-05] MEDS: LIPASE/PROTEAS/AMYLAS 10/32/42 CAPSULE.DR. PO SCH ×2 (11:13→16:37)
[2021-06-05] MEDS: ONDANSETRON ODT 4 MG TAB.RAPDIS. PO PRN (11:13)
[2021-06-05] MEDS: ALPRAZolam 0.5 MG TABLET PO PRN (11:13)
--- NOTE | 2021-06-05 11:21 | PDOC ---
Infectious Disease Note Vital Signs: Vital Signs Vital Signs Date Time Temp Pulse Resp B/P (MAP) Pulse Ox O2 Delivery O2 Flow Rate FiO2 06/05/21 08:00 Room Air 06/05/21 07:00 98.5 87 17 121/90 (100) 99 98.5 Medications: Inpatient Meds: Medications reviewed. Labs: Lab Laboratory Tests Test 06/05/21 09:40 Gamma Glutamyl Transpeptidase 67 U/L (5-55) Lipase 19 U/L (73-393) Objective: Assessment: Patient seen and examined ID consult to follow Impression Orthostatic hypotension Right toe infection improving completed Keflex a week ago End-stage renal disease recently started on PD Diabetes mellitus type 1 Plan: Plan of Care Thank you LISA BHAKTA MD Jun 05, 2021 11:21
--- NOTE | 2021-06-05 11:55 | NUR ---
SS following up with discharge planning. SS reviewed pt chart and discussed with pt RN. Pt is currently on room air. Pt has peritoneal dialysis at home. PT/OT recommended home. Pt having continued dizziness and getting orthostatic vitals every shift. GI following for elevated liver enzymes. Discharge plan is currently to home when medically ready for discharge. SS will continue to follow for discharge planning.
--- NOTE | 2021-06-05 12:11 | RAD ---
CT of the abdomen and pelvis without contrast. 06/05/2021 9:57 AM Indication: Reason: abd pain, decreased appetite, diarrhea, h/o pancreatitis and C Diff Comparison Study: CT of the abdomen and pelvis August 04, 2018 Technique: Multidetector CT imaging of the abdomen pelvis is obtained without administration of contr ast. Findings: There is a small right pleural effusion. Anterior atelectasis appears to be present. Evaluation of th e abdomen is limited secondary to lack of intraperitoneal fat, IV contrast, or oral contrast.The gall bladder is surgically absent. No gross hepatic abnormality is identified. Extensive pancreatic calcif ication consistent with chronic pancreatitis seen. Evidence of prior granulomatous disease involving the spleen. The adrenal glands are poorly visualized but demonstrate no gross abnormalities. What richy ear to be renal vascular calcifications are seen bilaterally. Fat-containing lesion in the anterior l eft kidney measures 0.9 cm which is essentially unchanged from comparison study. Small amount of free fluid appears to be present in the pelvis. Appears to be a peritoneal dialysis catheter though this does extend more cephalad than is commonly s een. Correlate with surgical history. The bladder is decompressed but appears to demonstrate diffuse wall thickening. This is of uncertain chronicity. No overt bowel obstruction is identified. No acute osseous abnormality is seen. IMPRESSION: 1. Limited exam without evidence of acute intra-abdominal abnormality 2. Small amount of free fluid in the abdomen and pelvis, with peritoneal dialysis catheter in place 3. Small right pleural effusion with basilar atelectasis 4. Changes of chronic pancreatitis 5. 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 Possible bladder wall thickening and subtle decompressed bladder. Consider correlation with urinal ysis to exclude cystitis. CT DOSING PQRS STATEMENT: One or more of the following individualized dose reduction techniques were utilized for this examinat ion: 1. Automated exposure control 2. Adjustment of the mA and/or kV according to patient size 3. Use of iterative reconstruction technique Electronically signed by: Cristian Lopes MD (06/05/2021 12:09 PM) [id number]
[2021-06-05 15:44] VITALS: BP 133/90
[2021-06-05 18:43] LABS: AMYLASE 11 U/L (25-115); LIPASE 16 U/L (73-393)
[2021-06-05] MEDS: MORPHINE SULFATE 2 MG/ML INJ. IVP PRN ×2 (18:44→21:30)
[2021-06-05 19:00] VITALS: BP 143/95
[2021-06-05] MEDS: INSULIN GLARGINE SYRINGE. SQ SCH (21:00)
--- NOTE | 2021-06-05 21:20 | NUR ---
glucose 99.
--- NOTE | 2021-06-05 21:43 | CONS ---
DATE OF CONSULTATION: 06/05/2021 REFERRING PHYSICIAN: Gilberto Vivar MD REASON FOR CONSULTATION: Right toe infection, antibiotic management. HISTORY OF PRESENT ILLNESS: A 41-year-old female with history of type 1 diabetes, end-stage renal disease on dialysis, presented with complaints of lightheadedness for the past one week. The patient was transitioned from hemodialysis to peritoneal dialysis about a week ago prior to admission. She continued to have positional dizziness. She had right foot toe redness. She was following up with the wound team. She was given Keflex,, which she completed a week ago. Wound is improving per patient, currently dry, no drainage. Per patient report wound team feels that patient's right toe changes are back to baseline. She just currently applying Betadine . She denies any other skin lesions. Denies any fevers, chills, nausea, vomiting, diarrhea, abdominal pain. The patient is currently on gentamicin cream. ID consultation has been requested for antibiotic management. REVIEW OF SYSTEMS: The patient had a fall prior to admission with some low back pain, but that is gradually improving. Denies any other symptoms except for above in HPI. PAST MEDICAL HISTORY: End-stage renal disease, on peritoneal dialysis, previously was on hemodialysis; anxiety, depression, type 1 diabetes, ovarian cyst, pancreatitis, cholecystectomy, oophorectomy, right lower extremity necrotizing fasciitis, cataract surgery to the left eye. SOCIAL HISTORY: Denies smoking, ETOH, or illicit drug use. CURRENT MEDICATIONS: Antibiotics none. Other medications reviewed in medication list. ALLERGIES: MEPERIDINE AND TRAMADOL. PHYSICAL EXAMINATION: GENERAL: Thin, frail-appearing female in no acute distress, appears comfortable, sitting, propped up in bed, alert, awake, oriented x 3. HEENT: Normocephalic, atraumatic. Anicteric. No thrush. NECK: Supple. LUNGS: Clear bilaterally. HEART: S1, S2. ABDOMEN: Soft, nontender, nondistended. EXTREMITIES: Warm, dry, no generalized rash. There is a superficial dry eschar present over the right dorsal toe,Slight redness, per patient back to baseline, no warmth, no decrease in range of motion. No underlying fluctuance. NEUROLOGIC: Alert and oriented x 3, grossly nonfocal. PSYCHIATRIC: Calm and cooperative. HDC catheter clean. LABORATORY DATA: WBC 10.3, was 12.5, hemoglobin 11.2, hematocrit 33.8, platelets 159. Sodium 142, potassium 3.3, chloride 106, bicarbonate 26, BUN 31, creatinine 2.8, glucose 127. GGT 67, AST 50, ALT 90, alkaline phosphatase 434, albumin 1.1. MICRO: None. IMAGING STUDIES: Abdomen and pelvic CT shows limited exam without evidence of acute intra-abdominal abnormality. A small amount of fluid in the abdomen and pelvis with peritoneal dialysis catheter in place. Small right pleural effusion with basilar atelectasis changes of chronic pancreatitis. Left renal AML, possible bladder wall thickening and subtle decompressed bladder. LS spine CT shows no acute osseous injury. IMPRESSION: 1. Orthostatic hypotension onset was a week prior to admission, improving slowly per patient. 2. Right toe wound on dorsal aspect with dry eschar, improving. Completed Keflex a week ago. Was told by wound team that it is stable 3. End-stage renal disease, recently started on peritoneal dialysis from hemodialysis. 4. Type 1 diabetes. 5. Abnormal liver function tests. 6. Chronic abdominal pain and diarrhea and poor appetite. 7. Gastroesophageal reflux disease. 8. History of Clostridium difficile. 9. Chronic pancreatitis. 10. Nonischemic cardiomyopathy/congestive heart failure. RECOMMENDATIONS: 1. Continue local treatment. 2. Maintain aspiration precaution. 3. Pain control per primary. 4. PT and OT as tolerated. Thank you, Dr. Vivar for consulting Infectious Disease to participate in this patient's care. If you have any questions, do not hesitate to contact me. OLIMPIA ERICKSON: Mainor TID: [id number] [facility]
[2021-06-05 23:30] VITALS: BP 131/79
[2021-06-06 00:08] LABS: HEMOGLOBIN A1C 10.6 % (4.8-5.6)
[2021-06-06] MEDS: MORPHINE SULFATE 2 MG/ML INJ. IVP PRN ×8 (00:59→21:06)
[2021-06-06 03:00] VITALS: BP 106/76
[2021-06-06] MEDS: PANTOPRAZOLE 40 MG TABLET.DR. PO SCH (06:09)
[2021-06-06] MEDS: LEVOTHYROXINE 125 MCG TABLET PO SCH (06:09)
[2021-06-06 06:38] LABS: ALBUMIN 1.1 g/dL (3.4-5.0); CALCIUM 7.6 mg/dL (8.5-10.1); CREATININE 2.6 mg/dL (0.6-1.0); DIRECT BILIRUBIN 0.1 mg/dL (0.0-0.2); GFR 20.5; POTASSIUM 3.2 mmol/L (3.5-5.1); TOTAL BILIRUBIN 0.4 mg/dL (0.2-1.0); TOTAL PROTEIN 4.7 g/dL (6.4-8.2)
[2021-06-06 07:00] VITALS: BP 132/81
[2021-06-06] MEDS: ONDANSETRON ODT 4 MG TAB.RAPDIS. PO PRN ×2 (07:16→15:30)
[2021-06-06] MEDS: LIPASE/PROTEAS/AMYLAS 10/32/42 CAPSULE.DR. PO SCH ×3 (08:00→15:33)
[2021-06-06] MEDS: SEVELAMER CARBONATE 800 MG TABLET. PO SCH ×3 (08:00→15:33)
--- NOTE | 2021-06-06 08:30 | PDOC ---
Infectious Disease Note Subjective: Subjective Pt has nausea, diarrhea abdominal pain,latter 2 are chronic Rt 4th toe is getting better Vital Signs: Vital Signs Vital Signs Date Time Temp Pulse Resp B/P (MAP) Pulse Ox O2 Delivery O2 Flow Rate FiO2 06/06/21 08:00 Room Air 06/06/21 07:39 20 97 06/06/21 07:00 98.0 86 132/81 (98) 98.0 Physical Exam: PHYSICAL EXAM GENERAL: Thin, frail-appearing female in no acute distress, appears comfortable, sitting, propped up in bed, alert, awake, oriented x 3. HEENT: Normocephalic, atraumatic. Anicteric. No thrush. NECK: Supple. LUNGS: Clear bilaterally. HEART: S1, S2. ABDOMEN: Soft, nontender, nondistended. EXTREMITIES: Warm, dry, no generalized rash. There is a dry eschar present over the right 4th dorsal toe, improving. Slight redness, no warmth, no decrease in range of motion. No underlying fluctuance. NEUROLOGIC: Alert and oriented x 3, grossly nonfocal. PSYCHIATRIC: Calm and cooperative. HDC catheter clean. Medications: Inpatient Meds: Medications reviewed. Labs: Lab Laboratory Tests Test 06/05/21 09:40 06/06/21 04:55 Hemoglobin A1c 10.6 % (4.8-5.6) Gamma Glutamyl Transpeptidase 67 U/L (5-55) Amylase Level 11 U/L (25-115) Lipase 16 U/L (73-393) Sodium Level 140 mmol/L (136-145) Potassium Level 3.2 mmol/L (3.5-5.1) Chloride Level 107 mmol/L (98-107) Carbon Dioxide Level 24 mmol/L (21-32) Anion Gap 9 (6-14) Blood Urea Nitrogen 36 mg/dL (7-20) Creatinine 2.6 mg/dL (0.6-1.0) Estimated GFR (Cockcroft-Gault) 20.5 Glucose Level 134 mg/dL (70-99) Calcium Level 7.6 mg/dL (8.5-10.1) Total Bilirubin 0.4 mg/dL (0.2-1.0) Direct Bilirubin 0.1 mg/dL (0.0-0.2) Aspartate Amino Transf (AST/SGOT) 87 U/L (15-37) Alanine Aminotransferase (ALT/SGPT) 102 U/L (14-59) Alkaline Phosphatase 516 U/L (46-116) Total Protein 4.7 g/dL (6.4-8.2) Albumin 1.1 g/dL (3.4-5.0) Objective: Assessment: 1. Orthostatic hypotension a week prior to admission, improving slowly. 2. Right toe infection, improving. Completed Keflex a week ago. Continue local treatment. Stable per wound team. 3. End-stage renal disease, recently started on peritoneal dialysis from hemodialysis. 4. Type 1 diabetes. 5. Abnormal liver function tests. 6. Chronic abdominal pain and diarrhea and poor appetite. 7. Gastroesophageal reflux disease. 8. History of Clostridium difficile. 9. Chronic pancreatitis. 10. Nonischemic cardiomyopathy/congestive heart failure. Plan: Plan of Care 1. Patient does not need further antibiotics at this time as wound is healing without any evidence of ongoing infection at this time. 2. Continue local wound care as directed. 3. Pain control per primary. 4. PT and OT as tolerated. 5.Maintain aspiration precautions LISA BHAKTA MD Jun 06, 2021 08:30
[2021-06-06] MEDS: FOLIC/VIT B COMP W-C (RENAL) TABLET. PO SCH (08:53)
[2021-06-06] MEDS: FUROSEMIDE 40 MG TABLET. PO SCH ×2 (08:53→15:33)
[2021-06-06] MEDS: GENTAMICIN 0.1% TOPICAL OINTMENT 15GM TUBE. TP SCH (08:54)
--- NOTE | 2021-06-06 08:57 | PDOC ---
DATE OF SERVICE DATE: 06/06/21 TIME: 08:57 SUBJECTIVE ROS C/O nausea earlier today, Dry Heaves. No Vomiting, No SOB OBJECTIVE Vital Signs Vital Signs Date Time Temp Pulse Resp B/P (MAP) Pulse Ox O2 Delivery O2 Flow Rate FiO2 06/06/21 08:00 Room Air 06/06/21 07:39 20 97 06/06/21 07:00 98.0 86 132/81 (98) 98.0 I & 0 Intake and Output 06/06/21 07:00 Intake Total 240 ml Output Total 50 ml Balance 190 ml Intake Oral 240 ml Output Urine Total 50 ml PHYSICAL EXAM Physical Exam GENERAL: NAD HEENT: OM moist NECK: Supple. LUNGS: CTA, Non labored HEART: S1 and S2, regular. ABDOMEN: Soft, PD catheter + SKIN: Warm to touch. NEUROLOGIC: awake , alert DIAGNOSIS/ASSESSMENT Assessment & Plan ESRD - On Dialysis, switched from HD to PD recently ; Tolerating well. Continue 1.5% Dianeal , discussed treatment plan with masonry supervisor Syncope POA Hypotension- BP improved Anemia-No Indication for TESFAYE DM I Right Toe Wound- Per Primary HypoKalemia- I Mildly low , replace .. Switched to normal K , Non renal diet. Abnormal LFTs - improved some from admission - has chronically elevated Alk Phos, GI managing . CT scan abdomen Unremarkable Chronic upper abd pain and diarrhea, poor appetite- GI managing. Had CT abdomen this morning Chronic pancreatitis - unclear cause - past ERCPs @[facility] COMMENT/RELEVANT DATA Meds Current Medications Medications (Trade) Dose Ordered Sig/Adams Start Time Stop Time Status Last Admin Dose Admin Acetaminophen/ Codeine Phosphate (Tylenol #3) 1 tab PRN Q4HRS PRN 06/01/21 20:30 06/05/21 16:37 1 TAB Alprazolam (Xanax) 0.5 mg PRN Q6HRS PRN 06/01/21 20:30 06/05/21 11:13 0.5 MG Amylase/Lipase/ Protease (Zenpep 10,000) 2 cap TIDWMEALS 06/05/21 12:00 06/05/21 16:37 2 CAP Furosemide (Lasix) 40 mg [id number] 06/02/21 09:00 06/05/21 16:37 40 MG Gentamicin Sulfate (Garamycin) 1 richy DAILY 06/03/21 10:00 06/06/21 08:54 1 RICHY Insulin Glargine (Lantus Syringe) 4 unit QHS 06/01/21 21:00 Levothyroxine Sodium (Synthroid) 125 mcg DAILY06 06/02/21 06:00 06/06/21 06:09 125 MCG Morphine Sulfate (Morphine Sulfate) 2 mg PRN Q2HR PRN 06/05/21 18:30 06/06/21 07:09 2 MG Multi-Ingredient Mouthwash/Gargle (Gi Cocktail) 20 ml PRN QID PRN 06/05/21 09:15 Ondansetron HCl (Zofran Odt) 4 mg PRN Q8HRS PRN 06/01/21 20:30 06/06/21 07:16 4 MG Ondansetron HCl (Zofran) 4 mg 1X ONCE 06/01/21 15:00 06/01/21 15:01 DC 06/01/21 16:36 4 MG Pantoprazole Sodium (Protonix) 40 mg DAILYAC 06/05/21 09:15 06/06/21 06:09 40 MG Potassium Chloride (Klor-Con) 20 meq BID ONCE 06/03/21 21:00 06/03/21 21:01 DC 06/03/21 21:50 20 MEQ Sevelamer Carbonate (Renvela) 800 mg TIDWMEALS 06/02/21 08:00 06/05/21 16:37 800 MG Sodium Chloride 1,000 ml @ 1,000 mls/hr 1X ONCE 06/01/21 14:45 06/01/21 15:44 DC 06/01/21 16:37 1,000 MLS/HR Vitamin B Complex/ Vitamin C (Neisha-Yari) 1 tab DAILY 06/04/21 16:00 06/05/21 08:30 1 TAB Lab Laboratory Tests Test 06/05/21 09:40 06/06/21 04:55 Hemoglobin A1c 10.6 % (4.8-5.6) Gamma Glutamyl Transpeptidase 67 U/L (5-55) Amylase Level 11 U/L (25-115) Lipase 16 U/L (73-393) Sodium Level 140 mmol/L (136-145) Potassium Level 3.2 mmol/L (3.5-5.1) Chloride Level 107 mmol/L (98-107) Carbon Dioxide Level 24 mmol/L (21-32) Anion Gap 9 (6-14) Blood Urea Nitrogen 36 mg/dL (7-20) Creatinine 2.6 mg/dL (0.6-1.0) Estimated GFR (Cockcroft-Gault) 20.5 Glucose Level 134 mg/dL (70-99) Calcium Level 7.6 mg/dL (8.5-10.1) Total Bilirubin 0.4 mg/dL (0.2-1.0) Direct Bilirubin 0.1 mg/dL (0.0-0.2) Aspartate Amino Transf (AST/SGOT) 87 U/L (15-37) Alanine Aminotransferase (ALT/SGPT) 102 U/L (14-59) Alkaline Phosphatase 516 U/L (46-116) Total Protein 4.7 g/dL (6.4-8.2) Albumin 1.1 g/dL (3.4-5.0) Results All relevant outside records, renal labs, imaging studies, telemetry/EKG's were reviewed. Justicifation of Admission Dx: Justifications for Admission: Justification of Admission Dx: N/A SHERYL VENCES MD Jun 06, 2021 08:57
[2021-06-06 11:00] VITALS: BP 135/92
--- NOTE | 2021-06-06 11:21 | PDOC ---
Date of Service: DATE: 06/06/21 TIME: 11:12 Subjective: Subjective: Dry heaves this morning - hasn't eaten. Upper abdominal pain after eating. 3-4 stools today. Says not taking pantoprazole at home because insurance doesn't cover. Objective: Objective: D/w nurse - C Diff sent, possible DC tomorrow. ?h/o hyperparathyroidism - can't see has ever had PTH here Vital Signs: Vital Signs Date Time Temp Pulse Resp B/P (MAP) Pulse Ox O2 Delivery O2 Flow Rate FiO2 06/06/21 10:28 20 97 Room Air 06/06/21 07:00 98.0 86 132/81 (98) 98.0 Labs: Laboratory Tests Test 06/06/21 04:55 Sodium Level 140 mmol/L Potassium Level 3.2 mmol/L Chloride Level 107 mmol/L Carbon Dioxide Level 24 mmol/L Anion Gap 9 Blood Urea Nitrogen 36 mg/dL Creatinine 2.6 mg/dL Estimated GFR (Cockcroft-Gault) 20.5 Glucose Level 134 mg/dL Calcium Level 7.6 mg/dL Total Bilirubin 0.4 mg/dL Direct Bilirubin 0.1 mg/dL Aspartate Amino Transf (AST/SGOT) 87 U/L Alanine Aminotransferase (ALT/SGPT) 102 U/L Alkaline Phosphatase 516 U/L Total Protein 4.7 g/dL Albumin 1.1 g/dL Imaging: CT A/P 05/25 IMPRESSION: 1. Limited exam without evidence of acute intra-abdominal abnormality 2. Small amount of free fluid in the abdomen and pelvis, with peritoneal dialysis catheter in place 3. Small right pleural effusion with basilar atelectasis 4. Changes of chronic pancreatitis 5. 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 Possible bladder wall thickening and subtle decompressed bladder. Consider correlation with urinalysis to exclude cystitis. PE: GEN: thin, appears chronically ill LUNGS: CTAB HEART: RRR ABD: discomfort upper abd NEURO/PSYCH: A & O 3 A/P: Nausea, upper abd pain, poor appetite Abnormal LFTs - improved some from admission - has chronically elevated Alk Phos, bit worse currently Chronic ACD/POLLO GERD, h/o PUD, intermittent solid-food dysphagia, chronic diarrhea, h/o C Diff, chronic pancreatitis NICM/CHF, ESRD, ?hyperparathyroidism, DM (A1c >10) -- CT unrevealing for acute issue. N/v and and abd pain likely multi-factorial - h/o GERD/non-compliant w/ PPI, poorly controlled DM w/ suspected delayed gastric emptying on narcotics, chronic pancreatitis. LFTs bit worse today, GGT only mildly elevated. Will review additional recs w/ Dr. Rodriguez. Await C Diff. Not sure about dysphagia today because not eating. Consider esophagram. Resuming PPI could help as well. When discharged, would send w/ PPI Rx - could try omeprazole since pantoprazole not covered. Justicifation of Admission Dx: Justifications for Admission: Justification of Admission Dx: N/A NELIDA CRUZ Jun 06, 2021 11:21
[2021-06-06] MEDS: POTASSIUM CHLORIDE 20 MEQ TABLET.ER. PO SCH (12:55)
[2021-06-06 15:00] VITALS: BP 129/87
--- NOTE | 2021-06-06 15:43 | NUR ---
SS following up with discharge planning. SS reviewed pt chart and discussed with pt RN. Pt is currently on room air. Pt has Peritoneal dialysis at home. GI following. Pt having nausea and vomiting. PT/OT ordered. PT recommended home. SS will continue to follow for discharge planning.
[2021-06-06 19:00] VITALS: BP 145/93
[2021-06-06] MEDS: INSULIN GLARGINE SYRINGE. SQ SCH (21:00)
--- NOTE | 2021-06-06 22:06 | NUR ---
PD cath in upper, right chest Checked her own blood glucose-90, refuses Theodore
[2021-06-06 23:00] VITALS: BP 118/80
[2021-06-07] MEDS: MORPHINE SULFATE 2 MG/ML INJ. IVP PRN ×7 (02:26→20:33)
[2021-06-07 03:00] VITALS: BP 122/83
[2021-06-07] MEDS: LEVOTHYROXINE 125 MCG TABLET PO SCH (05:38)
[2021-06-07 07:00] VITALS: BP 95/63
--- NOTE | 2021-06-07 08:26 | PDOC ---
Infectious Disease Note Subjective: Subjective Pt continues to have nausea, diarrhea abdominal pain,latter 2 are chronic Did not eat breakfast this morning Rt 4th toe is getting better Vital Signs: Vital Signs Vital Signs Date Time Temp Pulse Resp B/P (MAP) Pulse Ox O2 Delivery O2 Flow Rate FiO2 06/07/21 07:00 99.2 98 16 95/63 (74) 97 Room Air 99.2 Physical Exam: PHYSICAL EXAM GENERAL: Thin, frail-appearing female in no acute distress, appears comfortable, sitting, propped up in bed, alert, awake, oriented x 3. HEENT: Normocephalic, atraumatic. Anicteric. No thrush. NECK: Supple. LUNGS: Clear bilaterally. HEART: S1, S2. ABDOMEN: Soft, nontender, nondistended. EXTREMITIES: Warm, dry, no generalized rash. There is a dry eschar present over the right 4th dorsal toe, improving. Slight redness, no warmth, no decrease in range of motion. No underlying fluctuance. NEUROLOGIC: Alert and oriented x 3, grossly nonfocal. PSYCHIATRIC: Calm and cooperative. HDC catheter clean. Medications: Inpatient Meds: Medications reviewed. Objective: Assessment: 1. Orthostatic hypotension a week prior to admission, improving slowly. 2. Right toe infection, improving. Completed Keflex a week ago. Continue local treatment. Stable per wound team. 3. End-stage renal disease, recently started on peritoneal dialysis from hemodialysis. 4. Type 1 diabetes. 5. Abnormal liver function tests. 6. Chronic abdominal pain and diarrhea and poor appetite. 7. Gastroesophageal reflux disease. 8. History of Clostridium difficile. 9. Chronic pancreatitis. 10. Nonischemic cardiomyopathy/congestive heart failure. Plan: Plan of Care 1. Patient does not need further antibiotics at this time as rt 4th toe wound is healing without any evidence of ongoing infection at this time. 2. Continue local wound care as directed. 3. Pain control per primary. 4. PT and OT as tolerated. 5.Maintain aspiration precautions Discussed with nursing staff LISA BHAKTA MD Jun 07, 2021 08:26
--- NOTE | 2021-06-07 08:35 | PN ---
DATE: 06/06/2021 LOCATION: She is in room 548. SUBJECTIVE: This 41-year-old female remains hospitalized with severe orthostasis hypotension with falls and inability to do self care and is improving in all these regards. She now is complaining mainly bitterly of upper abdominal pain and inability to eat lunch, retching and vomiting. Amylase and lipase were checked and normal. CT scan showed no acute findings, but chronic pancreatitis. OBJECTIVE: VITAL SIGNS: Stable. She is afebrile. Blood pressures are definitely better. She has ongoing peritoneal dialysis. CHEST: Clear. HEART: Regular. ABDOMEN: With epigastric tenderness. EXTREMITIES: Without cyanosis, clubbing, edema. Her right ____ top of right foot. IMPRESSION: 1. Orthostasis improving. 2. Diabetes. 3. End-stage renal disease, on peritoneal dialysis. 4. Abdominal pain with GI involved. 5. Right foot problems as above. PLAN: Continue present care, would like to be able to discharge as soon as tomorrow ____ abdominal pain and walking around the room well. FRED/SRI DR: Anastacio TID: [id number]
[2021-06-07] MEDS: PANTOPRAZOLE 40 MG TABLET.DR. PO SCH (08:37)
[2021-06-07] MEDS: SEVELAMER CARBONATE 800 MG TABLET. PO SCH ×3 (08:37→17:36)
[2021-06-07] MEDS: LIPASE/PROTEAS/AMYLAS 10/32/42 CAPSULE.DR. PO SCH ×3 (08:37→17:36)
[2021-06-07] MEDS: FUROSEMIDE 40 MG TABLET. PO SCH ×2 (08:38→17:36)
[2021-06-07] MEDS: POTASSIUM CHLORIDE 20 MEQ TABLET.ER. PO SCH (08:38)
[2021-06-07] MEDS: FOLIC/VIT B COMP W-C (RENAL) TABLET. PO SCH (08:38)
--- NOTE | 2021-06-07 08:50 | PDOC ---
DATE OF SERVICE DATE: 06/07/21 TIME: 08:48 SUBJECTIVE ROS c/o Nausea and Vomiting States she is still on Renal diet OBJECTIVE Vital Signs Vital Signs Date Time Temp Pulse Resp B/P (MAP) Pulse Ox O2 Delivery O2 Flow Rate FiO2 06/07/21 08:35 Room Air 06/07/21 07:00 99.2 98 16 95/63 (74) 97 99.2 I & 0 Intake and Output 06/07/21 07:00 Intake Total 300 ml Output Total 200 ml Balance 100 ml Intake Oral 300 ml Output Urine Total 150 ml Emesis 50 ml # Voids 4 # Bowel Movements 4 PHYSICAL EXAM Physical Exam GENERAL: NAD HEENT: OM moist NECK: Supple. LUNGS: CTA, Non labored HEART: S1 and S2, regular. ABDOMEN: Soft, PD catheter + SKIN: Warm to touch. NEUROLOGIC: awake , alert DIAGNOSIS/ASSESSMENT Assessment & Plan ESRD - On Dialysis, switched from HD to PD recently ; Tolerating well. Hold Off PD tonight 2/2 N/V Have been using 1.5% Dianeal , discussed plan with debt recovery officer Nausea/Vomiting - GI following . CT abdomen Unremarkable Syncope POA Hypotension- BP improved Anemia-No Indication for TESFAYE DM I Right Toe Wound- Per Primary HypoKalemia- On PO KCL, Switch to normal , Non renal diet.Discussed with RN's .Per Pt still getting Renal diet Abnormal LFTs - improved some from admission - has chronically elevated Alk Phos, GI managing . CT scan abdomen Unremarkable Chronic pancreatitis - unclear cause - past ERCPs @[facility] COMMENT/RELEVANT DATA Meds Current Medications Medications (Trade) Dose Ordered Sig/Adams Start Time Stop Time Status Last Admin Dose Admin Acetaminophen/ Codeine Phosphate (Tylenol #3) 1 tab PRN Q4HRS PRN 06/01/21 20:30 06/05/21 16:37 1 TAB Alprazolam (Xanax) 0.5 mg PRN Q6HRS PRN 06/01/21 20:30 06/05/21 11:13 0.5 MG Amylase/Lipase/ Protease (Zenpep 10,000) 2 cap TIDWMEALS 06/05/21 12:00 06/07/21 08:37 2 CAP Furosemide (Lasix) 40 mg [id number] 06/02/21 09:00 06/07/21 08:38 40 MG Gentamicin Sulfate (Garamycin) 1 richy DAILY 06/03/21 10:00 06/06/21 08:54 1 RICHY Insulin Glargine (Lantus Syringe) 4 unit QHS 06/01/21 21:00 Levothyroxine Sodium (Synthroid) 125 mcg DAILY06 06/02/21 06:00 06/07/21 05:38 125 MCG Morphine Sulfate (Morphine Sulfate) 2 mg PRN Q2HR PRN 06/05/21 18:30 06/07/21 08:35 2 MG Multi-Ingredient Mouthwash/Gargle (Gi Cocktail) 20 ml PRN QID PRN 06/05/21 09:15 Ondansetron HCl (Zofran Odt) 4 mg PRN Q8HRS PRN 06/01/21 20:30 06/06/21 15:30 4 MG Ondansetron HCl (Zofran) 4 mg 1X ONCE 06/01/21 15:00 06/01/21 15:01 DC 06/01/21 16:36 4 MG Pantoprazole Sodium (Protonix) 40 mg DAILYAC 06/05/21 09:15 06/07/21 08:37 40 MG Potassium Chloride (Klor-Con) 20 meq [id number] 06/06/21 13:00 06/07/21 08:38 20 MEQ Sevelamer Carbonate (Renvela) 800 mg TIDWMEALS 06/02/21 08:00 06/07/21 08:37 800 MG Sodium Chloride 1,000 ml @ 1,000 mls/hr 1X ONCE 06/01/21 14:45 06/01/21 15:44 DC 06/01/21 16:37 1,000 MLS/HR Vitamin B Complex/ Vitamin C (Neisha-Yari) 1 tab DAILY 06/04/21 16:00 06/07/21 08:38 1 TAB Results All relevant outside records, renal labs, imaging studies, telemetry/EKG's were reviewed. Justicifation of Admission Dx: Justifications for Admission: Justification of Admission Dx: N/A SHERYL VENCES MD Jun 07, 2021 08:50
--- NOTE | 2021-06-07 09:31 | PDOC ---
Date of Service: DATE: 06/07/21 TIME: 09:20 Subjective: Subjective: Hasn't tried eating yet. Had some liquids yesterday, also a lot of retching. Epigastric pain - stabbing - through to back. Worse w/ eating. Says pain meds changed to IV. We talked about adverse effects of narcotics - she says she doesn't experience this. Denies dysphagia - but again says she only had liquids. Diarrhea is better. GI cocktail makes her sick. Objective: Vital Signs: Vital Signs Date Time Temp Pulse Resp B/P (MAP) Pulse Ox O2 Delivery O2 Flow Rate FiO2 06/07/21 08:35 Room Air 06/07/21 07:00 99.2 98 16 95/63 (74) 97 99.2 PE: GEN: appears chronically ill LUNGS: CTAB HEART: RRR ABD: NABS, S/ND/NT NEURO/PSYCH: A & O 3 A/P: Retching, chronic upper abd pain - CT unrevealing for acute issue Abnormal LFTs/Alk Phos - ESRD, ?hyperparathyroidism Chronic ACD/POLLO - checked 06/03 GERD, h/o PUD, chronic diarrhea, h/o C Diff, chronic pancreatitis (unclear cause) DM (A1c >10) -- Going to try eating - await this. Possible DC tomorrow per primary. Suspect chronic abd pain and n/v are multi-factorial w/ multiple health problems. We can continue workup as outpt w/ labs for autoimmune disease, MRCP, EGD, and colonoscopy. May also consider GES though expect this would show delayed emptying considering A1c >10. C Diff pending. Avoid narcs if possible - probably not helping n/v. Consider increasing PPI to BID if okay w/ nephrology. Continue pancreatic enzymes. Trial of empiric prokinetic not ideal (erythromycin w/ h/o C Diff, Reglan w/ renal disease and risk of other adverse effects). Difficult situation. Justicifation of Admission Dx: Justifications for Admission: Justification of Admission Dx: N/A NELIDA CRUZ Jun 07, 2021 09:31
[2021-06-07 11:00] VITALS: BP 108/63
[2021-06-07] MEDS: GENTAMICIN 0.1% TOPICAL OINTMENT 15GM TUBE. TP SCH (11:53)
[2021-06-07 13:14] LABS: CALCIUM 7.8 mg/dL (8.5-10.1); CREATININE 2.7 mg/dL (0.6-1.0); GFR 19.6
--- NOTE | 2021-06-07 13:19 | NUR ---
SS following up with discharge planning. SS reviewed pt chart and discussed with pt RN. Pt is currently on room air. Pt has Peritoneal Dialysis at home. PT recommended home. Pt having nausea and vomiting. CDIFF pending. GI, Nephrology, and ID following. Discharge plan is currently to home when medically ready for discharge. SS will continue to follow for discharge planning.
[2021-06-07 15:00] VITALS: BP 127/86
[2021-06-07] MEDS: VANCOMYCIN 125 MG/2.5 ML ORAL SOLUTION. PO SCH ×2 (17:36→23:39)
[2021-06-07] MEDS: ONDANSETRON ODT 4 MG TAB.RAPDIS. PO PRN (17:37)
--- NOTE | 2021-06-07 17:42 | NUR ---
Patient scanned glucose sensor- blood glucose 101.
--- NOTE | 2021-06-07 18:08 | NUR ---
Orthostatic bp's done by PT- approximately 1500- lying 113/82, hr 87, sitting 103/76, standing 76/52, then back to lying 110/79 hr 92.
[2021-06-07 19:00] VITALS: BP 142/94
[2021-06-07] MEDS: INSULIN GLARGINE SYRINGE. SQ SCH ×2 (21:00→23:41)
--- NOTE | 2021-06-07 21:37 | PN ---
DATE: 06/07/2021 DAILY PROGRESS NOTE LOCATION: She is in room 548. SUBJECTIVE: This 41-year-old female remains hospitalized with ongoing symptoms from orthostatic hypotension. Blood pressure medicines are on hold and her blood pressures overall look better, but she tells me on the morning of this visit, when she got up to go to the bedside commode this morning, she felt like she would pass out. She is also complaining of ongoing abdominal pain and inability to eat, retching with vomiting. OBJECTIVE: VITAL SIGNS: Stable. She is afebrile. Blood pressure is definitely better. GENERAL: She is receiving ongoing peritoneal dialysis and these symptoms seemed to have started since the institution of the same and wonder if there would be any thought from renally going back to hemodialysis would improve this at all. CHEST: Clear. HEART: Regular. ABDOMEN: With ongoing epigastric tenderness. ASSESSMENT: 1. Orthostasis, improved, but still very symptomatic. 2. Diabetes. 3. End-stage renal disease, on peritoneal dialysis. 4. Abdominal pain, with GI involved on the case. PLAN: Continue present care. I would like to discharge, but cannot see a way to do so at this point in time with her inability to take p.o. as well as walk around the room. MARCELA DR: Anastacio TID: [id number]
[2021-06-07 23:00] VITALS: BP 125/77
[2021-06-08] MEDS: MORPHINE SULFATE 2 MG/ML INJ. IVP PRN ×8 (02:04→21:43)
[2021-06-08 03:00] VITALS: BP 112/76
[2021-06-08 07:00] VITALS: BP 115/78
[2021-06-08] MEDS: FOLIC/VIT B COMP W-C (RENAL) TABLET. PO SCH (08:12)
[2021-06-08] MEDS: PANTOPRAZOLE 40 MG TABLET.DR. PO SCH (08:12)
[2021-06-08] MEDS: SEVELAMER CARBONATE 800 MG TABLET. PO SCH ×3 (08:12→17:24)
[2021-06-08] MEDS: LIPASE/PROTEAS/AMYLAS 10/32/42 CAPSULE.DR. PO SCH ×3 (08:12→17:24)
[2021-06-08] MEDS: FUROSEMIDE 40 MG TABLET. PO SCH ×2 (08:13→16:28)
[2021-06-08] MEDS: POTASSIUM CHLORIDE 20 MEQ TABLET.ER. PO SCH (08:13)
[2021-06-08] MEDS: LEVOTHYROXINE 125 MCG TABLET PO SCH (08:13)
[2021-06-08] MEDS: VANCOMYCIN 125 MG/2.5 ML ORAL SOLUTION. PO SCH ×4 (08:13→19:52)
--- NOTE | 2021-06-08 08:38 | NUR ---
IP: Pt is C.diff + requiring contact plus precautions using brown sign.
[2021-06-08] MEDS: GENTAMICIN 0.1% TOPICAL OINTMENT 15GM TUBE. TP SCH (09:00)
--- NOTE | 2021-06-08 09:13 | PDOC ---
Infectious Disease Note Subjective: Subjective Pt continues to have nausea, diarrhea abdominal pain,latter 2 are chronic Did not eat breakfast this morning Rt 4th toe is getting better Vital Signs: Vital Signs Vital Signs Date Time Temp Pulse Resp B/P (MAP) Pulse Ox O2 Delivery O2 Flow Rate FiO2 06/08/21 08:30 Room Air 06/08/21 08:16 96 06/08/21 07:00 97.9 73 18 115/78 (90) 97.9 Physical Exam: PHYSICAL EXAM GENERAL: Thin, frail-appearing female in no acute distress, appears comfortable, sitting, propped up in bed, alert, awake, oriented x 3. HEENT: Normocephalic, atraumatic. Anicteric. No thrush. NECK: Supple. LUNGS: Clear bilaterally. HEART: S1, S2. ABDOMEN: Soft, nontender, nondistended. EXTREMITIES: Warm, dry, no generalized rash. There is a dry eschar present over the right 4th dorsal toe, improving. Slight redness, no warmth, no decrease in range of motion. No underlying fluctuance. NEUROLOGIC: Alert and oriented x 3, grossly nonfocal. PSYCHIATRIC: Calm and cooperative. HDC catheter clean. Medications: Inpatient Meds: Medications reviewed. Labs: Lab Laboratory Tests Test 06/07/21 12:50 Sodium Level 139 mmol/L (136-145) Potassium Level 4.0 mmol/L (3.5-5.1) Chloride Level 107 mmol/L (98-107) Carbon Dioxide Level 23 mmol/L (21-32) Anion Gap 9 (6-14) Blood Urea Nitrogen 35 mg/dL (7-20) Creatinine 2.7 mg/dL (0.6-1.0) Estimated GFR (Cockcroft-Gault) 19.6 Glucose Level 87 mg/dL (70-99) Calcium Level 7.8 mg/dL (8.5-10.1) Objective: Assessment: 1. Orthostatic hypotension a week prior to admission, improving slowly. 2. Right toe infection, improving. Completed Keflex a week ago. Continue local treatment. Stable per wound team. 3. End-stage renal disease, recently started on peritoneal dialysis from hemodialysis. 4. Type 1 diabetes. 5. Abnormal liver function tests. 6. Chronic abdominal pain and diarrhea and poor appetite. C. difficile toxin gene positive , 7. Gastroesophageal reflux disease. 8. History of Clostridium difficile. 9. Chronic pancreatitis. 10. Nonischemic cardiomyopathy/congestive heart failure. 11. History of nausea, Plan: Plan of Care Start p.o. vancomycin 1. Patient does not need further antibiotics at this time as rt 4th toe wound is healing without any evidence of ongoing infection at this time. 2. Continue local wound care as directed. 3. Pain control per primary. 4. PT and OT as tolerated. 5.Maintain aspiration precautions Discussed with nursing staff LISA BHAKTA MD Jun 08, 2021 09:13
--- NOTE | 2021-06-08 09:51 | PDOC ---
Date of Service: DATE: 06/08/21 TIME: 09:45 Subjective: Subjective: Eating potatoes and pancakes. Reports some upper abd pain after eating. Diarrhea is better. Says the kitchen kept getting her diet order wrong. Wants foods with potassium because that has helped diarrhea in the past. Might get to go home tomorrow. Objective: Objective: Nurse called yesterday afternoon - lab called w/ +C Diff (though this is hard to tell from chart). Vital Signs: Vital Signs Date Time Temp Pulse Resp B/P (MAP) Pulse Ox O2 Delivery O2 Flow Rate FiO2 06/08/21 08:30 Room Air 06/08/21 08:16 96 06/08/21 07:00 97.9 73 18 115/78 (90) 97.9 Labs: Laboratory Tests Test 06/07/21 12:50 Sodium Level 139 mmol/L Potassium Level 4.0 mmol/L Chloride Level 107 mmol/L Carbon Dioxide Level 23 mmol/L Anion Gap 9 Blood Urea Nitrogen 35 mg/dL Creatinine 2.7 mg/dL Estimated GFR (Cockcroft-Gault) 19.6 Glucose Level 87 mg/dL Calcium Level 7.8 mg/dL PE: GEN: thin, chronically ill, appears much older than stated age LUNGS: CTAB HEART: RRR ABD: PD cath, epigastric tenderness NEURO/PSYCH: A & O 3 A/P: Recurrent C Diff Chronic upper abdominal pain, nausea Abnormal LFTs/Alk Phos w/ ESRD and ?hyperparathyroidism Chronic ACD/POLLO, DM (A1c >10) H/o GERD, PUD, chronic diarrhea, chronic pancreatitis (unclear cause) -- Better today - eating some. Started vanco for C Diff yesterday afternoon. ID also following. DC per primary. Justicifation of Admission Dx: Justifications for Admission: Justification of Admission Dx: N/A NELIDA CRUZ Jun 08, 2021 09:51
[2021-06-08 11:00] VITALS: BP 127/78
--- NOTE | 2021-06-08 13:13 | PDOC ---
DATE OF SERVICE: DOS: DATE: 06/08/21 TIME: 13:10 SUBJECTIVE ROS Follow-up for ESRD on peritoneal dialysis Patient does continue to have some amount of diarrhea but is feeling well overall CVS: no Orthopnea, no CP RESP: no SOB, no AMAYA GI: no Nausea, no Vomiting : no Dysuria, no Urgency OBJECTIVE Vital Signs Vital Signs Date Time Temp Pulse Resp B/P (MAP) Pulse Ox O2 Delivery O2 Flow Rate FiO2 06/08/21 12:56 Room Air 06/08/21 12:17 96 06/08/21 11:00 97.6 73 17 127/78 (94) 97.6 I & 0 Intake and Output 06/08/21 07:00 Intake Total 600 ml Balance 600 ml Intake Oral 600 ml # Voids 1 # Bowel Movements 1 PHYSICAL EXAM Physical Exam GEN: Awake, Oriented x 3, In no distress EYES: Vision Unchanged, Conjunctiva Normal EN: No EN Drainage, Mucous Membranes moist NECK: no JVD, no JVP, Supple, no Thyromegaly CVS: S1S2, possible soft murmur, No Gallop, No Rub,no Edema RESP: no Rales, no Rhonchi,no Acc. Muscle Use GI: BS + ve, NO Bruit, Non Tender, Non Distended : no CVA tenderness, no Suprapubic Tenderness DIAGNOSIS/ASSESSMENT Assessment & Plan ESRD: Current fluid and E-lyte status does not necessitate emergent need for dialysis. Will transition to hemodialysis in the am and continue until diarrhea resolves C. difficile colitis: Transition to hemodialysis for the time being, resume PD once C. difficile resolved. Hemodynamics adequate and hence no IV fluids were ordered Low potassium not corrected Poorly controlled diabetes Severe hypoalbuminemia: Transitioning to hemodialysis may help with rebuilding her nutritional status also. TPN can be considered ANEMIA; hemoglobin currently 12 hence no EPO was ordered Hyperphosphatemia of renal failure: Follow trend for now Discussed Plan of Care with patient at bedside patient agreeable to transitioning to hemodialysis for now Okay to discharge from renal standpoint once adequately treated from the C. difficile standpoint. Will need arrangements for outpatient hemodialysis for approximately the next month to 6 weeks COMMENT/RELEVANT DATA Meds Current Medications Medications (Trade) Dose Ordered Sig/Adams Start Time Stop Time Status Last Admin Dose Admin Acetaminophen/ Codeine Phosphate (Tylenol #3) 1 tab PRN Q4HRS PRN 06/01/21 20:30 06/05/21 16:37 1 TAB Alprazolam (Xanax) 0.5 mg PRN Q6HRS PRN 06/01/21 20:30 06/05/21 11:13 0.5 MG Amylase/Lipase/ Protease (Zenpep 10,000) 2 cap TIDWMEALS 06/05/21 12:00 06/08/21 12:15 2 CAP Furosemide (Lasix) 40 mg [id number] 06/02/21 09:00 06/08/21 08:13 40 MG Gentamicin Sulfate (Garamycin) 1 richy DAILY 06/03/21 10:00 06/07/21 11:53 1 RICHY Insulin Glargine (Lantus Syringe) 4 unit QHS 06/01/21 21:00 Lactobacillus Rhamnosus (Culturelle) 1 cap BID 06/08/21 21:00 Levothyroxine Sodium (Synthroid) 125 mcg DAILY06 06/02/21 06:00 06/08/21 08:13 125 MCG Morphine Sulfate (Morphine Sulfate) 2 mg PRN Q2HR PRN 06/05/21 18:30 06/08/21 12:56 2 MG Multi-Ingredient Mouthwash/Gargle (Gi Cocktail) 20 ml PRN QID PRN 06/05/21 09:15 Ondansetron HCl (Zofran Odt) 4 mg PRN Q8HRS PRN 06/01/21 20:30 06/07/21 17:37 4 MG Ondansetron HCl (Zofran) 4 mg 1X ONCE 06/01/21 15:00 06/01/21 15:01 DC 06/01/21 16:36 4 MG Pantoprazole Sodium (Protonix) 40 mg DAILYAC 06/05/21 09:15 06/08/21 08:12 40 MG Potassium Chloride (Klor-Con) 20 meq DAILYWBKFT 06/06/21 13:00 06/08/21 08:13 20 MEQ Sevelamer Carbonate (Renvela) 800 mg TIDWMEALS 06/02/21 08:00 06/08/21 12:15 800 MG Sodium Chloride 1,000 ml @ 1,000 mls/hr 1X ONCE 06/01/21 14:45 06/01/21 15:44 DC 06/01/21 16:37 1,000 MLS/HR Vancomycin HCl (Vancomycin Oral Solution) 125 mg [id number] 06/07/21 17:00 06/08/21 12:15 125 MG Vitamin B Complex/ Vitamin C (Neisha-Yari) 1 tab DAILY 06/04/21 16:00 06/08/21 08:12 1 TAB Results All relevant outside records, renal labs, imaging studies, telemetry/EKG's were reviewed. Justicifation of Admission Dx: Justifications for Admission: Justification of Admission Dx: N/A HANNAH BHAKTA MD Jun 08, 2021 13:13
[2021-06-08 15:00] VITALS: BP 145/95
[2021-06-08 19:00] VITALS: BP 116/83
[2021-06-08] MEDS: INSULIN GLARGINE SYRINGE. SQ SCH (21:00)
--- NOTE | 2021-06-08 21:22 | PN ---
DATE: 06/08/2021 DAILY PROGRESS NOTE LOCATION: She is in room 548. SUBJECTIVE: This 41-year-old white female remains hospitalized with orthostatic hypotension. Blood pressure medicines are on hold and her blood pressures overall looks better and she apparently is some better today by reading other consultants' notes. Diarrhea has definitely slowed down and overall she is feeling somewhat better. OBJECTIVE: VITAL SIGNS: Stable. She is afebrile. CHEST: Clear. HEART: Regular. ABDOMEN: With some epigastric tenderness. She has returned as C. diff positive. IMPRESSION: 1. Orthostasis has improved. 2. Diabetes. 3. End-stage renal disease, was transitioned back to hemodialysis for the time being per renal, abdominal pain with GI involved. PLAN: Continue present care. Hopefully with her at least eating something today, we could consider discharge as soon as tomorrow. AUGUSTINA DR: nAastacio TID: [id number]
[2021-06-08] MEDS: ALPRAZolam 0.5 MG TABLET PO PRN (21:37)
[2021-06-08] MEDS: LACTOBACILLUS RHAMNOSUS GG 1 CAPSULE. PO SCH (21:37)
[2021-06-08 23:00] VITALS: BP 101/73
[2021-06-09 03:09] VITALS: BP 108/74
[2021-06-09] MEDS: LEVOTHYROXINE 125 MCG TABLET PO SCH (06:12)
[2021-06-09 07:00] VITALS: BP 100/74
[2021-06-09] MEDS: LACTOBACILLUS RHAMNOSUS GG 1 CAPSULE. PO SCH ×2 (07:20→21:36)
[2021-06-09] MEDS: PANTOPRAZOLE 40 MG TABLET.DR. PO SCH (07:20)
[2021-06-09] MEDS: FOLIC/VIT B COMP W-C (RENAL) TABLET. PO SCH (07:20)
[2021-06-09] MEDS: FUROSEMIDE 40 MG TABLET. PO SCH ×2 (07:21→17:40)
[2021-06-09] MEDS: SEVELAMER CARBONATE 800 MG TABLET. PO SCH ×3 (07:21→17:38)
[2021-06-09] MEDS: MORPHINE SULFATE 2 MG/ML INJ. IVP PRN ×4 (07:21→21:35)
[2021-06-09] MEDS: POTASSIUM CHLORIDE 20 MEQ TABLET.ER. PO SCH (07:21)
[2021-06-09] MEDS: LIPASE/PROTEAS/AMYLAS 10/32/42 CAPSULE.DR. PO SCH ×3 (07:21→17:39)
--- NOTE | 2021-06-09 08:23 | PDOC ---
Infectious Disease Note Subjective: Subjective Patient complains of not feeling well as she is going back on HD Diarrhea has improved somewhat Continues to have nausea which is chronic with abdominal discomfort which comes and goes Tolerated meals well yesterday as they were adjusted Right foot toe is stable Vital Signs: Vital Signs Vital Signs Date Time Temp Pulse Resp B/P (MAP) Pulse Ox O2 Delivery O2 Flow Rate FiO2 06/09/21 07:00 97.4 98 16 100/74 (83) 94 Room Air 97.4 Physical Exam: PHYSICAL EXAM GENERAL: Thin, frail-appearing female in no acute distress, appears comfortable, sitting, propped up in bed, alert, awake, oriented x 3. HEENT: Normocephalic, atraumatic. Anicteric. No thrush. NECK: Supple. LUNGS: Clear bilaterally. HEART: S1, S2. ABDOMEN: Soft, nontender, nondistended. EXTREMITIES: Warm, dry, no generalized rash. There is a dry eschar present over the right 4th dorsal toe, improving. Slight redness, no warmth, no decrease in range of motion. No underlying fluctuance. NEUROLOGIC: Alert and oriented x 3, grossly nonfocal. PSYCHIATRIC: Calm and cooperative. HDC catheter clean. Medications: Inpatient Meds: Medications reviewed. Objective: Assessment: 1. Orthostatic hypotension a week prior to admission, improving slowly. 2. Right toe infection, improving. Completed Keflex a week ago. Continue local treatment. Stable per wound team. 3. End-stage renal disease, recently started on peritoneal dialysis from hemodialysis. 4. Type 1 diabetes. 5. Abnormal liver function tests. 6. Chronic abdominal pain and diarrhea and poor appetite. C. difficile toxin gene positive , 7. Gastroesophageal reflux disease. 8. History of Clostridium difficile. 9. Chronic pancreatitis. 10. Nonischemic cardiomyopathy/congestive heart failure. 11. History of nausea, Plan: Plan of Care Continue p.o. vancomycin 1. Patient does not need further antibiotics at this time for rt 4th toe wound which is healing without any evidence of ongoing infection at this time. 2. Continue local wound care as directed. 3. Pain control per primary. 4. PT and OT as tolerated. 5.Maintain aspiration precautions Discussed with nursing staff LISA BHAKTA MD Jun 09, 2021 08:23
[2021-06-09] MEDS: GENTAMICIN 0.1% TOPICAL OINTMENT 15GM TUBE. TP SCH (09:00)
[2021-06-09] MEDS: VANCOMYCIN 125 MG/2.5 ML ORAL SOLUTION. PO SCH ×4 (09:30→21:35)
--- NOTE | 2021-06-09 10:07 | PDOC ---
DATE OF SERVICE: DOS: DATE: 06/09/21 TIME: 10:03 SUBJECTIVE ROS Follow-up for ESRD on peritoneal dialysis, now transitioning to hemodialysis Patient initially refused heme dialysis this morning, nausea vomiting diarrhea has improved. She is able to take some food by mouth now CVS: no Orthopnea, no CP RESP: no SOB, no AMAYA GI: no Nausea, no Vomiting : no Dysuria, no Urgency OBJECTIVE Vital Signs Vital Signs Date Time Temp Pulse Resp B/P (MAP) Pulse Ox O2 Delivery O2 Flow Rate FiO2 06/09/21 07:00 97.4 98 16 100/74 (83) 94 Room Air 97.4 I & 0 Intake and Output 06/09/21 07:00 Intake Total 440 ml Output Total 0 ml Balance 440 ml Intake Oral 440 ml Output Urine Total 0 ml # Voids 3 # Bowel Movements 1 PHYSICAL EXAM Physical Exam GEN: Awake, Oriented x 3, In no distress, thin cachectic white female EYES: Vision Unchanged, Conjunctiva Normal EN: No EN Drainage, Mucous Membranes moist NECK: no JVD, no JVP, Supple, no Thyromegaly CVS: S1S2, possible soft murmur, No Gallop, No Rub,no Edema RESP: no Rales, no Rhonchi,no Acc. Muscle Use GI: BS + ve, NO Bruit, Non Tender, Non Distended : no CVA tenderness, no Suprapubic Tenderness DIAGNOSIS/ASSESSMENT Assessment & Plan ESRD: Proceed with hemodialysis as ordered C. difficile colitis: Transition to hemodialysis for the time being, resume PD once C. difficile resolved. Low potassium: Now corrected. Will liberalize diet for the time being Poorly controlled diabetes: Defer to Dr. Vivar Severe hypoalbuminemia: Transitioning to hemodialysis may help with rebuilding her nutritional status also. TPN can be considered if oral intake remains poor ANEMIA; hemoglobin currently adequate. Hence no EPO was ordered. Recheck on Friday History of hyperphosphatemia of renal failure: Follow trend for now Extensively rediscussed Plan of Care with patient at bedside patient eventually agreeable to transitioning to hemodialysis for now Okay to discharge from renal standpoint once adequately treated from the C. difficile standpoint. She would be best served on hemodialysis as outpatient for approximately the next month to 6 weeks COMMENT/RELEVANT DATA Meds Current Medications Medications (Trade) Dose Ordered Sig/Adams Start Time Stop Time Status Last Admin Dose Admin Acetaminophen/ Codeine Phosphate (Tylenol #3) 1 tab PRN Q4HRS PRN 06/01/21 20:30 06/05/21 16:37 1 TAB Alprazolam (Xanax) 0.5 mg PRN Q6HRS PRN 06/01/21 20:30 06/08/21 21:37 0.5 MG Amylase/Lipase/ Protease (Zenpep 10,000) 2 cap TIDWMEALS 06/05/21 12:00 06/09/21 07:21 2 CAP Furosemide (Lasix) 40 mg BID94 06/02/21 09:00 06/09/21 07:21 40 MG Gentamicin Sulfate (Garamycin) 1 richy DAILY 06/03/21 10:00 06/07/21 11:53 1 RICHY Insulin Glargine (Lantus Syringe) 4 unit QHS 06/01/21 21:00 Lactobacillus Rhamnosus (Culturelle) 1 cap BID 06/08/21 21:00 06/09/21 07:20 1 CAP Levothyroxine Sodium (Synthroid) 125 mcg DAILY06 06/02/21 06:00 06/09/21 06:12 125 MCG Morphine Sulfate (Morphine Sulfate) 2 mg PRN Q2HR PRN 06/05/21 18:30 06/08/21 21:43 2 MG Multi-Ingredient Mouthwash/Gargle (Gi Cocktail) 20 ml PRN QID PRN 06/05/21 09:15 Ondansetron HCl (Zofran Odt) 4 mg PRN Q8HRS PRN 06/01/21 20:30 06/07/21 17:37 4 MG Ondansetron HCl (Zofran) 4 mg 1X ONCE 06/01/21 15:00 06/01/21 15:01 DC 06/01/21 16:36 4 MG Pantoprazole Sodium (Protonix) 40 mg DAILYAC 06/05/21 09:15 06/09/21 07:20 40 MG Potassium Chloride (Klor-Con) 20 meq [id number] 06/06/21 13:00 06/09/21 07:21 20 MEQ Sevelamer Carbonate (Renvela) 800 mg TIDWMEALS 06/02/21 08:00 06/09/21 07:21 800 MG Sodium Chloride 1,000 ml @ 1,000 mls/hr 1X ONCE 06/01/21 14:45 06/01/21 15:44 DC 06/01/21 16:37 1,000 MLS/HR Vancomycin HCl (Vancomycin Oral Solution) 125 mg [id number] 06/07/21 17:00 06/09/21 09:30 125 MG Vitamin B Complex/ Vitamin C (Neisha-Yari) 1 tab DAILY 06/04/21 16:00 06/09/21 07:20 1 TAB Results All relevant outside records, renal labs, imaging studies, telemetry/EKG's were reviewed. Justicifation of Admission Dx: Justifications for Admission: Justification of Admission Dx: N/A HANNAH BHAKTA MD Jun 09, 2021 10:07
[2021-06-09] MEDS ORDERED: diphenhydrAMINE 50 MG/ML VIAL IV PRN ×2 (10:15)
[2021-06-09] MEDS ORDERED: ALBUMIN HUMAN 25% 200 ML IV ONE (10:15)
[2021-06-09] MEDS ORDERED: IV NORMAL SALINE 1000ML BAG 1,000 ML IV PRN ×2 (10:15)
--- NOTE | 2021-06-09 10:58 | PDOC ---
Provider Note Date of Service: DATE: 06/09/21 TIME: 10:56 Provider Note sleeping in dialysis- glucose ok but note of higher LFT as of 06/06- will repeat- still taking lots of morphine- on vanco for c diff- cont same , labs Justifications for Admission Other Justification JIM CEE MD Jun 09, 2021 10:58
[2021-06-09 12:29] LABS: CALCIUM 6.7 mg/dL (8.5-10.1); CREATININE 2.8 mg/dL (0.6-1.0); GFR 18.8
[2021-06-09 12:32] LABS: POTASSIUM 2.9 mmol/L (3.5-5.1)
[2021-06-09 12:35] LABS: DIRECT BILIRUBIN 0.1 mg/dL (0.0-0.2); TOTAL BILIRUBIN 0.2 mg/dL (0.2-1.0); TOTAL PROTEIN 3.6 g/dL (6.4-8.2)
[2021-06-09 15:00] VITALS: BP 114/82
--- NOTE | 2021-06-09 15:24 | NUR ---
Nurse's note: The patient was upset this morning when the dialysis nurse came and informed her that she will have an HD session this morning. She was hesitant stating that it wasn't the original plan that her doctor told her. This nurse paged Dr. Vivar at 1147 and told him of the patient's concern. Discussed with the patient the current care plan and she agreed. Critical serum K at 2.9, Dr. Kiera Lucero notified at 1367.
[2021-06-09] MEDS ORDERED: DIALYSIS PATIENT. MC PRN (18:15)
[2021-06-09 19:00] VITALS: BP_SYST 112; BP_SYST 113; BP_SYST 129; BP_DIAS 74; BP_DIAS 79; BP_DIAS 84
--- NOTE | 2021-06-09 19:00 | NUR ---
Nurse's note: Patient's glucose today via patient's sensor 65- 67, 94. She refused fingersticks.
[2021-06-09] MEDS: INSULIN GLARGINE SYRINGE. SQ SCH (21:00)
[2021-06-09 23:00] VITALS: BP 154/89
[2021-06-09 23:01] VITALS: BP 113/73
--- NOTE | 2021-06-09 23:39 | NUR ---
BG at 2139 was 148. Patient used her own sensor, refused finger stick. Refused Lantus.
--- NOTE | 2021-06-09 23:40 | NUR ---
Patient experienced fall at 2250 while getting up to bed side commode unassisted. Patient's vital signs taken, Automated Cutting Machine Operator called, Dr. Vivar called. Patient denies injury from fall. Education provided regarding using call light for assistance every time. Patient expressed understanding. Bed alarm in place.
[2021-06-10] MEDS: MORPHINE SULFATE 2 MG/ML INJ. IVP PRN ×6 (01:08→22:52)
[2021-06-10 03:31] VITALS: BP 116/74
[2021-06-10] MEDS: LEVOTHYROXINE 125 MCG TABLET PO SCH (05:41)
[2021-06-10 07:00] VITALS: BP 125/58
[2021-06-10] MEDS: GENTAMICIN 0.1% TOPICAL OINTMENT 15GM TUBE. TP SCH (09:00)
[2021-06-10] MEDS: FUROSEMIDE 40 MG TABLET. PO SCH ×2 (09:00→18:07)
[2021-06-10] MEDS ORDERED: MAGNESIUM SULFATE 2GM 50 ML IV PRN (09:15)
[2021-06-10] MEDS: VANCOMYCIN 125 MG/2.5 ML ORAL SOLUTION. PO SCH ×4 (09:24→20:05)
[2021-06-10] MEDS: LIPASE/PROTEAS/AMYLAS 10/32/42 CAPSULE.DR. PO SCH ×3 (09:25→18:06)
[2021-06-10] MEDS: POTASSIUM CHLORIDE 20 MEQ TABLET.ER. PO SCH ×2 (09:25→18:06)
[2021-06-10] MEDS: PANTOPRAZOLE 40 MG TABLET.DR. PO SCH (09:25)
[2021-06-10] MEDS: FOLIC/VIT B COMP W-C (RENAL) TABLET. PO SCH (09:25)
[2021-06-10] MEDS: LACTOBACILLUS RHAMNOSUS GG 1 CAPSULE. PO SCH ×2 (09:25→20:06)
[2021-06-10] MEDS: SEVELAMER CARBONATE 800 MG TABLET. PO SCH ×3 (09:25→18:06)
--- NOTE | 2021-06-10 10:19 | PDOC ---
Provider Note Date of Service: DATE: 06/10/21 TIME: 10:16 Provider Note vss, glucose ok, LFTs better ?- K+ low 2.9, increase dose- exam same, meds same for now Justifications for Admission Other Justification JIM CEE MD Jun 10, 2021 10:19
[2021-06-10 11:00] VITALS: BP 147/95
--- NOTE | 2021-06-10 11:31 | PDOC ---
Infectious Disease Note Subjective: Subjective Patient complained of history of fall last night when her pabernies tripped while she was attempting to go to the commode she hit her chin and left lower eyelid Denies any visual disturbances or headache Diarrhea has improved Continues to have nausea which is chronic with abdominal discomfort which comes and goes Tolerated meals well yesterday as they were adjusted Right foot toe is stable Vital Signs: Vital Signs Vital Signs Date Time Temp Pulse Resp B/P (MAP) Pulse Ox O2 Delivery O2 Flow Rate FiO2 06/10/21 10:10 19 96 Room Air 06/10/21 07:00 93.5 68 125/58 (80) 93.5 Physical Exam: PHYSICAL EXAM GENERAL: Thin, frail-appearing female in no acute distress, appears comfortable, sitting, propped up in bed, alert, awake, oriented x 3. HEENT: Normocephalic, atraumatic. Anicteric. No thrush. Chin b ruised. Bruising below left eyelid . Pupils equal reactive NECK: Supple. LUNGS: Clear bilaterally. HEART: S1, S2. ABDOMEN: Soft, nontender, nondistended. EXTREMITIES: Warm, dry, no generalized rash. There is a dry eschar present over the right 4th dorsal toe, improving. Slight redness, no warmth, no decrease in range of motion. No underlying fluctuance. NEUROLOGIC: Alert and oriented x 3, grossly nonfocal. PSYCHIATRIC: Calm and cooperative. HDC catheter clean. Medications: Inpatient Meds: Medications reviewed. Objective: Assessment: 1. Orthostatic hypotension a week prior to admission, improving slowly. 2. Right toe infection, improving. Completed Keflex a week ago. Continue local treatment. Stable per wound team. 3. End-stage renal disease, recently started on peritoneal dialysis from hemodialysis. 4. Type 1 diabetes. 5. Abnormal liver function tests. 6. Chronic abdominal pain and diarrhea and poor appetite. C. difficile toxin gene positive , 7. Gastroesophageal reflux disease. 8. History of Clostridium difficile. 9. Chronic pancreatitis. 10. Nonischemic cardiomyopathy/congestive heart failure. 11. History of nausea, History of fall with bruising over the chin and below left eyelid. No vision loss or headache Plan: Plan of Care Continue p.o. vancomycin 1. Patient does not need further antibiotics at this time for rt 4th toe wound which is healing without any evidence of ongoing infection at this time. 2. Continue local wound care as directed. 3. Pain control per primary. 4. PT and OT as tolerated. 5.Maintain aspiration precautions Discussed with nursing staff LISA BHAKTA MD Jun 10, 2021 11:31
[2021-06-10 15:00] VITALS: BP 149/87
[2021-06-10] MEDS ORDERED: DEXTROSE 50% 25 GM / 50ML DISP.SYRIN. IV PRN (16:30)
[2021-06-10] MEDS: INSULIN LISPRO 300 UNITS/3 ML VIAL. SQ SCH (17:00)
[2021-06-10 19:00] VITALS: BP 147/101
[2021-06-10] MEDS: INSULIN GLARGINE SYRINGE. SQ SCH (21:00)
--- NOTE | 2021-06-10 21:13 | NUR ---
Yolanda RN passed on to this nurse in report that low dose sliding scale insulin added to MAR and orders, low dose. Patient finished meal, used her sensor for BG which was 245. Per orders patient to receive zero units insulin at HS. Patient agreed to this and agreed to check BG at midnight. Patient also refused Lantus. Will continue to monitor.
[2021-06-10 23:00] VITALS: BP 147/100
[2021-06-11] MEDS: MORPHINE SULFATE 2 MG/ML INJ. IVP PRN ×6 (03:07→20:31)
[2021-06-11 03:09] VITALS: BP 126/74
[2021-06-11] MEDS: INSULIN LISPRO 300 UNITS/3 ML VIAL. SQ SCH ×3 (03:24→17:00)
--- NOTE | 2021-06-11 03:30 | NUR ---
Patient refused HS insulin after eating late dinner. AT 0315 patient informed this nurse she wanted her HS insulin as she had been snacking and blood glucose was 270 per her scanner. 2 units given per orders for sliding scale. Will continue to monitor.
[2021-06-11 05:59] LABS: ALBUMIN 1.9 g/dL (3.4-5.0); CALCIUM 7.1 mg/dL (8.5-10.1); GFR 27.7; PHOSPHORUS 3.6 mg/dL (2.6-4.7)
[2021-06-11] MEDS: LEVOTHYROXINE 125 MCG TABLET PO SCH (06:29)
[2021-06-11 07:00] VITALS: BP 149/92
[2021-06-11] MEDS: VANCOMYCIN 125 MG/2.5 ML ORAL SOLUTION. PO SCH ×4 (08:19→20:30)
[2021-06-11] MEDS: LACTOBACILLUS RHAMNOSUS GG 1 CAPSULE. PO SCH ×2 (08:19→20:30)
[2021-06-11] MEDS: SEVELAMER CARBONATE 800 MG TABLET. PO SCH ×3 (08:19→18:09)
[2021-06-11] MEDS: PANTOPRAZOLE 40 MG TABLET.DR. PO SCH (08:20)
[2021-06-11] MEDS: FOLIC/VIT B COMP W-C (RENAL) TABLET. PO SCH (08:20)
[2021-06-11] MEDS: POTASSIUM CHLORIDE 20 MEQ TABLET.ER. PO SCH ×2 (08:20→18:09)
[2021-06-11] MEDS: LIPASE/PROTEAS/AMYLAS 10/32/42 CAPSULE.DR. PO SCH ×3 (08:20→18:08)
[2021-06-11] MEDS: FUROSEMIDE 40 MG TABLET. PO SCH ×2 (08:21→16:00)
[2021-06-11] MEDS: GENTAMICIN 0.1% TOPICAL OINTMENT 15GM TUBE. TP SCH (09:00)
--- NOTE | 2021-06-11 09:49 | PDOC ---
Date of Service: DATE: 06/11/21 TIME: 09:44 Subjective: Subjective: Fell yesterday - thinks might have tripped over pants. Bruise on chin, mom brought makeup to cover it. Doesn't want to go to same HD location as outpt - has filed complaints there about unprofessional behavior from staff. Wants to go to same location as her boyfriend. Eating some - food was cold for breakfast so trying yogurt while awaiting another tray. No vomiting but pills and solid foods gets stuck in upper throat/neck. Diarrhea is stable. Mentions she generally does better in the afternoons - "I'm stronger then." Objective: Vital Signs: Vital Signs Date Time Temp Pulse Resp B/P (MAP) Pulse Ox O2 Delivery O2 Flow Rate FiO2 06/11/21 07:00 94.8 67 20 149/92 (111) 100 Room Air 94.8 Labs: Laboratory Tests Test 06/11/21 05:00 Hemoglobin 10.3 g/dL Sodium Level 151 mmol/L Potassium Level 3.0 mmol/L Chloride Level 112 mmol/L Carbon Dioxide Level 29 mmol/L Anion Gap 10 Blood Urea Nitrogen 24 mg/dL Creatinine 2.0 mg/dL Estimated GFR (Cockcroft-Gault) 27.7 Glucose Level 207 mg/dL Calcium Level 7.1 mg/dL Phosphorus Level 3.6 mg/dL Magnesium Level 1.9 mg/dL Albumin 1.9 g/dL PE: GEN: appears chronically ill LUNGS: CTAB HEART: RRR ABD: soft, mild upper tenderness SKIN: bruise on chin NEURO/PSYCH: A & O 3 A/P: Dysphagia Recurrent C Diff - on vanco Chronic upper abdominal pain, nausea Elevated Alk Phos (better - checked 06/09) w/ ESRD (changing from PD to HD) and ?hyperparathyroidism Chronic ACD/POLLO, DM (A1c >10) H/o GERD (restarted on PPI this admission), PUD, chronic diarrhea, chronic pancreatitis (unclear cause) Hypernatremia, hypokalemia -- Biggest GI-related concern today is dysphagia. Continue PPI and check esophagram. Justicifation of Admission Dx: Justifications for Admission: Justification of Admission Dx: N/A NELIDA CRUZ Jun 11, 2021 09:49
[2021-06-11] MEDS ORDERED: BARIUM SULFATE 60% 355 ML SUSP PO ONE (10:15)
[2021-06-11] MEDS ORDERED: SIMETHICONE/SOD BICARB/CITRIC ACID PACKET. PO ONE (10:15)
[2021-06-11] MEDS ORDERED: BARIUM SULFATE 700 MG TABLET PO ONE (10:15)
[2021-06-11] MEDS ORDERED: BARIUM SULFATE 340 GM SUSPENSION. PO ONE (10:15)
[2021-06-11 11:00] VITALS: BP 152/94
--- NOTE | 2021-06-11 11:06 | PN ---
DATE: 06/11/2021 LOCATION: She is in room 548. SUBJECTIVE: This 41-year-old female remains hospitalized with orthostatic hypotension. Blood pressures are much better at this point in time and she was able to walk across the room. Blood pressures are trending higher, but I am not ready to restart meds yet today. Diarrhea is still ongoing but has slowed down. She was able to eat somewhat better with a liberalized diet yesterday and actually had at least one sugar that was high and required some sliding scale insulin. She is wanting to do dialysis with the [facility], as she does not want to go back to [facility] as she was afraid there for some reason when she when before. OBJECTIVE: VITAL SIGNS: Stable. She is afebrile. CHEST: Clear. HEART: Regular. ABDOMEN: With mild epigastric tenderness. EXTREMITIES: Her right fourth toe appears to be healing slowly without evidence of infection. IMPRESSION: 1. Orthostasis with improvement. 2. Diabetes. 3. End-stage renal disease. 4. Clostridium difficile. 5. Chronic pancreatitis. PLAN: Continue present care. Gradually add back antihypertensives. We will have social sciences department chair check on dialysis location at discharge as I feel she is getting close to discharge once that can be arranged. MALCOLM/YOGI DR: Anastacio TID: [id number]
--- NOTE | 2021-06-11 11:16 | RAD ---
EXAMINATION: DG VIDEO SWALLOW STUDY 06/11/2021 10:28 AM HISTORY: Dysphagia to solids and pills. History of GERD. COMPARISON: None. TECHNIQUE: The patient ingested effervescent crystals followed by thick and thin barium and was obser rodri swallowing under intermittent fluoroscopy. FINDINGS: The exam is limited due to patient immobility, weakness, nausea. Esophageal mucosa is unremarkable in the mid and distal esophagus. The upper esophageal mucosa is not well evaluated. The esophagus diste nds normally. There is no evidence of mass. There was very reduced or absent peristalsis during the e xam. Barium pooled in the esophagus. No evidence of hiatal hernia. Total fluoroscopic time:2.6 minutes. IMPRESSION: 1. Limited exam due to patient weakness and immobility. 2. Reduced or absent esophageal peristalsis with pooling of barium in the esophagus throughout the ex am. Electronically signed by: Kayla Hernandez MD (06/11/2021 11:13 AM) [id number]
--- NOTE | 2021-06-11 11:45 | NUR ---
SS following up with discharge planning. SS reviewed pt chart and discussed with pt RN. Pt is currently on room air. CDIFF positive. Pt on PO Vancomycin. PT/OT recommended home with home healthcare. SS was notified this morning that pt needed to switch from PD to outpatient hemodialysis pt also requesting to discuss placement options. SS met with pt in room and discussed dialysis and placement options. Pt reported that she will NOT go to a senior living and declined referrals for LTC placement. Pt reported that she will return to home. Pt reported that she does NOT want to return to [facility] and would like to transfer to [facility]. SS contacted [facility], ext. [phone]; fax [phone], and discussed transfer to [facility]. SS faxed clinicals as requested. [facility] requesting full Hep B panel, COVID19 test, and chest X-Ray. Pt's RN notified and orders being placed. SS will continue to follow for discharge planning.
--- NOTE | 2021-06-11 13:25 | PDOC ---
Renal-Progress Notes Subjective Notes Notes STILL FEELS WEAK History of Present Illness Hx of present illness STABLE Vitals Vitals Vital Signs Date Time Temp Pulse Resp B/P (MAP) Pulse Ox O2 Delivery O2 Flow Rate FiO2 06/11/21 09:55 19 100 Room Air 06/11/21 07:00 94.8 67 149/92 (111) 94.8 Weight Weight [ ] I.O. Intake and Output Intake and Output 06/11/21 07:00 Intake Total 840 ml Output Total 0 ml Balance 840 ml Intake Oral 840 ml Output Urine Total 0 ml Labs Labs Laboratory Tests Test 06/11/21 05:00 Hemoglobin 10.3 g/dL (12.0-15.5) Sodium Level 151 mmol/L (136-145) Potassium Level 3.0 mmol/L (3.5-5.1) Chloride Level 112 mmol/L (98-107) Carbon Dioxide Level 29 mmol/L (21-32) Anion Gap 10 (6-14) Blood Urea Nitrogen 24 mg/dL (7-20) Creatinine 2.0 mg/dL (0.6-1.0) Estimated GFR (Cockcroft-Gault) 27.7 Glucose Level 207 mg/dL (70-99) Calcium Level 7.1 mg/dL (8.5-10.1) Phosphorus Level 3.6 mg/dL (2.6-4.7) Magnesium Level 1.9 mg/dL (1.8-2.4) Albumin 1.9 g/dL (3.4-5.0) Review of Systems Constitutional: yes: malaise, weakness, alert Ears/Nose/Throat: Yes: no symptom reported Eyes: Yes: no symptom reported Pulmonary: Yes no symptom reported Cardiovascular: Yes no symptom reported Gastrointestional: Yes: no symptom reported Genitourinary: Yes: no symptom reported Musculoskeletal: Yes: muscle stiffness Skin: Yes no symptom reported Psychiatric/Neurological: Yes: no symptom reported Endocrine: Yes: no symptom reported Hematologic/Lymphatic: Yes: no symptom reported Physical Exam General Appearance: no apparent distress Skin: warm Respiratory: bilateral CTA Heart: S1S2 Abdomen: soft, bowel sounds present Genitourinary: bladder flat Extremities: pulses present, no edema, atrophy Neurology: alert, oriented Assessment Assessment IMP C DIF SYNCOPE HYPOTENSION-BETTER ESRD-HAS BEEN ON PD ANEMIA DM I RIGHT TOE WOUND HYPOKALEMIA-BETTER PLAN GOT HYDRATION UPON ARRIVAL CONT HOLD BP MEDS NEEDED REPLACE K NEEDED CURRENTLY ON HD PD ON HOLD UNTIL C DIF CLEARS UNABLE TO UF MUCH WITH PD DUE TO SEVERE MALNUTRITION OP HD BEING SET UP NATALIA MCGRAW MD Jun 11, 2021 13:25
--- NOTE | 2021-06-11 16:07 | NUR ---
Wound Care patient off unit at time of WC team arrival. will reassess tomorrow.
[2021-06-11] MEDS ORDERED: DIALYSIS PATIENT. MC PRN (17:30)
[2021-06-11 19:00] VITALS: BP 134/100
--- NOTE | 2021-06-11 19:00 | NUR ---
Nurse's note: The patient has low temperature, stated she has Raynaud's phenomenon. Initially was on Demarco hugger on admission. The patient's hands are cool,bilateral feet was warm to touch., has multiple blankets on. Patient said she uses thermal blankets at home all the time.
[2021-06-11] MEDS: INSULIN GLARGINE SYRINGE. SQ SCH (20:34)
[2021-06-11 22:42] VITALS: BP 138/98
[2021-06-12] MEDS: MORPHINE SULFATE 2 MG/ML INJ. IVP PRN ×7 (00:14→23:51)
[2021-06-12 03:00] VITALS: BP 140/92
[2021-06-12 07:00] VITALS: BP 131/89
[2021-06-12] MEDS: LEVOTHYROXINE 125 MCG TABLET PO SCH (07:26)
[2021-06-12] MEDS: PANTOPRAZOLE 40 MG TABLET.DR. PO SCH (07:26)
[2021-06-12] MEDS: ONDANSETRON ODT 4 MG TAB.RAPDIS. PO PRN ×2 (07:40→16:09)
--- NOTE | 2021-06-12 07:56 | PN ---
DATE: 06/12/2021 DAILY PROGRESS NOTE LOCATION: She is in room 548. SUBJECTIVE: This 41-year-old female remains hospitalized with initially severe orthostatic hypotension. This is improved somewhat. She was unable to get therapy yesterday due to timing related to dialysis. She feels she could go if she is safe to walk around and that will take therapy to give us that clearance. She continues to have troubles eating, stating she is doing better as long as she keeps it down, but often vomits it back up. We are still waiting to get her dialysis chair as an outpatient at [facility]. OBJECTIVE: VITAL SIGNS: Stable. She is afebrile. Blood pressures are much better. HEAD, EYES, EARS, NOSE AND THROAT: Remarkable bruising of the chin due to her fall a couple of days ago. CHEST: Clear. HEART: Regular. ABDOMEN: Benign. Esophagram yesterday shows pooling of materials with almost no peristalsis and we will defer to GI as far as feelings in this regard. She does not complain about a lot of diarrhea this morning. ASSESSMENT: 1. Orthostasis, improving. 2. End-stage renal disease, switching to hemodialysis due to issues with the orthostasis as well as poor ultrafiltration due to her malnutrition. 3. Lack of esophageal motility. We will defer to GI. 4. Clostridium difficile, improving. 5. Diabetes. PLAN: Continue supportive care at home when dialysis can be arranged. We will see if there is any thoughts from GI on her esophageal motility issues. JESSEE DR: Anastacio TID: [id number]
[2021-06-12] MEDS: INSULIN LISPRO 300 UNITS/3 ML VIAL. SQ SCH ×3 (08:00→17:00)
[2021-06-12] MEDS: SEVELAMER CARBONATE 800 MG TABLET. PO SCH ×3 (08:00→16:08)
[2021-06-12] MEDS: LIPASE/PROTEAS/AMYLAS 10/32/42 CAPSULE.DR. PO SCH ×3 (08:00→16:08)
[2021-06-12 08:13] LABS: ALBUMIN 1.8 g/dL (3.4-5.0); CALCIUM 7.4 mg/dL (8.5-10.1); CREATININE 1.4 mg/dL (0.6-1.0); GFR 41.9; PHOSPHORUS 3.1 mg/dL (2.6-4.7)
--- NOTE | 2021-06-12 08:32 | RAD ---
EXAMINATION: Chest radiograph. VIEWS: Single AP view COMPARISON: 12/26/2020 INDICATION:41 years, Female, need for dialysis. FINDINGS: Right IJ central venous line with tip terminating in the right atrium. Stable cardiomediastinal silho uette. Hazy right london and infrahilar opacities with associated volume loss. Left lung is clear. No p leural effusion or pneumothorax. No acute osseous process. IMPRESSION: 1. Right IJ central venous line without evidence of pneumothorax. 2. Hazy right perihilar and infrahilar opacities may represent atelectasis and/or infiltrate. Electronically signed by: Ru Orellana DO (06/12/2021 8:30 AM) [facility]
[2021-06-12] MEDS: POTASSIUM CHLORIDE 20 MEQ TABLET.ER. PO SCH ×2 (08:58→16:08)
[2021-06-12] MEDS: FUROSEMIDE 40 MG TABLET. PO SCH ×2 (08:59→16:08)
[2021-06-12] MEDS: FOLIC/VIT B COMP W-C (RENAL) TABLET. PO SCH (08:59)
[2021-06-12] MEDS: LACTOBACILLUS RHAMNOSUS GG 1 CAPSULE. PO SCH ×2 (08:59→20:16)
[2021-06-12] MEDS: GENTAMICIN 0.1% TOPICAL OINTMENT 15GM TUBE. TP SCH (09:00)
[2021-06-12] MEDS: VANCOMYCIN 125 MG/2.5 ML ORAL SOLUTION. PO SCH ×4 (09:01→20:15)
[2021-06-12 11:00] VITALS: BP 134/86
--- NOTE | 2021-06-12 11:10 | PDOC ---
Date of Service: DATE: 06/12/21 TIME: 11:04 Subjective: Subjective: Vomited what she had for dinner this morning. Says needing pain meds. No swallowing issues yesterday. Objective: Objective: D/w nurse - no new GI issues. Vital Signs: Vital Signs Date Time Temp Pulse Resp B/P (MAP) Pulse Ox O2 Delivery O2 Flow Rate FiO2 06/12/21 09:35 100 Room Air 06/12/21 07:27 18 06/12/21 07:00 96.7 74 131/89 (103) 96.7 Labs: Laboratory Tests Test 06/11/21 19:30 06/12/21 06:55 SARS-CoV-2 RNA (ANNIA) Negative Sodium Level 145 mmol/L Potassium Level 3.0 mmol/L Chloride Level 108 mmol/L Carbon Dioxide Level 35 mmol/L Anion Gap 2 Blood Urea Nitrogen 16 mg/dL Creatinine 1.4 mg/dL Estimated GFR (Cockcroft-Gault) 41.9 Glucose Level 214 mg/dL Calcium Level 7.4 mg/dL Phosphorus Level 3.1 mg/dL Magnesium Level 2.0 mg/dL Albumin 1.8 g/dL Imaging: Esophagram 06/11 IMPRESSION: 1. Limited exam due to patient weakness and immobility. 2. Reduced or absent esophageal peristalsis with pooling of barium in the esophagus throughout the exam. CXR 06/12 1. Right IJ central venous line without evidence of pneumothorax. 2. Hazy right perihilar and infrahilar opacities may represent atelectasis and/or infiltrate. PE: GEN: NAD - was sleeping soundly LUNGS: CTAB HEART: RRR ABD: soft, stable upper abd tenderness NEURO/PSYCH: A & O 3 A/P: Vomiting Dysphagia - stable, not a PEG candidate currently Recurrent C Diff - on vanco Chronic upper abdominal pain, nausea, poor appetite Elevated Alk Phos (better - checked 06/09) ESRD w/ PD cath but on HD Chronic ACD/POLLO, DM (A1c >10), hypoalbuminemia H/o GERD, PUD, chronic diarrhea, chronic pancreatitis (unclear cause) -- Multiple chronic health issues. Suspect today's vomiting related to diabetic gastroparesis and possibly exacerbated by morphine use. We discussed attempt to avoid narcotics if possible - she doesn't think she can. Continue same per GI. Justicifation of Admission Dx: Justifications for Admission: Justification of Admission Dx: N/A NELIDA CRUZ Jun 12, 2021 11:10
--- NOTE | 2021-06-12 11:37 | NUR ---
SW following. Discussed with RN, pt from home with parents, room air, regular diet. Chest xray and Hep B labs faxed to [facility]. Awaiting HD chair time. SW will continue to follow.
--- NOTE | 2021-06-12 12:12 | PDOC ---
DATE OF SERVICE DATE: 06/12/21 TIME: 12:07 SUBJECTIVE ROS Vomited this morning.-what she had for dinner OBJECTIVE Vital Signs Vital Signs Date Time Temp Pulse Resp B/P (MAP) Pulse Ox O2 Delivery O2 Flow Rate FiO2 06/12/21 09:35 100 Room Air 06/12/21 07:27 18 06/12/21 07:00 96.7 74 131/89 (103) 96.7 I & 0 Intake and Output 06/12/21 07:00 Intake Total 1620 ml Output Total 150 ml Balance 1470 ml Intake Oral 1620 ml Output Urine Total 150 ml # Voids 1 # Bowel Movements 2 PHYSICAL EXAM Physical Exam GENERAL: NAD HEENT: OM moist NECK: Supple. LUNGS: CTA, Non labored HEART: S1 and S2, regular. ABDOMEN: Soft, PD catheter + SKIN: Warm to touch. NEUROLOGIC: awake , alert DIAGNOSIS/ASSESSMENT Assessment & Plan ESRD - On Dialysis, switched from HD to PD recently ; PD held 09/12 Dx ofCdiff . Recd HD on 06/11 ; currently no emergent indication for dialysis Have been using 1.5% Dianeal Nausea/Vomiting - GI following . CT abdomen Unremarkable . C Diff+ C. difficile colitis: HyperNatremia resolved Syncope POA Hypotension- BP improved Anemia-No Indication for TESFAYE DM I Right Toe Wound- Per Primary HypoKalemia- PO KCL, Abnormal LFTs - improved some from admission - has chronically elevated Alk Phos, GI managing . CT scan abdomen Unremarkable Chronic pancreatitis - unclear cause - past ERCPs [facility] COMMENT/RELEVANT DATA Meds Current Medications Medications (Trade) Dose Ordered Sig/Adams Start Time Stop Time Status Last Admin Dose Admin Acetaminophen/ Codeine Phosphate (Tylenol #3) 1 tab PRN Q4HRS PRN 06/01/21 20:30 06/05/21 16:37 1 TAB Albumin Human 200 ml @ 200 mls/hr 1X ONCE 06/09/21 10:15 06/09/21 11:14 DC 06/09/21 11:29 200 MLS/HR Alprazolam (Xanax) 0.5 mg PRN Q6HRS PRN 06/01/21 20:30 06/08/21 21:37 0.5 MG Amylase/Lipase/ Protease (Zenpep 10,000) 2 cap TIDWMEALS 06/05/21 12:00 06/11/21 18:08 2 CAP Barium Sulfate (E-Z Disk) 700 mg 1X ONCE 06/11/21 10:15 06/11/21 10:16 DC Barium Sulfate (E-Z-Hd) 340 gm 1X ONCE 06/11/21 10:15 06/11/21 10:16 DC 06/11/21 10:44 340 GM Barium Sulfate (Liquid E-Z Paque) 355 ml 1X ONCE 06/11/21 10:15 06/11/21 10:16 DC 06/11/21 10:44 355 ML Dextrose (Dextrose 50%-Water Syringe) 12.5 gm PRN Q15MIN PRN 06/10/21 16:30 Diphenhydramine HCl (Benadryl) 25 mg 1X PRN PRN 06/09/21 10:15 06/09/21 19:00 DC Furosemide (Lasix) 40 mg [id number] 06/02/21 09:00 06/12/21 08:59 40 MG Gentamicin Sulfate (Garamycin) 1 richy DAILY 06/03/21 10:00 06/12/21 09:00 1 RICHY Info (PHARMACY MONITORING -- do not chart) 1 each PRN DAILY PRN 06/11/21 17:30 UNV Insulin Glargine (Lantus Syringe) 4 unit QHS 06/01/21 21:00 Insulin Human Lispro (HumaLOG) 0-5 UNITS TIDWMEALS 06/10/21 17:00 06/11/21 03:24 2 UNITS Lactobacillus Rhamnosus (Culturelle) 1 cap BID 06/08/21 21:00 06/12/21 08:59 1 CAP Levothyroxine Sodium (Synthroid) 125 mcg DAILY06 06/02/21 06:00 06/12/21 07:26 125 MCG Magnesium Sulfate 50 ml @ 25 mls/hr PRN DAILY PRN 06/10/21 09:15 Morphine Sulfate (Morphine Sulfate) 2 mg PRN Q2HR PRN 06/05/21 18:30 06/12/21 09:35 2 MG Multi-Ingredient Mouthwash/Gargle (Gi Cocktail) 20 ml PRN QID PRN 06/05/21 09:15 Ondansetron HCl (Zofran Odt) 4 mg PRN Q8HRS PRN 06/01/21 20:30 06/12/21 07:40 4 MG Ondansetron HCl (Zofran) 4 mg 1X ONCE 06/01/21 15:00 06/01/21 15:01 DC 06/01/21 16:36 4 MG Pantoprazole Sodium (Protonix) 40 mg DAILYAC 06/05/21 09:15 06/12/21 07:26 40 MG Potassium Chloride (Klor-Con) 20 meq BIDWMEALS 06/10/21 17:00 06/12/21 08:58 20 MEQ Sevelamer Carbonate (Renvela) 800 mg TIDWMEALS 06/02/21 08:00 06/11/21 18:09 800 MG Simethicone/ Sodium Bicarb/ Citric Ac (E-Z-Gas) 1 packet 1X ONCE 06/11/21 10:15 06/11/21 10:16 DC 06/11/21 10:44 1 PACKET Sodium Chloride 1,000 ml @ 400 mls/hr Q2H30M PRN 06/09/21 10:15 06/09/21 22:14 DC Vancomycin HCl (Vancomycin Oral Solution) 125 mg [id number] 06/07/21 17:00 06/12/21 09:01 125 MG Vitamin B Complex/ Vitamin C (Neisha-Yari) 1 tab DAILY 06/04/21 16:00 06/12/21 08:59 1 TAB Lab Laboratory Tests Test 06/11/21 19:30 06/12/21 06:55 SARS-CoV-2 RNA (ANNIA) Negative (Negative) Sodium Level 145 mmol/L (136-145) Potassium Level 3.0 mmol/L (3.5-5.1) Chloride Level 108 mmol/L (98-107) Carbon Dioxide Level 35 mmol/L (21-32) Anion Gap 2 (6-14) Blood Urea Nitrogen 16 mg/dL (7-20) Creatinine 1.4 mg/dL (0.6-1.0) Estimated GFR (Cockcroft-Gault) 41.9 Glucose Level 214 mg/dL (70-99) Calcium Level 7.4 mg/dL (8.5-10.1) Phosphorus Level 3.1 mg/dL (2.6-4.7) Magnesium Level 2.0 mg/dL (1.8-2.4) Albumin 1.8 g/dL (3.4-5.0) Results All relevant outside records, renal labs, imaging studies, telemetry/EKG's were reviewed. Justicifation of Admission Dx: Justifications for Admission: Justification of Admission Dx: N/A SHERYL VENCES MD Jun 12, 2021 12:12
--- NOTE | 2021-06-12 12:33 | NUR ---
pt did not eat breakfast nor lunch today, held insulin, lipase and sevelamer. Ernie Lucia RN
[2021-06-12 15:00] VITALS: BP 98/75
--- NOTE | 2021-06-12 15:34 | NUR ---
Wound/Ostomy Care Wound Type/Assessment: Wound care follow up for R 4th toe DFU. Patient also has left medial heel wound that is eschar covered. Treatment Recommendations/Plan: [place] wounds with betadine daily Education provided: WC POC and PU prevention Offloading surface/device: TQ2H Recommended Referrals/Tests: [facility] to [facility] with [facility] Discharge Recommendations for dressings: see above
[2021-06-12 19:00] VITALS: BP 110/77
[2021-06-12] MEDS: INSULIN GLARGINE SYRINGE. SQ SCH (21:00)
[2021-06-12 23:00] VITALS: BP 119/76
[2021-06-13 03:00] VITALS: BP 127/83
[2021-06-13] MEDS: MORPHINE SULFATE 2 MG/ML INJ. IVP PRN ×7 (03:36→23:37)
[2021-06-13 05:11] LABS: ALBUMIN 1.8 g/dL (3.4-5.0); CALCIUM 7.4 mg/dL (8.5-10.1); CREATININE 1.8 mg/dL (0.6-1.0); GFR 31.3
[2021-06-13 05:19] LABS: POTASSIUM 2.9 mmol/L (3.5-5.1)
[2021-06-13] MEDS: LEVOTHYROXINE 125 MCG TABLET PO SCH (06:42)
[2021-06-13 07:10] VITALS: BP 145/92
[2021-06-13] MEDS: POTASSIUM CHLORIDE 20 MEQ TABLET.ER. PO SCH ×2 (08:00→16:46)
[2021-06-13] MEDS: INSULIN LISPRO 300 UNITS/3 ML VIAL. SQ SCH ×3 (08:00→16:47)
[2021-06-13] MEDS: ONDANSETRON ODT 4 MG TAB.RAPDIS. PO PRN ×2 (09:26→23:37)
[2021-06-13] MEDS: GENTAMICIN 0.1% TOPICAL OINTMENT 15GM TUBE. TP SCH (09:26)
--- NOTE | 2021-06-13 10:09 | PDOC ---
DATE OF SERVICE DATE: 06/13/21 TIME: 10:07 SUBJECTIVE ROS ongoing n/v and upper abd pain.Feels a little dizzy. States diarrhea is better . Denies SOB OBJECTIVE Vital Signs Vital Signs Date Time Temp Pulse Resp B/P (MAP) Pulse Ox O2 Delivery O2 Flow Rate FiO2 06/13/21 07:45 Room Air 06/13/21 07:10 93.0 99 18 145/92 (109) 98 93.0 I & 0 Intake and Output 06/13/21 07:00 Intake Total 440 ml Output Total 0 ml Balance 440 ml Intake Oral 440 ml Output Urine Total 0 ml PHYSICAL EXAM Physical Exam GENERAL: NAD HEENT: OM moist NECK: Supple. LUNGS: CTA, Non labored HEART: S1 and S2, regular. ABDOMEN: Soft, PD catheter + SKIN: Warm to touch. NEUROLOGIC: awake , alert DIAGNOSIS/ASSESSMENT Assessment & Plan ESRD - On Dialysis, switched from HD to PD recently ; PD held 2/2 Dx of Cdiff . on HD temporarily (last on friday) ; currently no emergent indication for dial ysis Have been using 1.5% Dianeal for PD Nausea/Vomiting - GI following . CT abdomen Unremarkable . C Diff+ C. difficile colitis: holding PD , switched to HD temp HyperNatremia resolved Syncope POA - resolved Hypotension- resolved, BP improved Anemia- TESFAYE DM I Right Toe Wound- Per Primary HypoKalemia- PO KCL, Abnormal LFTs - improved some from admission - has chronically elevated Alk Phos, GI managing . CT scan abdomen Unremarkable Chronic pancreatitis - unclear cause - past ERCPs [facility] COMMENT/RELEVANT DATA Meds Current Medications Medications (Trade) Dose Ordered Sig/Adams Start Time Stop Time Status Last Admin Dose Admin Acetaminophen/ Codeine Phosphate (Tylenol #3) 1 tab PRN Q4HRS PRN 06/01/21 20:30 06/05/21 16:37 1 TAB Albumin Human 200 ml @ 200 mls/hr 1X ONCE 06/09/21 10:15 06/09/21 11:14 DC 06/09/21 11:29 200 MLS/HR Alprazolam (Xanax) 0.5 mg PRN Q6HRS PRN 06/01/21 20:30 06/08/21 21:37 0.5 MG Amylase/Lipase/ Protease (Zenpep 10,000) 2 cap TIDWMEALS 06/05/21 12:00 06/11/21 18:08 2 CAP Barium Sulfate (E-Z Disk) 700 mg 1X ONCE 06/11/21 10:15 06/11/21 10:16 DC Barium Sulfate (E-Z-Hd) 340 gm 1X ONCE 06/11/21 10:15 06/11/21 10:16 DC 06/11/21 10:44 340 GM Barium Sulfate (Liquid E-Z Paque) 355 ml 1X ONCE 06/11/21 10:15 06/11/21 10:16 DC 06/11/21 10:44 355 ML Dextrose (Dextrose 50%-Water Syringe) 12.5 gm PRN Q15MIN PRN 06/10/21 16:30 Diphenhydramine HCl (Benadryl) 25 mg 1X PRN PRN 06/09/21 10:15 06/09/21 19:00 DC Furosemide (Lasix) 40 mg [id number] 06/02/21 09:00 06/12/21 16:08 40 MG Gentamicin Sulfate (Garamycin) 1 richy DAILY 06/03/21 10:00 06/13/21 09:26 1 RICHY Info (PHARMACY MONITORING -- do not chart) 1 each PRN DAILY PRN 06/11/21 17:30 UNV Insulin Glargine (Lantus Syringe) 4 unit QHS 06/01/21 21:00 Insulin Human Lispro (HumaLOG) 0-5 UNITS TIDWMEALS 06/10/21 17:00 06/11/21 03:24 2 UNITS Lactobacillus Rhamnosus (Culturelle) 1 cap BID 06/08/21 21:00 06/12/21 20:16 1 CAP Levothyroxine Sodium (Synthroid) 125 mcg DAILY06 06/02/21 06:00 06/13/21 06:42 125 MCG Magnesium Sulfate 50 ml @ 25 mls/hr PRN DAILY PRN 06/10/21 09:15 Morphine Sulfate (Morphine Sulfate) 2 mg PRN Q2HR PRN 06/05/21 18:30 06/13/21 07:14 2 MG Multi-Ingredient Mouthwash/Gargle (Gi Cocktail) 20 ml PRN QID PRN 06/05/21 09:15 Ondansetron HCl (Zofran Odt) 4 mg PRN Q8HRS PRN 06/01/21 20:30 06/13/21 09:26 4 MG Ondansetron HCl (Zofran) 4 mg 1X ONCE 06/01/21 15:00 06/01/21 15:01 DC 06/01/21 16:36 4 MG Pantoprazole Sodium (Protonix) 40 mg DAILYAC 06/05/21 09:15 06/12/21 07:26 40 MG Potassium Chloride (Klor-Con) 20 meq BIDWMEALS 06/10/21 17:00 06/12/21 16:08 20 MEQ Sevelamer Carbonate (Renvela) 800 mg TIDWMEALS 06/02/21 08:00 06/11/21 18:09 800 MG Simethicone/ Sodium Bicarb/ Citric Ac (E-Z-Gas) 1 packet 1X ONCE 06/11/21 10:15 06/11/21 10:16 DC 06/11/21 10:44 1 PACKET Sodium Chloride 1,000 ml @ 400 mls/hr Q2H30M PRN 06/09/21 10:15 06/09/21 22:14 DC Vancomycin HCl (Vancomycin Oral Solution) 125 mg [id number] 06/07/21 17:00 06/12/21 20:15 125 MG Vitamin B Complex/ Vitamin C (Neisha-Yari) 1 tab DAILY 06/04/21 16:00 06/12/21 08:59 1 TAB Lab Laboratory Tests Test 06/13/21 03:30 Sodium Level 146 mmol/L (136-145) Potassium Level 2.9 mmol/L (3.5-5.1) Chloride Level 109 mmol/L (98-107) Carbon Dioxide Level 34 mmol/L (21-32) Anion Gap 3 (6-14) Blood Urea Nitrogen 22 mg/dL (7-20) Creatinine 1.8 mg/dL (0.6-1.0) Estimated GFR (Cockcroft-Gault) 31.3 Glucose Level 104 mg/dL (70-99) Calcium Level 7.4 mg/dL (8.5-10.1) Phosphorus Level 4.0 mg/dL (2.6-4.7) Magnesium Level 2.0 mg/dL (1.8-2.4) Albumin 1.8 g/dL (3.4-5.0) Results All relevant outside records, renal labs, imaging studies, telemetry/EKG's were reviewed. Justicifation of Admission Dx: Justifications for Admission: Justification of Admission Dx: N/A SHERYL VENCES MD Jun 13, 2021 10:09
[2021-06-13] MEDS: PANTOPRAZOLE 40 MG TABLET.DR. PO SCH (10:18)
[2021-06-13] MEDS: SEVELAMER CARBONATE 800 MG TABLET. PO SCH ×3 (10:18→16:46)
[2021-06-13] MEDS: LACTOBACILLUS RHAMNOSUS GG 1 CAPSULE. PO SCH ×2 (10:19→21:18)
[2021-06-13] MEDS: FOLIC/VIT B COMP W-C (RENAL) TABLET. PO SCH (10:19)
[2021-06-13] MEDS: VANCOMYCIN 125 MG/2.5 ML ORAL SOLUTION. PO SCH ×4 (10:19→21:18)
[2021-06-13] MEDS: LIPASE/PROTEAS/AMYLAS 10/32/42 CAPSULE.DR. PO SCH ×3 (10:19→16:46)
[2021-06-13] MEDS: FUROSEMIDE 40 MG TABLET. PO SCH ×2 (10:19→16:00)
--- NOTE | 2021-06-13 10:39 | PDOC ---
Date of Service: DATE: 06/13/21 TIME: 10:30 Subjective: Subjective: Ongoing n/v and upper abd pain. Can't eat anything. Emesis is dark with bits of food. Says might go to assisted. Keeping vanco down "for the most part." Feels a little dizzy. Objective: Vital Signs: Vital Signs Date Time Temp Pulse Resp B/P (MAP) Pulse Ox O2 Delivery O2 Flow Rate FiO2 06/13/21 10:15 Room Air 06/13/21 07:10 93.0 99 18 145/92 (109) 98 93.0 Labs: Laboratory Tests Test 06/13/21 03:30 Sodium Level 146 mmol/L Potassium Level 2.9 mmol/L Chloride Level 109 mmol/L Carbon Dioxide Level 34 mmol/L Anion Gap 3 Blood Urea Nitrogen 22 mg/dL Creatinine 1.8 mg/dL Estimated GFR (Cockcroft-Gault) 31.3 Glucose Level 104 mg/dL Calcium Level 7.4 mg/dL Phosphorus Level 4.0 mg/dL Magnesium Level 2.0 mg/dL Albumin 1.8 g/dL PE: GEN: NAD - was asleep, appears chronically ill LUNGS: CTAB HEART: RRR ABD: witnessed emesis - dark brown watery liquid with bits of food NEURO/PSYCH: A & O 3 A/P: Vomiting, chronic abd pain Recurrent C Diff - on vanco Chronic ACD/POLLO, elevated Alk Phos, DM (A1c >10), ESRD (on HD, has PD cath), hypothyroidism, hypoalbuminemia, hypokalemia H/o dysphagia (not a PEG candidate), GERD, PUD, chronic diarrhea, chronic pancreatitis (unclear cause) -- KUB and interval labs for completeness, but I believe n/v probably due to delayed gastric emptying. Continue support - change to IV acid-reduce considering vomiting. Difficult situation. KUB 06/13 IMPRESSION: The stomach is moderately distended with contrast and debris. There is scattered contrast in the bowel. There is no dilated bowel. Nurse called at 2:20 p.m. - pt has not taken vanco today due to vomiting. Difficult situation - PO atbx recommended for C Diff, IV only as adjuct for severe illness. ?prokinetic ?ID opinion - will review w/ Dr. Rodriguez. Justicifation of Admission Dx: Justifications for Admission: Justification of Admission Dx: N/A NELIDA CRUZ Jun 13, 2021 10:39
[2021-06-13 10:59] LABS: HEMATOCRIT 31.7 % (36.0-47.0); HEMOGLOBIN 10.2 g/dL (12.0-15.5); RED BLOOD COUNT 3.24 x10^6/uL (3.50-5.40); RED CELL DISTRIBUTION WIDTH 16.9 % (11.5-14.5); WHITE BLOOD COUNT 10.3 x10^3/uL (4.0-11.0)
[2021-06-13 11:00] VITALS: BP 124/86
[2021-06-13 11:32] LABS: ALBUMIN 1.8 g/dL (3.4-5.0); DIRECT BILIRUBIN 0.2 mg/dL (0.0-0.2); TOTAL BILIRUBIN 0.5 mg/dL (0.2-1.0); TOTAL PROTEIN 4.5 g/dL (6.4-8.2)
--- NOTE | 2021-06-13 11:51 | RAD ---
EXAM: XR ABDOMEN 1V 06/13/2021 10:45 AM CLINICAL INDICATION: Vomiting, C. difficile, abdominal pain COMPARISON: Esophagram 06/11/2021 TECHNIQUE: AP supine view the abdomen FINDINGS: The stomach is moderately distended with contrast and debris. There is no small bowel dila tion. There are scattered contrast within the bowel. Tubing projects over the mid abdomen and pelvis. Cholecystectomy clips are noted. No acute osseous abnormality. IMPRESSION: The stomach is moderately distended with contrast and debris. There is scattered contras t in the bowel. There is no dilated bowel. Electronically signed by: Kayla Hernandez MD (06/13/2021 11:49 AM) [id number]
[2021-06-13] MEDS ORDERED: POTASSIUM CHLORIDE 40 MEQ in IV DEXTROSE 5% 1,000 ML IV ONE (12:45)
--- NOTE | 2021-06-13 13:06 | NUR ---
DEAN following. Discussed with RN, DEAN spoke with Silas - there are other items they are now requesting. DEAN faxed requested clinicals. Awaiting chair time. DEAN will continue to follow. Addendum: 06/13/21 at 1336 by ELAINE MORAN Pt has a chair time at [facility] starting 06/15/21. First chair time is 1515, with all other chair times being 1600. RN notified.
--- NOTE | 2021-06-13 13:47 | PN ---
DATE: 06/13/2021 DAILY PROGRESS NOTE LOCATION: She is in room 548. SUBJECTIVE: This 41-year-old female remains hospitalized with initially severe orthostatic hypotension. This is improved somewhat. She did not get therapy yesterday due to vomiting all day. She states she is still extremely lightheaded, woozy and unsafe. We are trying to walk her across, does not feel return to home is possible as her mother not being able to help her like she would need help at this point in time. GI opinion yesterday of her esophageal issues was that of probable gastroparesis made worse by the morphine, which was discussed with the patient. We are awaiting a dialysis chair as an outpatient to [facility]. I am going to check with 7th grade social studies teacher today if she would be a candidate for SNU or rehab with the ongoing dialysis. OBJECTIVE: VITAL SIGNS: Stable. She is afebrile. HEAD, EYES, EARS, NOSE AND THROAT: With ongoing bruising of the chin. CHEST: Clear. HEART: Regular. ABDOMEN: With some epigastric tenderness. LABORATORY DATA: Potassium is lower again this morning at 2.9 and we will defer to renal with the ongoing dialysis. Sugars are labile, which is her baseline, but anywhere from 100 to 200 in the last 24 hours. Albumin remains consistent with severe protein calorie malnutrition of 1.8 this morning. ASSESSMENT: 1. Orthostasis, improved. 2. Generalized weakness. 3. End-stage renal disease, on hemodialysis. 4. Gastroparesis. 5. Clostridium difficile colitis with improvement in her diarrhea. 6. Diabetes. 7. Severe protein calorie malnutrition. PLAN: security services manager for possible rehab venue. Renal to deal with hypokalemia this morning. I currently do not see a pass for discharge to home and ideally would be in some sort of rehab. She may actually also need to be in a alf, long-term with her overall generalized debility. FABIOLA/YOGI ERICKSON: Anastacio TID: [id number]
[2021-06-13 15:00] VITALS: BP 107/74
[2021-06-13 19:48] VITALS: BP 144/93
[2021-06-13] MEDS ORDERED: EPOETIN ALFA-EPBX for ESRD 20,000 UNIT/ML VIAL. SQ SCH (21:00)
[2021-06-13] MEDS: INSULIN GLARGINE SYRINGE. SQ SCH (21:00)
[2021-06-13 23:48] VITALS: BP 132/92
[2021-06-14 03:02] VITALS: BP 127/78
[2021-06-14] MEDS: MORPHINE SULFATE 2 MG/ML INJ. IVP PRN ×4 (03:11→13:14)
[2021-06-14] MEDS: LEVOTHYROXINE 125 MCG TABLET PO SCH (06:20)
[2021-06-14 07:00] VITALS: BP 118/73
[2021-06-14] MEDS ORDERED: PANTOPRAZOLE IV PUSH 40 MG VIAL. IVP SCH (07:30)
[2021-06-14] MEDS: INSULIN LISPRO 300 UNITS/3 ML VIAL. SQ SCH ×2 (08:00→12:00)
[2021-06-14 08:13] LABS: ALBUMIN 1.7 g/dL (3.4-5.0); CALCIUM 7.5 mg/dL (8.5-10.1); CREATININE 2.5 mg/dL (0.6-1.0); GFR 21.4; MAGNESIUM 1.9 mg/dL (1.8-2.4); PHOSPHORUS 4.2 mg/dL (2.6-4.7); POTASSIUM 3.6 mmol/L (3.5-5.1)
[2021-06-14] MEDS: GENTAMICIN 0.1% TOPICAL OINTMENT 15GM TUBE. TP SCH (09:00)
--- NOTE | 2021-06-14 09:19 | PDOC ---
Date of Service: DATE: 06/14/21 TIME: 09:14 Subjective: Subjective: Eating a little today - feels better than yesterday so far. Tells me she has been taking vanco. Questions about dialysis, concerns for hypoglycemia. Objective: Vital Signs: Vital Signs Date Time Temp Pulse Resp B/P (MAP) Pulse Ox O2 Delivery O2 Flow Rate FiO2 06/14/21 07:00 97.8 72 20 118/73 (88) 99 Room Air 97.8 Labs: Laboratory Tests Test 06/14/21 06:30 Sodium Level 142 mmol/L Potassium Level 3.6 mmol/L Chloride Level 106 mmol/L Carbon Dioxide Level 30 mmol/L Anion Gap 6 Blood Urea Nitrogen 29 mg/dL Creatinine 2.5 mg/dL Estimated GFR (Cockcroft-Gault) 21.4 Glucose Level 125 mg/dL Calcium Level 7.5 mg/dL Phosphorus Level 4.2 mg/dL Magnesium Level 1.9 mg/dL Albumin 1.7 g/dL PE: GEN: NAD - looks better than yesterday LUNGS: CTAB HEART: RRR ABD: soft, epigastric discomfort per usual, PD cath NEURO/PSYCH: A & O 3 A/P: N/v, upper abdominal pain - chronic/recurrent problem, multi-factorial (GERD, chronic pancreatitis, suspected delayed gastric emptying) - able to eat some this morning Recurrent C Diff - on vanco Chronic ACD/POLLO (stable), elevated Alk Phos (better), DM (A1c >10), ESRD, hypothyroidism (controlled), hypoalbuminemia H/o dysphagia (not PEG candidate) -- Better today. Continue same per GI - change back to PO PPI if continues to eat reliably. Defer dialysis questions to nephrology/primary. Minimize narcs. Justicifation of Admission Dx: Justifications for Admission: Justification of Admission Dx: N/A NELIDA CRUZ Jun 14, 2021 09:19
--- NOTE | 2021-06-14 09:27 | PDOC ---
DATE OF SERVICE DATE: 06/14/21 TIME: 09:27 SUBJECTIVE ROS C/O mild nausea and abdominal pain , No vomitingor diarrhea Seen during treatment OBJECTIVE Vital Signs Vital Signs Date Time Temp Pulse Resp B/P (MAP) Pulse Ox O2 Delivery O2 Flow Rate FiO2 06/14/21 07:00 97.8 72 20 118/73 (88) 99 Room Air 97.8 I & 0 Intake and Output 06/14/21 07:00 Intake Total 1310 ml Output Total 500 ml Balance 810 ml Intake Oral 310 ml IV Total 1000 ml Emesis 500 ml # Voids 4 PHYSICAL EXAM Physical Exam GENERAL: NAD HEENT: OM moist NECK: Supple. LUNGS: CTA, Non labored HEART: S1 and S2, regular. ABDOMEN: Soft, PD catheter + SKIN: Warm to touch. NEUROLOGIC: awake , alert DIAGNOSIS/ASSESSMENT Assessment & Plan ESRD - On Dialysis, switched from HD to PD recently ; PD held 2/2 Dx of Cdiff . on HD temporarily x 6 weeks , seen during dialysis (didnt dialyze yesterday ), seen during treatment , tolerating well. Continue as ordered, José Souza Has OP chair time for MWF under Dr Menezes Nausea/Vomiting - GI following . CT abdomen Unremarkable . C Diff+ C. difficile colitis: holding PD , switched to HD temp HyperNatremia resolved Syncope POA - resolved Hypotension- resolved, BP improved Anemia- TESFAYE DM I Right Toe Wound- Per Primary HypoKalemia- PO KCL, Normal K today Abnormal LFTs - improved some from admission - has chronically elevated Alk Bradley s, GI managing . CT scan abdomen Unremarkable Chronic pancreatitis - unclear cause - [facility] COMMENT/RELEVANT DATA Meds Current Medications Medications (Trade) Dose Ordered Sig/Adams Start Time Stop Time Status Last Admin Dose Admin Acetaminophen/ Codeine Phosphate (Tylenol #3) 1 tab PRN Q4HRS PRN 06/01/21 20:30 06/05/21 16:37 1 TAB Albumin Human 200 ml @ 200 mls/hr 1X ONCE 06/09/21 10:15 06/09/21 11:14 DC 06/09/21 11:29 200 MLS/HR Alprazolam (Xanax) 0.5 mg PRN Q6HRS PRN 06/01/21 20:30 06/08/21 21:37 0.5 MG Amylase/Lipase/ Protease (Zenpep 10,000) 2 cap TIDWMEALS 06/05/21 12:00 06/13/21 16:46 2 CAP Barium Sulfate (E-Z Disk) 700 mg 1X ONCE 06/11/21 10:15 06/11/21 10:16 DC Barium Sulfate (E-Z-Hd) 340 gm 1X ONCE 06/11/21 10:15 06/11/21 10:16 DC 06/11/21 10:44 340 GM Barium Sulfate (Liquid E-Z Paque) 355 ml 1X ONCE 06/11/21 10:15 06/11/21 10:16 DC 06/11/21 10:44 355 ML Dextrose (Dextrose 50%-Water Syringe) 12.5 gm PRN Q15MIN PRN 06/10/21 16:30 Diphenhydramine HCl (Benadryl) 25 mg 1X PRN PRN 06/09/21 10:15 06/09/21 19:00 DC Epoetin Timoteo-epbx (RETACRIT for ESRD PTS) 10,000 unit MoWeFr@2100 06/13/21 21:00 06/13/21 21:21 10,000 UNIT Furosemide (Lasix) 40 mg BID94 06/02/21 09:00 06/12/21 16:08 40 MG Gentamicin Sulfate (Garamycin) 1 richy DAILY 06/03/21 10:00 06/13/21 09:26 1 RICHY Info (PHARMACY MONITORING -- do not chart) 1 each PRN DAILY PRN 06/11/21 17:30 UNV Insulin Glargine (Lantus Syringe) 4 unit QHS 06/01/21 21:00 Insulin Human Lispro (HumaLOG) 0-5 UNITS TIDWMEALS 06/10/21 17:00 06/11/21 03:24 2 UNITS Lactobacillus Rhamnosus (Culturelle) 1 cap BID 06/08/21 21:00 06/13/21 21:18 1 CAP Levothyroxine Sodium (Synthroid) 125 mcg DAILY06 06/02/21 06:00 06/14/21 06:20 125 MCG Magnesium Sulfate 50 ml @ 25 mls/hr PRN DAILY PRN 06/10/21 09:15 Morphine Sulfate (Morphine Sulfate) 2 mg PRN Q2HR PRN 06/05/21 18:30 06/14/21 06:21 2 MG Multi-Ingredient Mouthwash/Gargle (Gi Cocktail) 20 ml PRN QID PRN 06/05/21 09:15 Ondansetron HCl (Zofran Odt) 4 mg PRN Q8HRS PRN 06/01/21 20:30 06/13/21 23:37 4 MG Ondansetron HCl (Zofran) 4 mg 1X ONCE 06/01/21 15:00 06/01/21 15:01 DC 06/01/21 16:36 4 MG Pantoprazole Sodium (PROTONIX VIAL for IV PUSH) 40 mg DAILYAC 06/14/21 07:30 Pantoprazole Sodium (Protonix) 40 mg DAILYAC 06/05/21 09:15 06/13/21 10:38 DC 06/12/21 07:26 40 MG Potassium Chloride 40 meq/ Dextrose 1,020 ml @ 75 mls/hr 1X ONCE 06/13/21 12:45 06/14/21 02:20 DC 06/13/21 13:38 75 MLS/HR Potassium Chloride (Klor-Con) 20 meq BIDWMEALS 06/10/21 17:00 06/13/21 16:46 20 MEQ Sevelamer Carbonate (Renvela) 800 mg TIDWMEALS 06/02/21 08:00 06/13/21 16:46 800 MG Simethicone/ Sodium Bicarb/ Citric Ac (E-Z-Gas) 1 packet 1X ONCE 06/11/21 10:15 06/11/21 10:16 DC 06/11/21 10:44 1 PACKET Sodium Chloride 1,000 ml @ 400 mls/hr Q2H30M PRN 06/09/21 10:15 06/09/21 22:14 DC Vancomycin HCl (Vancomycin Oral Solution) 125 mg [id number] 06/07/21 17:00 06/13/21 21:18 125 MG Vitamin B Complex/ Vitamin C (Neisha-Yari) 1 tab DAILY 06/04/21 16:00 06/12/21 08:59 1 TAB Lab Laboratory Tests Test 06/14/21 06:30 Sodium Level 142 mmol/L (136-145) Potassium Level 3.6 mmol/L (3.5-5.1) Chloride Level 106 mmol/L (98-107) Carbon Dioxide Level 30 mmol/L (21-32) Anion Gap 6 (6-14) Blood Urea Nitrogen 29 mg/dL (7-20) Creatinine 2.5 mg/dL (0.6-1.0) Estimated GFR (Cockcroft-Gault) 21.4 Glucose Level 125 mg/dL (70-99) Calcium Level 7.5 mg/dL (8.5-10.1) Phosphorus Level 4.2 mg/dL (2.6-4.7) Magnesium Level 1.9 mg/dL (1.8-2.4) Albumin 1.7 g/dL (3.4-5.0) Results All relevant outside records, renal labs, imaging studies, telemetry/EKG's were reviewed. Justicifation of Admission Dx: Justifications for Admission: Justification of Admission Dx: N/A SHERYL VENCES MD Jun 14, 2021 09:27
--- NOTE | 2021-06-14 11:17 | NUR ---
DEAN following. Discussed with RN, pt from home with family. Family had some concerns about taking pt back home, however SW did offer home health and discussed the hope that switching back to HD would benefit the patient. Family agreeable to referral to [facility]. DEAN did advise of how family can get transport arranged for dialysis through pt's medicaid. Referral faxed to [facility], awaiting acceptance decision and discharge orders. DEAN will continue to follow. Addendum: 06/14/21 at 1459 by ELAINE MORAN Pt accepted with [facility]. Discharge orders faxed.
[2021-06-14] MEDS ORDERED: POTA20TA4 PO (11:51)
[2021-06-14] MEDS ORDERED: VANC125C3 PO (11:51)
--- NOTE | 2021-06-14 11:54 | SNU/HH DC ---
DISCHARGE WITH HOME HEALTH DISCHARGE INFORMATION: Discharge Date: Jun 14, 2021 Final Diagnosis: Problems Medical Problems: (1) Orthostatic hypotension Status: Acute Condition on Discharge: Stable CODE STATUS: Code Status: Full HOME HEALTH: Face to Face: I certify this patient is under my care and that I, or a nurse practitioner or physician's delivery driver assistant working with me, had a face to face encounter that meets the physician face to face encounter requirements with this patient on 06/14/21. Assisted For: Assess Cardiopulm Status, Assess & Educate Safety, Medication Management RN For Eval/Treatment: Yes Physical Therapy For: Evalulation/Treatment Occupational Therapy For: Evaluation/Treatment Pt Meets Homebound Status: Poor coordination w/ amb., Unsteady balance w/ amb,, Extreme weakness w/ amb., Frequent falls w/ injury POST DISCHARGE ORDERS: Activity Instructions for Disc: Activity as tolerated Weight Bearing Status after Di: As tolerated Bathing Instructions: No Tub Bath until see DIET AFTER DISCHARGE: ADA Wound/Incision Care: No wound care needed CHECKS AFTER DISCHARGE: Checks after discharge: Check blood press - daily, Check blood sugar, ac/hs, Check your Temp as needed, Weigh Yourself Daily TREATMENT/EQUIPMENT ORDERS: Adaptive Equipment Issued: Walker CERTIFICATION STATEMENT: Certification Statement: Certification Statement: Based on the above finding, I certify that this patient is confined to the home and needs intermittent long term care, physical therapy and/or speech therapy, or continues to need occupational therapy.~ This patient is under my care, and I have initiated the establishment of the plan of care.~ This patient will be followed by myself or a community physician who will periodically review the plan of care. Home Meds Active Scripts Vancomycin Hcl (VANCOMYCIN HCL) 125 Mg Capsule, 1 CAP PO QID for c. diff for 10 Days, #40 CAP 0 Refills Prov:EVANGELINA LAIRD MD 06/14/21 Potassium Chloride (POTASSIUM CHLORIDE ) 20 Meq Tablet.er, 20 MEQ PO BIDWMEALS for replacement for 30 Days, #60 TAB.SR Prov:EVANGELINA LAIRD MD 06/14/21 Levothyroxine Sodium (LEVOTHYROXINE SODIUM) 125 Mcg Tablet, 125 MCG PO DAILY06 for hypothyroidism for 30 Days, #30 TAB Prov:EVANGELINA LAIRD MD 12/29/20 Ondansetron (ZOFRAN ODT) 4 Mg Tab.rapdis, 1 TAB SL Q8HRS, #10 TAB Prov:TIMOTHY HESS 06/08/17 Reported Medications Insulin Glargine,Hum.rec.anlog (LANTUS SOLOSTAR) 100 Unit/1 Ml Insuln.pen, 4 UNIT SQ QHS for DM, #15 ML 3 Refills pt takes from 4 to 8 units 06/01/21 Sevelamer Carbonate (RENVELA) 800 Mg Tablet, 800 MG PO TIDWMEALS for dialysis pt, TAB 06/01/21 Acetaminophen With Codeine (ACETAMINOPHEN-COD #3 TABLET) 1 Each Tablet, 1 TAB PO PRN Q4HRS PRN for PAIN, TAB 06/01/21 Alprazolam (ALPRAZOLAM) 0.5 Mg Tablet, 0.5 MG PO PRN Q6HRS PRN for ANXIETY / AGITATION, TAB 0 Refills 04/23/16 Discontinued Scripts Amlodipine Besylate (AMLODIPINE BESYLATE) 5 Mg Tablet, 5 MG PO DAILY for hyperte nsion for 30 Days, #30 TAB Prov:EVANGELINA LAIRD MD 12/29/20 Furosemide (LASIX) 40 Mg Tablet, 40 MG PO BID for chf for 30 Days, #60 TAB Prov:EVANGELINA LAIRD MD 12/13/20 EVANGELINA LAIRD MD Jun 14, 2021 11:54
[2021-06-14] MEDS: SEVELAMER CARBONATE 800 MG TABLET. PO SCH ×2 (12:00→14:20)
[2021-06-14] MEDS: LIPASE/PROTEAS/AMYLAS 10/32/42 CAPSULE.DR. PO SCH ×2 (12:00→14:20)
[2021-06-14] MEDS: VANCOMYCIN 125 MG/2.5 ML ORAL SOLUTION. PO SCH ×2 (13:00→13:13)
[2021-06-14] MEDS: FOLIC/VIT B COMP W-C (RENAL) TABLET. PO SCH (14:20)
[2021-06-14] MEDS: POTASSIUM CHLORIDE 20 MEQ TABLET.ER. PO SCH (14:20)
[2021-06-14] MEDS: FUROSEMIDE 40 MG TABLET. PO SCH (14:20)
[2021-06-14] MEDS: LACTOBACILLUS RHAMNOSUS GG 1 CAPSULE. PO SCH (14:20)
--- NOTE | 2021-06-14 15:50 | DS ---
DATE OF DISCHARGE: 06/14/2021 PRIMARY DIAGNOSIS: Orthostatic hypotension with falls. ADDITIONAL DIAGNOSES: End-stage renal disease, on peritoneal dialysis on admission, switched to back to hemodialysis at discharge. Hypokalemia with replacement during the stay, C. diff colitis without any known risk factor for the same, type 1 diabetes -- labile, severe protein calorie malnutrition. CHIEF COMPLAINT/HISTORY OF PRESENT ILLNESS: This 41-year-old female admitted through the emergency room with severe orthostatic hypotension and falls. SUMMARY OF STAY: The patient was admitted, all of her antihypertensives were eventually held. Renal felt best to convert her back to hemodialysis as the orthostasis seemed to be a problem related to the beginning of the peritoneal dialysis and they were not sure of the ultrafiltration rate, possible of peritoneal dialysis due to her severe protein-calorie malnutrition with low albumin levels. She was transitioned back to hemodialysis. Blood pressures did improve. She still was a little lightheaded getting up, but nothing like what she has had. Case management was talking to parents about their ability to help care for her at their house and reassured me that they would do the same prior to discharge as if not, the patient probably needs to be in a half-way type setting. GI saw her with the diarrhea, which was markedly improved after the addition of vancomycin. She had ongoing abdominal pain throughout the stay, likely related to her chronic pancreatitis, which was once again seen on imaging of her abdomen. In addition, she was having vomiting and a barium swallow shows essentially no esophageal motility with food and liquid pooling in her esophagus. GI felt this was mostly gastroparetic in nature and recommended stopping the pain meds that she was getting for the abdominal pain during the hospital and this seemed to improve by the time of discharge where she was at least eating and drinking. She did have an ulcer on her right fourth toe over the PIP joint, which was seen by infectious disease and had completed some antibiotics prior to admission for the same as cellulitis their and they felt this was not a problem and it did not change only improved during the stay. She was felt ready for discharge, then on 06/14/2021 this was accomplished. DISPOSITION: The patient is discharged to home, ADA renal diet. Activity as tolerated, office in 2 weeks. DISCHARGE MEDICATIONS: Listed on the med rec and have been addressed. She has been set up for a new dialysis center at [facility] if she did not like her prior one where she received hemodialysis. SCARLET DR: Anastacio TID: [id number]
--- NOTE | 2021-06-14 16:09 | NUR ---
DISCHARGE INSTRUCTIONS GIVEN, QUESTIONS AND CONCERNS ANSWERED, PATIENT VERBALIZED UNDERSTANDING OF DISCHARGE INFORMATION INCLUDING TAKING ALL MEDICATIONS AND FOLLOWING UP WITH HER PRIMARY PROVIDER IN 1-2 WEEKS, ALL PERSONAL BELONGINGS GATHERED BY THE PATIENT.
== END 2021-06-14 16:35 | disposition home health service (06) | DRG 312 ==
LOC: ER 13:26 → 5 SOUTH 18:05
PROVIDERS: ADMIT Family Medicine; ATTEND Family Medicine
PROC: 5A1D70Z Performance of Urinary Filtration, Intermittent, Less than 6 Hours Per Day (ICD-10-PCS; principal; 2021-06-09)
PROC: 5A1D70Z Performance of Urinary Filtration, Intermittent, Less than 6 Hours Per Day (ICD-10-PCS; 2021-06-11)
DX: I95.1 Orthostatic hypotension (principal); N18.6 End stage renal disease; E43 Unspecified severe protein-calorie malnutrition; A04.71 Enterocolitis due to Clostridium difficile, recurrent; C92.00 Acute myeloblastic leukemia, not having achieved remission; E87.0 Hyperosmolality and hypernatremia; I13.2 Hypertensive heart and chronic kidney disease with heart failure and with stage 5 chronic kidney disease, or end stage renal disease; I42.8 Other cardiomyopathies; J98.11 Atelectasis; K86.1 Other chronic pancreatitis; R64 Cachexia; E03.9 Hypothyroidism, unspecified; E10.22 Type 1 diabetes mellitus with diabetic chronic kidney disease; E10.43 Type 1 diabetes mellitus with diabetic autonomic (poly)neuropathy; E10.65 Type 1 diabetes mellitus with hyperglycemia; E21.3 Hyperparathyroidism, unspecified; E87.6 Hypokalemia; F32.A Depression, unspecified; F41.9 Anxiety disorder, unspecified; G89.29 Other chronic pain; I50.9 Heart failure, unspecified; K21.9 Gastro-esophageal reflux disease without esophagitis; K31.84 Gastroparesis; L08.9 Local infection of the skin and subcutaneous tissue, unspecified; M51.9 Unspecified thoracic, thoracolumbar and lumbosacral intervertebral disc disorder; R13.10 Dysphagia, unspecified; S00.83XA Contusion of other part of head, initial encounter; Z79.4 Long term (current) use of insulin; Z87.11 Personal history of peptic ulcer disease; Z90.49 Acquired absence of other specified parts of digestive tract; Z91.19 Patient's noncompliance with other medical treatment and regimen; Z99.2 Dependence on renal dialysis; Z88.8 Allergy status to other drugs, medicaments and biological substances; Z20.822 Contact with and (suspected) exposure to COVID-19
CPT/HCPCS: 36415; 71045; 72131; 74018; 74176; 74220; 80048; 80053; 80069; 80076; 82150; 82962; 82977; 83036; 83690; 83735; 84443; 84484; 85018; 85025; 85027; 86704; 86706; 87340; 87493; 93005; 96361; 96374; 96375; 96376; C9113; J1815; J2270; J2405; J3480; J7030; J7060; P9046; U0003; U0005; 97110-GP; 97116-GP; 97530-GO; 97530-GP; 99285-25; G0378